=== PATIENT | female | born 1950 | race Caucasian/White ===

== ENCOUNTER 2016-03-05 18:51 | Emergency (ER) | payer MEDICARE ==
[~2016-03-05] VITALS: Ht 154.9 cm; Wt 64.0 kg
[~2016-03-05 18:51] MED LIST: ACTIGALL300 MG PO; ALBUTEROL0.09 MG/A2 IH; ATIVAN0.5 MG PO; ATIVAN1 MG PO; BACTRIM DS 8001 TA1 PO; BIAXIN500 MG PO; CALCIUM PO; CARVEDILOL12.5 MG PO; CEPHALEXIN500 M1 PO; CLARITIN10 MG PO; COMBIVENT1 ARO IH; COREG25 MG PO; DILANTIN100 MG PO; DIVALPROEX SOD500 MG PO; Depakote250 MG PO; EFFEXOR XR75 M1 PO; EFFEXOR-XR75 MG PO; EFFEXOR75 MG PO; EXFORGE 10 MG-31 TAB PO; FENTANYL TRANSDERMAL; FERROUS SULFATE; FLAGYL500 MG PO; HYDROCODONE BIT1 T11 PO; KEFLEX500 MG PO; KEPPRA500 MG PO; KLONOPIN2 M1 PO; KLONOPIN2 MG PO; LAMICTAL25 MG PO; LATANOPROST 2.2.5 ML OU; LIPITOR80 MG PO; LISINOPRIL40 MG PO; LOMOTIL 0.025 M1 TA1 PO; MEDROL DOSEPAK4 MG PO; METFORMIN500 MG PO; NORCO 5-325 TA1 EACH PO; NORCO 7.5-3251 EACH PO; NORVASC10 MG PO; OSCAL,OYSTER S500 MG PO; OYSTER SHELL C500 M2 PO; PERCOCET 325 MG1 TA6 PO; PERCOCET 325 MG1 TA7 PO; PREVACID30 M1 PO; PREVACID30 MG PO; PROAIR HFA0.09 MG/AC IH; ROBITUSSIN AC 110 ML PO; TRAMADOL HCL50 MG PO; TRAMADOL50 MG PO; TRAZADONE; URSODIOL300 MG PO; VENLAFAXINE75 MG PO; VIBRAMYCIN100 MG PO; VICO75300 PO; VIT D PO; VIT. C; VIT. E; VITAMIN C1 TAB PO; VOLTAREN50 MG PO; ZANTAC150 MG PO; ZITHROMAX Z PA250 MG PO; ZOFRAN ODT4 MG SL; ZOFRAN4 MG PO; ZYRTEC10 M2 PO; ZYRTEC10 MG PO; [UNRECOGNIZED DRUG - OTHER] PO; [UNRECOGNIZED DRUG - OTHER] TP
[2016-03-05 21:27] VITALS: BP 171/84
[2016-03-05] MEDS ORDERED: ACETAMINOPHEN-O1 TAB PO (21:33)
[2016-05-09] MEDS ORDERED: KEFLEX500 M1 PO (19:43)
[2016-05-09] MEDS ORDERED: NAPROSYN500 MG PO (19:43)
== END 2016-03-05 21:41 | disposition home or self-care (01) ==
LOC: ED 18:51
DX: S42.92XA Fracture of left shoulder girdle, part unspecified, initial encounter for closed fracture (principal); F41.9 Anxiety disorder, unspecified; Z90.710 Acquired absence of both cervix and uterus; Z90.49 Acquired absence of other specified parts of digestive tract; Z98.890 Other specified postprocedural states; Z88.1 Allergy status to other antibiotic agents; Z91.040 Latex allergy status; W01.0XXA Fall on same level from slipping, tripping and stumbling without subsequent striking against object, initial encounter; Y93.89 Activity, other specified; Y92.89 Other specified places as the place of occurrence of the external cause; Y99.9 Unspecified external cause status

== ENCOUNTER 2016-10-18 11:39 | Inpatient (IN) | payer MEDICARE ==
[~2016-10-18] VITALS: Ht 154.9 cm; Wt 61.7 kg
--- NOTE | ~2016-10-18 | CON ---
[place], [place] REPORT OF CONSULTATION NAME: ROJELIO HERNÁNDEZ UNIT #: [id number] ROOM: 530 DOCTOR: SKYLAR BEST MD BIRTHDATE: [birth year] DOS: 10/20/2016 HISTORY OF PRESENT ILLNESS: The patient was seen in evaluation of hyponatremia. She states that this has happened to her in the past. She is a very poor historian. She does not know any details of any of her medical history. She knows that she is followed by Dr. Reddy and gets pain medications 5 mg. She is not able to tell me any other reasons why she came to the hospital actually either. In review of the H and P in the Emergency Room notes, she presented with gait disturbance and a fall at home and significant weakness. She does have a history of epilepsy and does not know when her last seizure was. She states that she has very poor memory because of that. She states that she has been [facility] and was told she had very low sodiums at that time as well. She does not know if this was 2 years ago or 10 years ago though. In review of laboratories that we have available, she did have a very significant hyponatremia episode with level of 104 back in 07/2013. Subsequent labs in 10/2013 hospitalization showed a sodium 131, which improved to 136 to 140 during that hospital stay for the next few days. Later in that year, it was 137 and then it went back down to 129 before going back up to 137 and 138 and when she presented to the hospital, her sodium level was 122 and then subsequent days it was 129 and 133. She has been getting 40 mL an hour of normal saline and I placed her on a 1200 mL fluid restriction. From what I gathered from the nurses, she had not been eating very well here, suspect this has been carrying over at home. She states that her appetite is not great and she tends not to eat very well at times. She cannot elaborate on this for home at all any further. She is not on any thiazide. Seems no abnormal renal function. She is on lisinopril, carvedilol, amlodipine for blood pressure. She takes naproxen, Percocet and she is on venlafaxine as well. She is not followed by Nephrology, though I know her name somehow. She does seem to have a chart in our electronic medical record, but I do not see any office visits or billing encounters in the last 3-4 years. REVIEW OF SYSTEMS: Unable to obtain reliably from the patient as above. Poor memory, but whatever she does state is negative in all systems except for as mentioned in the HPI. PAST MEDICAL HISTORY: Seizure disorder, anemia, anxiety, depression, GERD, hypertension, hyperlipidemia, hyponatremia, pacemaker, diabetes. SOCIAL HISTORY: Negative for toxic habits per report. Was living at home. History of UTI. FAMILY HISTORY: Negative for renal failure. ALLERGIES: CIPRO, LEVOFLOXACIN, MOXIFLOXACIN, LATEX, and TAPE. HOME MEDICATIONS: Reviewed from the electronic medical record. PHYSICAL EXAMINATION: VITAL SIGNS: 136/69 to 108/50, 97.3, 80, 20, 96% on room air. GENERAL: She is awake, alert, age appropriate female in no acute [place], [place] REPORT OF CONSULTATION NAME: ROJELIO HERNÁNDEZ UNIT #: [id number] ROOM: [facility] DO[facility] Guilherme BIRTHDATE: [birth year] distress, lying comfortably at rest in bed. LUNGS: Clear to auscultation bilaterally. No audible rales, rhonchi or wheeze. CARDIOVASCULAR: Rate regular. No audible rub. No palpable lift or heave. HEAD AND NECK: Sclerae are anicteric. Oropharynx is clear. Mucous membranes are moist. EXTREMITIES: She has a right IJ central line which is clean, dry and intact dressing. EXTREMITIES: Without cyanosis, clubbing or edema. NEUROLOGIC: Gross motor function is intact. Sensation grossly intact. PSYCHIATRIC: Poor memory, insight limited. Affect is otherwise pleasant and appropriate. LABORATORY AND DIAGNOSTIC DATA: Sodium is up to 133. Again, it was 129 and 122 for the last 2 days. Potassium 3.9, chloride 102, bicarb 25, BUN 11, creatinine 0.57, glucose 105. A1c 5.9. Vitamin D 28. Folate 18. White blood cell count 10.8 down from 14; hemoglobin 10.8, platelets 447. Urinalysis is growing gram-negative rods. CBC is not yet identified. X-rays were reviewed. Chest radiograph clear. Head CT is negative for acute strokes. Microvascular leukoencephalopathy is noted. Thoracic spine and lumbar spine films are unremarkable. ASSESSMENT AND PLAN: 1. Hyponatremia. She has had a history of this in the past which was very severe. This was likely not necessarily chronic, but acute exacerbations on a recurrent basis. Etiology is not clear, but volume depletion seems the most likely at this time. 2. Hypertension is well controlled. 3. History of seizure disorder, stable at this time. No episodes or neurologic symptoms noted at this time. 4. Urinary tract infection, also on antibiotics at this time. PLAN: The serum sodium seems to be improving with low rate of isotonic IV fluids and gentle fluid restriction. I would encourage oral protein and solute intake if tolerated well and she can maintain intake. IV fluids can likely be stopped, but for now, would continue the current rate as it seems to be doing well and she does not appear in any volume overload distress. Thank you very much for the kind consultation. [place], [place] REPORT OF CONSULTATION NAME: ROJELIO HERNÁNDEZ UNIT #: [id number] ROOM: [facility] DOCTOR: SKYLAR BEST MD BIRTHDATE: [birth year] SKYLAR BEST MD CM:CONSTR:REPORT OF CONSULTATION 0647 10/20/16 1015 interface
--- NOTE | ~2016-10-18 | EKG ---
[place], [place] ELECTROCARDIOGRAM REPORT NAME: ROJELIO HERNÁNDEZ UNIT #: [id number] ROOM: [facility] DOCTOR: LEANNA SONG MD BIRTHDATE: [birth year] DOS: 10/18/2016 TIME: 1225 hours. Normal sinus rhythm at 82 beats per minute. The tracing is within normal limits. No previous tracing is available for comparison. LEANNA SONG MD CM:EKGRPT:ELECTROCARDIOGRAM REPORT [id number] LEANNA SONG MD
--- NOTE | ~2016-10-18 | PROC NOTE ---
[place], [place] PROCEDURE NOTE NAME: ROJELIO HERNÁNDEZ UNIT #: [id number] ROOM: [facility] DOCTOR: JOE SOLOMON DO BIRTHDATE: [birth year] DOS: 10/18/2016 TIME: 01:17 a.m. INDICATION: Loss of IV peripheral access, history of poor IV peripheral access, history of PICC line. A timeout was completed, verifying the correct patient, procedure, site, positioning, and ultrasound equipment was present. The patient was placed in a Trendelenburg position. The patient was checked with an ultrasound for good IJ target before the procedure was started. Once a good target was found, the patient signed informed consent and the patient was properly prepped and draped in sterile field. Lidocaine 1% was used, about 3 mL of lidocaine was used to numb the surrounding area. The guidewire was introduced under ultrasound guidance and then a triple-lumen was introduced over the guidewire into the right internal jugular vein, each of lumen was properly flushed before the procedure and a good flashback of blood was seen in each lumen and then was properly flushed and capped. The lumen was sutured in place to the skin and sterile dressing was applied. A chest x-ray showed no pneumothorax. The triple lumen was in the SVC. Estimated blood loss was negligible. The patient tolerated the procedure well and there were no complications. JOE SOLOMON DO RADHA GALINDO DO CM:PROCNOTE:PROCEDURE NOTE [id number] JOE SOLOMON DO
[~2016-10-18 11:39] MED LIST changes: +ACETAMINOPHEN-O1 TAB PO; +KEFLEX500 M1 PO; +NAPROSYN500 MG PO
[2016-10-18 11:44] VITALS: BP 113/61
[2016-10-18 12:12] VITALS: BP 122/75
[2016-10-18 12:28] LABS: BASO % 0.3 % (0.0-1.0); EOS # 0.1 10*3/uL (0.0-0.4); HEMATOCRIT 31.5 % (37.0-47.0); HEMOGLOBIN 10.6 g/dl (12.0-16.0); LYMPH # 3.4 10*3/uL (1.3-4.4); LYMPH % 23.5 % (27.0-41.0); MEAN CELL VOLUME 87.7 fl (81.0-99.0); MEAN CORPUSCULAR HGB 29.5 pg (27.0-31.0); MEAN CORPUSCULAR HGB CONC 33.7 g/dl (33.0-37.0); MEAN PLATELET VOLUME 9.2 fl (9.6-12.3); MONO # 1.1 10*3/uL (0.1-1.0); MONO % 7.4 % (3.0-9.0); NEUT # 9.6 10*3/uL (2.3-7.9); NEUT % 66.6 % (47.0-73.0); PLATELET COUNT AUTOMATED 463 10*3/uL (130-400); RED BLOOD COUNT 3.59 10*6/uL (4.10-5.10); RED CELL DISTRI WIDTH 14.2 % (0-14.5); WHITE BLOOD COUNT 14.5 10*3/uL (4.8-10.8)
[2016-10-18 12:46] LABS: ALBUMIN 3.7 gm/dl (3.1-4.5); ALKALINE PHOSPHATASE 91 U/L (45-117); BUN 22 mg/dl (7-24); CHLORIDE 96 mmol/L (98-107); CREATININE 0.84 mg/dL (0.55-1.02); POTASSIUM 4.4 mmol/L (3.5-5.1); SGOT/AST 19 IU/L (3-35); SGPT/ALT 30 U/L (12-78); SODIUM 122 mmol/L (136-145); TOTAL PROTEIN 6.7 gm/dL (6.4-8.2)
[2016-10-18 12:47] LABS: TROPONIN I < 0.015 ng/ml (<0.045)
[2016-10-18 13:41] VITALS: BP 132/74
[2016-10-18 14:13] LABS: BILIRUBIN NEGATIVE (NEGATIVE); BLOOD NEGATIVE (NEGATIVE); CLARITY SL CLOUDY (CLEAR); COLOR YELLOW (YELLOW); GLUCOSE NEGATIVE (NEGATIVE); KETONE NEGATIVE (NEGATIVE); LEUKO ESTERASE 2+ (NEGATIVE); NITRITE POSITIVE (NEGATIVE); SPECIFIC GRAVITY 1.025 (1.005-1.030); UROBILINOGEN 0.2 E.U./dl (0.2-1.0)
[2016-10-18 14:23] LABS: BACTERIA 4+; RBC 0-2 rbc/hpf (0-2)
[2016-10-18 14:55] VITALS: BP 140/80
--- NOTE | 2016-10-18 14:58 | NUR ---
A 66, admitted to [facility], under the services of RADHA Elmore DO with a diagnosis of UTI, HYPONATREMIA, UNABLE TO AMBULATE. Chief complaint is WEAKNESS, INCREASE IN CONFUSION. Patient arrived via ambulance from ER. Monitor applied. Initial assessment completed. Vital signs taken and recorded. RADHA ELMORE DO notified of admission to the unit. Orders received. See assessment for past medical history, medications and allergies. Patient and/or family oriented to unit. [facility] visitation policy reviewed. Clothing/patient valuable form completed. ROSI ANDINO
--- NOTE | 2016-10-18 15:22 | NUR ---
MEDS VERIFIED VIA PHARMACY
--- NOTE | 2016-10-18 15:40 | NUR ---
PATIENT TAKEN TO 5TH FLOOR BY LOUIS MARTÍNEZ AT THIS TIME. ROSI WALLACE HAS BEEN GIVEN REPORT.
[2016-10-18 15:51] VITALS: BP 132/74
[2016-10-18 20:00] VITALS: BP 131/76
--- NOTE | 2016-10-18 20:45 | NUR ---
PATIENT REQUESTING MEDICATION FOR PAIN. PO NORCO ADMINISTERED PER PRN ORDER FOR C/O GENERALIZED BACK/NECK/"WHOLE BODY PAIN" THAT SHE RATES /10. WILL MONITOR EFFECTIVENESS.
--- NOTE | 2016-10-18 23:05 | NUR ---
AWARE THAT LAC IV INFILTRATED AND THAT MULTIPLE RNs UNABLE TO GET IV SITE. FLUIDS ARE NOT CURRENTLY RUNNING. AWARE OF SODIUM LEVEL 122. INSTRUCTED TO HAVE ICU NURSE ATTEMPT AND CALL BACK IF UNSUCCESSFUL.
[2016-10-19] VITALS: BP 125/71
--- NOTE | 2016-10-19 00:15 | NUR ---
AWARE THAT MULTIPLE RNs STILL UNABLE TO START NEW IV SITE. NO NEW ORDERS RECEIVED AT THIS TIME.
--- NOTE | 2016-10-19 00:23 | NUR ---
CALLED BACK. INSTRUCTED TO HAVE PATIENT SIGN INFORMED CONSENT FOR CENTRAL LINE.
--- NOTE | 2016-10-19 01:51 | NUR ---
NOTIFIED OF CHEST XRAY RESULTS. OKAY TO USE RIGHT IJ TRIPLE LUMEN PER .
--- NOTE | 2016-10-19 01:57 | NUR ---
IV MORPHINE ADMINISTERED SLOWLY PER PRN ORDER FOR C/O GENERALIZED "ALL OVER PAIN." WILL MONITOR EFFECTIVENESS. CALL LIGHT LEFT WITHIN REACH. FLUIDS RUNNING. BED LOCKED IN LOW POSITION.
--- NOTE | 2016-10-19 05:03 | NUR ---
NOTIFIED OF HX OF NON-INSULIN DEPENDENT DM. GLUCOPHAGE ORDERED FOR AM. NO BSG CHECKS ORDERED AT THIS TIME. NEW ORDERS TO FOLLOW.
[2016-10-19 06:00] LABS: ALKALINE PHOSPHATASE 92 U/L (45-117); BUN 13 mg/dl (7-24); CHLORIDE 97 mmol/L (98-107); CHOLESTEROL 131 mg/dL (<200); CREATININE 0.58 mg/dL (0.55-1.02); HDL CHOLESTEROL 55 mg/dl (40-60); LDL CHOLESTEROL 35 mg/dL (9-159); MAGNESIUM 1.5 mg/dL (1.5-2.1); PHOSPHOROUS 3.1 mg/dL (2.5-4.9); SGOT/AST 20 IU/L (3-35); SGPT/ALT 32 U/L (12-78); SODIUM 129 mmol/L (136-145); TOTAL PROTEIN 7.3 gm/dL (6.4-8.2); TRIGLYCERIDES 205 mg/dl (<150); VLDL CHOLESTEROL 41 mg/dL (6-40)
[2016-10-19 06:06] LABS: THYROID STIM HORMONE (HS) 0.594 uIU/ml (0.358-4.75)
[2016-10-19 06:13] LABS: BASO % 0.3 % (0.0-1.0); EOS # 0.1 10*3/uL (0.0-0.4); EOS % 1.1 % (1.0-4.0); HEMATOCRIT 34.2 % (37.0-47.0); HEMOGLOBIN 11.4 g/dl (12.0-16.0); LYMPH # 3.3 10*3/uL (1.3-4.4); LYMPH % 25.4 % (27.0-41.0); MEAN CELL VOLUME 87.2 fl (81.0-99.0); MEAN CORPUSCULAR HGB 29.1 pg (27.0-31.0); MEAN CORPUSCULAR HGB CONC 33.3 g/dl (33.0-37.0); MEAN PLATELET VOLUME 10.2 fl (9.6-12.3); MONO % 7.7 % (3.0-9.0); NEUT # 8.5 10*3/uL (2.3-7.9); NEUT % 64.8 % (47.0-73.0); PLATELET COUNT AUTOMATED 450 10*3/uL (130-400); RED BLOOD COUNT 3.92 10*6/uL (4.10-5.10); RED CELL DISTRI WIDTH 13.9 % (0-14.5); WHITE BLOOD COUNT 13.1 10*3/uL (4.8-10.8)
[2016-10-19 08:00] VITALS: BP 132/66
[2016-10-19 08:09] LABS: VITAMIN D, 25-HYDROXY 27.7 ng/mL (30-100)
--- NOTE | 2016-10-19 09:04 | NUR ---
MEDICATED WITH PRN NORCO ORDERED FOR C/O BACK PAIN RATED AN 8. OTHERWISE PATIENT HAS NO OTHER COMPLAINTS. NO SXS OF DISTRESS. SEE ASSESSMENT. FLUIDS MAINTAINED PER ORDER. CALL LIGHT IN REACH
--- NOTE | 2016-10-19 10:25 | NUR ---
PATIENT STATES THAT EARLIER NORCO WAS EFFECTIVE WITH HER BACK PAIN.
[2016-10-19 11:55] VITALS: BP 107/53
--- NOTE | 2016-10-19 13:20 | NUR ---
PATIENT IS SLEEPING IN HER ROOM. CALL LIGHT IN REACH. NO SXS OF DISTRESS AT THIS TIME. RESPIRATIONS EASY/REGULAR. FLUIDS MAINTAINED PER ORDER. WILL MONITOR.
--- NOTE | 2016-10-19 14:37 | NUR ---
ANSWERING SERVICE WAS NOTIFIED OF DR. NASIR COSTA. RESPONSE OF NOTIFICATION WAS OKAY I'LL SEND THAT OVER. SHANNAN GARCIA
[2016-10-19 16:00] VITALS: BP 120/56
--- NOTE | 2016-10-19 16:12 | NUR ---
MEDICATED WITH PRN NORCO ORDERED FOR C/O BACK PAIN AT AN 8.
--- NOTE | 2016-10-19 17:15 | NUR ---
PATIENT STATES EARLIER VIVIENNE TOOK THE EDGE OFF HER PAIN A LITTLE BIT. SHE IS RESTING IN BED, NO SXS OF DISTRESS. FLUIDS MAINTAINED PER ORDED. CALL LIGHT IN REACH.
--- NOTE | 2016-10-19 18:28 | NUR ---
PATIENT MEDICATED WITH PRN KLONOPIN ORDERED FOR C/O ANXIETY.
[2016-10-19 20:00] VITALS: BP 108/50
[2016-10-20] VITALS: BP 136/69; BP 136/79
--- NOTE | 2016-10-20 00:30 | NUR ---
Patient resting quietly with no c/o discomfort. Respirations easy and regular. Vital signs stable. No overt distress. [facility] R
[2016-10-20 05:56] LABS: BASO # 0.1 10*3/uL (0.0-0.1); BASO % 0.5 % (0.0-1.0); EOS # 0.1 10*3/uL (0.0-0.4); EOS % 1.2 % (1.0-4.0); HEMATOCRIT 32.3 % (37.0-47.0); HEMOGLOBIN 10.8 g/dl (12.0-16.0); LYMPH # 3.1 10*3/uL (1.3-4.4); LYMPH % 28.9 % (27.0-41.0); MEAN CELL VOLUME 89.5 fl (81.0-99.0); MEAN CORPUSCULAR HGB 29.9 pg (27.0-31.0); MEAN CORPUSCULAR HGB CONC 33.4 g/dl (33.0-37.0); MEAN PLATELET VOLUME 9.4 fl (9.6-12.3); MONO % 9.2 % (3.0-9.0); NEUT # 6.4 10*3/uL (2.3-7.9); NEUT % 59.6 % (47.0-73.0); PLATELET COUNT AUTOMATED 447 10*3/uL (130-400); RED BLOOD COUNT 3.61 10*6/uL (4.10-5.10); RED CELL DISTRI WIDTH 14.4 % (0-14.5); WHITE BLOOD COUNT 10.8 10*3/uL (4.8-10.8)
[2016-10-20 06:06] LABS: BUN 11 mg/dl (7-24); CHLORIDE 102 mmol/L (98-107); CREATININE 0.57 mg/dL (0.55-1.02); POTASSIUM 3.9 mmol/L (3.5-5.1); SODIUM 133 mmol/L (136-145)
--- NOTE | 2016-10-20 06:20 | NUR ---
DR BEST IN TO SEE PT.
[2016-10-20 08:00] VITALS: BP 126/72
--- NOTE | 2016-10-20 08:06 | NUR ---
PATIENT SLEEPING QUIETLY IN BED. AROUSES EASILY. RESPIRATIONS EASY, REGULAR ON RA. NO DISTRESS NOTED. IVF MAINTAINED PER ORDER. WILL CONTINUE TO MONITOR. CALL LIGHT WITHIN REACH.
--- NOTE | 2016-10-20 08:21 | NUR ---
PT REQUESTED NORCO PO PER PRN ORDER FOR C/O ALL OVER PAIN/DISCOMFORT. RATES PAIN 8/10. CHRONIC PAIN PER PT. WILL MONITOR EFFECTIVENESS.
--- NOTE | 2016-10-20 10:18 | NUR ---
PT REQUESTED PO KLONIPIN PER PRN ORDER FOR C/O ANXIETY. WILL MONITOR EFFECTIVENESS. CALL LIGHT WITHIN REACH.
--- NOTE | 2016-10-20 10:42 | NUR ---
NOTIFIED REGARDING PATIENT'S REQUEST FOR PERCOCET RATHER THAN NORCO. AWAITING PHYSICIAN ORDERS.
--- NOTE | 2016-10-20 11:30 | NUR ---
IN TO SEE PATIENT.
--- NOTE | 2016-10-20 11:50 | NUR ---
SCHEDULED PERCOCET GIVEN AT THIS TIME PER ORDER. WILL MONITOR MEDICATION EFFECTIVENESS.
[2016-10-20 12:00] VITALS: BP 128/74
--- NOTE | 2016-10-20 13:00 | NUR ---
PAIN BEING SLIGHTLY RELIEVED PER PT. WILL CONTINUE TO MONITOR.
--- NOTE | 2016-10-20 14:02 | NUR ---
PT MEDICATED WITH IV MORPHINE SLOWLY PER PRN ORDER FOR C/O ALL OVER PAIN/DISCOMFORT. RATES PAIN 8/10. CHRONIC PAIN PER PT. WILL MONITOR EFFECTIVENESS. CALL LIGHT WITHIN REACH.
[2016-10-20] MEDS ORDERED: VITAMIN D31000 UNI1 PO (14:18)
[2016-10-20] MEDS ORDERED: DOXYCYCLINE100 M3 PO (14:19)
--- NOTE | 2016-10-20 15:00 | NUR ---
PAIN BEING RELIEVED PER PT. WILL CONTINUE TO MONITOR.
[2016-10-20 16:00] VITALS: BP 108/56
--- NOTE | 2016-10-20 17:55 | NUR ---
PT GIVEN PO KLONIPIN AND PO NORCO AT THIS TIME PER PRN ORDER FOR C/O ANXIETY AND BACK PAIN. CHRONIC PAIN PER PT. RATES PAIN 10/10. WILL MONITOR EFFECTIVENESS. VSS. CALL LIGHT WITHIN REACH.
[2016-10-20 20:00] VITALS: BP 114/68
--- NOTE | 2016-10-20 20:20 | NUR ---
RESP EASY AND NONLABORED ON RA. IVF INFUSING PER ORDERS. PT REQUESTED MORPHINE IV FOR C/O BACK PAIN. CALL LIGHT IN REACH. WILL MONITOR
--- NOTE | 2016-10-20 21:30 | NUR ---
PT STATES MEDICATION EFFECTIVE. WILL MONITOR
[2016-10-21] VITALS: BP 107/62
[2016-10-21 08:00] VITALS: BP 134/60
--- NOTE | 2016-10-21 09:28 | NUR ---
Denture Processor in to talk to patient. Patient states lives at home with alone. There are few steps in the home. Physician: shayne [facility]: [facility] [place] health services: none Patient's level of ADLs: MINIMAL ASSIST Patient has working utilities: all working DME: none Follow-up physician's appointment after d/c: will be made by hospitalist nurse director upon discharge Does patient want to access PORTAL?: no Discharge plan discussed with patient, patient lives at home alone, she states she doesn't use a cane or walker, she also states she has had numerous falls at home, she has a daughter that takes her to get groceries, discussed with her a short term jail for rehab prior to going back home, patient wasn't receptive to this, asked that she see what physical therapy recommends and if they recommend SNF that she think about it, patient stated she would see what PT recommends, case management will follow. CIARA KOHLI
--- NOTE | 2016-10-21 11:58 | NUR ---
Met with Preethi and her daughter. She will be going home today. Order for home health service. Daughter requested [facility]. Also gave information to Preethi of [facility]. Daughter if familiar with the programs. Referral made to [facility].
[2016-10-21 12:00] VITALS: BP 130/56
--- NOTE | 2016-10-21 12:20 | NUR ---
PHYSICAL THERAPY PAtient evaluated on 5, full evaluation to follow. D/C PT after evaluation. Patient 100 % (I) all functional mobility. PAtient agrees. Home with home health Rn as needed. PAtient is low complexity via chart review, tests and evaluation: 51272. Thank you for this referral. Eladia Hooks,PT
--- NOTE | 2016-10-21 13:40 | NUR ---
Discharge instructions reviewed with patient/family. Patient receptive and verbalizes understanding. Follow-up care arranged. Written instructions given to patient/family. YESENIA GALLEGOS
--- NOTE | 2016-10-22 13:55 | NUR ---
Late note: RODRIGO Mcmillan from [facility] called and stated she went to the patients home to perform an admission, patient stated she only asked for aide services, not fci and sent RN away. Unable to admit.
== END 2016-10-21 13:40 | disposition home or self-care (01) | DRG 690 ==
LOC: ED 11:39 → EDHOLD 14:39 → 5E 14:39
PROVIDERS: Emergency Medicine; ADMIT Internal Medicine
PROC: B548ZZA Ultrasonography of Superior Vena Cava, Guidance (ICD-10-PCS; principal; 2016-10-18)
PROC: 02HV33Z Insertion of Infusion Device into Superior Vena Cava, Percutaneous Approach (ICD-10-PCS; principal; 2016-10-18)
DX: N39.0 Urinary tract infection, site not specified (principal); E87.1 Hypo-osmolality and hyponatremia; I10 Essential (primary) hypertension; E11.9 Type 2 diabetes mellitus without complications; F32.9 Major depressive disorder, single episode, unspecified; B96.20 Unspecified Escherichia coli [E. coli] as the cause of diseases classified elsewhere; D47.3 Essential (hemorrhagic) thrombocythemia; D64.9 Anemia, unspecified; E78.5 Hyperlipidemia, unspecified; K21.9 Gastro-esophageal reflux disease without esophagitis; F41.9 Anxiety disorder, unspecified; G89.29 Other chronic pain; M54.5 Low back pain; G40.909 Epilepsy, unspecified, not intractable, without status epilepticus; E86.9 Volume depletion, unspecified; Z88.1 Allergy status to other antibiotic agents; Z91.040 Latex allergy status; Z91.048 Other nonmedicinal substance allergy status; Z79.899 Other long term (current) drug therapy; Z87.81 Personal history of (healed) traumatic fracture; Z87.01 Personal history of pneumonia (recurrent); Z90.710 Acquired absence of both cervix and uterus; Z90.49 Acquired absence of other specified parts of digestive tract; Z83.3 Family history of diabetes mellitus; Z82.49 Family history of ischemic heart disease and other diseases of the circulatory system; Z82.3 Family history of stroke; Z95.0 Presence of cardiac pacemaker; Z79.84 Long term (current) use of oral hypoglycemic drugs

== ENCOUNTER 2016-11-17 09:28 | Emergency (ER) | payer MEDICARE ==
[~2016-11-17] VITALS: Ht 154.9 cm; Wt 65.3 kg
[~2016-11-17 09:28] MED LIST changes: +DOXYCYCLINE100 M3 PO; +VITAMIN D31000 UNI1 PO
[2016-11-17 09:45] VITALS: BP 134/91
[2016-11-17 10:28] LABS: BILIRUBIN 1+ (NEGATIVE); BLOOD NEGATIVE (NEGATIVE); CLARITY SL CLOUDY (CLEAR); COLOR YELLOW (YELLOW); GLUCOSE NEGATIVE (NEGATIVE); KETONE NEGATIVE (NEGATIVE); LEUKO ESTERASE 2+ (NEGATIVE); NITRITE NEGATIVE (NEGATIVE); PH 5.5 (5.0-9.0); UROBILINOGEN 0.2 E.U./dl (0.2-1.0)
[2016-11-17 10:47] LABS: BACTERIA 2+; RBC 0-2 rbc/hpf (0-2)
[2016-11-17] MEDS ORDERED: BACTRIM 400-801 EACH PO (11:04)
[2016-11-17] MEDS ORDERED: PYRIDIUM200 M1 PO (11:04)
== END 2016-11-17 11:04 | disposition home or self-care (01) ==
LOC: ED 09:28
PROVIDERS: Family Medicine Adult Medicine
DX: N39.0 Urinary tract infection, site not specified (principal); I10 Essential (primary) hypertension; E11.9 Type 2 diabetes mellitus without complications; K21.9 Gastro-esophageal reflux disease without esophagitis; E78.5 Hyperlipidemia, unspecified; Z88.1 Allergy status to other antibiotic agents; Z91.040 Latex allergy status; Z79.899 Other long term (current) drug therapy; Z87.891 Personal history of nicotine dependence

== ENCOUNTER → 2016-12-23 | Outpatient (CLI) | payer MEDICARE ==
[~2016-12-23] MED LIST changes: +BACTRIM 400-801 EACH PO; +PYRIDIUM200 M1 PO
== END | disposition home or self-care (01) ==
LOC: LAB 13:26
DX: G40.919 Epilepsy, unspecified, intractable, without status epilepticus (principal)

== ENCOUNTER 2016-12-28 23:56 | Emergency (ER) | payer MEDICARE ==
[2016-12-29] MEDS ORDERED: AVPAK AZITHROM250 M1 PO (00:48)
[2016-12-29 01:11] VITALS: BP 173/71
[2016-12-29] MEDS ORDERED: NAPROSYN500 MG PO (01:13)
== END 2016-12-29 01:48 | disposition home or self-care (01) ==
LOC: ED 23:56
DX: M54.2 Cervicalgia (principal); M54.9 Dorsalgia, unspecified; F41.9 Anxiety disorder, unspecified; E11.9 Type 2 diabetes mellitus without complications; K21.9 Gastro-esophageal reflux disease without esophagitis; I10 Essential (primary) hypertension; E78.5 Hyperlipidemia, unspecified; Z90.49 Acquired absence of other specified parts of digestive tract; Z90.710 Acquired absence of both cervix and uterus; Z87.891 Personal history of nicotine dependence; Z91.040 Latex allergy status; Z88.1 Allergy status to other antibiotic agents; Z79.84 Long term (current) use of oral hypoglycemic drugs; Z79.899 Other long term (current) drug therapy

== ENCOUNTER 2017-01-09 13:12 | Emergency (ER) | payer MEDICARE ==
[~2017-01-09] VITALS: Ht 154.9 cm; Wt 61.2 kg
[~2017-01-09 13:12] MED LIST changes: +AVPAK AZITHROM250 M1 PO
[2017-01-09 13:17] VITALS: BP 111/63
[2017-01-09] MEDS ORDERED: NAPROSYN500 MG PO (13:40)
== END 2017-01-09 13:30 | disposition home or self-care (01) ==
LOC: ED 13:12
DX: M54.2 Cervicalgia (principal); E11.9 Type 2 diabetes mellitus without complications; K21.9 Gastro-esophageal reflux disease without esophagitis; I10 Essential (primary) hypertension; E78.5 Hyperlipidemia, unspecified; Z90.710 Acquired absence of both cervix and uterus; Z90.49 Acquired absence of other specified parts of digestive tract; Z87.891 Personal history of nicotine dependence; Z79.899 Other long term (current) drug therapy; Z88.1 Allergy status to other antibiotic agents; Z91.040 Latex allergy status; Z88.8 Allergy status to other drugs, medicaments and biological substances; W19.XXXA Unspecified fall, initial encounter; Y93.89 Activity, other specified; Y92.89 Other specified places as the place of occurrence of the external cause; Y99.9 Unspecified external cause status

== ENCOUNTER 2017-01-14 23:32 | Inpatient (IN) | payer MEDICARE ==
[~2017-01-14] VITALS: Ht 124.4 cm; Wt 64.6 kg
--- NOTE | ~2017-01-14 | CON ---
[place], [place] REPORT OF CONSULTATION NAME: ROJELIO [facility]NDEZ [id number] UNIT #: [id number] ROOM: 409 DOCTOR: VINOD HERNANDEZ MD BIRTHDATE: [birth year] DOS: 01/16/2017 CHIEF COMPLAINT: "I just had the shaking episodes, I do not know what is happening." HISTORY OF PRESENT ILLNESS: This is a 66-year-old white female who presented to the Emergency Room at [facility] via EMS complaining of having 12-15 seizures on the day of admission. The patient reports that she had fallen and hit her head and following that began having these severe shaking episodes. She was awake and alert and aware of them. She reports having been told she has had seizures in the past; however, her description of the seizure seems inconsistent. She has seen Dr. Reyes at [facility] in the past and will be following up at [facility] in [place]. From a psychiatric standpoint, the patient sees Dr. Trevino and is prescribed Effexor XR 150 mg a day. She also sees a counselor in his office. She is happy with the current psychotropic regimen and feels that it has been effective at treating her depression. Her sleep is reported as normal. Her only complaint was that she has a poor appetite. She was somewhat vague whether this was due to lack of desire or lack of taste. She denies crying spells. She denies suicidal thoughts or homicidal thoughts. She denies medication side effects. PAST MEDICAL HISTORY: Remarkable for GERD, hiatal hernia, hypertension, hyperlipidemia, anemia, morbid obesity, vitamin D deficiency, prediabetes and possible seizure disorder. MENTAL STATUS: She is alert and oriented with mild time gaps. Mood does seem to be euthymic. Affect is appropriate. There is no symptom suggestive of bernabe or hypomania; likewise there are no overt auditory or visual hallucinations. No delusions, no paranoia. For the most part, memory is intact. DIAGNOSIS: Major depression, recurrent. PLAN: I will maintain her Effexor XR at 150 mg a day as she reports she is happy with this and does not want changes. I will add zinc sulfate 220 mg a day to improve her sense of taste. I have ordered a prolactin level to see if it is elevated to help you determine whether or not this is a true seizure or pseudoseizure. At this point, I have no criteria for psychiatric admission and feel that she could be discharged once you feel that she is medically stable. [place], [place] REPORT OF CONSULTATION NAME: ROJELIO HERNÁNDEZ UNIT #: [id number] ROOM: [facility] DOCTOR: VINOD HERNANDEZ MD BIRTHDATE: [birth year] VINOD HERNANDEZ MD CM:CONSTR:REPORT OF CONSULTATION 4 01/16/17 0950 interface
[2017-01-14 23:32] VITALS: BP 123/64
[2017-01-15 00:16] LABS: BASO # 0.1 10*3/uL (0.0-0.1); BASO % 0.6 % (0.0-1.0); EOS # 0.3 10*3/uL (0.0-0.4); EOS % 2.7 % (1.0-4.0); HEMATOCRIT 27.3 % (37.0-47.0); HEMOGLOBIN 8.7 g/dl (12.0-16.0); LYMPH # 2.3 10*3/uL (1.3-4.4); LYMPH % 24.2 % (27.0-41.0); MEAN CELL VOLUME 93.8 fl (81.0-99.0); MEAN CORPUSCULAR HGB 29.9 pg (27.0-31.0); MEAN CORPUSCULAR HGB CONC 31.9 g/dl (33.0-37.0); MEAN PLATELET VOLUME 10.1 fl (9.6-12.3); MONO # 1.1 10*3/uL (0.1-1.0); MONO % 12.2 % (3.0-9.0); NEUT # 5.6 10*3/uL (2.3-7.9); NEUT % 59.9 % (47.0-73.0); PLATELET COUNT AUTOMATED 300 10*3/uL (130-400); RED BLOOD COUNT 2.91 10*6/uL (4.10-5.10); RED CELL DISTRI WIDTH 15.4 % (0-14.5); WHITE BLOOD COUNT 9.3 10*3/uL (4.8-10.8)
[2017-01-15 00:46] LABS: ALBUMIN 3.6 gm/dl (3.1-4.5); ALKALINE PHOSPHATASE 83 U/L (45-117); BUN 21 mg/dl (7-24); CHLORIDE 94 mmol/L (98-107); CREATININE 1.14 mg/dL (0.55-1.02); POTASSIUM 3.8 mmol/L (3.5-5.1); SGOT/AST 18 IU/L (3-35); SGPT/ALT 17 U/L (12-78); SODIUM 132 mmol/L (136-145); TOTAL PROTEIN 6.9 gm/dL (6.4-8.2)
[2017-01-15 00:51] LABS: TROPONIN I < 0.015 ng/ml (<0.045)
[2017-01-15 02:45] VITALS: BP 128/54
[2017-01-15 03:28] LABS: BILIRUBIN NEGATIVE (NEGATIVE); BLOOD NEGATIVE (NEGATIVE); CLARITY SL CLOUDY (CLEAR); COLOR YELLOW (YELLOW); GLUCOSE NEGATIVE (NEGATIVE); KETONE NEGATIVE (NEGATIVE); LEUKO ESTERASE 2+ (NEGATIVE); NITRITE NEGATIVE (NEGATIVE); UROBILINOGEN 0.2 E.U./dl (0.2-1.0)
[2017-01-15 03:33] LABS: BACTERIA 3+
[2017-01-15 03:35] LABS: WBC 16-20 wbc/hpf (0-5)
[2017-01-15 04:00] VITALS: BP 126/58
[2017-01-15 04:03] LABS: CPK 111 U/L (26-192)
[2017-01-15 04:05] LABS: TROPONIN I < 0.015 ng/ml (<0.045)
--- NOTE | 2017-01-15 04:40 | NUR ---
DR. GALLARDO NOTIFIED OF FITTING ROOM MAINTENANCE MECHANIC AND LATEST BLOODSUGAR REQUESTED.
[2017-01-15 06:32] LABS: BASO # 0.1 10*3/uL (0.0-0.1); EOS # 0.3 10*3/uL (0.0-0.4); EOS % 3.6 % (1.0-4.0); HEMATOCRIT 29.7 % (37.0-47.0); HEMOGLOBIN 9.5 g/dl (12.0-16.0); LYMPH # 2.4 10*3/uL (1.3-4.4); LYMPH % 33.1 % (27.0-41.0); MEAN CELL VOLUME 95.8 fl (81.0-99.0); MEAN CORPUSCULAR HGB 30.6 pg (27.0-31.0); MEAN PLATELET VOLUME 10.2 fl (9.6-12.3); MONO # 1.2 10*3/uL (0.1-1.0); MONO % 16.8 % (3.0-9.0); NEUT # 3.3 10*3/uL (2.3-7.9); NEUT % 45.2 % (47.0-73.0); PLATELET COUNT AUTOMATED 293 10*3/uL (130-400); RED CELL DISTRI WIDTH 15.2 % (0-14.5); WHITE BLOOD COUNT 7.3 10*3/uL (4.8-10.8)
[2017-01-15 06:34] LABS: VITAMIN D, 25-HYDROXY 25.4 ng/mL (30-100)
[2017-01-15 06:49] LABS: ALBUMIN 3.4 gm/dl (3.1-4.5); ALKALINE PHOSPHATASE 81 U/L (45-117); BUN 17 mg/dl (7-24); CHLORIDE 95 mmol/L (98-107); PHOSPHOROUS 3.8 mg/dL (2.5-4.9); POTASSIUM 3.9 mmol/L (3.5-5.1); SGOT/AST 21 IU/L (3-35); SGPT/ALT 16 U/L (12-78); SODIUM 133 mmol/L (136-145); TOTAL PROTEIN 6.7 gm/dL (6.4-8.2)
--- NOTE | 2017-01-15 07:30 | NUR ---
PATIENT SUPINE IN BED, VIOLA HAS NO VERBAL COMPLAINTS AT THIS TIME. CALL LIGHT WITH IN REACH. EDUCATED NOT TO GET OUT OF BED WITHOUT ASSISTANCE. ANNY CLEMENTCC
[2017-01-15 07:40] VITALS: BP 126/72
--- NOTE | 2017-01-15 08:34 | NUR ---
OFFERED BREAKFAST, PATIENT REFUSING AT THIS TIME ANNY BURDEN [facility]
--- NOTE | 2017-01-15 09:23 | NUR ---
Research Tech in to talk to patient. Patient states lives at home with alone. There are few steps in the home. Physician: shayne [facility]: [facility] [place] health services: none Patient's level of ADLs: MINIMAL ASSIST Patient has working utilities: all working DME: Follow-up physician's appointment after d/c: will be made by hospitalist nurse director upon discharge Does patient want to access PORTAL?: no Discharge plan discussed with patient's daughter Cassandra, Cassandra stated that her mom lives alone, and has been falling lately due to seizures, also discussed with her a short term [facility] for rehab prior to going back home, daughter was inagreement with this and chose [facility] as first choice and [facility] as second choice, referral will be made to both facitilies by senior production planner/clinical social work aide. case management will follow. CIARA KOHLI
[2017-01-15] MEDS ORDERED: FEOSOL325 MG PO (09:51)
--- NOTE | 2017-01-15 10:00 | NUR ---
PT IS RESTING IN BED, ON LEFT SIDE, VISITING WITH FAMILY MEMBER, CALL LIGHT WITHIN REACH. [facility]
[2017-01-15 12:00] VITALS: BP 146/69
--- NOTE | 2017-01-15 12:17 | NUR ---
PT IS RESTING IN BED, CALL LIGHT IN REACH. [facility]
--- NOTE | 2017-01-15 12:22 | NUR ---
PHYSICAL THERAPY PAtient resting peacefully. Nurse and PT discussed patient/case. Will let patient rest at this time and intiate PT tomorrow as appropriate. Thank you for this referral. Eladia Malhotra,PT
--- NOTE | 2017-01-15 13:27 | NUR ---
PATIENT IS RESTING IN BED, SLEEPING. VANNESSA RIVERO [facility]
--- NOTE | 2017-01-15 14:05 | NUR ---
LEFT MESSAGE WITH DR. HERNANDEZ IN REFERANCE TO CONSULT.
[2017-01-15 16:00] VITALS: BP 130/56
[2017-01-15 20:00] VITALS: BP 128/48
--- NOTE | 2017-01-15 22:34 | NUR ---
PATIENT REQUESTED AND WAS MEDICATED WITH KLONOPIN 2 MG PO PER PRN ORDER FOR ANXIETY. SEE EMAR. REINFORCED USE OF CALL LIGHT.
[2017-01-16] VITALS: BP 121/48
--- NOTE | 2017-01-16 | NUR ---
PATIENT RESTING QUIETLY. NO FURTHER C/O VOICED.
[2017-01-16 07:49] VITALS: BP 136/88
--- NOTE | 2017-01-16 07:49 | NUR ---
PATIENT IS RESTING IN BED, NO COMPLAINTS OF PAIN. VANNESSA RIVERO [facility]
--- NOTE | 2017-01-16 08:54 | NUR ---
Patient requested referral be made to 1. [facility] or 2. [facility]. Referrals faxed to both locations, waiting on acceptance.
--- NOTE | 2017-01-16 09:16 | NUR ---
Occupational Therapy evaluation completed this date on 4 with full eval to follow. Precautions include fall precautions,h/o multiple falls, seizures, chronic neck pain, moderate complexity level 59924,bed alarm, o2 continuous. Recommend OT per POC and short term SNF to enable return home alone at independent level. Thank you for this referral. Corinne Cottrell OTR/L
--- NOTE | 2017-01-16 09:16 | NUR ---
PHYSICAL THERAPY PAtient on 4, full evaluation to follow. Continue with PT as pe rplan of care with fall, recent multiple seizures and bed alarm precautions. PAtient is moderate complexity via chart review, tests and evaluation: 65672. Thank you for this referral. Eladia Hooks,PT
--- NOTE | 2017-01-16 10:15 | NUR ---
SET UP PATIENT TO WASH FACE AND HANDS. PATIENT REFUSED BATH. VANNESSA RIVERO [facility]
--- NOTE | 2017-01-16 10:34 | NUR ---
PATIENT IS SITTING UP IN BED WATCHING TV, NO COMPLAINTS AT THIS TIME. [facility]SA [facility]IV[facility]
--- NOTE | 2017-01-16 12:00 | NUR ---
PATIENT IS RESTING COMFORTABLY IN BED, CALL LIGHT IN REACH. [facility]ANNESSA RIVERO [facility]
[2017-01-16 12:27] VITALS: BP 128/70
--- NOTE | 2017-01-16 12:58 | NUR ---
PATIENT WAS INSTRUCTED ON HOW TO GIVE A STOOL SAMPLE USING HAT SEVERAL TIMES AND VERBALIZED UNDERSTANDING ON HOW TO DO SO, PATIENT THEN DEFECATED IN TOLIET, AND LEFT TOLIET PAPER IN HAT. REINFORCED EDUCATION ON STOOL SAMPLE AND PATIENT VERBALIZE UNDERSTANDING. [facility]SA [facility]
--- NOTE | 2017-01-16 13:16 | NUR ---
PHYSICAL THERAPY Patient presented to therapy in supine with report of wanting to walk. Patient performed supine to sitting at EOB with SBA. Patient performed sit to stand with SBA. Patient ambulated 72' x 1 in room with CGA X 1, no assistive device and no spO2. Patient was left in supine in bed with bed alarm activated and call light within reach. Patient tolerated treatment very well with no LOB and no other difficulty. Patient was 1:1 with this CERTIFIED REAL ESTATE APPRAISER for 15 minutes total. Amadou Mcpherson CERTIFIED REAL ESTATE APPRAISER
--- NOTE | 2017-01-16 13:52 | NUR ---
No beds available at [facility], [facility] is reviewing referral, waiting on acceptance.
--- NOTE | 2017-01-16 13:52 | NUR ---
PATIENT IS SITTING UP IN BED WATCHING TV, NO COMPLAINTS AT THIS TIME. VANNESSA RIVERO [facility]
[2017-01-16 16:00] VITALS: BP 140/71
[2017-01-16 20:00] VITALS: BP 117/71
--- NOTE | 2017-01-16 21:00 | NUR ---
RESTING IN BED. RESPIRATIONS EASY. LUNGS DIMINISHED, CLEAR. PULSE OX 94% RA, O2 PRESENT AT BEDSIDE BUT NOT IN USE. TEDS IN PLACE. CALL LIGHT WITHIN REACH. NO VOICED COMPLAINTS
[2017-01-16] MEDS ORDERED: Percocet 325 MG1 TAB PO (21:16)
[2017-01-16] MEDS ORDERED: LAMOTRIGINE100 MG PO (21:16)
--- NOTE | 2017-01-16 21:40 | NUR ---
PATIENT REQUESTING PAIN MEDS, STATES SHE RECEIVES PERCOCET 1-2 Q6H PRN AT HOME. MED REC REVIEWED AND UPDATED. DR Kathia GALLARDO INFORMED OF CHANGES TO PERCOCET, LAMICTAL AND NAPROXEN
--- NOTE | 2017-01-16 22:20 | NUR ---
DR Kathia GALLARDO PRESENT ON FLOOR, JUST FINISHED ASSESSING ADMISSION. EXPLAINED THAT PATIENT AGAIN ASKING FOR PAIN MEDS.
--- NOTE | 2017-01-16 23:04 | NUR ---
REQUESTED AND RECEIVED PERCOCET PER PRN ORDER FOR COMPLAINTS OF BACK PAIN RATING A 10, CHRONIC IN NATURE. CALL LIGHT WITHIN REACH. WILL MONITOR FOR EFFECTIVENESS
[2017-01-17] VITALS: BP 120/68
--- NOTE | 2017-01-17 00:30 | NUR ---
EARLIER MEDS APPEAR EFFECTIVE. RESTING WITH EYES CLOSED. RESPIRATIONS EASY. VSS. CALL LIGHT WITHIN REACH.
--- NOTE | 2017-01-17 03:00 | NUR ---
CONTINUES TO REST WITH EYES CLOSED. CALL LIGHT WITHIN REACH
--- NOTE | 2017-01-17 05:31 | NUR ---
REQUESTED AND RECEIVED PERCOCET PER PRN ORDER FOR COMPLAINTS OF CHRONIC BACK PAIN RATING A 7. CALL LIGHT WITHIN REACH. WILL MONITOR FOR EFFECTIVENESS
--- NOTE | 2017-01-17 06:30 | NUR ---
EARLIER MEDS APPEAR EFFECTIVE, SLEEPING. RESPIRATIONS EASY. CALL LIGHT WITHIN REACH
[2017-01-17 08:00] VITALS: BP 136/54
--- NOTE | 2017-01-17 09:05 | NUR ---
PHYSICAL THERAPY Patient presented to therapy with report of feeling good today and wanting to do therapy. Patient performed supine to sitting at EOB Independently. Patient performed sit to stand Independently. Patient performed gait with no assistive device 200' x 1 with CORRESPONDENCE CLERK. Patient had no episodes of LOB or other difficulty while performing gait. Patient was left in supine position with call light within reach. Patient was 1:1 with this NATIONAL ACCOUNT DIRECTOR for 15 minutes. NICOLETTE ROMAN NATIONAL ACCOUNT DIRECTOR
--- NOTE | 2017-01-17 09:46 | NUR ---
Received authorization for patient to go to [facility], can go today if medically stable.
[2017-01-17] MEDS ORDERED: MACROBID100 M1 PO (11:21)
[2017-01-17] MEDS ORDERED: Percocet 325 MG1 TAB PO (11:21)
[2017-01-17] MEDS ORDERED: ZINC SULFATE220 MG PO (11:21)
--- NOTE | 2017-01-17 11:38 | NUR ---
Called to patients room. Patient is now refusing to go to [facility], says that she is doing better in therapy, walking 200 ft with no LOB. she wants to go home. Offered [facility], she refused this also. Notified Michelle nurse director for hospitalists and [facility].
--- NOTE | 2017-01-17 11:49 | NUR ---
DISCHARGE INSTRUCTIONS REVIEWED. HEPLOCK AND DENTAL BILLER DISCONTINUED AT THIS TIME.
--- NOTE | 2017-01-17 11:53 | NUR ---
PATIENT SEEN 1:1 OT THIS DATE 18 MINUTES. IDENTIFIED PATIENT BY NAME AND DATE OF . PATIENT COMPLETED GROOMING TASK STANDING AT SINK SBA BRUSH TEETH/ COMB HAIR WITHOUT USE AD AND NO LOSS BALANCE WITH STAND TOLERANCE APPROX 5 MINUTES THIS DATE. PATIENT COMPLETED BUE STANDING ALL PLANES X 15 REPS WITH f+ BALANCE NO AD. PATIENT COMPLETED FUNCITONAL XFERS IN ROOM AMBULATING WITHOUT AD AND COMPLETED BED MOBILITY SUPERVISION. JOSE GUADALUPE KRAFT
[2017-01-17 12:00] VITALS: BP 130/62
--- NOTE | 2017-01-17 12:56 | NUR ---
PT DISCHARGED AND AMBULATED OFF THE FLOOR WITH HER DAUGHTER. REFUSED WHEELCHAIR.
--- NOTE | 2017-01-17 15:54 | NUR ---
PHYSICAL THERAPY CO-SIGN I approve of the Phyical Therapy notes written above. TERESA BIRD PT
== END 2017-01-17 12:56 | disposition home or self-care (01) | DRG 100 ==
LOC: ED 23:32 → EDHOLD 01-15 01:57 → 4E 01-15 01:57
PROVIDERS: Emergency Medicine Emergency Medical Services; Internal Medicine; ADMIT Internal Medicine
DX: G40.909 Epilepsy, unspecified, not intractable, without status epilepticus (principal); G93.41 Metabolic encephalopathy; N17.0 Acute kidney failure with tubular necrosis; E44.0 Moderate protein-calorie malnutrition; N39.0 Urinary tract infection, site not specified; Z68.41 Body mass index [BMI] 40.0-44.9, adult; E87.1 Hypo-osmolality and hyponatremia; F33.9 Major depressive disorder, recurrent, unspecified; R26.81 Unsteadiness on feet; K21.9 Gastro-esophageal reflux disease without esophagitis; E11.649 Type 2 diabetes mellitus with hypoglycemia without coma; I10 Essential (primary) hypertension; R32 Unspecified urinary incontinence; R15.9 Full incontinence of feces; E83.42 Hypomagnesemia; E87.8 Other disorders of electrolyte and fluid balance, not elsewhere classified; D64.9 Anemia, unspecified; F41.9 Anxiety disorder, unspecified; W18.39XA Other fall on same level, initial encounter; E78.5 Hyperlipidemia, unspecified; E66.01 Morbid (severe) obesity due to excess calories; Z79.899 Other long term (current) drug therapy; Z87.01 Personal history of pneumonia (recurrent); Y93.89 Activity, other specified; Y92.89 Other specified places as the place of occurrence of the external cause; Y99.8 Other external cause status; Z90.49 Acquired absence of other specified parts of digestive tract; Z90.710 Acquired absence of both cervix and uterus; Z87.891 Personal history of nicotine dependence; Z82.3 Family history of stroke; Z83.3 Family history of diabetes mellitus; Z82.49 Family history of ischemic heart disease and other diseases of the circulatory system; Z88.1 Allergy status to other antibiotic agents; Z91.040 Latex allergy status; Z91.048 Other nonmedicinal substance allergy status; Z79.2 Long term (current) use of antibiotics; Z79.84 Long term (current) use of oral hypoglycemic drugs; Z95.0 Presence of cardiac pacemaker

== ENCOUNTER 2017-02-06 03:27 | Inpatient (IN) | payer MEDICARE ==
[~2017-02-06] VITALS: Ht 154.9 cm; Wt 60.4 kg
--- NOTE | ~2017-02-06 | EKG ---
[place], [place] ELECTROCARDIOGRAM REPORT NAME: ROJELIO HERNÁNDEZ UNIT #: [id number] ROOM: 420 DOCTOR: LEANNA SONG MD BIRTHDATE: [birth year] DOS: 02/06/2017 TIME: 1323 hours. FINDINGS: 1. Normal sinus rhythm at 80 beats per minute. 2. The tracing is normal. 3. No previous tracing is available for comparison. LEANNA SONG MD CM:EKGRPT:ELECTROCARDIOGRAM REPORT 1729 03 LEANNA SONG MD
[~2017-02-06 03:27] MED LIST changes: +EFFEXOR XR150 M1 PO; -EFFEXOR XR75 M1 PO; +FEOSOL325 MG PO; +LAMICTAL100 MG PO; +MACROBID100 M1 PO; +OYSTER SHELL C1 EAC3 PO; -OYSTER SHELL C500 M2 PO; +Percocet 325 MG1 TAB PO; +ZINC SULFATE220 MG PO
[2017-02-06 03:31] VITALS: BP 128/70
[2017-02-06 04:24] LABS: BASO # 0.1 10*3/uL (0.0-0.1); BASO % 0.4 % (0.0-1.0); EOS # 0.3 10*3/uL (0.0-0.4); HEMATOCRIT 28.8 % (37.0-47.0); HEMOGLOBIN 9.2 g/dl (12.0-16.0); LYMPH # 2.3 10*3/uL (1.3-4.4); LYMPH % 16.2 % (27.0-41.0); MEAN CELL VOLUME 95.7 fl (81.0-99.0); MEAN CORPUSCULAR HGB 30.6 pg (27.0-31.0); MEAN CORPUSCULAR HGB CONC 31.9 g/dl (33.0-37.0); MEAN PLATELET VOLUME 10.4 fl (9.6-12.3); MONO # 1.3 10*3/uL (0.1-1.0); MONO % 9.1 % (3.0-9.0); NEUT # 10.4 10*3/uL (2.3-7.9); NEUT % 71.8 % (47.0-73.0); PLATELET COUNT AUTOMATED 251 10*3/uL (130-400); RED BLOOD COUNT 3.01 10*6/uL (4.10-5.10); RED CELL DISTRI WIDTH 13.8 % (0-14.5); WHITE BLOOD COUNT 14.4 10*3/uL (4.8-10.8)
[2017-02-06 04:39] LABS: ALBUMIN 3.8 gm/dl (3.1-4.5); CREATININE 2.25 mg/dL (0.55-1.02); POTASSIUM 4.9 mmol/L (3.5-5.1); TOTAL PROTEIN 6.7 gm/dL (6.4-8.2)
[2017-02-06 06:20] VITALS: BP 100/64
[2017-02-06 08:00] VITALS: BP 79/38
[2017-02-06 13:20] VITALS: BP 105/64
[2017-02-06 13:24] LABS: BASO # 0.1 10*3/uL (0.0-0.1); BASO % 0.5 % (0.0-1.0); EOS # 0.4 10*3/uL (0.0-0.4); EOS % 3.4 % (1.0-4.0); HEMATOCRIT 28.3 % (37.0-47.0); HEMOGLOBIN 9.1 g/dl (12.0-16.0); LYMPH % 27.4 % (27.0-41.0); MEAN CORPUSCULAR HGB 30.5 pg (27.0-31.0); MEAN CORPUSCULAR HGB CONC 32.2 g/dl (33.0-37.0); MEAN PLATELET VOLUME 10.2 fl (9.6-12.3); MONO # 0.6 10*3/uL (0.1-1.0); MONO % 5.3 % (3.0-9.0); NEUT # 6.9 10*3/uL (2.3-7.9); PLATELET COUNT AUTOMATED 230 10*3/uL (130-400); RED BLOOD COUNT 2.98 10*6/uL (4.10-5.10); RED CELL DISTRI WIDTH 13.8 % (0-14.5); WHITE BLOOD COUNT 10.9 10*3/uL (4.8-10.8)
[2017-02-06 13:30] LABS: ABG BASE EXCESS -3.6 mmol/L (-2.0-2.0); ABG HCO3 22.7 mmol/l (22-26); ABG O2 SATURATION 61.1 % (95-97); ARTERIAL BLOOD GAS PCO2 50.1 mmHg (35-45); ARTERIAL BLOOD GAS PH 7.276 (7.35-7.45)
[2017-02-06 13:36] LABS: ARTERIAL BLOOD GAS PO2 34.6 mmHg (80-90)
[2017-02-06 13:45] LABS: PHOSPHOROUS 4.8 mg/dL (2.5-4.9)
[2017-02-06 13:46] LABS: ALBUMIN 3.2 gm/dl (3.1-4.5); ALKALINE PHOSPHATASE 92 U/L (45-117); BUN 27 mg/dl (7-24); CHLORIDE 101 mmol/L (98-107); CREATININE 1.71 mg/dL (0.55-1.02); POTASSIUM 4.2 mmol/L (3.5-5.1); SGOT/AST 16 IU/L (3-35); SGPT/ALT 13 U/L (12-78); SODIUM 132 mmol/L (136-145); TOTAL PROTEIN 5.7 gm/dL (6.4-8.2)
[2017-02-06 13:51] LABS: BILIRUBIN NEGATIVE (NEGATIVE); BLOOD NEGATIVE (NEGATIVE); CLARITY SL CLOUDY (CLEAR); COLOR YELLOW (YELLOW); GLUCOSE NEGATIVE (NEGATIVE); KETONE NEGATIVE (NEGATIVE); LEUKO ESTERASE NEGATIVE (NEGATIVE); NITRITE NEGATIVE (NEGATIVE); PH 5.5 (5.0-9.0); SPECIFIC GRAVITY 1.025 (1.005-1.030); UROBILINOGEN 0.2 E.U./dl (0.2-1.0)
[2017-02-06 13:51] LABS: TROPONIN I < 0.015 ng/ml (<0.045)
[2017-02-06 14:05] LABS: URINE AMPHETAMINES < 1000 (1000ng/ml); URINE BARBITURATES < 200 (200ng/ml); URINE BENZODIAZEPINES < 200 (200ng/ml); URINE CANNABINOIDS (THC) < 50 (50ng/ml); URINE COCAINE < 300 (300ng/ml); URINE METHADONE < 300 (300ng/ml); URINE OPIATES < 300 (300ng/ml)
[2017-02-06 14:06] LABS: BACTERIA 3+; RBC 0-2 rbc/hpf (0-2)
[2017-02-06 14:10] LABS: URINE PHENCYCLIDINE < 25 (25ng/ml)
[2017-02-06 16:00] VITALS: BP 113/56
[2017-02-06] MEDS ORDERED: METFORMIN500 MG PO (16:01)
[2017-02-06] MEDS ORDERED: URSODIOL300 M1 PO (16:02)
[2017-02-06] MEDS ORDERED: MULTIPLE VITAM1 EAC1 PO (16:31)
[2017-02-06 20:00] VITALS: BP 114/54
[2017-02-07] VITALS: BP 128/67
[2017-02-07 04:00] VITALS: BP 125/67
[2017-02-07 04:28] LABS: BASO # 0.1 10*3/uL (0.0-0.1); BASO % 0.8 % (0.0-1.0); EOS # 0.6 10*3/uL (0.0-0.4); EOS % 6.5 % (1.0-4.0); HEMATOCRIT 28.8 % (37.0-47.0); HEMOGLOBIN 9.2 g/dl (12.0-16.0); LYMPH # 2.3 10*3/uL (1.3-4.4); LYMPH % 24.7 % (27.0-41.0); MEAN CELL VOLUME 94.1 fl (81.0-99.0); MEAN CORPUSCULAR HGB 30.1 pg (27.0-31.0); MEAN CORPUSCULAR HGB CONC 31.9 g/dl (33.0-37.0); MEAN PLATELET VOLUME 10.1 fl (9.6-12.3); MONO # 0.9 10*3/uL (0.1-1.0); MONO % 9.2 % (3.0-9.0); NEUT # 5.5 10*3/uL (2.3-7.9); NEUT % 58.5 % (47.0-73.0); PLATELET COUNT AUTOMATED 233 10*3/uL (130-400); RED BLOOD COUNT 3.06 10*6/uL (4.10-5.10); RED CELL DISTRI WIDTH 13.4 % (0-14.5); WHITE BLOOD COUNT 9.5 10*3/uL (4.8-10.8)
[2017-02-07 04:38] LABS: ACT PARTIAL THROMBO TIME 23.5 SECONDS (20.8-31.5); INTERNATIONAL NORM RATIO 1.1 (2.0-3.5)
[2017-02-07 04:44] LABS: ALBUMIN 2.9 gm/dl (3.1-4.5); ALKALINE PHOSPHATASE 100 U/L (45-117); CHLORIDE 106 mmol/L (98-107); CREATININE 0.72 mg/dL (0.55-1.02); PHOSPHOROUS 3.5 mg/dL (2.5-4.9); POTASSIUM 4.1 mmol/L (3.5-5.1); SGOT/AST 15 IU/L (3-35); SGPT/ALT 16 U/L (12-78); SODIUM 138 mmol/L (136-145); TOTAL PROTEIN 5.8 gm/dL (6.4-8.2)
[2017-02-07 04:56] LABS: BUN 12 mg/dl (7-24)
[2017-02-07 08:00] VITALS: BP 157/73
[2017-02-07] MEDS ORDERED: LAMICTAL150 MG PO (10:31)
[2017-02-07] MEDS ORDERED: PROAIR HFA8.5 GM INH (10:37)
[2017-02-07 12:00] VITALS: BP 160/68
[2017-02-07 16:00] VITALS: BP 141/56
[2017-02-07 20:00] VITALS: BP 152/64
[2017-02-08] VITALS: BP 138/68
[2017-02-08 06:02] LABS: BASO # 0.1 10*3/uL (0.0-0.1); BASO % 1.4 % (0.0-1.0); EOS # 0.4 10*3/uL (0.0-0.4); EOS % 6.6 % (1.0-4.0); HEMATOCRIT 28.6 % (37.0-47.0); HEMOGLOBIN 9.4 g/dl (12.0-16.0); LYMPH % 31.2 % (27.0-41.0); MEAN CELL VOLUME 94.7 fl (81.0-99.0); MEAN CORPUSCULAR HGB 31.1 pg (27.0-31.0); MEAN CORPUSCULAR HGB CONC 32.9 g/dl (33.0-37.0); MEAN PLATELET VOLUME 10.7 fl (9.6-12.3); MONO # 0.8 10*3/uL (0.1-1.0); MONO % 11.8 % (3.0-9.0); NEUT # 3.1 10*3/uL (2.3-7.9); NEUT % 48.8 % (47.0-73.0); PLATELET COUNT AUTOMATED 248 10*3/uL (130-400); RED BLOOD COUNT 3.02 10*6/uL (4.10-5.10); RED CELL DISTRI WIDTH 13.1 % (0-14.5); WHITE BLOOD COUNT 6.4 10*3/uL (4.8-10.8)
[2017-02-08 06:24] LABS: BUN 12 mg/dl (7-24); CHLORIDE 104 mmol/L (98-107); CREATININE 0.64 mg/dL (0.55-1.02); PHOSPHOROUS 3.5 mg/dL (2.5-4.9); POTASSIUM 4.1 mmol/L (3.5-5.1); SODIUM 138 mmol/L (136-145)
[2017-02-08 08:00] VITALS: BP 139/70
[2017-02-08] MEDS ORDERED: DOXYCYCLINE100 M3 PO (11:48)
[2017-02-08 12:00] VITALS: BP 149/64
[2017-02-08 16:00] VITALS: BP 150/67
[2017-02-08 20:00] VITALS: BP 139/59
[2017-02-09] VITALS: BP 132/64
[2017-02-09 08:00] VITALS: BP 138/60
[2017-02-09 12:00] VITALS: BP 150/66
[2017-02-09 16:00] VITALS: BP 146/67
[2017-02-09 20:00] VITALS: BP 162/78
[2017-02-10] VITALS: BP 152/70
[2017-02-10 08:00] VITALS: BP 157/71
[2017-02-10 12:00] VITALS: BP 154/77
[2017-02-10 16:00] VITALS: BP 143/72
[2017-02-10 20:00] VITALS: BP 131/65
[2017-02-11] VITALS: BP 136/60
[2017-02-11 07:20] LABS: BASO # 0.1 10*3/uL (0.0-0.1); BASO % 1.3 % (0.0-1.0); EOS # 0.4 10*3/uL (0.0-0.4); EOS % 5.8 % (1.0-4.0); HEMATOCRIT 32.3 % (37.0-47.0); HEMOGLOBIN 10.3 g/dl (12.0-16.0); LYMPH # 2.4 10*3/uL (1.3-4.4); LYMPH % 31.6 % (27.0-41.0); MEAN CELL VOLUME 94.2 fl (81.0-99.0); MEAN CORPUSCULAR HGB CONC 31.9 g/dl (33.0-37.0); MONO # 0.9 10*3/uL (0.1-1.0); MONO % 11.4 % (3.0-9.0); NEUT # 3.8 10*3/uL (2.3-7.9); NEUT % 49.6 % (47.0-73.0); PLATELET COUNT AUTOMATED 241 10*3/uL (130-400); RED BLOOD COUNT 3.43 10*6/uL (4.10-5.10); RED CELL DISTRI WIDTH 13.2 % (0-14.5); WHITE BLOOD COUNT 7.6 10*3/uL (4.8-10.8)
[2017-02-11 08:00] VITALS: BP 148/77
[2017-02-11 08:12] LABS: CREATININE 0.69 mg/dL (0.55-1.02)
[2017-02-11 12:00] VITALS: BP 143/20
== END 2017-02-11 14:58 | disposition home health service (06) | DRG 100 ==
LOC: ED 03:27 → EDHOLD 05:10 → ICCU 05:10 → 4E 05:10 → ICCU 13:05 → 4E 02-07 14:10
PROVIDERS: Family Medicine; Hospitalist; Internal Medicine; Internal Medicine Nephrology; Student in an Organized Health Care Education/Training Program; ADMIT Internal Medicine
PROC: B548ZZA Ultrasonography of Superior Vena Cava, Guidance (ICD-10-PCS; principal; 2017-02-06)
PROC: 02HV33Z Insertion of Infusion Device into Superior Vena Cava, Percutaneous Approach (ICD-10-PCS; principal; 2017-02-06)
DX: G40.909 Epilepsy, unspecified, not intractable, without status epilepticus (principal); N17.0 Acute kidney failure with tubular necrosis; J96.01 Acute respiratory failure with hypoxia; G93.41 Metabolic encephalopathy; E87.1 Hypo-osmolality and hyponatremia; N39.0 Urinary tract infection, site not specified; F41.9 Anxiety disorder, unspecified; K21.9 Gastro-esophageal reflux disease without esophagitis; I10 Essential (primary) hypertension; E78.5 Hyperlipidemia, unspecified; R73.9 Hyperglycemia, unspecified; D64.9 Anemia, unspecified; G89.29 Other chronic pain; M54.9 Dorsalgia, unspecified; E86.0 Dehydration; E55.9 Vitamin D deficiency, unspecified; K44.9 Diaphragmatic hernia without obstruction or gangrene; R32 Unspecified urinary incontinence; R15.9 Full incontinence of feces; B96.1 Klebsiella pneumoniae [K. pneumoniae] as the cause of diseases classified elsewhere; E66.01 Morbid (severe) obesity due to excess calories; Z68.25 Body mass index [BMI] 25.0-25.9, adult; Z90.710 Acquired absence of both cervix and uterus; Z90.49 Acquired absence of other specified parts of digestive tract; Z95.0 Presence of cardiac pacemaker; Z87.891 Personal history of nicotine dependence; Z79.899 Other long term (current) drug therapy; Z88.1 Allergy status to other antibiotic agents; Z91.040 Latex allergy status; Z88.8 Allergy status to other drugs, medicaments and biological substances; Z91.048 Other nonmedicinal substance allergy status; Z82.49 Family history of ischemic heart disease and other diseases of the circulatory system; Z83.3 Family history of diabetes mellitus; Z82.3 Family history of stroke

== ENCOUNTER 2017-03-08 20:40 | Inpatient (IN) | payer MEDICARE ==
[~2017-03-08] VITALS: Ht 154.9 cm; Wt 69.0 kg
[2017-03-08 20:40] VITALS: BP 136/65
[~2017-03-08 20:40] MED LIST changes: +LAMICTAL150 MG PO; +MULTIPLE VITAM1 EAC1 PO; +PROAIR HFA8.5 GM INH; +URSODIOL300 M1 PO
[2017-03-08 21:00] VITALS: BP 122/72
[2017-03-08 21:14] LABS: ABG BASE EXCESS 0.2 mmol/L (-2.0-2.0); ABG HCO3 27.3 mmol/l (22-26); ABG O2 SATURATION 93.6 % (95-97); ARTERIAL BLOOD GAS PCO2 58.7 mmHg (35-45); ARTERIAL BLOOD GAS PH 7.287 (7.35-7.45); ARTERIAL BLOOD GAS PO2 68.1 mmHg (80-90)
[2017-03-08 21:28] LABS: URINE AMPHETAMINES < 1000 (1000ng/ml); URINE BARBITURATES < 200 (200ng/ml); URINE BENZODIAZEPINES > 200 (200ng/ml); URINE CANNABINOIDS (THC) < 50 (50ng/ml); URINE COCAINE < 300 (300ng/ml); URINE METHADONE < 300 (300ng/ml); URINE OPIATES > 300 (300ng/ml); URINE PHENCYCLIDINE < 25 (25ng/ml)
[2017-03-08 21:31] LABS: BILIRUBIN NEGATIVE (NEGATIVE); BLOOD NEGATIVE (NEGATIVE); CLARITY SL CLOUDY (CLEAR); COLOR YELLOW (YELLOW); GLUCOSE NEGATIVE (NEGATIVE); KETONE NEGATIVE (NEGATIVE); LEUKO ESTERASE 2+ (NEGATIVE); NITRITE NEGATIVE (NEGATIVE); PH 5.5 (5.0-9.0); UROBILINOGEN 0.2 E.U./dl (0.2-1.0)
[2017-03-08 21:37] LABS: BACTERIA 4+; EPITHELIAL CELLS 0-2; WBC TNTC wbc/hpf (0-5)
[2017-03-08 21:40] VITALS: BP 120/76
[2017-03-08 21:47] LABS: HEMOGLOBIN 11.2 g/dl (12.0-16.0); MEAN CELL VOLUME 89.9 fl (81.0-99.0); MEAN CORPUSCULAR HGB 29.6 pg (27.0-31.0); MEAN CORPUSCULAR HGB CONC 32.9 g/dl (33.0-37.0); MEAN PLATELET VOLUME 10.3 fl (9.6-12.3); PLATELET COUNT AUTOMATED 262 10*3/uL (130-400); RED BLOOD COUNT 3.78 10*6/uL (4.10-5.10); RED CELL DISTRI WIDTH 12.3 % (0-14.5); WHITE BLOOD COUNT 25.5 10*3/uL (4.8-10.8)
[2017-03-08 22:05] LABS: PLATELET SUFFICIENCY NORMAL (NORMAL); TOTAL CELLS COUNTED 100 #CELLS
[2017-03-08 22:05] LABS: ALBUMIN 4.4 gm/dl (3.1-4.5); ALKALINE PHOSPHATASE 130 U/L (45-117); BUN 35 mg/dl (7-24); CHLORIDE 88 mmol/L (98-107); CREATININE 1.33 mg/dL (0.55-1.02); LIPASE 116 U/L (73-393); POTASSIUM 4.3 mmol/L (3.5-5.1); SGOT/AST 16 IU/L (3-35); SGPT/ALT 21 U/L (12-78); SODIUM 128 mmol/L (136-145); TOTAL PROTEIN 7.8 gm/dL (6.4-8.2)
[2017-03-08 22:06] LABS: POLYCHROMASIA SLIGHT; STOMATOCYTE FEW
[2017-03-08 22:09] LABS: TROPONIN I < 0.015 ng/ml (<0.045)
[2017-03-08 22:29] VITALS: BP 116/68
[2017-03-08 23:15] VITALS: BP 133/61
[2017-03-08 23:40] VITALS: BP 133/61
[2017-03-09 08:00] VITALS: BP 148/56
[2017-03-09 12:00] VITALS: BP 151/69
[2017-03-09 16:00] VITALS: BP 143/80
[2017-03-09 16:42] LABS: BASO # 0.1 10*3/uL (0.0-0.1); BASO % 0.6 % (0.0-1.0); EOS # 0.5 10*3/uL (0.0-0.4); EOS % 4.8 % (1.0-4.0); HEMATOCRIT 34.3 % (37.0-47.0); HEMOGLOBIN 10.9 g/dl (12.0-16.0); LYMPH # 1.5 10*3/uL (1.3-4.4); LYMPH % 14.3 % (27.0-41.0); MEAN CORPUSCULAR HGB 29.5 pg (27.0-31.0); MEAN CORPUSCULAR HGB CONC 31.8 g/dl (33.0-37.0); MEAN PLATELET VOLUME 10.2 fl (9.6-12.3); MONO # 0.7 10*3/uL (0.1-1.0); MONO % 6.8 % (3.0-9.0); NEUT # 7.5 10*3/uL (2.3-7.9); NEUT % 73.1 % (47.0-73.0); PLATELET COUNT AUTOMATED 245 10*3/uL (130-400); RED BLOOD COUNT 3.69 10*6/uL (4.10-5.10); RED CELL DISTRI WIDTH 12.4 % (0-14.5); WHITE BLOOD COUNT 10.3 10*3/uL (4.8-10.8)
[2017-03-09 16:48] LABS: ACT PARTIAL THROMBO TIME 24.7 SECONDS (20.8-31.5)
[2017-03-09 16:51] LABS: ALBUMIN 3.5 gm/dl (3.1-4.5); ALKALINE PHOSPHATASE 111 U/L (45-117); CHLORIDE 104 mmol/L (98-107); CREATININE 0.64 mg/dL (0.55-1.02); PHOSPHOROUS 2.8 mg/dL (2.5-4.9); SGOT/AST 13 IU/L (3-35); SGPT/ALT 19 U/L (12-78); TOTAL PROTEIN 6.9 gm/dL (6.4-8.2)
[2017-03-09 17:06] LABS: BUN 13 mg/dl (7-24); SODIUM 140 mmol/L (136-145)
[2017-03-09 20:00] VITALS: BP 160/63
[2017-03-10] VITALS: BP 127/52
[2017-03-10 07:37] LABS: BASO # 0.1 10*3/uL (0.0-0.1); BASO % 0.6 % (0.0-1.0); EOS # 0.3 10*3/uL (0.0-0.4); HEMATOCRIT 31.7 % (37.0-47.0); HEMOGLOBIN 10.1 g/dl (12.0-16.0); LYMPH # 1.7 10*3/uL (1.3-4.4); LYMPH % 20.6 % (27.0-41.0); MEAN CELL VOLUME 94.1 fl (81.0-99.0); MEAN CORPUSCULAR HGB CONC 31.9 g/dl (33.0-37.0); MEAN PLATELET VOLUME 10.8 fl (9.6-12.3); MONO # 0.8 10*3/uL (0.1-1.0); MONO % 9.4 % (3.0-9.0); NEUT # 5.3 10*3/uL (2.3-7.9); PLATELET COUNT AUTOMATED 239 10*3/uL (130-400); RED BLOOD COUNT 3.37 10*6/uL (4.10-5.10); RED CELL DISTRI WIDTH 12.4 % (0-14.5); WHITE BLOOD COUNT 8.2 10*3/uL (4.8-10.8)
[2017-03-10 07:51] LABS: ALBUMIN 3.2 gm/dl (3.1-4.5); ALKALINE PHOSPHATASE 99 U/L (45-117); BUN 12 mg/dl (7-24); CHLORIDE 103 mmol/L (98-107); CREATININE 0.59 mg/dL (0.55-1.02); POTASSIUM 3.4 mmol/L (3.5-5.1); SGOT/AST 17 IU/L (3-35); SGPT/ALT 15 U/L (12-78); SODIUM 141 mmol/L (136-145); TOTAL PROTEIN 6.4 gm/dL (6.4-8.2)
[2017-03-10 08:00] VITALS: BP 163/68
[2017-03-10 12:13] VITALS: BP 133/61
[2017-03-10 16:17] VITALS: BP 134/50
[2017-03-10 20:22] VITALS: BP 139/58
[2017-03-11] VITALS: BP 139/59
[2017-03-11 07:32] LABS: BASO # 0.1 10*3/uL (0.0-0.1); BASO % 0.7 % (0.0-1.0); EOS # 0.3 10*3/uL (0.0-0.4); EOS % 4.2 % (1.0-4.0); HEMATOCRIT 30.2 % (37.0-47.0); HEMOGLOBIN 9.9 g/dl (12.0-16.0); LYMPH # 2.2 10*3/uL (1.3-4.4); LYMPH % 31.8 % (27.0-41.0); MEAN CELL VOLUME 91.5 fl (81.0-99.0); MEAN CORPUSCULAR HGB CONC 32.8 g/dl (33.0-37.0); MEAN PLATELET VOLUME 10.8 fl (9.6-12.3); MONO # 0.8 10*3/uL (0.1-1.0); MONO % 11.2 % (3.0-9.0); NEUT # 3.6 10*3/uL (2.3-7.9); NEUT % 51.8 % (47.0-73.0); PLATELET COUNT AUTOMATED 248 10*3/uL (130-400); RED CELL DISTRI WIDTH 12.4 % (0-14.5); WHITE BLOOD COUNT 6.9 10*3/uL (4.8-10.8)
[2017-03-11 07:43] LABS: BUN 7 mg/dl (7-24); CHLORIDE 107 mmol/L (98-107); CREATININE 0.63 mg/dL (0.55-1.02); POTASSIUM 3.9 mmol/L (3.5-5.1); SODIUM 143 mmol/L (136-145)
[2017-03-11 08:00] VITALS: BP 156/78
[2017-03-11] MEDS ORDERED: OXYGEN NAS (13:47)
[2017-03-11] MEDS ORDERED: AMINOPHYLLIN200 MG PO (13:47)
== END 2017-03-11 15:18 | disposition home or self-care (01) | DRG 189 ==
LOC: ED 20:40 → EDHOLD 23:07 → 5E 23:07
PROVIDERS: Emergency Medicine Emergency Medical Services; Family Medicine; Family Medicine Adult Medicine; Internal Medicine Hospice and Palliative Medicine
PROC: 5A09357 Assistance with Respiratory Ventilation, Less than 24 Consecutive Hours, Continuous Positive Airway Pressure (ICD-10-PCS; principal; 2017-03-08)
DX: J96.21 Acute and chronic respiratory failure with hypoxia (principal); N17.0 Acute kidney failure with tubular necrosis; G93.41 Metabolic encephalopathy; E87.1 Hypo-osmolality and hyponatremia; N30.00 Acute cystitis without hematuria; J96.22 Acute and chronic respiratory failure with hypercapnia; E66.01 Morbid (severe) obesity due to excess calories; E55.9 Vitamin D deficiency, unspecified; K21.9 Gastro-esophageal reflux disease without esophagitis; G40.909 Epilepsy, unspecified, not intractable, without status epilepticus; F41.9 Anxiety disorder, unspecified; I10 Essential (primary) hypertension; E78.5 Hyperlipidemia, unspecified; M54.9 Dorsalgia, unspecified; R32 Unspecified urinary incontinence; R15.9 Full incontinence of feces; D64.9 Anemia, unspecified; Z95.0 Presence of cardiac pacemaker; Z90.710 Acquired absence of both cervix and uterus; Z99.81 Dependence on supplemental oxygen; Z90.49 Acquired absence of other specified parts of digestive tract; Z83.3 Family history of diabetes mellitus; Z88.1 Allergy status to other antibiotic agents; Z91.040 Latex allergy status; Z91.048 Other nonmedicinal substance allergy status; Z79.84 Long term (current) use of oral hypoglycemic drugs; Z82.3 Family history of stroke; Z82.49 Family history of ischemic heart disease and other diseases of the circulatory system; Z87.19 Personal history of other diseases of the digestive system; Z68.26 Body mass index [BMI] 26.0-26.9, adult

== ENCOUNTER 2017-04-08 17:36 | Inpatient (IN) | payer MEDICARE ==
[2017-04-08] VITALS (7 sets, daily range): BP systolic 125–151; BP diastolic 52–80
[~2017-04-08] VITALS: Ht 154.9 cm; Wt 64.6 kg
[~2017-04-08 17:36] MED LIST changes: +AMINOPHYLLIN200 MG PO; +OXYGEN NAS
[2017-04-08 18:28] LABS: HEMATOCRIT 34.1 % (37.0-47.0); MEAN CELL VOLUME 89.3 fl (81.0-99.0); MEAN CORPUSCULAR HGB 28.8 pg (27.0-31.0); MEAN CORPUSCULAR HGB CONC 32.3 g/dl (33.0-37.0); MEAN PLATELET VOLUME 10.2 fl (9.6-12.3); PLATELET COUNT AUTOMATED 245 10*3/uL (130-400); RED BLOOD COUNT 3.82 10*6/uL (4.10-5.10); RED CELL DISTRI WIDTH 12.5 % (0-14.5); WHITE BLOOD COUNT 31.8 10*3/uL (4.8-10.8)
[2017-04-08 18:47] LABS: ALBUMIN 3.8 gm/dl (3.1-4.5); ALKALINE PHOSPHATASE 134 U/L (45-117); BUN 22 mg/dl (7-24); CHLORIDE 98 mmol/L (98-107); CREATININE 0.88 mg/dL (0.55-1.02); POTASSIUM 4.2 mmol/L (3.5-5.1); SGOT/AST 96 IU/L (3-35); SGPT/ALT 83 U/L (12-78); SODIUM 132 mmol/L (136-145); TOTAL PROTEIN 7.2 gm/dL (6.4-8.2)
[2017-04-08 18:48] LABS: TOTAL CELLS COUNTED 100 #CELLS
[2017-04-08 18:49] LABS: PLATELET SUFFICIENCY NORMAL (NORMAL)
[2017-04-08 18:51] LABS: TROPONIN I < 0.015 ng/ml (<0.045)
[2017-04-08 19:51] LABS: BILIRUBIN NEGATIVE (NEGATIVE); BLOOD NEGATIVE (NEGATIVE); CLARITY SL CLOUDY (CLEAR); COLOR YELLOW (YELLOW); GLUCOSE NEGATIVE (NEGATIVE); KETONE NEGATIVE (NEGATIVE); LEUKO ESTERASE 1+ (NEGATIVE); NITRITE POSITIVE (NEGATIVE); PH 5.5 (5.0-9.0); SPECIFIC GRAVITY 1.015 (1.005-1.030); UROBILINOGEN 0.2 E.U./dl (0.2-1.0)
[2017-04-08 20:00] LABS: BACTERIA 4+
[2017-04-08 20:01] LABS: WBC 51-100 wbc/hpf (0-5)
[2017-04-09] MEDS ORDERED: PERCOCET 5-3251 EACH PO (01:41)
[2017-04-09] MEDS ORDERED: NAPROSYN500 MG PO (01:42)
[2017-04-09 04:00] VITALS: BP 130/65
[2017-04-09 06:25] LABS: HEMATOCRIT 32.4 % (37.0-47.0); HEMOGLOBIN 10.2 g/dl (12.0-16.0); MEAN CORPUSCULAR HGB 28.7 pg (27.0-31.0); MEAN CORPUSCULAR HGB CONC 31.5 g/dl (33.0-37.0); MEAN PLATELET VOLUME 10.5 fl (9.6-12.3); PLATELET COUNT AUTOMATED 265 10*3/uL (130-400); RED BLOOD COUNT 3.56 10*6/uL (4.10-5.10); RED CELL DISTRI WIDTH 12.6 % (0-14.5); WHITE BLOOD COUNT 32.4 10*3/uL (4.8-10.8)
[2017-04-09 06:37] LABS: CHLORIDE 104 mmol/L (98-107); POTASSIUM 3.7 mmol/L (3.5-5.1); SODIUM 139 mmol/L (136-145)
[2017-04-09 06:51] LABS: BUN 14 mg/dl (7-24); CREATININE 0.72 mg/dL (0.55-1.02); PHOSPHOROUS 2.8 mg/dL (2.5-4.9)
[2017-04-09 06:57] LABS: BASOPHILS 2 % (0-1); PLATELET SUFFICIENCY NORMAL (NORMAL); TOTAL CELLS COUNTED 100 #CELLS
[2017-04-09 08:00] VITALS: BP 147/64
[2017-04-09 12:00] VITALS: BP 125/48
[2017-04-09 16:00] VITALS: BP 129/61
[2017-04-09 20:00] VITALS: BP 123/75
[2017-04-10] VITALS: BP 146/77
[2017-04-10 06:02] LABS: ALKALINE PHOSPHATASE 97 U/L (45-117); BUN 9 mg/dl (7-24); CHLORIDE 106 mmol/L (98-107); CREATININE 0.55 mg/dL (0.55-1.02); POTASSIUM 3.6 mmol/L (3.5-5.1); SGOT/AST 23 IU/L (3-35); SGPT/ALT 39 U/L (12-78); SODIUM 140 mmol/L (136-145); TOTAL PROTEIN 6.4 gm/dL (6.4-8.2); VANCOMYCIN TROUGH 9.7 ug/mL (10-20)
[2017-04-10 06:03] LABS: BASO # 0.1 10*3/uL (0.0-0.1); BASO % 0.3 % (0.0-1.0); EOS # 0.4 10*3/uL (0.0-0.4); EOS % 2.3 % (1.0-4.0); HEMATOCRIT 29.8 % (37.0-47.0); HEMOGLOBIN 9.6 g/dl (12.0-16.0); LYMPH # 1.6 10*3/uL (1.3-4.4); LYMPH % 10.9 % (27.0-41.0); MEAN CELL VOLUME 90.3 fl (81.0-99.0); MEAN CORPUSCULAR HGB 29.1 pg (27.0-31.0); MEAN CORPUSCULAR HGB CONC 32.2 g/dl (33.0-37.0); MEAN PLATELET VOLUME 10.4 fl (9.6-12.3); MONO # 1.4 10*3/uL (0.1-1.0); MONO % 9.5 % (3.0-9.0); NEUT # 11.5 10*3/uL (2.3-7.9); NEUT % 76.6 % (47.0-73.0); PLATELET COUNT AUTOMATED 233 10*3/uL (130-400); RED CELL DISTRI WIDTH 12.6 % (0-14.5)
[2017-04-10 08:00] VITALS: BP 134/62
[2017-04-10 10:04] LABS: HEPATITIS B SURFACE AG Negative (Negative); HEPATITIS C VIRUS ANTIBODY 0.1 s/co (0.0-0.9)
[2017-04-10 12:00] VITALS: BP 126/66
[2017-04-10 16:00] VITALS: BP 149/85
[2017-04-10 20:00] VITALS: BP 139/67
[2017-04-11] VITALS: BP 158/68
[2017-04-11 06:18] LABS: BASO # 0.1 10*3/uL (0.0-0.1); BASO % 0.5 % (0.0-1.0); EOS # 0.4 10*3/uL (0.0-0.4); HEMATOCRIT 30.9 % (37.0-47.0); HEMOGLOBIN 9.8 g/dl (12.0-16.0); LYMPH % 15.2 % (27.0-41.0); MEAN CELL VOLUME 89.3 fl (81.0-99.0); MEAN CORPUSCULAR HGB 28.3 pg (27.0-31.0); MEAN CORPUSCULAR HGB CONC 31.7 g/dl (33.0-37.0); MEAN PLATELET VOLUME 10.5 fl (9.6-12.3); MONO # 1.2 10*3/uL (0.1-1.0); MONO % 9.1 % (3.0-9.0); NEUT # 9.2 10*3/uL (2.3-7.9); NEUT % 71.8 % (47.0-73.0); PLATELET COUNT AUTOMATED 269 10*3/uL (130-400); RED BLOOD COUNT 3.46 10*6/uL (4.10-5.10); RED CELL DISTRI WIDTH 12.6 % (0-14.5); WHITE BLOOD COUNT 12.9 10*3/uL (4.8-10.8)
[2017-04-11 06:20] LABS: ALBUMIN 3.1 gm/dl (3.1-4.5); ALKALINE PHOSPHATASE 110 U/L (45-117); BUN 7 mg/dl (7-24); CHLORIDE 108 mmol/L (98-107); CREATININE 0.62 mg/dL (0.55-1.02); POTASSIUM 3.3 mmol/L (3.5-5.1); SGOT/AST 17 IU/L (3-35); SGPT/ALT 33 U/L (12-78); SODIUM 142 mmol/L (136-145)
[2017-04-11 08:00] VITALS: BP 114/83
[2017-04-11] MEDS ORDERED: VITAMIN D-32000 UNIT PO (09:38)
[2017-04-11] MEDS ORDERED: DOXYCYCLINE100 M3 PO (09:39)
== END 2017-04-11 11:12 | disposition home or self-care (01) | DRG 871 ==
LOC: ED 17:36 → EDHOLD 21:25 → 4E 21:25
PROVIDERS: Family Medicine; Internal Medicine; Nurse Practitioner Family; Student in an Organized Health Care Education/Training Program
DX: A41.9 Sepsis, unspecified organism (principal); G93.41 Metabolic encephalopathy; J96.10 Chronic respiratory failure, unspecified whether with hypoxia or hypercapnia; J18.1 Lobar pneumonia, unspecified organism; E87.1 Hypo-osmolality and hyponatremia; N39.0 Urinary tract infection, site not specified; R65.20 Severe sepsis without septic shock; Z66 Do not resuscitate; Z51.5 Encounter for palliative care; G40.909 Epilepsy, unspecified, not intractable, without status epilepticus; E78.5 Hyperlipidemia, unspecified; I10 Essential (primary) hypertension; E55.9 Vitamin D deficiency, unspecified; D64.9 Anemia, unspecified; K21.9 Gastro-esophageal reflux disease without esophagitis; F41.9 Anxiety disorder, unspecified; E66.01 Morbid (severe) obesity due to excess calories; R74.0 Nonspecific elevation of levels of transaminase and lactic acid dehydrogenase [LDH]; G31.9 Degenerative disease of nervous system, unspecified; B96.20 Unspecified Escherichia coli [E. coli] as the cause of diseases classified elsewhere; M26.603 Bilateral temporomandibular joint disorder, unspecified; Z68.26 Body mass index [BMI] 26.0-26.9, adult; Z87.440 Personal history of urinary (tract) infections; Z88.1 Allergy status to other antibiotic agents; Z91.040 Latex allergy status; Z91.048 Other nonmedicinal substance allergy status; Z90.49 Acquired absence of other specified parts of digestive tract; Z90.710 Acquired absence of both cervix and uterus; Z95.0 Presence of cardiac pacemaker; Z87.891 Personal history of nicotine dependence; Z83.3 Family history of diabetes mellitus; Z82.3 Family history of stroke; Z82.49 Family history of ischemic heart disease and other diseases of the circulatory system; Z79.899 Other long term (current) drug therapy; Z79.84 Long term (current) use of oral hypoglycemic drugs

== ENCOUNTER 2017-05-16 08:36 | Inpatient (IN) | payer MEDICARE ==
[2017-05-16] VITALS (8 sets, daily range): BP systolic 127–151; BP diastolic 46–94
[~2017-05-16] VITALS: Ht 154.9 cm; Wt 70.1 kg
--- NOTE | ~2017-05-16 | PR ---
[place], [place] PROGRESS NOTE [id number] UN[facility] #: [id number] ROOM: 520 DOCTOR: ALLISON MULLER,PAVITHRA Rose BIRTHDATE: [birth year] DOS: 05/19/2017 ADDENDUM. After reviewing the chart, labs and microbiology, I agree with the above plans as described on the patient. We will follow up clinically and adjust accordingly. PAVITHRA COOPER MD CM:PNTRANS [id number] PAVITHRA COOPER MD 05/20/17 1119 interface
--- NOTE | ~2017-05-16 | EKG ---
[place], [place] ELECTROCARDIOGRAM REPORT NAME: ROJELIO HERNÁNDEZ UNIT #: [id number] ROOM: [facility] DOCTOR: BRIDGER SOLO MD,ABEL BIRTHDATE: [birth year] DOS: 05/17/2017 The electrocardiogram done on 05/17/2017 at 11:18 a.m. Normal sinus rhythm noted. The heart rate 92 beats per minute. ABEL SPARKS MD CM:EKGRPT:ELECTROCARDIOGRAM REPORT [id number] 1512 ABEL SOLO MD
--- NOTE | ~2017-05-16 | PR ---
[place], [place] PROGRESS NOTE NAME: ROJELIO HERNÁNDEZ [facility] #: [id number] UNIT #: [id number] ROOM: 520 DOCTOR: THU CARUSO,JUNE BIRTHDATE: [birth year] DOS: 05/17/2017 SUBJECTIVE: The patient is a 66-year-old female. She is being followed for right lung pneumonia. I reviewed her CT of the chest, which demonstrates significant multilobar infiltrates on the right. She continues with cough, but she is unable to get up any sputum for culture. She has been afebrile today, continues with a significant leukocytosis. No nausea or vomiting. states that it has resolved. No diarrhea. No rash or itch. She has chronic severe back pain. No fevers or shaking chills. LABORATORY DATA: WBCs 26.6, platelets 291. BUN 10, creatinine 0.56. LFTs within normal limits. UA is unremarkable for pyuria. Urine for Legionella and strep pneumoniae is pending. Blood cultures are negative. CURRENT MEDICATIONS: Include vancomycin, Lovenox, Klonopin, Protonix, Zosyn, Xopenex, Zithromax, Restoril, Dulcolax, Mineral and Tylenol. PHYSICAL EXAMINATION: VITAL SIGNS: Temperature 99.5, pulse 101, respirations 20, BP 162/76. GENERAL: Alert and oriented 66-year-old female, in no acute distress. HEAD, EYES, EARS, NOSE AND THROAT: Normocephalic. No thrush. LUNGS: Diminished right base and mid lung with rales. Respirations even and unlabored. HEART: Regular rhythm. No murmur appreciated. ABDOMEN: Soft, nontender. EXTREMITIES: No edema, deformity or cyanosis. SKIN: Warm, dry, free of rashes. ASSESSMENT: Pneumonia, covering for healthcare-associated pneumonia as she was just hospitalized here with pneumonia 2 months ago. PLAN: Continue the vancomycin and Zosyn. Pharmacy is assisting with the dosing of the vancomycin. She is also on Zithromax. Await the urine for Legionella and strep pneumoniae antigens as well as sputum and blood cultures. Per the patient, Pulmonary is planning on bronching her on Friday. Case discussed with Dr. Pavithra Cooper. JUNE SHADY ANDINO [place], [place] PROGRESS NOTE NAME: HERNÁNDEZROJELIO L UNIT #: [id number] ROOM: [facility] DOCTOR: THU BIRTHDATE: [birth year] PAVITHRA COOPER MD CM:PNFLORENCIO 00 00 THU CARUSO 05/17/17 1704 interface
--- NOTE | ~2017-05-16 | PROC NOTE ---
[place], [place] PROCEDURE NOTE NAME: ROJELIO HERNÁNDEZ [facility] #: [id number] UNIT #: [id number] ROOM: 520 DOCTOR: BRIDGER SOLO MD,ABEL BIRTHDATE: [birth year] DOS: 05/19/2017 PREOPERATIVE DIAGNOSIS: The patient has pulmonary nodule with infiltration in the right lower lobe. POSTOPERATIVE DIAGNOSIS: The patient has pulmonary nodule with infiltration in the right lower lobe. PROCEDURE DESCRIPTION: Informed consent obtained for the patient. She was brought to the OR and placed in supine position. Conscious sedation administered by the Anesthesia Department. After achieving proper sedation, airway introduced into the mouth. Bronchoscope advanced to airway into laryngeal area. Epiglottis and vocal cord seen. Vocal cords moves symmetrically with movements. The michael was noted sharp. Small amount of secretion present in tracheal lumen, suctioned out. Right upper, right middle, left upper, lingular lower bronchi were all examined. Minimal secretion present in endobronchial tree. The BAL specimen was obtained for the patient's right lower lobe as well as bronchial washings taken from endobronchial tree bilaterally. Procedure well tolerated by the patient. The BAL specimen was sent for differentials. Cytology was also sent to the lab. No changes made in the treatment at this time will be necessary. The patient to continue current plan of therapy without changes. ABEL SPARKS MD CM:PROCNOTE:PROCEDURE NOTE [id number] ABEL SOLO MD
--- NOTE | ~2017-05-16 | PR ---
[place], [place] PROGRESS NOTE NAME: [id number] #: [id number] ROOM: 520 DOCTOR: ALLISON MULLER,PAVITHRA Rose BIRTHDATE: [birth year] DOS: 05/18/2017 ADDENDUM After reviewing the labs, microbiology, and radiographs, I agree with the above plans as described. We will follow the patient up clinically and adjust accordingly. PAVITHRA COOPER MD CM:PNTRANS [id number] [phone] PAVITHRA COOPER MD 05/19/17 0905 interface
--- NOTE | ~2017-05-16 | PR ---
[place], [place] PROGRESS NOTE NAME: ROJELIO HERNÁNDEZ [facility] #: [id number] UNIT #: [id number] ROOM: 520 DOCTOR: BRIDGER SOLO MD,ABEL BIRTHDATE: [birth year] DOS: 05/18/2017 PULMONARY PROGRESS NOTE SUBJECTIVE: The patient is noted comfortable at this time, resting on the bed at this time. She does have a cough, which has been noted nonproductive mostly. Denies chest pain. Tightness in the chest is reported. Denies symptoms of abdominal pain. Denies symptoms of nausea, vomiting, diarrhea or any abdominal pain. The patient denies any symptoms of hemoptysis. He denies symptoms of hematuria. Denies any headache or dizziness. The remaining systems were reviewed, they were noted all negative. OBJECTIVE: VITAL SIGNS: For the patient which has been recorded showed the temperature noted as 99.7 degrees Fahrenheit, normal temperature, respiratory rate 20, heart rate 78-110 with mild sinus tachycardia, blood pressure 180/81 to 149/73. The pulse oxygen saturation for the patient on 3 liters nasal cannula was 100% saturation. HEENT: Showed head was atraumatic, eyes nonicterus. NECK: Supple. CARDIOVASCULAR: S1, S2 audible. LUNGS: The patient was noted without any added sounds. The patient was noted with crackles in the right lower lung. ABDOMEN: Soft, nontender. Bowel sounds present. EXTREMITIES: The patient was noted without any edema. VISIBLE SKIN: No lesions or rashes. MUSCULOSKELETAL: Without any acute deformities. LABORATORY DATA: CMP for the patient this morning: Glucose 123, BUN normal, creatinine was normal, potassium 3.3, mildly decreased. CBC: WBC count 19.8, hemoglobin 10.1, hematocrit 30.7, platelet count was normal. IMPRESSION: 1. The patient has been noted with a nodular infiltration in the right lower lobe, currently treated with intravenous vancomycin and IV azithromycin. Blood culture for the patient so far showed no bacterial growth. 2. The patient with leukocytosis, remains persistent secondary to current acute infection. 3. History of nicotine abuse previously as well. 4. Mild hypokalemia. PLAN OF MANAGEMENT: Continuation of current antibiotic. Monitoring culture results closely. NPO past midnight tonight for bronchoscopy tomorrow morning for more accurate culture assessment. Continuation of other supportive therapy, plan of management, bronchodilator therapy as in progress. Usual care. Supportive plan and management. The patient was also noted with uncontrolled hypertension, which has been managed by the primary care attending with adjustments in the medications. [place], [place] PROGRESS NOTE NAME: ROJELIO HERNÁNDEZ [facility] [id number] UNIT #: [id number] ROOM: [facility] DOCTOR: ABEL STRICKLAND MD BIRTHDATE: [birth year] ABEL SPARKS MD CM:PNTRANS [phone] ABEL SOLO MD 05/19/17 0500 interface
--- NOTE | ~2017-05-16 | PR ---
[place], [place] PROGRESS NOTE NAME: [id number] UNIT #: [id number] ROOM: 520 DOCTOR: BRIDGER SOLO MD,ABEL BIRTHDATE: [birth year] DOS: 05/19/2017 SUBJECTIVE: She has been noted comfortable at this time. She is n.p.o. past midnight for bronchoscopy. The cough has been still noted intermittent without sputum expectoration. Denies symptoms of chest pain or hemoptysis. Denies symptoms of nausea, vomiting, diarrhea, abdominal pain, or hematuria. Denies any pain in the joints of the patient or edema of lower extremities as well as any skin rashes. Remaining systems reviewed of the patient, noted all negative. OBJECTIVE: VITAL SIGNS: For the patient, which have been recorded, showed normal temperature, respiratory rate 20, heart rate 75, blood pressure 160/65-152/78. Pulse oxygen saturation with the patient on 3 liters nasal cannula 96-100% saturation. HEENT: Head was atraumatic. Eyes nonicterus. NECK: Supple. CARDIOVASCULAR: S1, S2 audible. LUNGS: Decreased breath sounds noted in the lower portion of the lungs bilaterally. There were no crackles or wheezing. ABDOMEN: Soft, nontender. EXTREMITIES: Without any acute edema. SKIN: Visible skin, no lesions or rashes. MUSCULOSKELETAL: Without any acute deformities. CENTRAL NERVOUS SYSTEM: No focal deficit. Cranial nerves 2-12 intact. LABORATORY DATA: CMP this morning, normal BUN and creatinine. The LFTs were noted normal except albumin 2.8, mildly decreased. IMPRESSION: 1. The patient with current nodular infiltration in the right lobe of the patient, preop for bronchoscopy. Further assessment will be done for the acute pneumonia and other etiologies. 2. The patient with cough, which has been currently resolving. 3. Moderate obesity as well. 4. The patient with frequent hospitalization because of the current incomplete resolution of the pneumonia. PLAN OF TREATMENT: Continue antibiotic therapy, the patient's bronchodilators, oxygen supplementation, and other care. Proceed with bronchoscopy. Any modification in treatment of the patient if necessary will be ordered after the bronchoscopy. No other change in the treatment at this time otherwise will be necessary. Usual care, other supportive plan of management and care. [place], [place] PROGRESS NOTE NAME: ROJELIO HERNÁNDEZ UNIT #: [id number] ROOM: 520 DOCTOR: ABEL STRICKLAND MD BIRTHDATE: [birth year] ABEL SPARKS MD CM:PNTRANS [id number] ABEL SOLO MD 05/19/17 4898 interface
--- NOTE | ~2017-05-16 | PR ---
[place], [place] PROGRESS NOTE NAME: ROJELIO HERNÁNDEZ [facility] #: [id number] UNIT #: [id number] ROOM: 520 DOCTOR: BRIDGER SOLO MD,ABEL BIRTHDATE: [birth year] DOS: 05/21/2017 PULMONARY PROGRESS NOTE SUBJECTIVE: She has done very well. The patient with significant reduction in the symptoms of cough, and other symptoms noted post-bronchoscopy that was done 2 days ago. Denies symptoms of chest pain or hemoptysis. OBJECTIVE: VITAL SIGNS: Normal temperature, respiratory rate 20, heart rate 96, blood pressure 140/82. Her pulse oxygen saturation on room air was 93% saturation. HEENT: No new change. NECK: Supple. CARDIOVASCULAR: S1, S2 audible. LUNGS: The patient was noted without any wheezing or crackles at this time. ABDOMEN: Soft, nontender. LABORATORY DATA: Culture of the bronchial washing showed normal joseph. The chest x-ray that was done yesterday shows significant reduction and improvement in the infiltration; however, the infiltration was still noted to be present in the right lower lobe, not completely resolved. IMPRESSION: The patient with resolving acute pneumonia, nodular infiltration to be monitored until complete resolution. PLAN OF TREATMENT: The patient could be considered for home discharge at this time to be followed up in the office in about 2-3 weeks. In the meantime, other supportive plan of management and care plan. ABEL SPARKS MD CM:PNTRANS 3 7 ABEL SOLO MD 05/21/17 0816 interface
--- NOTE | ~2017-05-16 | CON ---
[place], [place] REPORT OF CONSULTATION NAME: ROJELIO HERNÁNDEZ [facility] #: [id number] UNIT #: [id number] ROOM: 520 DOCTOR: ABEL STRICKLAND MD BIRTHDATE: [birth year] DOS: 05/17/2017 PULMONARY CONSULTATION, EVALUATION, AND MANAGEMENT CONSULTATION REQUESTED BY: Hospitalist services. REASON FOR CONSULTATION: To assess the patient's current abnormal infiltration of the lung for the pneumonia and other symptom. HISTORY OF PRESENT ILLNESS: This is a 66-year-old white female patient who has been admitted to the hospital under the hospitalist services on 05/16/2017. The patient presented to the hospital. The patient has been noted with increase of the respiratory symptom for the past week or so. Shortness of breath has been reported that has been noted progressively worsening. The patient denies any symptoms of chest pain. She does have a cough, which was described to be productive sometimes, but mostly nonproductive. She does have some symptoms of wheezing as well. She does complain of symptoms of chills as well. She denies any symptoms of hemoptysis with current symptoms. The past chart reviewed with the patient was noted from previous hospitalization in this hospital a few weeks ago. The patient was treated for urinary tract infection and also pneumonia at that time treated and discharged home for the use of doxycycline prescription. REVIEW OF SYSTEMS: CONSTITUTIONAL: She was complaining of symptoms of fatigue and tiredness and also reported with some fever at home. EYES: Denies any burning, redness, or tenderness. EARS. No sore throat, hoarseness, otalgia, or postnasal drainage. CARDIOVASCULAR: Denies angina pain, edema, or pain of lower extremity. GASTROINTESTINAL: Denies any symptoms of abdominal pain, nausea, vomiting, diarrhea, or hematochezia. The patient reported intermittent dysphagia of liquids and solids at that time with known past history of esophageal stricture, which were described benign with the dilatation performed, the last dilatation approximately as per the patient was performed 5 years ago. Denies any abnormal weight loss history. GENITOURINARY SYMPTOMS: No dysuria, suprapubic pain, or hematuria. MUSCULOSKELETAL: No acute joint pain, redness, or tenderness. SKIN: Denies any lesions or rashes. MUSCULOSKELETAL: The patient was noted without any deformities or pain. The remaining systems were reviewed and they were noted all negative. PAST MEDICAL HISTORY: Noted with history of: 1. History of bronchial asthma, severity unknown. 2. Gastroesophageal reflux. 3. Hiatal hernia. 4. Essential hypertension. 5. Esophageal stricture. 6. Seizure disorder. 7. Obesity. [place], [place] REPORT OF CONSULTATION NAME: ROJELIO HERNÁNDEZ UNIT #: [id number] ROOM: [facility] DOCTOR: ABEL STRICKLAND MD BIRTHDATE: [birth year] 8. Vitamin D deficiency. PAST SURGICAL HISTORY: 1. Hysterectomy, which was noted completely. 2. Pacemaker insertion. 3. Cholecystectomy. 4. Esophageal stricture. SOCIAL HISTORY: The patient stated that she is , has 2 children, lives at home. Smoking, the patient started as a teenager, pack of cigarettes per day, which were discontinued about 11 years ago. FAMILY HISTORY: Father at [id number] from head trauma. The mother at [id number] from complication related to the stroke. MEDICATIONS: Medication from home were listed as use of ProAir HFA, Norvasc, Lipitor, Coreg, Zyrtec, vitamin D, clonazepam, doxycycline, ferrous sulfate, Lamictal, Prevacid, metformin, multivitamin, naproxen, Percocet, oxygen supplementation on 2 liters nasal cannula, ursodiol, Effexor, and zinc sulfate. DRUG ALLERGIES: REPORTED ALLERGY TO FLUOROQUINOLONES. PHYSICAL EXAMINATION: GENERAL: This is a 66-year-old female, who has been currently sitting on a bed without any apparent distress. Her height was recorded by the nursing staff as 5 feet 1 inch, weight of 154 pounds, and BMI 29.1. VITAL SIGNS: Temperature noted 101.7 degree Fahrenheit, respiratory rate of the patient recorded at 32-18, heart rate of 107-77, and blood pressure 141/56 134/84. Pulse oxygen saturation on 3 liters nasal cannula is 96% saturation. HEENT: Examination shows head was atraumatic. Eyes nonicterus. NECK: Supple. CARDIOVASCULAR: S1, S2 is audible. No added sounds. LUNGS: Noted without any wheezing or crackles. Mild reduction in breath sounds noted generalized. ABDOMEN: Soft with mild obesity. Bowel sounds present. EXTREMITIES: The patient is noted without any acute edema, clubbing, or cyanosis. CENTRAL NERVOUS SYSTEM: Noted intact. VISIBLE SKIN: No lesions or rashes. LABORATORY DATA: CMP of the patient on 05/17/2017, normal BUN and creatinine and potassium 3.3. Other electrolytes were normal. The CMP of the patient that was done yesterday noted with normal BUN and creatinine, sodium 130, normal potassium. CBC yesterday of the patient, WBC count 26.7, hemoglobin 11.9, hematocrit 36.8, and platelet count 303,000. CBC of this morning, WBC count persistently elevated at 36.6, hemoglobin 10.5, hematocrit 32.6, and platelet count was noted as 291,000. The troponin for the patient were noted as normal. Lactic acid was noted mildly elevated at 2.5 on admission. The PT/INR were noted as 1.1 that was normal. [place], [place] REPORT OF CONSULTATION NAME: ROJELIO HERNÁNDEZ UNIT #: [id number] ROOM: [facility] DOCTOR: ABEL STRICKLAND MD BIRTHDATE: [birth year] DIAGNOSTIC DATA: The Radiology data review for this patient was performed. Chest x-ray of the patient that was noted on 04/08/2017 shows a large area of consolidation, infiltration noted essentially in the right lower lobe for the patient that appeared to be pleural-based. The pacemaker noted in place. There were no other followup chest x-ray done at that time. The CT scan of the chest was done. The chest x-ray on this admission was reviewed. One view chest x-ray of the patient that was done shows patchy area of infiltration and nodular opacity noted, remains essentially unchanged. CT scan of the chest noted pleural-based mass-like lesion consolidation in the right lower lobe with addition of nodular opacities noted in the right lower lung. IMPRESSION: 1. The patient who had been currently admitted to the hospital was noted with a possibility of acute aspiration pneumonia, rule out any mass lesion in addition to that with malignancy of right lower thorax. The patient has known past history of esophageal stricture as well, which has not been assessed for the past 5 years. Past history of nicotine use was also known. 2. History of bronchial asthma as well. 3. Mild obesity as well and other medical illnesses. PLAN OF MANAGEMENT: At this time, the patient will be recommended about antibiotic treatment with the current coverage for the patient's broad-spectrum to be continued. The bronchoscopy was planned to be done on Friday morning. Risks and benefits of the procedure have been discussed. N.p.o. past midnight that was achieved from midnight Friday. The patient accepted the risks and the benefits of procedure. Sputum for Gram stain culture. GI assessment to be done for the patient including modified barium swallow completion as well for assessment of swallowing integrity. Supportive plan of therapy and other care plan. Bronchodilator to help mobilize secretion. The patient does expectorate sputum, certainly could be sent for culture. The malignancy should be excluded until complete resolution of current abnormality occurred for the patient with the future follow up visit as an outpatient. Thanks for allowing me to participate in the care of this patient. ABEL SPARKS MD CM:CONSTR:REPORT OF CONSULTATION 1230 05/18/17 0100 interface
--- NOTE | ~2017-05-16 | PR ---
[place], [place] PROGRESS NOTE NAME: ROJELIO HERNÁNDEZ [facility] #: [id number] UNIT #: [id number] ROOM: 520 DOCTOR: THU CARUSO,JUNE BIRTHDATE: [birth year] DOS: SUBJECTIVE: The patient is being followed for pneumonia, is being covered for healthcare-associated pneumonia, nosocomial pathogens due to recent hospitalization for pneumonia. She was brought by Dr. Christopher this morning. Cultures are pending. She had a sputum culture sent yesterday thus far with gram-positive cocci in pairs. Her urine for legionella and strep pneumoniae are negative. Bronch wash cultures are pending. Blood cultures are negative. She had significant leukocytosis at the time of admission. She has had no new labs today. No nausea or vomiting, no diarrhea, no rash or itch. No cough, shortness of breath. No fevers or shaking. She does have some cough with large amount of clear sputum after her bronchoscopy, but breathing has significantly improved. No fevers or shaking chills. OBJECTIVE: VITAL SIGNS: Show temperature 98.9, pulse 87, respirations 20, BP 120/57. LABORATORY DATA: Vancomycin 5.7, BUN 12, creatinine 0.74. LFTs within normal limits. Albumin 2.8. Cultures as reviewed above. CURRENT MEDICATIONS: Include vancomycin, Mucinex, Effexor, Actigall, Lamictal, Feosol, vitamin D, Zyrtec, Coreg, Lipitor, Norvasc, Lovenox, Klonopin, Protonix, Zosyn, Xopenex, Zithromax, Restoril, Dulcolax, [place], and Tylenol. PHYSICAL EXAMINATION: GENERAL: Alert and oriented 66-year-old female in no acute distress. HEAD, EYES, EARS, NOSE AND THROAT: Normocephalic, no thrush. LUNGS: Fairly clear to auscultation bilaterally. Respirations even and unlabored. HEART: Regular rhythm. No murmur appreciated. ABDOMEN: Soft, nontender. EXTREMITIES: No edema or deformity. SKIN: Warm, dry, free of rashes. ASSESSMENT: Right middle and lower lobe pneumonia, now status post bronchoscopy. She is covered for healthcare-associated pneumonia due to a recent hospitalization. PLAN: Continue the vancomycin and Zosyn. Follow up on a bronch cultures and sputum culture from yesterday. Stop the Zithromax. Chest x-ray in a.m. Case discussed with Dr. Pavithra Cooper. DEN ANDINO CNP [place], [place] PROGRESS NOTE NAME: ROJELIO HERNÁNDEZ UNIT #: [id number] ROOM: 520 DOCTOR: THU CARUSO BIRTHDATE: [birth year] PAVITHRA COOPER MD CM:PNTRANS [phone] JUNE THU CARUSO 05/20/17 0757 interface
--- NOTE | ~2017-05-16 | PR ---
[place], [place] PROGRESS NOTE NAME: ROJELIO HERNÁNDEZ [facility] #: [id number] UNIT #: [id number] ROOM: 520 DOCTOR: THU CARUSO,JUNE BIRTHDATE: [birth year] DOS: 05/18/2017 SUBJECTIVE: The patient is being followed for recurrent pneumonia. She had been hospitalized here approximately 2 months ago from pneumonia. She was admitted with CT of the chest showing multilobar infiltrates on the right. She remains on empiric antibiotics, covering healthcare-associated pneumonia with vancomycin, Zosyn and Zithromax. Her urinary antigens are pending. WBCs are improving, they were 26,000, down to 19. She states her breathing is better. She is not coughing. No nausea, vomiting or diarrhea. No rash or itch. No fevers or shaking chills. No pain currently. LABORATORY DATA: Show WBC is 19.8, platelets 309. BUN 8, creatinine 0.71. LFTs within normal limits. Albumin 3.1. CURRENT MEDICATIONS: Include Mucinex, Effexor, Actigall, Lamictal, Feosol, vitamin D, Zyrtec, Coreg, Lipitor, Norvasc, K-Dur, vancomycin, Lovenox, Klonopin, Protonix, Zosyn, Xopenex, Zithromax, Restoril, Dulcolax, [place], Tylenol. PHYSICAL EXAMINATION: VITAL SIGNS: Temperature 98.0, pulse 76, respirations 20, BP 117/54. GENERAL: Alert and oriented 66-year-old female, in no acute distress. HEAD, EYES, EARS, NOSE AND THROAT: Normocephalic. No thrush. LUNGS: Better aeration on the right, a few rales in right base. Respirations even and unlabored. HEART: Regular rhythm. No murmur appreciated. ABDOMEN: Soft, nontender. EXTREMITIES: No edema, deformity or cyanosis. SKIN: Warm, dry, free of rashes. ASSESSMENT: Right lung multilobar infiltrate. PLAN: She is to have a bronchoscopy tomorrow. We will follow up on that, follow up on the urinary antigens and cultures and narrow antibiotics accordingly. Currently on Zosyn, vancomycin, and Zithromax due to recent hospitalizations. Case discussed with Dr. Pavithra Cooper. JUNE SHADY ANDINO [place], [place] PROGRESS NOTE NAME: KEIRY HERNÁNDEZRick Navas UNIT #: [id number] ROOM: 520 DOCTOR: THU CONTRACT ANALYST,JUNE BIRTHDATE: [birth year] PAVITHRA COOPER MD CM:PNTRANS [phone] THU CARUSO 05/19/17 0902 interface
[~2017-05-16 08:36] MED LIST changes: +PERCOCET 5-3251 EACH PO; +VITAMIN D-32000 UNIT PO
[2017-05-16 09:28] LABS: HEMATOCRIT 36.8 % (37.0-47.0); HEMOGLOBIN 11.9 g/dl (12.0-16.0); MEAN CELL VOLUME 86.8 fl (81.0-99.0); MEAN CORPUSCULAR HGB 28.1 pg (27.0-31.0); MEAN CORPUSCULAR HGB CONC 32.3 g/dl (33.0-37.0); MEAN PLATELET VOLUME 9.3 fl (9.6-12.3); PLATELET COUNT AUTOMATED 303 10*3/uL (130-400); RED BLOOD COUNT 4.24 10*6/uL (4.10-5.10); RED CELL DISTRI WIDTH 13.4 % (0-14.5); WHITE BLOOD COUNT 26.7 10*3/uL (4.8-10.8)
[2017-05-16 09:45] LABS: ALBUMIN 3.7 gm/dl (3.1-4.5); ALKALINE PHOSPHATASE 152 U/L (45-117); BUN 24 mg/dl (7-24); CHLORIDE 92 mmol/L (98-107); POTASSIUM 4.6 mmol/L (3.5-5.1); SGOT/AST 29 IU/L (3-35); SGPT/ALT 24 U/L (12-78); SODIUM 130 mmol/L (136-145); TOTAL PROTEIN 7.4 gm/dL (6.4-8.2)
[2017-05-16 09:51] LABS: TROPONIN I < 0.015 ng/ml (<0.045)
[2017-05-16 09:54] LABS: PLATELET SUFFICIENCY NORMAL (NORMAL); TOTAL CELLS COUNTED 100 #CELLS
[2017-05-16] MEDS ORDERED: REXULTI2 MG PO (18:23)
[2017-05-16 20:52] LABS: BILIRUBIN NEGATIVE (NEGATIVE); BLOOD NEGATIVE (NEGATIVE); CLARITY CLEAR (CLEAR); COLOR YELLOW (YELLOW); GLUCOSE NEGATIVE (NEGATIVE); KETONE NEGATIVE (NEGATIVE); LEUKO ESTERASE NEGATIVE (NEGATIVE); NITRITE NEGATIVE (NEGATIVE); PH 6.5 (5.0-9.0); SPECIFIC GRAVITY <= 1.005 (1.005-1.030); UROBILINOGEN 0.2 E.U./dl (0.2-1.0)
[2017-05-16 21:01] LABS: BACTERIA TRACE; EPITHELIAL CELLS 0-2; RBC 0-2 rbc/hpf (0-2); WBC 0-2 wbc/hpf (0-5)
[2017-05-17] VITALS: BP 141/56
[2017-05-17 06:38] LABS: HEMATOCRIT 32.6 % (37.0-47.0); HEMOGLOBIN 10.5 g/dl (12.0-16.0); MEAN CELL VOLUME 87.9 fl (81.0-99.0); MEAN CORPUSCULAR HGB 28.3 pg (27.0-31.0); MEAN CORPUSCULAR HGB CONC 32.2 g/dl (33.0-37.0); MEAN PLATELET VOLUME 9.7 fl (9.6-12.3); PLATELET COUNT AUTOMATED 291 10*3/uL (130-400); RED BLOOD COUNT 3.71 10*6/uL (4.10-5.10); RED CELL DISTRI WIDTH 13.7 % (0-14.5); WHITE BLOOD COUNT 26.6 10*3/uL (4.8-10.8)
[2017-05-17 06:45] LABS: INTERNATIONAL NORM RATIO 1.1 (2.0-3.5)
[2017-05-17 07:09] LABS: ALKALINE PHOSPHATASE 132 U/L (45-117); CHLORIDE 101 mmol/L (98-107); CHOLESTEROL 134 mg/dL (<200); CREATININE 0.56 mg/dL (0.55-1.02); HDL CHOLESTEROL 74 mg/dl (40-60); LDL CHOLESTEROL 44 mg/dL (9-159); SGOT/AST 22 IU/L (3-35); SGPT/ALT 22 U/L (12-78); SODIUM 138 mmol/L (136-145); TOTAL PROTEIN 6.6 gm/dL (6.4-8.2); TRIGLYCERIDES 79 mg/dl (<150); VLDL CHOLESTEROL 16 mg/dL (6-40)
[2017-05-17 07:10] LABS: TOTAL CELLS COUNTED 100 #CELLS
[2017-05-17 07:11] LABS: PLATELET SUFFICIENCY NORMAL (NORMAL)
[2017-05-17 07:15] LABS: THYROID STIM HORMONE (HS) 0.674 uIU/ml (0.358-4.75)
[2017-05-17 07:28] LABS: BUN 10 mg/dl (7-24); POTASSIUM 3.3 mmol/L (3.5-5.1)
[2017-05-17 08:00] VITALS: BP 143/72
[2017-05-17 08:35] LABS: VITAMIN D, 25-HYDROXY 18.4 ng/mL (30-100)
[2017-05-17 11:45] LABS: ACT PARTIAL THROMBO TIME 27.3 SECONDS (20.8-31.5)
[2017-05-17 12:00] VITALS: BP 158/71
[2017-05-17 16:00] VITALS: BP 162/76
[2017-05-17 20:00] VITALS: BP 160/76
[2017-05-18] VITALS: BP 180/81
[2017-05-18 07:02] LABS: BASO # 0.1 10*3/uL (0.0-0.1); BASO % 0.3 % (0.0-1.0); EOS # 0.2 10*3/uL (0.0-0.4); EOS % 1.1 % (1.0-4.0); HEMATOCRIT 30.7 % (37.0-47.0); HEMOGLOBIN 10.1 g/dl (12.0-16.0); LYMPH % 9.9 % (27.0-41.0); MEAN CORPUSCULAR HGB 28.6 pg (27.0-31.0); MEAN CORPUSCULAR HGB CONC 32.9 g/dl (33.0-37.0); MEAN PLATELET VOLUME 9.6 fl (9.6-12.3); MONO # 1.5 10*3/uL (0.1-1.0); MONO % 7.5 % (3.0-9.0); NEUT % 80.7 % (47.0-73.0); PLATELET COUNT AUTOMATED 309 10*3/uL (130-400); RED BLOOD COUNT 3.53 10*6/uL (4.10-5.10); RED CELL DISTRI WIDTH 13.7 % (0-14.5); WHITE BLOOD COUNT 19.8 10*3/uL (4.8-10.8)
[2017-05-18 07:32] LABS: ALBUMIN 3.1 gm/dl (3.1-4.5); BUN 8 mg/dl (7-24); CHLORIDE 100 mmol/L (98-107); CREATININE 0.71 mg/dL (0.55-1.02); POTASSIUM 3.3 mmol/L (3.5-5.1); SGOT/AST 23 IU/L (3-35); SGPT/ALT 22 U/L (12-78); SODIUM 138 mmol/L (136-145); TOTAL PROTEIN 7.3 gm/dL (6.4-8.2)
[2017-05-18 07:33] LABS: ALKALINE PHOSPHATASE 143 U/L (45-117)
[2017-05-18 08:00] VITALS: BP 163/80
[2017-05-18 12:00] VITALS: BP 149/73
[2017-05-18 16:00] VITALS: BP 115/83; BP 117/54
[2017-05-18 18:05] VITALS: BP 145/72
[2017-05-18 20:00] VITALS: BP 128/63
[2017-05-19] VITALS (8 sets, daily range): BP systolic 117–170; BP diastolic 54–78
[2017-05-19 06:21] LABS: ALBUMIN 2.8 gm/dl (3.1-4.5); ALKALINE PHOSPHATASE 135 U/L (45-117); BUN 12 mg/dl (7-24); CHLORIDE 104 mmol/L (98-107); CREATININE 0.74 mg/dL (0.55-1.02); POTASSIUM 3.8 mmol/L (3.5-5.1); SGOT/AST 20 IU/L (3-35); SGPT/ALT 23 U/L (12-78); SODIUM 139 mmol/L (136-145); TOTAL PROTEIN 6.8 gm/dL (6.4-8.2)
[2017-05-19 12:20] LABS: BF LYMPHOCYTES 7 %; BF MACROPHAGES 6 %; BF NEUTROPHILS 83 %
[2017-05-20] VITALS: BP 172/80
[2017-05-20 04:20] VITALS: BP 142/78
[2017-05-20 06:59] LABS: BASO # 0.1 10*3/uL (0.0-0.1); BASO % 0.7 % (0.0-1.0); EOS # 0.5 10*3/uL (0.0-0.4); EOS % 4.6 % (1.0-4.0); HEMATOCRIT 29.7 % (37.0-47.0); HEMOGLOBIN 9.6 g/dl (12.0-16.0); LYMPH % 18.1 % (27.0-41.0); MEAN CELL VOLUME 87.9 fl (81.0-99.0); MEAN CORPUSCULAR HGB 28.4 pg (27.0-31.0); MEAN CORPUSCULAR HGB CONC 32.3 g/dl (33.0-37.0); MEAN PLATELET VOLUME 9.5 fl (9.6-12.3); MONO # 1.1 10*3/uL (0.1-1.0); MONO % 9.8 % (3.0-9.0); NEUT # 7.5 10*3/uL (2.3-7.9); NEUT % 66.3 % (47.0-73.0); PLATELET COUNT AUTOMATED 352 10*3/uL (130-400); RED BLOOD COUNT 3.38 10*6/uL (4.10-5.10); RED CELL DISTRI WIDTH 13.4 % (0-14.5); WHITE BLOOD COUNT 11.3 10*3/uL (4.8-10.8)
[2017-05-20 07:21] LABS: BUN 9 mg/dl (7-24); CHLORIDE 102 mmol/L (98-107); CREATININE 0.69 mg/dL (0.55-1.02); POTASSIUM 3.4 mmol/L (3.5-5.1); SODIUM 136 mmol/L (136-145)
[2017-05-20 12:00] VITALS: BP 147/94
[2017-05-20 16:00] VITALS: BP 135/60
[2017-05-20 16:08] LABS: ACID FAST SPEC PROCESSING Concentration (.)
[2017-05-20 20:00] VITALS: BP 135/60
[2017-05-21] VITALS: BP 140/82
[2017-05-21 06:49] LABS: BASO # 0.1 10*3/uL (0.0-0.1); BASO % 0.7 % (0.0-1.0); EOS # 0.6 10*3/uL (0.0-0.4); EOS % 4.8 % (1.0-4.0); HEMATOCRIT 30.2 % (37.0-47.0); HEMOGLOBIN 9.5 g/dl (12.0-16.0); LYMPH # 2.4 10*3/uL (1.3-4.4); LYMPH % 20.9 % (27.0-41.0); MEAN CORPUSCULAR HGB 27.7 pg (27.0-31.0); MEAN CORPUSCULAR HGB CONC 31.5 g/dl (33.0-37.0); MEAN PLATELET VOLUME 9.9 fl (9.6-12.3); MONO # 1.2 10*3/uL (0.1-1.0); MONO % 10.6 % (3.0-9.0); NEUT # 7.2 10*3/uL (2.3-7.9); NEUT % 61.8 % (47.0-73.0); PLATELET COUNT AUTOMATED 371 10*3/uL (130-400); RED BLOOD COUNT 3.43 10*6/uL (4.10-5.10); RED CELL DISTRI WIDTH 13.4 % (0-14.5); WHITE BLOOD COUNT 11.7 10*3/uL (4.8-10.8)
[2017-05-21 06:58] LABS: BUN 11 mg/dl (7-24); CHLORIDE 105 mmol/L (98-107); CREATININE 0.71 mg/dL (0.55-1.02); POTASSIUM 3.6 mmol/L (3.5-5.1); SODIUM 139 mmol/L (136-145)
[2017-05-21 08:00] VITALS: BP 142/62
[2017-05-21] MEDS ORDERED: OMNICEF300 MG PO (11:34)
[2017-05-21] MEDS ORDERED: DOXYCYCLINE100 M3 PO (11:34)
[2017-05-21 12:00] VITALS: BP 150/60
[2017-05-21] MEDS ORDERED: SEPTDS PO (15:50)
== END 2017-05-21 15:17 | disposition home or self-care (01) | DRG 853 ==
LOC: ED 08:36 → EDHOLD 11:15 → 5E 11:15
PROVIDERS: Emergency Medicine; Family Medicine; Hospitalist; Internal Medicine Critical Care Medicine; Internal Medicine Nephrology
PROC: 0B938ZZ Drainage of Right Main Bronchus, Via Natural or Artificial Opening Endoscopic (ICD-10-PCS; principal; 2017-05-19)
PROC: 0B998ZZ Drainage of Lingula Bronchus, Via Natural or Artificial Opening Endoscopic (ICD-10-PCS; principal; 2017-05-19)
PROC: 0B9B8ZZ Drainage of Left Lower Lobe Bronchus, Via Natural or Artificial Opening Endoscopic (ICD-10-PCS; principal; 2017-05-19)
PROC: 0B948ZZ Drainage of Right Upper Lobe Bronchus, Via Natural or Artificial Opening Endoscopic (ICD-10-PCS; principal; 2017-05-19)
PROC: 0B958ZZ Drainage of Right Middle Lobe Bronchus, Via Natural or Artificial Opening Endoscopic (ICD-10-PCS; principal; 2017-05-19)
PROC: 0B9F8ZX Drainage of Right Lower Lung Lobe, Via Natural or Artificial Opening Endoscopic, Diagnostic (ICD-10-PCS; principal; 2017-05-19)
PROC: 0B988ZZ Drainage of Left Upper Lobe Bronchus, Via Natural or Artificial Opening Endoscopic (ICD-10-PCS; principal; 2017-05-19)
PROC: 0B978ZZ Drainage of Left Main Bronchus, Via Natural or Artificial Opening Endoscopic (ICD-10-PCS; principal; 2017-05-19)
PROC: 0B968ZZ Drainage of Right Lower Lobe Bronchus, Via Natural or Artificial Opening Endoscopic (ICD-10-PCS; principal; 2017-05-19)
PROC: 0B928ZZ Drainage of Carina, Via Natural or Artificial Opening Endoscopic (ICD-10-PCS; principal; 2017-05-19)
DX: A41.9 Sepsis, unspecified organism (principal); J18.1 Lobar pneumonia, unspecified organism; J96.10 Chronic respiratory failure, unspecified whether with hypoxia or hypercapnia; E87.2 Acidosis; E66.01 Morbid (severe) obesity due to excess calories; E87.1 Hypo-osmolality and hyponatremia; D64.9 Anemia, unspecified; E11.9 Type 2 diabetes mellitus without complications; J44.0 Chronic obstructive pulmonary disease with (acute) lower respiratory infection; Z66 Do not resuscitate; K21.9 Gastro-esophageal reflux disease without esophagitis; I10 Essential (primary) hypertension; E78.5 Hyperlipidemia, unspecified; G40.909 Epilepsy, unspecified, not intractable, without status epilepticus; F41.9 Anxiety disorder, unspecified; R65.20 Severe sepsis without septic shock; Z51.5 Encounter for palliative care; F31.9 Bipolar disorder, unspecified; Z88.1 Allergy status to other antibiotic agents; Z91.040 Latex allergy status; Z91.048 Other nonmedicinal substance allergy status; Z78.9 Other specified health status; Z79.84 Long term (current) use of oral hypoglycemic drugs; Z79.899 Other long term (current) drug therapy; Z68.29 Body mass index [BMI] 29.0-29.9, adult; Z87.440 Personal history of urinary (tract) infections; Z90.710 Acquired absence of both cervix and uterus; Z90.49 Acquired absence of other specified parts of digestive tract; Z95.0 Presence of cardiac pacemaker; Z87.891 Personal history of nicotine dependence; Z82.3 Family history of stroke; Z83.3 Family history of diabetes mellitus; Z82.49 Family history of ischemic heart disease and other diseases of the circulatory system

== ENCOUNTER 2017-06-20 15:37 | Inpatient (IN) | payer MEDICARE ==
[~2017-06-20] VITALS: Ht 154.9 cm; Wt 71.4 kg
--- NOTE | ~2017-06-20 | PR ---
[place], [place] PROGRESS NOTE NAME: [id number] UNIT #: [id number] ROOM: 405 DOCTOR: LEANNA SONG MD BIRTHDATE: [birth year] DOS: 06/27/2017 SUBJECTIVE: I saw this patient 3 days ago and swelling in the legs has gone down and her breathing is easier, but she is still on oxygen, very little cough. No fever or chills or palpitations. OBJECTIVE: GENERAL: She is awake and fairly comfortable, complexion is fine. No cyanosis or jaundice. VITAL SIGNS: Pulse is 88 and regular, blood pressure 138/80. NECK: JVP is normal. AJR is negative. LUNGS: Breath sounds are moderately diminished with adventitious sounds and there is 1+ right pedal edema and 2+ left pedal edema. Pretibial edema is much less. IMPRESSION: This patient has chronic diastolic heart failure, which seems to have improved. PLAN: From cardiac standpoint, she will be discharged home on some loop diuretic and I would like to see her in my office in the next 2-4 weeks. LEANNA SONG MD CM:PNTRANS [phone] LEANNA SONG MD 06/27/17 1116 interface
--- NOTE | ~2017-06-20 | PR ---
[place], [place] PROGRESS NOTE NAME[id number] UN[facility] #: [id number] ROOM: 405 DOCTOR: SAMEER HUBBARD MD BIRTHDATE: [birth year] DOS: 06/24/2017 SUBJECTIVE: The patient hemodynamically appears to be stable and shortness of breath significantly improved. OBJECTIVE: VITAL SIGNS: Blood pressure is 150/60. NECK: Supple, no JVD. LUNGS: Clear. HEART: Sounds are regular. ABDOMEN: Soft and nontender. NEUROLOGIC: Stable. Fluid balance is positive, 720. LABORATORY DATA: Hemoglobin 10.6 and hematocrit 34.3. Electrolytes are normal. Creatinine is 0.9. The last ejection fraction showed an excellent EF of 65%. The patient was seen by Dr. Sellers yesterday. IMPRESSION: The patient with diastolic heart failure, which is chronic. Cardiac status appears to be stable. RECOMMENDATIONS: Continue the present care. Continue IV diuretics. Monitor the blood pressures closely and we will follow up. SAMEER HUBBARD MD CM:PNTRANS [phone] SAMEER HUBBARD MD 06/25/17 0256 interface
--- NOTE | ~2017-06-20 | CON ---
[place], [place] REPORT OF CONSULTATION NAME: ROJELIO HERNÁNDEZ [facility] #: [id number] UNIT #: [id number] ROOM: 405 DOCTOR: LEANNA SONG MD BIRTHDATE: [birth year] DOS: 06/23/2017 HISTORY OF PRESENT ILLNESS: This is a 66-year-old -Swazi woman with a history of asthma, essential hypertension, hyperlipidemia, type 2 diabetes mellitus, GERD and seizure disorder. She had a pacemaker implanted long time ago and I believe the generator was changed a few years ago. She does not smoke, nor does she drink alcoholic beverages. Lives at home. PAST MEDICAL HISTORY: Depression and anxiety. She was admitted to the hospital about 3 days ago with many weeks of swelling of the legs and shortness of breath, orthopnea and paroxysmal nocturnal dyspnea. She had no chest pain or palpitations. No fever or chills or cough. She does not recall any chest pain or heaviness before her symptoms began. She has no nausea, abdominal pain or blood in the stools. HOME MEDICATIONS: Include amlodipine 10 mg daily, atorvastatin 80 daily, carvedilol 12.5 mg b.i.d. She is on albuterol/ProAir HFA 2 puffs daily, clonazepam 2 mg t.i.d., ferrous sulfate, Lamictal, Prevacid, metformin, multivitamins, Actigall and Effexor. She has been receiving IV furosemide. PHYSICAL EXAMINATION: GENERAL: This is a patient who is pleasant, alert, oriented. She is comfortable. There is no thyromegaly, finger clubbing. She is not cyanotic, nor is she jaundiced. VITAL SIGNS: Pulse is 76 and regular, blood pressure 124/62. NECK: JVP is normal. AJR is positive. There are no carotid bruits. CARDIOVASCULAR: There is no cardiomegaly. Auscultation reveals S1, S2. Pedal pulses are palpable. She has at least 2+ edema below the knees. RESPIRATORY: Breath sounds are mildly diminished. She has crackles in the lower zones. ABDOMEN: Supple, nontender. DIAGNOSTIC STUDIES: An ECG showed atrial pacing and ventricular pacing. Chest x-ray done on the , i.e. second x-ray demonstrated pulmonary vascular congestion with cephalization and dual chamber pacemaker. LABORATORY DATA: Renal function is fine. Hemoglobin is mildly reduced. IMPRESSION: This patient has chronic heart failure. It is likely to be diastolic; however, an echocardiogram needs to be done to elucidate left ventricular systolic function and make definitive diagnosis of type of heart failure. I recommend IV furosemide for the next 2-3 days while monitoring renal function and potassium. An echocardiogram should be performed. [place], [place] REPORT OF CONSULTATION NAME: ROJELIO HERNÁNDEZ UNIT #: [id number] ROOM: 405 DOCTOR: NOHEMI MULLER,LEANNA BIRTHDATE: [birth year] Thanks for this consult. LEANNA SONG MD CM:CONSTR:REPORT OF CONSULTATION 1725 07/07/17 0753 interface
[~2017-06-20 15:37] MED LIST changes: +OMNICEF300 MG PO; +REXULTI2 MG PO; +SEPTDS PO
[2017-06-20 15:46] VITALS: BP 151/66
[2017-06-20 17:15] LABS: ALBUMIN 3.9 gm/dl (3.1-4.5); ALKALINE PHOSPHATASE 185 U/L (45-117); BUN 19 mg/dl (7-24); CHLORIDE 94 mmol/L (98-107); CREATININE 0.91 mg/dL (0.55-1.02); POTASSIUM 4.5 mmol/L (3.5-5.1); SGOT/AST 23 IU/L (3-35); SGPT/ALT 23 U/L (12-78); SODIUM 129 mmol/L (136-145); TOTAL PROTEIN 8.1 gm/dL (6.4-8.2); TROPONIN I < 0.015 ng/ml (<0.045)
[2017-06-20 17:17] LABS: CKMB 3.1 ng/ml (0.5-3.6)
[2017-06-20 17:28] LABS: BASO # 0.1 10*3/uL (0.0-0.1); BASO % 0.6 % (0.0-1.0); EOS # 0.7 10*3/uL (0.0-0.4); EOS % 4.7 % (1.0-4.0); HEMATOCRIT 36.4 % (37.0-47.0); HEMOGLOBIN 11.9 g/dl (12.0-16.0); LYMPH # 2.9 10*3/uL (1.3-4.4); LYMPH % 19.4 % (27.0-41.0); MEAN CELL VOLUME 86.5 fl (81.0-99.0); MEAN CORPUSCULAR HGB 28.3 pg (27.0-31.0); MEAN CORPUSCULAR HGB CONC 32.7 g/dl (33.0-37.0); MEAN PLATELET VOLUME 9.5 fl (9.6-12.3); MONO # 1.2 10*3/uL (0.1-1.0); NEUT # 9.9 10*3/uL (2.3-7.9); NEUT % 65.6 % (47.0-73.0); PLATELET COUNT AUTOMATED 371 10*3/uL (130-400); RED BLOOD COUNT 4.21 10*6/uL (4.10-5.10); RED CELL DISTRI WIDTH 14.6 % (0-14.5); WHITE BLOOD COUNT 15.1 10*3/uL (4.8-10.8)
[2017-06-20 20:00] VITALS: BP 164/72
[2017-06-21] VITALS: BP 158/74
[2017-06-21 07:28] LABS: BASO # 0.1 10*3/uL (0.0-0.1); BASO % 0.7 % (0.0-1.0); EOS # 0.6 10*3/uL (0.0-0.4); EOS % 5.8 % (1.0-4.0); HEMATOCRIT 35.3 % (37.0-47.0); HEMOGLOBIN 11.3 g/dl (12.0-16.0); LYMPH # 2.4 10*3/uL (1.3-4.4); MEAN CELL VOLUME 86.5 fl (81.0-99.0); MEAN CORPUSCULAR HGB 27.7 pg (27.0-31.0); MEAN PLATELET VOLUME 9.5 fl (9.6-12.3); MONO # 1.4 10*3/uL (0.1-1.0); MONO % 12.6 % (3.0-9.0); NEUT # 6.1 10*3/uL (2.3-7.9); NEUT % 57.1 % (47.0-73.0); PLATELET COUNT AUTOMATED 396 10*3/uL (130-400); RED BLOOD COUNT 4.08 10*6/uL (4.10-5.10); RED CELL DISTRI WIDTH 14.9 % (0-14.5); WHITE BLOOD COUNT 10.7 10*3/uL (4.8-10.8)
[2017-06-21 07:39] LABS: ALBUMIN 3.8 gm/dl (3.1-4.5); ALKALINE PHOSPHATASE 159 U/L (45-117); BUN 14 mg/dl (7-24); CHLORIDE 101 mmol/L (98-107); CREATININE 0.85 mg/dL (0.55-1.02); PHOSPHOROUS 5.2 mg/dL (2.5-4.9); POTASSIUM 3.9 mmol/L (3.5-5.1); SGOT/AST 19 IU/L (3-35); SGPT/ALT 22 U/L (12-78); SODIUM 138 mmol/L (136-145); TOTAL PROTEIN 7.6 gm/dL (6.4-8.2)
[2017-06-21 08:00] VITALS: BP 107/84
[2017-06-21 12:00] VITALS: BP 97/39
[2017-06-21 13:53] LABS: BILIRUBIN NEGATIVE (NEGATIVE); BLOOD NEGATIVE (NEGATIVE); CLARITY CLEAR (CLEAR); COLOR YELLOW (YELLOW); GLUCOSE NEGATIVE (NEGATIVE); KETONE NEGATIVE (NEGATIVE); LEUKO ESTERASE NEGATIVE (NEGATIVE); NITRITE NEGATIVE (NEGATIVE); UROBILINOGEN 0.2 E.U./dl (0.2-1.0)
[2017-06-21 14:46] LABS: BACTERIA TRACE; WBC 0-2 wbc/hpf (0-5)
[2017-06-21 16:00] VITALS: BP 126/46
[2017-06-21 20:00] VITALS: BP 148/61
[2017-06-22] VITALS: BP 134/71
[2017-06-22 08:00] VITALS: BP 152/66
[2017-06-22 08:18] LABS: CHLORIDE 97 mmol/L (98-107); SODIUM 132 mmol/L (136-145)
[2017-06-22 08:23] LABS: BASO # 0.1 10*3/uL (0.0-0.1); BASO % 0.8 % (0.0-1.0); EOS # 0.7 10*3/uL (0.0-0.4); EOS % 7.2 % (1.0-4.0); HEMATOCRIT 33.5 % (37.0-47.0); HEMOGLOBIN 10.6 g/dl (12.0-16.0); LYMPH # 2.9 10*3/uL (1.3-4.4); LYMPH % 27.7 % (27.0-41.0); MEAN CELL VOLUME 88.4 fl (81.0-99.0); MEAN CORPUSCULAR HGB CONC 31.6 g/dl (33.0-37.0); MEAN PLATELET VOLUME 9.7 fl (9.6-12.3); MONO # 1.4 10*3/uL (0.1-1.0); NEUT # 5.1 10*3/uL (2.3-7.9); PLATELET COUNT AUTOMATED 356 10*3/uL (130-400); RED BLOOD COUNT 3.79 10*6/uL (4.10-5.10); RED CELL DISTRI WIDTH 14.7 % (0-14.5); WHITE BLOOD COUNT 10.3 10*3/uL (4.8-10.8)
[2017-06-22 08:26] LABS: BUN 21 mg/dl (7-24); CREATININE 0.96 mg/dL (0.55-1.02)
[2017-06-22 12:00] VITALS: BP 138/75
[2017-06-22 16:00] VITALS: BP 122/65
[2017-06-22 20:00] VITALS: BP 126/64
[2017-06-23] VITALS: BP 136/54
[2017-06-23 06:25] LABS: BASO # 0.1 10*3/uL (0.0-0.1); BASO % 0.7 % (0.0-1.0); EOS # 0.6 10*3/uL (0.0-0.4); EOS % 6.3 % (1.0-4.0); HEMATOCRIT 33.1 % (37.0-47.0); HEMOGLOBIN 10.3 g/dl (12.0-16.0); LYMPH # 2.7 10*3/uL (1.3-4.4); MEAN CELL VOLUME 89.2 fl (81.0-99.0); MEAN CORPUSCULAR HGB 27.8 pg (27.0-31.0); MEAN CORPUSCULAR HGB CONC 31.1 g/dl (33.0-37.0); MEAN PLATELET VOLUME 9.5 fl (9.6-12.3); MONO # 1.3 10*3/uL (0.1-1.0); NEUT # 4.8 10*3/uL (2.3-7.9); NEUT % 49.9 % (47.0-73.0); PLATELET COUNT AUTOMATED 326 10*3/uL (130-400); RED BLOOD COUNT 3.71 10*6/uL (4.10-5.10); RED CELL DISTRI WIDTH 14.7 % (0-14.5); WHITE BLOOD COUNT 9.5 10*3/uL (4.8-10.8)
[2017-06-23 06:45] LABS: BUN 22 mg/dl (7-24); CHLORIDE 99 mmol/L (98-107); CREATININE 0.94 mg/dL (0.55-1.02); SODIUM 138 mmol/L (136-145)
[2017-06-23 08:00] VITALS: BP 155/78
[2017-06-23 12:00] VITALS: BP 131/56
[2017-06-23 16:00] VITALS: BP 124/62
[2017-06-23 20:00] VITALS: BP 146/62
[2017-06-24 00:23] VITALS: BP 155/68
[2017-06-24 06:57] LABS: BASO # 0.1 10*3/uL (0.0-0.1); BASO % 0.6 % (0.0-1.0); EOS # 0.7 10*3/uL (0.0-0.4); HEMATOCRIT 34.3 % (37.0-47.0); HEMOGLOBIN 10.6 g/dl (12.0-16.0); LYMPH # 2.5 10*3/uL (1.3-4.4); LYMPH % 25.1 % (27.0-41.0); MEAN CELL VOLUME 90.3 fl (81.0-99.0); MEAN CORPUSCULAR HGB 27.9 pg (27.0-31.0); MEAN CORPUSCULAR HGB CONC 30.9 g/dl (33.0-37.0); MEAN PLATELET VOLUME 9.5 fl (9.6-12.3); MONO % 9.7 % (3.0-9.0); NEUT # 5.6 10*3/uL (2.3-7.9); PLATELET COUNT AUTOMATED 317 10*3/uL (130-400); RED CELL DISTRI WIDTH 14.6 % (0-14.5); WHITE BLOOD COUNT 9.8 10*3/uL (4.8-10.8)
[2017-06-24 07:22] LABS: BUN 20 mg/dl (7-24); CHLORIDE 97 mmol/L (98-107); POTASSIUM 3.6 mmol/L (3.5-5.1); SODIUM 137 mmol/L (136-145)
[2017-06-24 08:00] VITALS: BP 148/79
[2017-06-24 12:00] VITALS: BP 131/59
[2017-06-24 16:00] VITALS: BP 138/62
[2017-06-24 20:00] VITALS: BP 138/62
[2017-06-25] VITALS: BP 117/52
[2017-06-25 07:58] LABS: BASO # 0.1 10*3/uL (0.0-0.1); BASO % 0.6 % (0.0-1.0); EOS # 0.5 10*3/uL (0.0-0.4); EOS % 6.3 % (1.0-4.0); HEMATOCRIT 33.3 % (37.0-47.0); HEMOGLOBIN 10.4 g/dl (12.0-16.0); LYMPH # 2.4 10*3/uL (1.3-4.4); LYMPH % 28.6 % (27.0-41.0); MEAN CELL VOLUME 88.8 fl (81.0-99.0); MEAN CORPUSCULAR HGB 27.7 pg (27.0-31.0); MEAN CORPUSCULAR HGB CONC 31.2 g/dl (33.0-37.0); MEAN PLATELET VOLUME 10.2 fl (9.6-12.3); MONO % 12.1 % (3.0-9.0); NEUT # 4.3 10*3/uL (2.3-7.9); NEUT % 51.8 % (47.0-73.0); PLATELET COUNT AUTOMATED 302 10*3/uL (130-400); RED BLOOD COUNT 3.75 10*6/uL (4.10-5.10); RED CELL DISTRI WIDTH 14.4 % (0-14.5); WHITE BLOOD COUNT 8.3 10*3/uL (4.8-10.8)
[2017-06-25 08:00] VITALS: BP 154/84
[2017-06-25 08:21] LABS: BUN 18 mg/dl (7-24); CHLORIDE 97 mmol/L (98-107); CREATININE 0.91 mg/dL (0.55-1.02); PHOSPHOROUS 4.5 mg/dL (2.5-4.9); POTASSIUM 3.7 mmol/L (3.5-5.1); SODIUM 137 mmol/L (136-145)
[2017-06-25 12:00] VITALS: BP 140/61
[2017-06-25 16:00] VITALS: BP 154/72
[2017-06-25 20:00] VITALS: BP 145/63
[2017-06-26] VITALS: BP 131/65
[2017-06-26 07:13] LABS: BUN 17 mg/dl (7-24); CHLORIDE 94 mmol/L (98-107); CREATININE 0.84 mg/dL (0.55-1.02); POTASSIUM 3.4 mmol/L (3.5-5.1); SODIUM 138 mmol/L (136-145)
[2017-06-26 08:00] VITALS: BP 119/66
[2017-06-26 12:00] VITALS: BP 160/61
[2017-06-26 16:00] VITALS: BP 125/64
[2017-06-26 20:00] VITALS: BP 154/57
[2017-06-27] VITALS: BP 165/62
[2017-06-27 08:00] VITALS: BP 138/80
[2017-06-27 12:00] VITALS: BP 144/60
[2017-06-27] MEDS ORDERED: LISINOPRIL5 MG PO (12:38)
[2017-06-27] MEDS ORDERED: AMLODIPINE BESYL5 MG PO (12:38)
[2017-06-27] MEDS ORDERED: KEFLEX 500 MG E2 CAP PO (12:38)
[2017-06-27] MEDS ORDERED: Percocet 325 MG1 TAB PO (13:31)
== END 2017-06-27 15:43 | disposition home or self-care (01) | DRG 291 ==
LOC: ED 15:37 → 4E 18:31 → EDHOLD 18:31 → 4E 19:03
PROVIDERS: Emergency Medicine; Family Medicine; Internal Medicine; Internal Medicine Nephrology; Nurse Practitioner Family
DX: I50.33 Acute on chronic diastolic (congestive) heart failure (principal); J18.9 Pneumonia, unspecified organism; E87.8 Other disorders of electrolyte and fluid balance, not elsewhere classified; E11.65 Type 2 diabetes mellitus with hyperglycemia; L03.115 Cellulitis of right lower limb; E87.1 Hypo-osmolality and hyponatremia; R65.10 Systemic inflammatory response syndrome (SIRS) of non-infectious origin without acute organ dysfunction; L03.116 Cellulitis of left lower limb; I11.0 Hypertensive heart disease with heart failure; Z79.84 Long term (current) use of oral hypoglycemic drugs; G40.909 Epilepsy, unspecified, not intractable, without status epilepticus; D64.9 Anemia, unspecified; E66.3 Overweight; K21.9 Gastro-esophageal reflux disease without esophagitis; K44.9 Diaphragmatic hernia without obstruction or gangrene; T50.995A Adverse effect of other drugs, medicaments and biological substances, initial encounter; I34.0 Nonrheumatic mitral (valve) insufficiency; F41.9 Anxiety disorder, unspecified; J45.909 Unspecified asthma, uncomplicated; E78.5 Hyperlipidemia, unspecified; Z88.1 Allergy status to other antibiotic agents; Y92.89 Other specified places as the place of occurrence of the external cause; Z91.040 Latex allergy status; Z91.048 Other nonmedicinal substance allergy status; Z79.899 Other long term (current) drug therapy; Z90.710 Acquired absence of both cervix and uterus; Z90.49 Acquired absence of other specified parts of digestive tract; Z68.27 Body mass index [BMI] 27.0-27.9, adult; Z95.0 Presence of cardiac pacemaker; Z87.891 Personal history of nicotine dependence; Z82.49 Family history of ischemic heart disease and other diseases of the circulatory system; Z79.51 Long term (current) use of inhaled steroids

== ENCOUNTER 2017-08-18 15:22 | Inpatient (IN) | payer MEDICARE ==
[~2017-08-18] VITALS: Ht 154.9 cm; Wt 77.2 kg
--- NOTE | ~2017-08-18 | O ---
[place], [place] OPERATIVE NOTE NAME: ROJELIO HERNÁNDEZ [facility] #: [id number] UNIT #: [id number] ROOM: 505 DOCTOR: [facility] BIR[facility]: [birth year] DOS: 08/20/2017 GASTROENDOSCOPIC REPORT HISTORY OF PRESENT ILLNESS: The patient has presented with chief complaint of dysphagia. The patient apparently seen repeatedly in [place] for esophageal dilation at the time of admission to us. She had H and H of 9 and 30 and normocytic mixed picture, micro and macro mixed comprehensive metabolic panel, she was slightly dehydrated. Creatinine 1.2, GFR of 51. She has soft tissue neck CT done and water fluid level and distal was seen in the esophagus and distal esophageal stricture was suggested. Comprehensive metabolic panel otherwise, electrolyte balance, triglyceride 261, alkaline phosphatase 125. Hemoglobin A1c normal and urine culture greater than 100,000 bacteria in the urine. PAST MEDICAL HISTORY: Associated diabetes mellitus, gastroesophageal reflux, esophageal stricture, hypertension, hyperlipidemia and seizure disorder. PAST SURGICAL HISTORY: Appendectomy, hysterectomy, cardiac pacemaker, cholecystectomy and esophageal stricture dilations repeatedly. FAMILY HISTORY: Noncontributory. ALLERGIES: CIPROFLOXACIN, LATEX, LEVOFLOXACIN AND AVELOX. MEDICATIONS: List has been reviewed. The patient has been on ibuprofen 800 mg t.i.d. PLAN AND DISCUSSION: The patient has been on chronic iron supplementation. On the other hand on lansoprazole. The patient has been on Mobic as well amongst the other medications. PROCEDURE: Today's procedure part of investigation is panendoscopy plus biopsy plus esophageal dilation with balloon size 15. PREMEDICATION: Propofol. SCOPE: Olympus forward-viewing gastroscope Q10 video. REPORT: After putting the patient in left lateral position and application of lubricant to the scope, the scope was introduced. Thereafter, under direct visualization, advanced through the length of esophagus without difficulty. Distal esophagus is in spasm and it takes a few seconds to relax based on massage of the scope into the area, finally introduced into the gastric pouch, hiatal hernia, which is about 5 cm was noticed. Gastric pouch was entered. Mild gastritis seen. Antral biopsy was obtained. Duodenal bulb, second and third part patent. Benign findings. Scope was withdrawn back. A balloon size 18 was utilized to dilate distal esophagus, but esophagus appears to be too tight. Therefore, we changed the esophageal dilator to size 15 and this is manageable, minimal mucosal fracture was done, about 2 mL of blood was noticed [place], [place] OPERATIVE NOTE NAME: ROJELIO HERNÁNDEZ [facility] #: [id number] UNIT #: [id number] ROOM: [facility] DOCTOR: HUGO MULLER,DECLAN BIRTHDATE: [birth year] in the esophagus. As a result, area was lavaged with ice cold water. There was no active bleeding. The patient extubated and tolerated procedure well. IMPRESSION: 1. Distal esophageal stricture, benign in character, status post balloon dilation. 2. Gastritis. 3. Hiatal hernia. PLAN AND DISCUSSION: Today, we are going to keep her on ice cream, milk shake to not only have smooth travel of a soft food through the esophagus into the gastric pouch, also to use the cold effect of it for hemostasis in case needed. On the other hand, presence of meloxicam as well as presence of ibuprofen makes her more prone to bleeding. Now that she has dilation of esophagus, we are going to continue with her lansoprazole and PPI is going to continue. Follow up as outpatient. On differential, we will remain concerned that she may have an element of achalasia as well. This we will keep in mind for future reference. I thank you very much indeed for your kind referral. FINAL DIAGNOSES: Benign distal esophageal stricture, status post balloon dilation to size 15 and hiatal hernia, gastritis. Other adjunctive diagnoses as outlined in paragraph of past medical, surgical history, and consultation. DECLAN ARIAS MD CM:OPRECORD:OPERATIVE NOTE [phone] DECLAN ARIAS MD 08/20/17 1654 interface
[2017-08-18 15:22] VITALS: BP 143/73
[~2017-08-18 15:22] MED LIST changes: +AMLODIPINE BESYL5 MG PO; +KEFLEX 500 MG E2 CAP PO; +LISINOPRIL5 MG PO
[2017-08-18 16:55] LABS: BASO # 0.1 10*3/uL (0.0-0.1); BASO % 0.7 % (0.0-1.0); EOS # 0.7 10*3/uL (0.0-0.4); EOS % 6.2 % (1.0-4.0); HEMATOCRIT 30.6 % (37.0-47.0); HEMOGLOBIN 9.5 g/dl (12.0-16.0); LYMPH # 3.5 10*3/uL (1.3-4.4); LYMPH % 32.9 % (27.0-41.0); MEAN CELL VOLUME 88.2 fl (81.0-99.0); MEAN CORPUSCULAR HGB 27.4 pg (27.0-31.0); MEAN PLATELET VOLUME 9.9 fl (9.6-12.3); MONO # 0.9 10*3/uL (0.1-1.0); MONO % 8.7 % (3.0-9.0); NEUT # 5.4 10*3/uL (2.3-7.9); NEUT % 50.9 % (47.0-73.0); PLATELET COUNT AUTOMATED 294 10*3/uL (130-400); RED BLOOD COUNT 3.47 10*6/uL (4.10-5.10); RED CELL DISTRI WIDTH 14.6 % (0-14.5); WHITE BLOOD COUNT 10.5 10*3/uL (4.8-10.8)
[2017-08-18 17:10] LABS: ALBUMIN 3.8 gm/dl (3.1-4.5); CREATININE 1.27 mg/dL (0.55-1.02); POTASSIUM 4.6 mmol/L (3.5-5.1); TOTAL PROTEIN 7.4 gm/dL (6.4-8.2)
[2017-08-18 18:06] VITALS: BP 165/81
[2017-08-18 18:55] LABS: BILIRUBIN NEGATIVE (NEGATIVE); BLOOD NEGATIVE (NEGATIVE); CLARITY CLEAR (CLEAR); COLOR YELLOW (YELLOW); GLUCOSE NEGATIVE (NEGATIVE); KETONE NEGATIVE (NEGATIVE); LEUKO ESTERASE 1+ (NEGATIVE); NITRITE NEGATIVE (NEGATIVE); SPECIFIC GRAVITY <= 1.005 (1.005-1.030); UROBILINOGEN 0.2 E.U./dl (0.2-1.0)
[2017-08-18 19:02] LABS: BACTERIA 2+
[2017-08-18 19:04] LABS: WBC 21-30 wbc/hpf (0-5)
[2017-08-18 19:32] VITALS: BP 179/80
[2017-08-18 20:00] VITALS: BP 153/77
[2017-08-19] VITALS: BP 135/73
[2017-08-19 06:34] LABS: BASO # 0.1 10*3/uL (0.0-0.1); BASO % 0.6 % (0.0-1.0); EOS # 0.5 10*3/uL (0.0-0.4); HEMATOCRIT 29.9 % (37.0-47.0); LYMPH # 1.9 10*3/uL (1.3-4.4); LYMPH % 21.8 % (27.0-41.0); MEAN CELL VOLUME 90.9 fl (81.0-99.0); MEAN CORPUSCULAR HGB 27.4 pg (27.0-31.0); MEAN CORPUSCULAR HGB CONC 30.1 g/dl (33.0-37.0); MEAN PLATELET VOLUME 10.3 fl (9.6-12.3); MONO # 0.7 10*3/uL (0.1-1.0); MONO % 8.1 % (3.0-9.0); NEUT # 5.4 10*3/uL (2.3-7.9); PLATELET COUNT AUTOMATED 309 10*3/uL (130-400); RED BLOOD COUNT 3.29 10*6/uL (4.10-5.10); RED CELL DISTRI WIDTH 14.6 % (0-14.5); WHITE BLOOD COUNT 8.6 10*3/uL (4.8-10.8)
[2017-08-19 06:38] LABS: ALBUMIN 3.2 gm/dl (3.1-4.5); BUN 19 mg/dl (7-24); CHLORIDE 103 mmol/L (98-107); CHOLESTEROL 161 mg/dL (<200); CREATININE 0.96 mg/dL (0.55-1.02); POTASSIUM 4.5 mmol/L (3.5-5.1); SGOT/AST 12 IU/L (3-35); SGPT/ALT 16 U/L (12-78); SODIUM 138 mmol/L (136-145); TOTAL PROTEIN 6.4 gm/dL (6.4-8.2); TRIGLYCERIDES 261 mg/dl (<150); VLDL CHOLESTEROL 52 mg/dL (6-40)
[2017-08-19 06:39] LABS: ALKALINE PHOSPHATASE 128 U/L (45-117); HDL CHOLESTEROL 48 mg/dl (40-60); LDL CHOLESTEROL 61 mg/dL (9-159)
[2017-08-19 06:57] LABS: ACT PARTIAL THROMBO TIME 23.1 SECONDS (20.8-31.5)
[2017-08-19 08:00] VITALS: BP 204/85
[2017-08-19 08:11] VITALS: BP 135/62
[2017-08-19 08:21] LABS: VITAMIN D, 25-HYDROXY 22.5 ng/mL (30-100)
[2017-08-19] MEDS ORDERED: Ventolin 02.5 MG/3 M INH (10:12)
[2017-08-19] MEDS ORDERED: K-TAB10 MEQ PO (10:13)
[2017-08-19] MEDS ORDERED: MOBIC7.5 MG PO (10:13)
[2017-08-19] MEDS ORDERED: LASIX40 MG PO (10:13)
[2017-08-19] MEDS ORDERED: ZANAFLEX2 M2 PO (10:19)
[2017-08-19] MEDS ORDERED: IBU800 MG PO (10:19)
[2017-08-19] MEDS ORDERED: PREVACID30 M3 PO (10:21)
[2017-08-19 11:42] VITALS: BP 140/54
[2017-08-19 16:00] VITALS: BP 147/66
[2017-08-20] VITALS (12 sets, daily range): BP systolic 119–210; BP diastolic 54–90
[2017-08-20 07:32] LABS: BASO # 0.1 10*3/uL (0.0-0.1); BASO % 0.7 % (0.0-1.0); EOS # 0.6 10*3/uL (0.0-0.4); EOS % 8.7 % (1.0-4.0); HEMATOCRIT 28.6 % (37.0-47.0); HEMOGLOBIN 8.9 g/dl (12.0-16.0); LYMPH # 2.1 10*3/uL (1.3-4.4); MEAN CORPUSCULAR HGB 27.4 pg (27.0-31.0); MEAN CORPUSCULAR HGB CONC 31.1 g/dl (33.0-37.0); MEAN PLATELET VOLUME 10.7 fl (9.6-12.3); MONO # 0.7 10*3/uL (0.1-1.0); NEUT # 3.3 10*3/uL (2.3-7.9); NEUT % 49.2 % (47.0-73.0); PLATELET COUNT AUTOMATED 285 10*3/uL (130-400); RED BLOOD COUNT 3.25 10*6/uL (4.10-5.10); RED CELL DISTRI WIDTH 14.3 % (0-14.5); WHITE BLOOD COUNT 6.7 10*3/uL (4.8-10.8)
[2017-08-20] MEDS ORDERED: VITAMIN D-32000 UNIT PO (14:16)
[2017-08-20] MEDS ORDERED: BACTRIM 400-801 EACH PO (14:16)
[2017-08-21] VITALS (7 sets, daily range): BP systolic 152–210; BP diastolic 70–112
[2017-08-21] MEDS ORDERED: LISINOPRIL5 MG PO (17:17)
== END 2017-08-21 19:43 | disposition home or self-care (01) | DRG 391 ==
LOC: ED 15:22 → 5E 18:36 → EDHOLD 18:36 → 5E 18:52
PROVIDERS: Internal Medicine; Internal Medicine Nephrology; Nurse Practitioner Family
DX: K22.2 Esophageal obstruction (principal); N17.0 Acute kidney failure with tubular necrosis; E87.1 Hypo-osmolality and hyponatremia; I50.32 Chronic diastolic (congestive) heart failure; N39.0 Urinary tract infection, site not specified; E11.8 Type 2 diabetes mellitus with unspecified complications; E87.8 Other disorders of electrolyte and fluid balance, not elsewhere classified; I11.0 Hypertensive heart disease with heart failure; J45.909 Unspecified asthma, uncomplicated; K21.9 Gastro-esophageal reflux disease without esophagitis; E78.5 Hyperlipidemia, unspecified; G40.909 Epilepsy, unspecified, not intractable, without status epilepticus; D64.9 Anemia, unspecified; E66.3 Overweight; F41.9 Anxiety disorder, unspecified; E55.9 Vitamin D deficiency, unspecified; K44.9 Diaphragmatic hernia without obstruction or gangrene; K29.70 Gastritis, unspecified, without bleeding; Z90.710 Acquired absence of both cervix and uterus; Z90.49 Acquired absence of other specified parts of digestive tract; Z87.891 Personal history of nicotine dependence; Z82.3 Family history of stroke; Z82.49 Family history of ischemic heart disease and other diseases of the circulatory system; Z88.1 Allergy status to other antibiotic agents; Z91.040 Latex allergy status; Z79.4 Long term (current) use of insulin; Z79.82 Long term (current) use of aspirin; Z68.27 Body mass index [BMI] 27.0-27.9, adult

== ENCOUNTER → 2017-11-11 | Outpatient (CLI) | payer MEDICARE ==
[~2017-11-11] MED LIST changes: +CARVEDILOL25 MG PO; +HYDROCODONE-AC1 EAC1 PO; +IBU800 MG PO; +K-TAB10 MEQ PO; +LASIX40 MG PO; +MOBIC7.5 MG PO; +PREDNISONE10 MG PO; +PREVACID30 M3 PO; +Ventolin 02.5 MG/3 M INH; +ZANAFLEX2 M2 PO
== END | disposition home or self-care (01) ==
LOC: RESCLI 01:40
DX: I10 Essential (primary) hypertension (principal); G89.29 Other chronic pain; E11.8 Type 2 diabetes mellitus with unspecified complications; E66.9 Obesity, unspecified; M54.5 Low back pain; M54.2 Cervicalgia; R56.9 Unspecified convulsions; F41.9 Anxiety disorder, unspecified; E61.1 Iron deficiency; E78.2 Mixed hyperlipidemia; Z68.33 Body mass index [BMI] 33.0-33.9, adult; Z79.899 Other long term (current) drug therapy; Z87.891 Personal history of nicotine dependence

== ENCOUNTER → 2018-03-26 | Outpatient (CLI) | payer MEDICARE ==
[~2018-03-26] MED LIST changes: +CALCIUM 500+D1 EACH PO; +GLUCOPHAGE500 M1 PO; +LAMICTAL200 MG PO
== END | disposition home or self-care (01) ==
LOC: CARD 02-26 14:00
DX: I10 Essential (primary) hypertension (principal); R06.02 Shortness of breath; R93.1 Abnormal findings on diagnostic imaging of heart and coronary circulation

== ENCOUNTER 2018-04-06 11:20 | Inpatient (IN) | payer MEDICARE ==
--- NOTE | ~2018-04-06 | O ---
[place], [place] OPERATIVE NOTE NAME: ROJELIO HERNÁNDEZ UNIT #: [id number] ROOM: 407 DOCTOR: HUGO MULLERDECLAN BIRTHDATE: [birth year] DOS: 04/08/2018 HISTORY OF PRESENT ILLNESS: This is a 67-year-old patient who was presented with chief complaint of esophageal dysphagia as far as her symptomatology, one episode of this as concerned. Comprehensive metabolic panel showed to be renal insufficiency. Elevation of BUN, creatinine and electrolytes were balanced. Liver function test, SGOT of 150, SGPT of 49, alkaline phosphatase of 131 with basic studies otherwise unremarkable. PAST MEDICAL HISTORY: Renal insufficiency, distal esophageal thickening seizure, UTI, past medical history also associated with diabetes mellitus, COPD, anxiety, hypertension systemically. PAST SURGICAL HISTORY: Appendectomy, hysterectomy, cardiac pacemaker, cholecystectomy. SOCIAL HISTORY: Smoker was stopped smoking, considers herself, nonalcohol consumer. FAMILY HISTORY: Noncontributory. ALLERGIES, MOXIFLOXACIN, LEVOFLOXACIN, LATEX, CIPROFLOXACIN. MEDICATIONS: Reviewed. PROCEDURE: Today's part of investigation is panendoscopy plus biopsy plus balloon dilation of esophagus. PREMEDICATION: Propofol. SCOPE: Olympus forward-viewing gastroscope Q10 video. REPORT: After putting the patient in left lateral position and application of lubricant to the scope, the scope was introduced. Thereafter, under direct visualization, advanced through the length of esophagus without difficulty. Evidence of distal esophagitis and benign stricture was noticed. Balloon size up to 17 was utilized and distal esophagus dilated. Gastric pouch was entered. Moderate size hiatal hernia was noticed. Gastric pouch was approached toward the antrum. Gastritis seen. Antral biopsy obtained. Duodenal bulb, second and third are within normal limit. The patient extubated, tolerated the procedure well. IMPRESSION: Moderate hiatal hernia, gastritis, distal esophagitis secondary to reflux. Benign distal esophageal stricture, status post balloon dilation to size 17, anemia, renal insufficiency, abnormal liver function tests, urinary tract infection. All has been recognized. The patient has to be again re-questioned, if she is taking any alcoholic beverages in detail so far, there has been no convincing evidence that she has not been. Medication list also shows that there is evidence of Lipitor 80 mg on board. [place], [place] OPERATIVE NOTE NAME: ROJELIO HERNÁNDEZ UNIT #: [id number] ROOM: 407 DOCTOR: HUGO MULLER,DECLAN BIRTHDATE: [birth year] PLAN AND DISCUSSION: We are going to consider so far, the statin as culprit in addition. Therefore, the statin, Lipitor is going to be discharged and the LFTs are going to be repeated in 1 week. DECLAN ARIAS MD CM:OPRECORD:OPERATIVE NOTE [phone] DECLAN ARIAS MD 04/22/18 0735 interface
--- NOTE | ~2018-04-06 | EKG ---
[place], [place] ELECTROCARDIOGRAM REPORT NAME: ROJELIO HERNÁNDEZ UNIT #: [id number] ROOM: [facility] DOCTOR: TAM DRAFT REPORT BIRTHDATE: [birth year] [facility] Test Date: 2018-04-06 Test Time: 20:54:51 Pat Name: ROJELIO HERNÁNDEZ Department: Room: [facility] Gender: F Handle Assembler: Natalya Diaz : 1950 Requested By: LUCINA MCKEON Order Number: [id number] Reading MD: Maurizio Sellers MD Measurements Intervals [place] Rate: 100 P: 66 CT: 197 QRS: 19 QRSD: 93 T: 59 QT: 359 QTc: 463 Interpretive Statements Sinus tachycardia Compared to ECG 04/06/2018 11:49:46 Atrial-paced complex(es) or rhythm no longer present Ventricular-paced complex(es) or rhythm no longer present Electronically Signed On 04-08-2018 8:21:35 PST by Maurizio Sellers MD CM:EKGRPT:ELECTROCARDIOGRAM REPORT 53 0 LUCINA MCKEON EPIPHANY DRAFT REPORT LUCINA MCKEON
--- NOTE | ~2018-04-06 | EKG ---
[place], [place] ELECTROCARDIOGRAM REPORT NAME: ROJELIO HERNÁNDEZ UNIT #: [id number] ROOM: 419 DOCTOR: TAM DRAFT REPORT BIRTHDATE: [birth year] [facility] Test Date: 2018-04-06 Test Time: 11:49:46 Pat Name: ROJELIO HERNÁNDEZ Department: Room: 419 Gender: F Chicken And Fish Butcher: : 1950 Requested By: ALEIDA PARRA Order Number: [id number] Reading MD: Margarita Ennis MD Measurements Intervals [place] Rate: 118 P: [place]: QRS: -3 QRSD: 88 T: 55 QT: 314 QTc: 441 Interpretive Statements Sinus tachycardia Atrial-paced complex(es) or rhythm no longer present Ventricular-paced complex(es) or rhythm no longer present Electronically Signed On 04-06-2018 12:48:54 PST by Margarita Ennis MD CM:EKGRPT:ELECTROCARDIOGRAM REPORT 1149 1248 ALEIDA TURCIOS DRAFT REPORT ALEIDA PARRA M.D.
--- NOTE | ~2018-04-06 | EKG ---
[place], [place] ELECTROCARDIOGRAM REPORT NAME: ROJELIO HERNÁNDEZ UNIT #: [id number] ROOM: [facility] DOCTOR: TAM DRAFT REPORT BIRTHDATE: [birth year] [facility] Test Date: 2018-04-06 Test Time: 18:17:04 Pat Name: ROJELIO HERNÁNDEZ Department: Room: [facility] Gender: F Roving Teller: Natalya Diaz : 1950 Requested By: LUCINA MCKEON Order Number: [id number] Reading MD: Maurizio Sellers MD Measurements Intervals [place] Rate: 75 P: [place]: 124 QRS: 27 QRSD: 100 T: 65 QT: 391 QTc: 437 Interpretive Statements Atrial-paced rhythm Minimal ST elevation, inferior leads Compared to ECG 04/06/2018 11:49:4 Sinus tachycardia no longer present Electronically Signed On 04-08-2018 8:20:42 PST by Mauirzio Sellers MD CM:EKGRPT:ELECTROCARDIOGRAM REPORT 0820 LUCINA TURCIOS DRAFT REPORT LUCINA MCKEON
--- NOTE | ~2018-04-06 | EKG ---
[place], [place] ELECTROCARDIOGRAM REPORT NAME: ROJELIO HERNÁNDEZ UNIT #: [id number] ROOM: [facility] DOCTOR: TAM DRAFT REPORT BIRTHDATE: [birth year] [facility] Test Date: 2018-04-06 Test Time: 17:10:50 Pat Name: ROJELIO HERNÁNDEZ Department: Room: [facility] Gender: F Steward/Stewardess Dining Room: Natalya Diaz : 1950 Requested By: LUCINA MCKEON Order Number: [id number] Reading MD: Maurizio Sellers MD Measurements Intervals [place] Rate: 75 P: [place]: 103 QRS: 27 QRSD: 95 T: 64 QT: 376 QTc: 420 Interpretive Statements Atrial-paced complexes Minimal ST elevation, inferior leads Baseline wander in lead(s) V4,V5 Compared to ECG 04/06/2018 11:49:46 ST (T wave) deviation now present Sinus tachycardia no longer present Ventricular-paced complex(es) or rhythm no longer present Electronically Signed On 04-08-2018 8:20:13 PST by Maurizio Sellers MD CM:EKGRPT:ELECTROCARDIOGRAM REPORT 1710 0820 LUCINA TURCIOS DRAFT REPORT LUCINA MCKEON
--- NOTE | ~2018-04-06 | EKG ---
[place], [place] ELECTROCARDIOGRAM REPORT NAME: ROJELIO HERNÁNDEZ UNIT #: [id number] ROOM: [facility] DOCTOR: TAM DRAFT REPORT BIRTHDATE: [birth year] [facility] Test Date: 2018-04-07 Test Time: 08:52:53 Pat Name: ROJELIO HERNÁNDEZ Department: Room: [place] [address] Gender: F Farm Management Adviser: Leonela Sanchez : 1950 Requested By: EMMANUEL WORTHINGTON Order Number: [id number] Reading MD: Maurizio Sellers MD Measurements Intervals [place] Rate: 76 P: 64 [place]: 160 QRS: 18 QRSD: 103 T: 53 QT: 399 QTc: 449 Interpretive Statements Sinus rhythm Normal ECG Compared to ECG 04/06/2018 11:49:46 ST (T wave) deviation now present Sinus tachycardia no longer present Atrial-paced complex(es) or rhythm no longer present Ventricular-paced complex(es) or rhythm no longer present Electronically Signed On 04-08-2018 8:24:16 PST by Maurizio Sellers MD CM:EKGRPT:ELECTROCARDIOGRAM REPORT 0852 EMMANUEL TURCIOS DRAFT REPORT EMMANUEL WORTHINGTON
[~2018-04-06 11:20] MED LIST changes: -CALCIUM 500+D1 EACH PO; -GLUCOPHAGE500 M1 PO; -LAMICTAL200 MG PO
[2018-04-06 11:21] VITALS: BP 143/80
[2018-04-06 12:23] LABS: HEMATOCRIT 36.2 % (37.0-47.0); MEAN CELL VOLUME 93.5 fl (81.0-99.0); MEAN CORPUSCULAR HGB CONC 33.1 g/dl (33.0-37.0); MEAN PLATELET VOLUME 9.8 fl (9.6-12.3); PLATELET COUNT AUTOMATED 301 10*3/uL (130-400); RED BLOOD COUNT 3.87 10*6/uL (4.10-5.10); RED CELL DISTRI WIDTH 13.2 % (0-14.5); WHITE BLOOD COUNT 25.4 10*3/uL (4.8-10.8)
[2018-04-06 12:31] LABS: ACT PARTIAL THROMBO TIME 22.5 SECONDS (20.8-31.5)
[2018-04-06 12:38] LABS: ALBUMIN 3.9 gm/dl (3.1-4.5); CREATININE 1.65 mg/dL (0.55-1.02); POTASSIUM 4.3 mmol/L (3.5-5.1); TOTAL PROTEIN 8.3 gm/dL (6.4-8.2)
[2018-04-06 12:49] LABS: PLATELET SUFFICIENCY NORMAL (NORMAL); TOTAL CELLS COUNTED 100 #CELLS
[2018-04-06 13:18] LABS: BILIRUBIN NEGATIVE (NEGATIVE); BLOOD 2+ (NEGATIVE); CLARITY SL CLOUDY (CLEAR); COLOR YELLOW (YELLOW); GLUCOSE NEGATIVE (NEGATIVE); KETONE 1+ (NEGATIVE); LEUKO ESTERASE 3+ (NEGATIVE); NITRITE NEGATIVE (NEGATIVE); SPECIFIC GRAVITY <= 1.005 (1.005-1.030); UROBILINOGEN 0.2 E.U./dl (0.2-1.0)
[2018-04-06 13:20] VITALS: BP 109/55
[2018-04-06 13:30] LABS: BACTERIA 3+; WBC TNTC wbc/hpf (0-5)
[2018-04-06 14:39] VITALS: BP 111/48
[2018-04-06 15:00] VITALS: BP 88/48
[2018-04-06 16:00] VITALS: BP 118/68
[2018-04-06] MEDS ORDERED: CALCIUM 500+D1 EACH PO (16:45)
[2018-04-06 16:53] LABS: URINE AMPHETAMINES < 1000 (1000ng/ml); URINE BARBITURATES < 200 (200ng/ml); URINE BENZODIAZEPINES < 200 (200ng/ml); URINE CANNABINOIDS (THC) < 50 (50ng/ml); URINE COCAINE < 300 (300ng/ml); URINE METHADONE < 300 (300ng/ml); URINE OPIATES > 300 (300ng/ml); URINE PHENCYCLIDINE < 25 (25ng/ml)
[2018-04-06 18:05] LABS: TROPONIN I 0.07 ng/ml (<0.045)
[2018-04-06 20:00] VITALS: BP 156/68
[2018-04-06] MEDS ORDERED: GLUCOPHAGE500 M1 PO (21:42)
[2018-04-06] MEDS ORDERED: KLONOPIN2 M1 PO (21:44)
[2018-04-06] MEDS ORDERED: LAMICTAL200 MG PO (21:44)
[2018-04-07] VITALS (7 sets, daily range): BP systolic 118–158; BP diastolic 60–81
[2018-04-07 05:14] LABS: ALBUMIN 2.9 gm/dl (3.1-4.5); ALKALINE PHOSPHATASE 94 U/L (45-117); CHLORIDE 113 mmol/L (98-107); CREATININE 0.85 mg/dL (0.55-1.02); PHOSPHOROUS 2.4 mg/dL (2.5-4.9); POTASSIUM 4.1 mmol/L (3.5-5.1); SGOT/AST 81 IU/L (3-35); SGPT/ALT 35 U/L (12-78); SODIUM 142 mmol/L (136-145); TOTAL PROTEIN 6.4 gm/dL (6.4-8.2)
[2018-04-07 05:15] LABS: BUN 28 mg/dl (7-24)
[2018-04-07 05:30] LABS: CPK 1794 U/L (26-192)
[2018-04-07 07:14] LABS: HEMATOCRIT 32.8 % (37.0-47.0); MEAN CORPUSCULAR HGB 29.6 pg (27.0-31.0); MEAN CORPUSCULAR HGB CONC 30.2 g/dl (33.0-37.0); MEAN PLATELET VOLUME 10.5 fl (9.6-12.3); PLATELET COUNT AUTOMATED 270 10*3/uL (130-400); RED BLOOD COUNT 3.34 10*6/uL (4.10-5.10); RED CELL DISTRI WIDTH 13.6 % (0-14.5); WHITE BLOOD COUNT 17.3 10*3/uL (4.8-10.8)
[2018-04-07 07:44] LABS: HEMOGLOBIN 9.9 g/dl (12.0-16.0)
[2018-04-07 07:45] LABS: MEAN CELL VOLUME 98.2 fl (81.0-99.0)
[2018-04-07 07:53] LABS: PLATELET SUFFICIENCY NORMAL (NORMAL); TOTAL CELLS COUNTED 100 #CELLS
[2018-04-08] VITALS (10 sets, daily range): BP systolic 116–183; BP diastolic 61–90
[2018-04-08 04:34] LABS: BASO # 0.1 10*3/uL (0.0-0.1); BASO % 0.5 % (0.0-1.0); EOS # 0.5 10*3/uL (0.0-0.4); EOS % 4.7 % (1.0-4.0); HEMATOCRIT 29.4 % (37.0-47.0); HEMOGLOBIN 9.6 g/dl (12.0-16.0); LYMPH # 1.8 10*3/uL (1.3-4.4); LYMPH % 16.2 % (27.0-41.0); MEAN CORPUSCULAR HGB 30.6 pg (27.0-31.0); MEAN CORPUSCULAR HGB CONC 32.7 g/dl (33.0-37.0); MEAN PLATELET VOLUME 9.8 fl (9.6-12.3); MONO # 1.1 10*3/uL (0.1-1.0); MONO % 9.6 % (3.0-9.0); NEUT # 7.5 10*3/uL (2.3-7.9); NEUT % 68.5 % (47.0-73.0); PLATELET COUNT AUTOMATED 252 10*3/uL (130-400); RED BLOOD COUNT 3.14 10*6/uL (4.10-5.10); RED CELL DISTRI WIDTH 13.2 % (0-14.5)
[2018-04-08 04:45] LABS: MEAN CELL VOLUME 93.6 fl (81.0-99.0)
[2018-04-08 05:03] LABS: ALKALINE PHOSPHATASE 90 U/L (45-117); CHLORIDE 106 mmol/L (98-107); CREATININE 0.67 mg/dL (0.55-1.02); PHOSPHOROUS 1.6 mg/dL (2.5-4.9); POTASSIUM 3.7 mmol/L (3.5-5.1); SGOT/AST 51 IU/L (3-35); SGPT/ALT 31 U/L (12-78); SODIUM 139 mmol/L (136-145); TOTAL PROTEIN 6.5 gm/dL (6.4-8.2)
[2018-04-08 05:08] LABS: BUN 11 mg/dl (7-24)
[2018-04-08 05:19] LABS: CPK 900 U/L (26-192)
[2018-04-09] VITALS (7 sets, daily range): BP systolic 148–172; BP diastolic 65–90
[2018-04-09 05:05] LABS: BASO # 0.1 10*3/uL (0.0-0.1); BASO % 0.5 % (0.0-1.0); EOS # 0.5 10*3/uL (0.0-0.4); EOS % 5.1 % (1.0-4.0); HEMATOCRIT 29.9 % (37.0-47.0); HEMOGLOBIN 9.9 g/dl (12.0-16.0); LYMPH # 2.1 10*3/uL (1.3-4.4); LYMPH % 19.8 % (27.0-41.0); MEAN CELL VOLUME 92.3 fl (81.0-99.0); MEAN CORPUSCULAR HGB 30.6 pg (27.0-31.0); MEAN CORPUSCULAR HGB CONC 33.1 g/dl (33.0-37.0); MEAN PLATELET VOLUME 9.9 fl (9.6-12.3); MONO # 0.9 10*3/uL (0.1-1.0); MONO % 8.8 % (3.0-9.0); NEUT # 6.9 10*3/uL (2.3-7.9); NEUT % 65.5 % (47.0-73.0); PLATELET COUNT AUTOMATED 278 10*3/uL (130-400); RED BLOOD COUNT 3.24 10*6/uL (4.10-5.10); RED CELL DISTRI WIDTH 13.2 % (0-14.5); WHITE BLOOD COUNT 10.5 10*3/uL (4.8-10.8)
[2018-04-09 05:15] LABS: BUN 6 mg/dl (7-24); CHLORIDE 108 mmol/L (98-107); CREATININE 0.65 mg/dL (0.55-1.02); PHOSPHOROUS 2.2 mg/dL (2.5-4.9); POTASSIUM 3.4 mmol/L (3.5-5.1); SODIUM 142 mmol/L (136-145)
[2018-04-09 05:32] LABS: CPK 505 U/L (26-192)
[2018-04-10] VITALS: BP 153/78
[2018-04-10 06:56] LABS: BASO # 0.1 10*3/uL (0.0-0.1); BASO % 0.6 % (0.0-1.0); EOS # 0.5 10*3/uL (0.0-0.4); EOS % 5.7 % (1.0-4.0); HEMATOCRIT 29.1 % (37.0-47.0); HEMOGLOBIN 9.6 g/dl (12.0-16.0); LYMPH # 2.4 10*3/uL (1.3-4.4); LYMPH % 27.6 % (27.0-41.0); MEAN CELL VOLUME 92.7 fl (81.0-99.0); MEAN CORPUSCULAR HGB 30.6 pg (27.0-31.0); MEAN PLATELET VOLUME 9.9 fl (9.6-12.3); MONO # 0.9 10*3/uL (0.1-1.0); MONO % 10.1 % (3.0-9.0); NEUT # 4.8 10*3/uL (2.3-7.9); NEUT % 55.7 % (47.0-73.0); PLATELET COUNT AUTOMATED 290 10*3/uL (130-400); RED BLOOD COUNT 3.14 10*6/uL (4.10-5.10); RED CELL DISTRI WIDTH 13.4 % (0-14.5); WHITE BLOOD COUNT 8.7 10*3/uL (4.8-10.8)
[2018-04-10 07:27] LABS: BUN 6 mg/dl (7-24); CHLORIDE 105 mmol/L (98-107); POTASSIUM 3.1 mmol/L (3.5-5.1); SODIUM 142 mmol/L (136-145)
[2018-04-10 07:28] LABS: CREATININE 0.74 mg/dL (0.55-1.02)
[2018-04-10 08:00] VITALS: BP 152/74
[2018-04-10] MEDS ORDERED: OMNICEF300 MG PO (09:53)
[2018-09-02] MEDS ORDERED: CEPHALEXIN500 M1 PO (17:29)
== END 2018-04-10 12:20 | disposition home or self-care (01) | DRG 871 ==
LOC: ED 11:20 → EDHOLD 14:16 → ICCU 14:16 → 4E 14:16 → ICCU 15:58 → 4E 04-09 11:02
PROVIDERS: Emergency Medicine; Family Medicine; Internal Medicine; Student in an Organized Health Care Education/Training Program; ADMIT Internal Medicine
DX: A41.9 Sepsis, unspecified organism (principal); N17.0 Acute kidney failure with tubular necrosis; G93.41 Metabolic encephalopathy; J18.9 Pneumonia, unspecified organism; E87.1 Hypo-osmolality and hyponatremia; N39.0 Urinary tract infection, site not specified; J44.0 Chronic obstructive pulmonary disease with (acute) lower respiratory infection; R65.20 Severe sepsis without septic shock; E83.41 Hypermagnesemia; T79.6XXA Traumatic ischemia of muscle, initial encounter; K21.9 Gastro-esophageal reflux disease without esophagitis; R74.0 Nonspecific elevation of levels of transaminase and lactic acid dehydrogenase [LDH]; R74.8 Abnormal levels of other serum enzymes; G40.909 Epilepsy, unspecified, not intractable, without status epilepticus; E11.65 Type 2 diabetes mellitus with hyperglycemia; I50.9 Heart failure, unspecified; F41.9 Anxiety disorder, unspecified; M54.9 Dorsalgia, unspecified; G89.29 Other chronic pain; E66.09 Other obesity due to excess calories; K22.8 Other specified diseases of esophagus; I27.20 Pulmonary hypertension, unspecified; I07.1 Rheumatic tricuspid insufficiency; I11.0 Hypertensive heart disease with heart failure; E78.5 Hyperlipidemia, unspecified; R59.0 Localized enlarged lymph nodes; K44.9 Diaphragmatic hernia without obstruction or gangrene; K29.70 Gastritis, unspecified, without bleeding; K22.2 Esophageal obstruction; E87.8 Other disorders of electrolyte and fluid balance, not elsewhere classified; E83.39 Other disorders of phosphorus metabolism; R07.89 Other chest pain; Z88.1 Allergy status to other antibiotic agents; Z91.040 Latex allergy status; Z91.048 Other nonmedicinal substance allergy status; Z90.49 Acquired absence of other specified parts of digestive tract; Z90.710 Acquired absence of both cervix and uterus; Z95.0 Presence of cardiac pacemaker; Z87.891 Personal history of nicotine dependence; Z82.3 Family history of stroke; Z82.49 Family history of ischemic heart disease and other diseases of the circulatory system; Z83.3 Family history of diabetes mellitus; Z79.899 Other long term (current) drug therapy; Z79.84 Long term (current) use of oral hypoglycemic drugs; Z68.32 Body mass index [BMI] 32.0-32.9, adult

== ENCOUNTER 2018-11-08 07:16 | Inpatient (IN) | payer MEDICARE ==
[~2018-11-08] VITALS: Ht 154.9 cm; Wt 71.2 kg
[~2018-11-08 07:16] MED LIST changes: +CALCIUM 500+D1 EACH PO; +GLUCOPHAGE500 M1 PO; +LAMICTAL200 MG PO
[2018-11-08 07:21] VITALS: BP 179/98
[2018-11-08 07:51] LABS: HEMATOCRIT 35.9 % (37.0-47.0); MEAN CELL VOLUME 90.9 fl (81.0-99.0); MEAN CORPUSCULAR HGB 27.8 pg (27.0-31.0); MEAN CORPUSCULAR HGB CONC 30.6 g/dl (33.0-37.0); MEAN PLATELET VOLUME 10.5 fl (9.6-12.3); PLATELET COUNT AUTOMATED 244 10*3/uL (130-400); RED BLOOD COUNT 3.95 10*6/uL (4.10-5.10); RED CELL DISTRI WIDTH 14.3 % (0-14.5); WHITE BLOOD COUNT 11.7 10*3/uL (4.8-10.8)
[2018-11-08 08:02] LABS: ACT PARTIAL THROMBO TIME 22.1 SECONDS (20.0-32.1)
[2018-11-08 08:08] LABS: ALBUMIN 3.2 gm/dl (3.1-4.5); ALKALINE PHOSPHATASE 135 U/L (45-117); BUN 19 mg/dl (7-24); CHLORIDE 102 mmol/L (98-107); CREATININE 0.74 mg/dL (0.55-1.02); PHOSPHOROUS 2.7 mg/dL (2.5-4.9); POTASSIUM 3.9 mmol/L (3.5-5.1); SGOT/AST 28 IU/L (3-35); SGPT/ALT 16 U/L (12-78); SODIUM 138 mmol/L (136-145); TOTAL PROTEIN 6.9 gm/dL (6.4-8.2)
[2018-11-08 08:11] LABS: PLATELET SUFFICIENCY NORMAL (NORMAL); POLYCHROMASIA SLIGHT; STOMATOCYTE FEW; TOTAL CELLS COUNTED 100 #CELLS
[2018-11-08 09:26] VITALS: BP 168/93
[2018-11-08 10:17] VITALS: BP 190/78
[2018-11-08 12:00] VITALS: BP 166/76
[2018-11-08 16:00] VITALS: BP 148/73
[2018-11-08 20:00] VITALS: BP 147/68
[2018-11-09] VITALS: BP 154/80
[2018-11-09 06:39] LABS: BUN 20 mg/dl (7-24); CHLORIDE 97 mmol/L (98-107); CREATININE 0.63 mg/dL (0.55-1.02); PHOSPHOROUS 2.6 mg/dL (2.5-4.9); POTASSIUM 3.6 mmol/L (3.5-5.1); SGOT/AST 18 IU/L (3-35); SGPT/ALT 16 U/L (12-78); SODIUM 136 mmol/L (136-145); TOTAL PROTEIN 6.8 gm/dL (6.4-8.2)
[2018-11-09 06:47] LABS: HEMATOCRIT 34.4 % (37.0-47.0); HEMOGLOBIN 10.9 g/dl (12.0-16.0); LYMPH % 11.7 % (27.0-41.0); MEAN CORPUSCULAR HGB 27.5 pg (27.0-31.0); MEAN CORPUSCULAR HGB CONC 31.7 g/dl (33.0-37.0); MEAN PLATELET VOLUME 11.1 fl (9.6-12.3); MONO # 0.4 10*3/uL (0.1-1.0); MONO % 4.7 % (3.0-9.0); NEUT # 6.9 10*3/uL (2.3-7.9); NEUT % 83.2 % (47.0-73.0); PLATELET COUNT AUTOMATED 295 10*3/uL (130-400); RED BLOOD COUNT 3.97 10*6/uL (4.10-5.10); RED CELL DISTRI WIDTH 13.3 % (0-14.5); WHITE BLOOD COUNT 8.3 10*3/uL (4.8-10.8)
[2018-11-09 06:50] LABS: ALKALINE PHOSPHATASE 122 U/L (45-117); THYROID STIM HORMONE (HS) 0.242 uIU/ml (0.358-4.75)
[2018-11-09 06:53] LABS: MEAN CELL VOLUME 86.6 fl (81.0-99.0)
[2018-11-09 16:00] VITALS: BP 142/76
[2018-11-09 20:00] VITALS: BP 163/77
[2018-11-10] VITALS: BP 151/71
[2018-11-10] MEDS ORDERED: DOXYCYCLINE MO100 M1 PO (10:28)
[2018-11-10] MEDS ORDERED: PREDNISONE10 MG PO (10:28)
[2018-11-10 12:00] VITALS: BP 160/76
== END 2018-11-10 14:36 | disposition home or self-care (01) | DRG 190 ==
LOC: ED 07:16 → EDHOLD 09:30 → 5E 09:30
PROVIDERS: Family Medicine; Student in an Organized Health Care Education/Training Program; ADMIT Internal Medicine
DX: J43.9 Emphysema, unspecified (principal); J18.1 Lobar pneumonia, unspecified organism; J45.901 Unspecified asthma with (acute) exacerbation; I50.32 Chronic diastolic (congestive) heart failure; E44.0 Moderate protein-calorie malnutrition; J96.11 Chronic respiratory failure with hypoxia; I16.0 Hypertensive urgency; G89.29 Other chronic pain; M54.9 Dorsalgia, unspecified; D50.9 Iron deficiency anemia, unspecified; R13.10 Dysphagia, unspecified; E66.9 Obesity, unspecified; G40.909 Epilepsy, unspecified, not intractable, without status epilepticus; E11.65 Type 2 diabetes mellitus with hyperglycemia; D72.829 Elevated white blood cell count, unspecified; I11.0 Hypertensive heart disease with heart failure; K21.9 Gastro-esophageal reflux disease without esophagitis; F41.9 Anxiety disorder, unspecified; Z95.0 Presence of cardiac pacemaker; Z88.1 Allergy status to other antibiotic agents; Z91.040 Latex allergy status; Z91.09 Other allergy status, other than to drugs and biological substances; Z87.440 Personal history of urinary (tract) infections; Z90.49 Acquired absence of other specified parts of digestive tract; Z90.710 Acquired absence of both cervix and uterus; Z87.891 Personal history of nicotine dependence; Z82.49 Family history of ischemic heart disease and other diseases of the circulatory system; Z82.3 Family history of stroke; Z83.3 Family history of diabetes mellitus; Z79.899 Other long term (current) drug therapy; Z79.84 Long term (current) use of oral hypoglycemic drugs; Z68.28 Body mass index [BMI] 28.0-28.9, adult

== ENCOUNTER 2018-11-29 08:55 | Inpatient (IN) | payer MEDICARE ==
[~2018-11-29] VITALS: Ht 154.9 cm; Wt 74.0 kg
[~2018-11-29 08:55] MED LIST changes: +DOXYCYCLINE MO100 M1 PO
[2018-11-29 08:56] VITALS: BP 103/47
[2018-11-29 09:56] LABS: BASO # 0.1 10*3/uL (0.0-0.1); BASO % 0.4 % (0.0-1.0); EOS # 0.3 10*3/uL (0.0-0.4); EOS % 1.5 % (1.0-4.0); HEMATOCRIT 37.9 % (37.0-47.0); HEMOGLOBIN 11.6 g/dl (12.0-16.0); LYMPH # 1.7 10*3/uL (1.3-4.4); MEAN CELL VOLUME 91.3 fl (81.0-99.0); MEAN CORPUSCULAR HGB CONC 30.6 g/dl (33.0-37.0); MEAN PLATELET VOLUME 10.1 fl (9.6-12.3); MONO # 1.2 10*3/uL (0.1-1.0); MONO % 6.9 % (3.0-9.0); NEUT # 13.7 10*3/uL (2.3-7.9); NEUT % 80.8 % (47.0-73.0); PLATELET COUNT AUTOMATED 226 10*3/uL (130-400); RED BLOOD COUNT 4.15 10*6/uL (4.10-5.10); RED CELL DISTRI WIDTH 14.7 % (0-14.5); WHITE BLOOD COUNT 16.9 10*3/uL (4.8-10.8)
[2018-11-29 10:09] LABS: ACT PARTIAL THROMBO TIME 23.4 SECONDS (20.0-32.1); INTERNATIONAL NORM RATIO 0.9 (2.0-3.5)
[2018-11-29 10:14] LABS: ALBUMIN 2.7 gm/dl (3.1-4.5); CREATININE 2.43 mg/dL (0.55-1.02); POTASSIUM 4.2 mmol/L (3.5-5.1); TOTAL PROTEIN 6.7 gm/dL (6.4-8.2)
[2018-11-29 10:15] LABS: TROPONIN I 0.043 ng/ml (<0.045)
--- NOTE | 2018-11-29 10:15 | NUR ---
PT SUED BED CHOPRA TO VOID, PT IS ACTING VERY WEAK, UNABLE TO SIT UP, ROLL OT LIFT BUTTOCKS WITHOUT ASSSITANCE. DAUGHTER IS AT BEDSIDE AND TELLS ME PT CARES FOR HERSELF AT HOME. DR HARRIS AWARE.
[2018-11-29 10:43] LABS: BILIRUBIN NEGATIVE (NEGATIVE); BLOOD 3+ (NEGATIVE); CLARITY SL CLOUDY (CLEAR); COLOR YELLOW (YELLOW); GLUCOSE NEGATIVE (NEGATIVE); KETONE NEGATIVE (NEGATIVE); LEUKO ESTERASE 1+ (NEGATIVE); NITRITE NEGATIVE (NEGATIVE); PH 5.5 (5.0-9.0); SPECIFIC GRAVITY 1.025 (1.005-1.030); UROBILINOGEN 0.2 E.U./dl (0.2-1.0)
[2018-11-29 10:52] LABS: BACTERIA TRACE; EPITHELIAL CELLS 21-30; URINE AMPHETAMINES < 1000 (1000ng/ml); URINE BARBITURATES < 200 (200ng/ml); URINE BENZODIAZEPINES < 200 (200ng/ml); URINE CANNABINOIDS (THC) < 50 (50ng/ml); URINE COCAINE < 300 (300ng/ml); URINE METHADONE < 300 (300ng/ml); URINE OPIATES < 300 (300ng/ml)
[2018-11-29 10:55] LABS: URINE PHENCYCLIDINE < 25 (25ng/ml)
[2018-11-29 11:08] VITALS: BP 110/55
--- NOTE | 2018-11-29 12:00 | NUR ---
A 68, admitted to , under the services of JESSICA Junior DO with a diagnosis of FALL, RIGHT ANKLE PAIN. Chief complaint is RIGHT ANKLE PAIN. Patient arrived via ambulance from ER. Monitor applied. Initial assessment completed. Vital signs taken and recorded. JESSICA JUNIOR DO notified of admission to the unit. Orders received. See assessment for past medical history, medications and allergies. Patient and/or family oriented to unit. [facility] visitation policy reviewed. Clothing/patient valuable form completed. ANGLE JOYCE
[2018-11-29] MEDS ORDERED: OXYGEN NAS (12:54)
--- NOTE | 2018-11-29 13:50 | NUR ---
PATIENT MEDICATED WITH PRN PO NORCO FOR RIGHT ANKLE PAIN, SEE EMAR.
--- NOTE | 2018-11-29 14:55 | NUR ---
PRN PO NORCO EFFECTIVE, PER PATIENT.
[2018-11-29 16:00] VITALS: BP 148/64
[2018-11-29 20:00] VITALS: BP 99/47
--- NOTE | 2018-11-29 22:00 | NUR ---
UPPON ASSESSMENT PT'S LUNG SOUNDS HAD BECOME VERY MOIST WITH WHEEZES. DR. THOMAS NOTIFIED, ORDERS OBTAINED TO STOP FLUIDS.
[2018-11-30] VITALS: BP 132/60
--- NOTE | 2018-11-30 07:05 | NUR ---
ARRIVED ON SHIFT, INTRODUCED TO PATIENT, BEDSIDE REPORT RECEIVED, WHITEBOARD UPDATED, NO NEES VOICED AT THIS TIME.
[2018-11-30 07:32] LABS: ALBUMIN 2.5 gm/dl (3.1-4.5); CREATININE 1.63 mg/dL (0.55-1.02); POTASSIUM 4.5 mmol/L (3.5-5.1); TOTAL PROTEIN 6.6 gm/dL (6.4-8.2)
--- NOTE | 2018-11-30 07:47 | NUR ---
Shift chart check completed.
[2018-11-30 08:00] VITALS: BP 123/61
--- NOTE | 2018-11-30 08:23 | NUR ---
Nursing screen received as well as occupational therapy orders. Will follow up with patient for completion of OT evaluation and POC. Thank you for the referral. Stephanie Chase, OTR/L
--- NOTE | 2018-11-30 09:23 | NUR ---
PHYSICAL THERAPY Nursing screen received and chart reviewed. Physical therapy order received. Thank you. Neela Llanos,PT,DPT
--- NOTE | 2018-11-30 10:25 | NUR ---
Occupational therapy orders received and chart reviewed. Patient supine in bed upon arrival. Patient requesting for OT evaluation to be completed at a later time. She prefers to wait on evaluation until she hears from the physician about her IV. Will follow up with patient. Thank you for the referral. Stephanie Chase, OTR/L
--- NOTE | 2018-11-30 10:43 | NUR ---
MEDICATED FOR BACK WITH NORCO a ordered for c/o BACK PAIN/ANKLE pain 10/10
--- NOTE | 2018-11-30 11:00 | NUR ---
Specification Consultant in to talk to patient. Patient states lives at home alone with family checking in on her. There are 0 steps in the home. Physician: Dr. Saundra Burgess Pharmacy: [facility] Home health services: none Patient's level of ADLs: INDEPENDENT Patient has working utilities: yes DME: O2 @ 3L nc prn, portable oxygen tanks, nebulizer, O2 supplier [facility] Follow-up physician's appointment after d/c: will be made by the hospitalist nurse director upon discharge Does patient want to access PORTAL?: no Discharge plan discussed with patient. She lives at home alone with family checking in on her. She is independent in her ADLs and ambulation. Discussed home health care services and she denies any home needs at this time. When medically stable she will be discharged to home. Her daughter will provide transportation on discharge. ROBERT DOYLE
--- NOTE | 2018-11-30 11:43 | NUR ---
patient reports good relief from morco given x 1 HOUR AGO. PAIN 04/12
[2018-11-30 12:00] VITALS: BP 142/71
--- NOTE | 2018-11-30 12:59 | NUR ---
PT ASSESSED FOR DA. RESPS REGULAR AND UNLABORED. BBSs CLEAR. RR 12-16 HR 78 SPO2 99% ON RA. DA NOT INDICATED AT THIS TIME. PT STATES SHE TAKES DA AT HOME PRN. PT INSTRUCTED TO HAVE RN CALL RT IF SHE IS NEED OF A TREATMENT.
--- NOTE | 2018-11-30 14:49 | NUR ---
Occupational therapy orders received and OT eval and POC completed in full on floor four. Patient precautions include fall risk, ww use, seizure disorder, generalized pain and weakness, IV lines, 3L O2, and decreased sensation in R LE. Per OT eval, OT recommends SNF. If refused, home with home health SN, OT, and PT. Patient would benefit from OT treatment to maximize independence in ADLs, transfer, mobility, and safety. Patient complexity is low, [id number]. Thank you for the referral. Stephanie Chase, OTR/L
--- NOTE | 2018-11-30 14:49 | NUR ---
PHYSICAL THERAPY Physical therapy evaluation completed, 4E. Full evaluation with full details to follow. Moderate complexity evaluation per chart review and evaluation, [id number]. PT to improve gait stability, balance, strength and general safety per POC. therapy recommending SNF, Thank you. Jane Grant, PT, DPT
--- NOTE | 2018-11-30 15:26 | NUR ---
PATIENT C/O ALL OVER PAIN 11/10 AFTYER COM-PLETING YHERAPY MEDICATED WITH HYDROCODONE/APA ORDERED.
[2018-11-30 16:00] VITALS: BP 102/58
[2018-11-30 16:19] LABS: CREATININE 1.21 mg/dL (0.55-1.02); POTASSIUM 4.3 mmol/L (3.5-5.1)
[2018-11-30 20:00] VITALS: BP 138/61
--- NOTE | 2018-11-30 20:50 | NUR ---
PATIENT IS RESTING IN BED WITH EASY AND REGULAR RESPERS ON 4L O2 VIA NC. ASSESSMENT IS COMPLETE WITH NO C/O OR S/S OF DISTRESS NOTED AT THIS TIME. BED IS LOW, LOCKED, ALARMED, AND CALL LIGHT IS WITHIN REACH. WILL CONTNINUE TO MONITOR SEE SHIFT ASSESSMENT.
[2018-12-01] VITALS: BP 134/71
--- NOTE | 2018-12-01 02:52 | NUR ---
PRN TYLENOL GIVEN AT THIS TIME FOR C/O BACK PAIN. CALL LIGHT IS WITHIN REACH, WILL MONITOR EFFECT.
--- NOTE | 2018-12-01 03:30 | NUR ---
PATIENTS RIGHT ANKLE ELEVATED AND ICE APPLIED AT THIS TIME. CALL LIGHT IS WITHIN REACH.
--- NOTE | 2018-12-01 04:00 | NUR ---
PRN TYLENOL SEEMS EFFECTIVE, CALL LIGHT IS WITHIN REACH.
--- NOTE | 2018-12-01 05:47 | NUR ---
PRN ZANAFLEX GIVEN AT THIS TIME. PATIENT TOLERATED WELL, CALL LIGHT IS WITHIN REACH.
[2018-12-01 05:55] LABS: BUN 37 mg/dl (7-24); CHLORIDE 103 mmol/L (98-107); CREATININE 1.06 mg/dL (0.55-1.02); SODIUM 132 mmol/L (136-145)
[2018-12-01 06:08] LABS: HEMATOCRIT 38.5 % (37.0-47.0); HEMOGLOBIN 11.6 g/dl (12.0-16.0); MEAN CELL VOLUME 90.8 fl (81.0-99.0); MEAN CORPUSCULAR HGB 27.4 pg (27.0-31.0); MEAN CORPUSCULAR HGB CONC 30.1 g/dl (33.0-37.0); MEAN PLATELET VOLUME 10.8 fl (9.6-12.3); PLATELET COUNT AUTOMATED 195 10*3/uL (130-400); RED BLOOD COUNT 4.24 10*6/uL (4.10-5.10); RED CELL DISTRI WIDTH 14.8 % (0-14.5); WHITE BLOOD COUNT 9.2 10*3/uL (4.8-10.8)
[2018-12-01 07:25] LABS: CPK 3897 U/L (26-192)
[2018-12-01 08:00] VITALS: BP 148/70
--- NOTE | 2018-12-01 08:00 | NUR ---
PATIENT LAYING IN BED. VERY DROWSY, LETHARGIC. AWAKENS TO ASSESS AND NODS OFF DURING ASSESSMENT. VOICES NO COMPLAINTS AT THIS TIME. RESPIRATIONS EASY, NON LABORED. OXYGEN IN PLACE. FLUIDS RUNNING AT 100ML/HR. BED IN LOWEST POSITION. CALL LIGHT WITHIN REACH. BED ALARM ON. WILL CONTINUE TO MONITOR.
[2018-12-01 08:08] LABS: PLATELET SUFFICIENCY NORMAL (NORMAL); TOTAL CELLS COUNTED 100 #CELLS
--- NOTE | 2018-12-01 09:21 | NUR ---
OT NOTE Pt was seen this A.M. 1:1 for 17 minute OT session. Upon arrival pt was supine in bed. Pt identified by name and and had complaints of "10/10 R ankle pain." Pt presented to therapy with continuous 2L-O2 via NC which she remained on throughout entire session and also presented with lethargic behaviors. Pt transferred supine to sit EOB with maxA x 2. Pt then completed mutliple sit to stand transfers from bed level with Rosaura X 2 and use of w/w for UE support. Challenged pt's static standing tolerance needed for increased I in self care tasks and functional transfers. Pt was able to tolerate aprox 70 seconds, 87 secons, and 73 seconds before sitting due to fatigue and pain in RLE. Upon each inital rise pt had LOB that occured backwards and to the left that required Rosaura to correct. Pt then transferred back into bed sit to supine with maxA X 2. There she was left with call light in hand, tray table in place, and bed alarm activated for safety. Continue with rec D/C plan to SNF. TONY Quintanilla/Eloise
--- NOTE | 2018-12-01 09:49 | NUR ---
PHYSICAL THERAPY Patient presented to therapy in supine with head of bed elevated and bed alarm activated. Patient is on 2 liters of spO2 via nasal canula. Patient was identified by name and . PATIENT GIVES INFORMED CONSENT FOR TREATMENT. Patient complains of pain in the R ankle of 10/10. Patient seems very lethargic and groggy. Patient performed supine to sitting at EOB with MAX A X 2. Patient sat on EOB with CGA. Patient performed sit to stand transfer with MIN A X 2 from EOB. Patient stood at Walker for 3 attempts 1st) 70 seconds 2) 1 minute 27 seconds 3rd) 1 minute 13 seconds with CGA X 2 and verbal cues for locking knees into extension, upright posture, and pushing down on walker with hands. Patient transferred back to supine in bed with MAX A X 2. Patient scooted up in bed with MAX A X 2. Patient was left supine in bed with head of bed elevated, call light within reach, and bed alarm activated. Patient was 1:1 with this PROGRAM ADMIN for 20 minutes total. LESTER ROMAN TPA
--- NOTE | 2018-12-01 10:01 | NUR ---
PATIENT AMBULATED WITH 2 ASSIST TO BATHROOM. TOLERATED WELL.
--- NOTE | 2018-12-01 10:09 | NUR ---
MEDICATED WITH PRN PO TYLENOL FOR RIGHT ANKLE PAIN.
--- NOTE | 2018-12-01 10:57 | NUR ---
DIONI FROM [facility] NOTIFIED OF NEW CONSULT.
--- NOTE | 2018-12-01 11:25 | NUR ---
PATIENT STATES TYLENOL HELPED.
[2018-12-01 12:00] VITALS: BP 140/72
--- NOTE | 2018-12-01 12:10 | NUR ---
Diagnostic Technologist in to see patient. Discussed short term rehab due to the pain she is still having in her ankle and therapy stating she needs moderate to maximum assistance. Asked if she has ever been to a rehab facility before. She stated no. When provided with a list of facilities she chose [facility]. materials planner notified.
--- NOTE | 2018-12-01 12:22 | NUR ---
Patient requested a referral to [facility]. Contacted facility and faxed referral. waiting on review/acceptance. will require precert.
--- NOTE | 2018-12-01 12:51 | NUR ---
[facility] to [facility]
--- NOTE | 2018-12-01 14:45 | NUR ---
PATIENT VERY LETHARGIC, DROWSY. FAMILY MEMBER IN ROOM. PATIENT COODINATION OFF. FAMILY MEMBER CONCERNED. WANTS TO SPEAK WITH A DR. NOTIFIED DR. LOPEZ.
--- NOTE | 2018-12-01 15:13 | NUR ---
PHYSICAL THERAPY CO-SIGN I approve of the Physical Therapy notes written above. ROBERT MALONE PT, DPT
--- NOTE | 2018-12-01 15:20 | NUR ---
DR. LOPEZ IN TO SEE PATIENT. NO NEW ORDERS RECEIVED. WILL CONTINUE TO MONITOR.
--- NOTE | 2018-12-01 15:42 | NUR ---
Patient's daughter called and [facility] merchandise planner notified.
--- NOTE | 2018-12-01 15:42 | NUR ---
DAUGHTER IN WITH PATIENT. STATES SHE WOULD RATHER HAVE HER MOTHER GO TO [facility] INSTEAD OF [facility]. PATIENT IN AGRRENCE. NOTIFIED CASE MANAGEMENT.
[2018-12-01 16:00] VITALS: BP 145/79
--- NOTE | 2018-12-01 19:18 | NUR ---
PATIENT AWAKE AND ALERT LAYING IN BED. STATES SHE HAS NOT SLEPT IN DAYS. DENIES ANY NEEDS AT THIS TIME. BED IN LOW LOCKED POSITION, CALL LIGHT IN REACH
[2018-12-01 20:00] VITALS: BP 172/83
--- NOTE | 2018-12-01 20:23 | NUR ---
DR PEÑA AWARE OF BLOOD PRESSURE. STATES TO GIVE COREG NOW
--- NOTE | 2018-12-01 22:01 | NUR ---
PATIENT USING ACCESSORY MUSCLES FOR BREATHING. PULSE OX 100% ON 2 LITERS NASAL CANNULA. PATIENT'S RIGHT EXTREMETIES HAVE MORE EDEMA THAN THE LEFT. PATIENT'S SKIN IN WARM AND DIAPHORTIC. RED ALL OVER. PATIENT IS ALERT TO PLACE AND PERSON, BUT NOT YEAR. PATIENT DENIES ANY PAIN. BLOOD SUGAR CHECK 108. ORAL TEMP 98.1, HEART RATE 85, RESPIRATIONS 24, AND MANUAL BLOOD PRESSURE 180/88. DR PEÑA NOTIFIED AND STATES HE WILL BE TO THE FLOOR
[2018-12-01 22:04] VITALS: BP 180/88
--- NOTE | 2018-12-01 22:08 | NUR ---
DR PEÑA AT BEDSIDE
--- NOTE | 2018-12-01 22:36 | NUR ---
LASIX GIVEN PER ORDER
[2018-12-01 22:46] LABS: BASO % 0.6 % (0.0-1.0); EOS # 0.4 10*3/uL (0.0-0.4); EOS % 6.5 % (1.0-4.0); HEMATOCRIT 36.8 % (37.0-47.0); HEMOGLOBIN 11.3 g/dl (12.0-16.0); LYMPH # 1.2 10*3/uL (1.3-4.4); LYMPH % 17.6 % (27.0-41.0); MEAN CELL VOLUME 90.4 fl (81.0-99.0); MEAN CORPUSCULAR HGB 27.8 pg (27.0-31.0); MEAN CORPUSCULAR HGB CONC 30.7 g/dl (33.0-37.0); MEAN PLATELET VOLUME 9.6 fl (9.6-12.3); MONO # 0.7 10*3/uL (0.1-1.0); MONO % 10.9 % (3.0-9.0); NEUT # 4.4 10*3/uL (2.3-7.9); NEUT % 64.1 % (47.0-73.0); PLATELET COUNT AUTOMATED 233 10*3/uL (130-400); RED BLOOD COUNT 4.07 10*6/uL (4.10-5.10); RED CELL DISTRI WIDTH 14.3 % (0-14.5); WHITE BLOOD COUNT 6.8 10*3/uL (4.8-10.8)
[2018-12-01 23:02] LABS: CHLORIDE 102 mmol/L (98-107); POTASSIUM 4.3 mmol/L (3.5-5.1); SODIUM 135 mmol/L (136-145)
[2018-12-01 23:03] LABS: BUN 18 mg/dl (7-24); TROPONIN I < 0.015 ng/ml (<0.045)
[2018-12-01 23:44] LABS: ABG BASE EXCESS 3.1 mmol/L (-2.0-2.0); ABG HCO3 30.1 mmol/l (22-26); ABG O2 SATURATION 99.3 % (95-97); ARTERIAL BLOOD GAS PCO2 60.1 mmHg (35-45); ARTERIAL BLOOD GAS PH 7.318 (7.35-7.45)
[2018-12-02] VITALS (10 sets, daily range): BP systolic 135–190; BP diastolic 58–88
--- NOTE | 2018-12-02 00:50 | NUR ---
PATIENT BACK FROM CT
--- NOTE | 2018-12-02 00:52 | NUR ---
DR PEÑA STATES TO WAIT AND CONSULT DR SPARKS UNTIL CT SCAN IS BACK
--- NOTE | 2018-12-02 01:51 | NUR ---
DR SINGH FROM [facility] CALLED AT THIS TIME. STATES THAT THE PATIENT HAS CRITICAL FINDINGS OF SEVERAL MILD TO MODERATE SCATTERED PULMONARY EMBOLISMS IN BOTH LUNGS, NO EVIDENCE OF HEART STRAIN. DR PEÑA MADE AWARE
--- NOTE | 2018-12-02 01:51 | NUR ---
DR PEÑA TO THE FLOOR AND AWARE OF CRITICAL RESULTS FROM [facility]. STATES TO TRANSFER PATIENT TO THE ICU
--- NOTE | 2018-12-02 02:00 | NUR ---
PT TRANSFERRED TO ICU #5 FROM . PT IS DROWSY BUT AWAKENS EASILY AND ORIENTED X3. RESP NONLABORED. VSS, BP 153/84, P 86, R 24, T 98.O(T), POX 100% ON 3L NC. LEFT ACCUCATH PATENT, DRESSING DRY AND INTACT. SKIN WARM & DRY. NO ACUTE DISTRESS NOTED. NO COMPLAINTS VOICED. PT DENIES ANY PAIN, DISCOMFORT, OR SOB AT THIS TIME.
--- NOTE | 2018-12-02 02:00 | NUR ---
PATIENT TRANSFERRED TO ICCU-5. REPORT GIVEN TO MANAS WALLACE. ALL QUESTIONS ANSWERED.
--- NOTE | 2018-12-02 02:39 | NUR ---
DR SPARKS NOTIFIED OF CONSULT AND INFORMED OF ABG RESULTS AND CTA RESULTS. NEW ORDER FOR BIPAP 14/12 AND ABG'S IN AM.
[2018-12-02 05:45] LABS: BUN 16 mg/dl (7-24); CHLORIDE 101 mmol/L (98-107); CREATININE 0.66 mg/dL (0.55-1.02); SODIUM 136 mmol/L (136-145)
[2018-12-02 06:44] LABS: CPK 2931 U/L (26-192)
[2018-12-02 06:48] LABS: ABG BASE EXCESS 5.7 mmol/L (-2.0-2.0); ABG HCO3 31.6 mmol/l (22-26); ABG O2 SATURATION 97.8 % (95-97); ARTERIAL BLOOD GAS PCO2 53.1 mmHg (35-45); ARTERIAL BLOOD GAS PH 7.387 (7.35-7.45); ARTERIAL BLOOD GAS PO2 88.3 mmHg (80-90)
[2018-12-02 06:51] LABS: BASO % 0.5 % (0.0-1.0); EOS # 0.4 10*3/uL (0.0-0.4); EOS % 6.4 % (1.0-4.0); HEMATOCRIT 37.3 % (37.0-47.0); HEMOGLOBIN 11.4 g/dl (12.0-16.0); LYMPH # 1.2 10*3/uL (1.3-4.4); LYMPH % 17.6 % (27.0-41.0); MEAN CELL VOLUME 89.2 fl (81.0-99.0); MEAN CORPUSCULAR HGB 27.3 pg (27.0-31.0); MEAN CORPUSCULAR HGB CONC 30.6 g/dl (33.0-37.0); MEAN PLATELET VOLUME 10.5 fl (9.6-12.3); MONO # 0.7 10*3/uL (0.1-1.0); MONO % 10.4 % (3.0-9.0); NEUT # 4.2 10*3/uL (2.3-7.9); NEUT % 64.6 % (47.0-73.0); PLATELET COUNT AUTOMATED 243 10*3/uL (130-400); RED BLOOD COUNT 4.18 10*6/uL (4.10-5.10); RED CELL DISTRI WIDTH 14.4 % (0-14.5); WHITE BLOOD COUNT 6.6 10*3/uL (4.8-10.8)
--- NOTE | 2018-12-02 07:30 | NUR ---
DR MONTEZ WHO IS ICCU RESIDENT THIS MONTH NOTIFIED PT HAS NEW BLISTER NOTED TO RIGHT LOWER LEG.
--- NOTE | 2018-12-02 07:54 | NUR ---
Patient transferred to ICCU, will require new PT and OT orders to continue therapy for precert. Family left voicemail on case management phone that they want patient to go to a "[facility]" facility. There are no available beds at or [facility] only [facility]. Will discuss with family is this facility is acceptable.
--- NOTE | 2018-12-02 08:28 | NUR ---
Patient transferred to ICCU d/t change in medical status. Consider an occupational therapy referral when medically stable and appropriate. Thank you. Corinne Cottrell OTR/L
--- NOTE | 2018-12-02 08:39 | NUR ---
PHYSICAL THERAPY Patient transferred to ICCU due to change in medical status. Please consider PT order when medically appropriate. Thank you. Neela Llanos,PT,DPT
--- NOTE | 2018-12-02 08:43 | NUR ---
Spoke with patients daughter, Cassandra. She first wanted the [facility] or [facility]. The only facility with available beds is [facility]. Patient stated she would stay with [facility] for now. She then called back a few minutes later and asked for a referral to be made to [facility]. Contacted facility and faxed referral. Since patient was transferred to ICCU, new orders for PT/OT needed to continue precert.
--- NOTE | 2018-12-02 08:57 | NUR ---
Nursing screen received and chart reviewed. Patient transferred to ICCU with pulmonary emboli's. When medically stable, patient may require an occupational therapy evaluation for discharge planning. Thank you. Corinne Cottrell OTR/l
--- NOTE | 2018-12-02 09:00 | NUR ---
City Planning Aide in to see patient. No new needs or request at this time. She is sitting up in her bedside chair visiting with family. When medically stable and precert is received she will be discharged to [facility]. account planner following.
--- NOTE | 2018-12-02 09:00 | NUR ---
PHYSICAL THERAPY Nursing screen received and chart reviewed. Patient transferred to ICCU and will require a new PT referral when medically appropriate. Thank you. Neela Llanos,PT,DPT
--- NOTE | 2018-12-02 13:20 | NUR ---
PT. TAKEN OFF BIPAP. NC ON AT 2.5 LITERS.
--- NOTE | 2018-12-02 13:26 | NUR ---
Spoke to Beatriz Reis, [facility] nurse practitioner. Notified Gayla in the ICCU Beatriz will be in a about 1430.
--- NOTE | 2018-12-02 16:51 | NUR ---
MOISES WELLS IN TO SEE PT. PT REMAINS DROWSY AND POOR HISTORIAN SO MOISES STATED SHE WILL BE BACK TO SEE PT TOMORROW.
--- NOTE | 2018-12-02 20:13 | NUR ---
PATIENT BLOOD PRESSURE ELEVATED, MANUAL READING OF 190/88. 2200 DOSE OF CAREG GIVEN AT THIS TIME. PATIENT ALSO ASKING FOR "SOMETHING FOR PAIN" STATES PAIN IS 8/10 TO ANKLE. PO TYLENOL ADMINISTERED PER DRS ORDERS. PATIENT REMAINS DROWSY. RN WILL CONTINUE TO MONITOR
[2018-12-03] VITALS (8 sets, daily range): BP systolic 154–180; BP diastolic 66–100
[2018-12-03 05:32] LABS: BASO % 0.6 % (0.0-1.0); EOS # 0.6 10*3/uL (0.0-0.4); EOS % 9.3 % (1.0-4.0); HEMATOCRIT 37.8 % (37.0-47.0); HEMOGLOBIN 11.5 g/dl (12.0-16.0); LYMPH # 1.9 10*3/uL (1.3-4.4); LYMPH % 27.2 % (27.0-41.0); MEAN CELL VOLUME 89.6 fl (81.0-99.0); MEAN CORPUSCULAR HGB 27.3 pg (27.0-31.0); MEAN CORPUSCULAR HGB CONC 30.4 g/dl (33.0-37.0); MEAN PLATELET VOLUME 9.9 fl (9.6-12.3); MONO # 0.8 10*3/uL (0.1-1.0); MONO % 11.2 % (3.0-9.0); NEUT # 3.5 10*3/uL (2.3-7.9); PLATELET COUNT AUTOMATED 255 10*3/uL (130-400); RED BLOOD COUNT 4.22 10*6/uL (4.10-5.10); RED CELL DISTRI WIDTH 14.6 % (0-14.5); WHITE BLOOD COUNT 6.9 10*3/uL (4.8-10.8)
[2018-12-03 05:52] LABS: ALBUMIN 2.7 gm/dl (3.1-4.5); ALKALINE PHOSPHATASE 88 U/L (45-117); BUN 12 mg/dl (7-24); CHLORIDE 100 mmol/L (98-107); CREATININE 0.68 mg/dL (0.55-1.02); SGOT/AST 129 IU/L (3-35); SGPT/ALT 54 U/L (12-78); SODIUM 135 mmol/L (136-145); TOTAL PROTEIN 6.5 gm/dL (6.4-8.2)
--- NOTE | 2018-12-03 06:03 | NUR ---
PATIENT ADMINISTERED TYLENOL PER DRS ORDERS FOR COMPLAINTS OF ANKLE PAIN. RN WILL CONTINUE TO MONITOR
--- NOTE | 2018-12-03 06:07 | NUR ---
BETTYROJELIO L [id number] Please refer to the physician's history and physical for past medical history, comorbid conditions, and allergies. Diagnosis: ACUTE METABOLIC ENCEPHALOPATHY Addy Score: 14,MODERATE RISK WOUND DESCRIPTIONS: Wound Number: 1 Location of the wound: left willis/knee Type of wound: abrasion Thickness: Partial Size: 2.0cm x 2.5cm x <0.1cm Tunneling: none Undermining: none Sinus Tract: none Presence of Exudate: none Amount: None Color: Red Odor: None Periwound Skin Appearance: Normal Wound edges: approximated Pain (associated with wound): none at time of assessment How does patient state this happened? pt stated she doesn't know how this happened Wound Number: 2 Location of the wound: right posterior lower leg below knee Type of wound: medical geneticist related pressure injury Stage 2 Thickness: Partial Size: 0.4cm x 3.2cm x <0.1cm Tunneling: none Undermining: none Sinus Tract: none Presence of Exudate: none Amount: None Color: Red Odor: None Periwound Skin Appearance: Normal Wound edges: approximated intact serum filled blister Pain (associated with wound): none at time of assessment How does patient state this happened? pt stated she doesn't know how this happened Wound Number: 3 Location of the wound: right elbow lateral aspect Thickness: Full Size: 1.5cm x 2.0cm x <0.1cm Tunneling: none Undermining: none Sinus Tract: none Presence of Exudate: Serosanguineous Amount: Light Color: Red, yellow Odor: None Periwound Skin Appearance: Normal Wound edges: approximated Pain (associated with wound): none at time of assessment How does patient state this happened? pt stated she doesn't know how this happened Wound Number: 4 Location of the wound: right medial aspect of elbow Thickness: Partial Size: 0.7cm x 0.5cm x 0.1cm Tunneling: none Undermining: none Sinus Tract: none Presence of Exudate: Serosanguineous Amount: Light Color: Red Odor: None Periwound Skin Appearance: Normal Wound edges: approximated Pain (associated with wound): none at time of assessment How does patient state this happened? pt stated she doesn't know how this happened Wound Number: 5 Location of the wound: right distal aspect of elbow Thickness: Partial Size: 0.4cm x 0.9cm x 0.1cm Tunneling: none Undermining: none Sinus Tract: none Presence of Exudate: Serosanguineous Amount: Light Color: Red Odor: None Periwound Skin Appearance: Normal Wound edges: approximated Pain (associated with wound): none at time of assessment How does patient state this happened? pt stated she doesn't know how this happened Right knee is red and blanchable at time of assessment. No open areas noted at time of assessment. No drainage noted at time of assessment. Surface the patient is resting on: Position Pro SKIN PREVENTION RECOMMENDATION: 1. Pressure redistribution support surface as appropriate 2. Elevate heels 3. Remove boots/TEDS every shift and reapply 4. Head of bed 30 degrees as tolerated 5. Assess nutrition and hydration 6. Manage moisture 7. Avoid the use of containment devices while in bed 8. Use absorptive products on surfaces limit layers of linens on bed 9. Turn and reposition every 1-2 hours in bed and every 1 hour in chair as tolerated 10. Weight shifts every 15 minutes while up in chair 11. Offloading with pillows or device to keep heels elevated off bed 12. Monitor skin at least every shift 13. Inspect under medical devices twice a day WOUND TREATMENT RECOMMENDATIONS: Partial thickness guidelines: Cleanse right medial aspect of elbow, right distal apsect of elbow, right posterior lower leg below knee and left willis/knee area with nss and apply sureprep around the wound therahoney to wound bed and cover with optifoam gentle. Full thickness guidelines: Cleanse right lateral aspect of elbow with nss and apply sureprep around the wound therahoney to wound bed and cover with optifoam gentle. Heel rasier pro boots to bilateral feet while in bed.
[2018-12-03 06:37] LABS: CPK 1464 U/L (26-192)
--- NOTE | 2018-12-03 07:10 | NUR ---
PT ON BIPAP AT THIS TIME, SPO2 94%
--- NOTE | 2018-12-03 07:21 | NUR ---
TOOK PT OFF BIPAP. PT HAS BEEN ON SINCE 7PM 12-02.
--- NOTE | 2018-12-03 08:22 | NUR ---
MANUAL BP 170/100. DR MONTEZ AWARE AND AM MEDS OF COREG AND NORVASC GIVEN AT THIS TIME.
--- NOTE | 2018-12-03 08:23 | NUR ---
Dr. Mehta notified of wound care recommendations.
--- NOTE | 2018-12-03 08:41 | NUR ---
PT MEDICATED WITH NORCO 1 TAB PO FOR C/O RIGHT FOOT PAIN.
--- NOTE | 2018-12-03 09:00 | NUR ---
Skill Labor in to see patient. No new needs or request at this time. When medically stable and precert is received she will be discharged to [facility]. conference planner following.
--- NOTE | 2018-12-03 10:59 | NUR ---
Occupational Therapy evaluation completed in ICCU with full eval to follow. Precautions include fall risk; bed alarm, ICCU precautions, right ankle pain and limited weight bearing, seizure disorder,moderate complexity [id number] via chart review, testing and evaluation. Recommend OT per POC and SNF to enable return home alone at independent level. Thank you. Corinne Cottrell OTR/L
--- NOTE | 2018-12-03 11:00 | NUR ---
PHYSICAL THERAPY Physical therapy evaluation completed, ICU-5-1. Full detials and evaluation to follow. moderate complexity determined after evaluation and chart review, [id number]. PT to work on strength, gait, balance, safety, transfers. REcommending SNF at discharge. Jane Grant, PT, DPT
--- NOTE | 2018-12-03 11:20 | NUR ---
DIRECTOR OF SLEEP DIONI NOTIFIED THAT PT HAS BEEN DOWNGRADED TO MONITORED PT.
--- NOTE | 2018-12-03 11:44 | NUR ---
PT MEDICATED WITH TYLENOL FOR C/O GENERALIZE BODY ACHE PAIN.SHE STATED THAT SHE WANTS THE NORCO AGAIN BUT SHE JUST HAD IT AT 0830.
--- NOTE | 2018-12-03 12:35 | NUR ---
MEDICATED WITH NORCO FOR PT IN HER FOOT ".
--- NOTE | 2018-12-03 16:06 | NUR ---
DR MONTEZ NOTIFIED OF PT'S BP OF 180/90. NEW ORDER RECEIVED FOR IV LOPRESSOR.
--- NOTE | 2018-12-03 16:53 | NUR ---
PT REQUESTING HER PAIN MEDICATION FOR RIGHT FOOT PAIN AT THIS TIME. NORCO GIVEN ORDERED.
--- NOTE | 2018-12-03 20:09 | NUR ---
CATAPRES GIVEN PER DRS ORDERS FOR ELEVATED BLOOD PRESSURE. RN WILL MONITOR FOR REDUCTION IN BLOOD PRESSURE
--- NOTE | 2018-12-03 20:45 | NUR ---
PATIENT TRANSFERRED FROM THE ICU TO BED 421, ALL BELONIGINGS SENT WITH PATIENT
--- NOTE | 2018-12-03 20:53 | NUR ---
REPORT GIVEN TO MERCY WALLACE
--- NOTE | 2018-12-03 20:55 | NUR ---
PATIENT TRAMSFERED OUT OF ICU TO ROOM 421. REPORT RECEIVED FROM RODRIGO SWEET. PATIETN AWAKE,ALERT. RESPIRATIONS EASY NON LABORED. VOICES NO COMPLAINTS AT THIS TIME. BED IN LOWEST POSITION, CALL LIGHT WITHIN REACH. BED ALARM ON. WILL CONTINUE TO MONTIOR.
--- NOTE | 2018-12-03 22:11 | NUR ---
PATIENT C/O RIGHT ANKLE PAIN. REQUESTING NORCO EXPLAINED TO PATIENT NORCO IS NOT YET DUE. PATIENT MEDICATED WITH TYLENOL INSTEAD. WILL CHECK EFFECTIVENESS.
--- NOTE | 2018-12-03 23:57 | NUR ---
PATIENT ENCOURAGED TO USE BIPAP WHILE SLEEPING. PATIENT REFUSING STATES SHE ONLY USES OXYGEN AT HOME AND THATS ALL SEE NEEDS. EXPLAINED THE BENEFITS OF USING THE BIPAP. PATIENT CONTINUES TO REFUSE. WILL CONTINUE TO MONITOR.
[2018-12-04] VITALS: BP 135/70
--- NOTE | 2018-12-04 00:26 | NUR ---
PATIENT STATING TYLNEOL WAS NOT EFFECTIVE. RATING PAIN 7/10. MERDICATED WITH NROCO. WILL CHECK EFFECTIVENESS.
--- NOTE | 2018-12-04 02:30 | NUR ---
PATIENT AGREEING TO WEAR BIPAP NOW. BIPAP ON. PATIENT RESTING CONFORTABLY. VSS PULSE 76, PULSE OX 95%. CONTINOUS PULSE OX ON. BED IN LOWEST POSITION, CALL LIGHT WITHIN REACH. BED ALARM ON. WILL CONTINUE TO MONITOR.
--- NOTE | 2018-12-04 04:27 | NUR ---
Upon discharge recommend patient to follow up for wound care in outpatient setting continue current wound care orders at discharging facility.
--- NOTE | 2018-12-04 07:50 | NUR ---
Patient updated clinicals and new therapy evals faxed to [facility] for precert. waiting on auth
[2018-12-04 08:00] VITALS: BP 155/68
--- NOTE | 2018-12-04 08:20 | NUR ---
MEDICATED WITH NORCO PER PRN ORDER FOR COMPLAINTS OF RIGHT ANKLE PAIN, RATES PAIN 8/10. WILL MONITOR FOR EFFECTIVENESS.
--- NOTE | 2018-12-04 09:30 | NUR ---
PT SITTING UP IN BED, STATES EARLIER NORCO HELPED WITH RIGHT ANKLE PAIN. WILL CONTINUE TO MONITOR.
[2018-12-04 10:58] LABS: BUN 11 mg/dl (7-24); CHLORIDE 98 mmol/L (98-107); CREATININE 0.78 mg/dL (0.55-1.02); SODIUM 132 mmol/L (136-145)
[2018-12-04 11:05] LABS: POTASSIUM 4.6 mmol/L (3.5-5.1)
[2018-12-04 11:10] LABS: BASO % 0.5 % (0.0-1.0); EOS # 0.7 10*3/uL (0.0-0.4); EOS % 8.4 % (1.0-4.0); HEMOGLOBIN 11.3 g/dl (12.0-16.0); LYMPH # 1.6 10*3/uL (1.3-4.4); LYMPH % 20.4 % (27.0-41.0); MEAN CELL VOLUME 88.5 fl (81.0-99.0); MEAN CORPUSCULAR HGB 27.8 pg (27.0-31.0); MEAN CORPUSCULAR HGB CONC 31.4 g/dl (33.0-37.0); MEAN PLATELET VOLUME 10.3 fl (9.6-12.3); MONO # 0.8 10*3/uL (0.1-1.0); MONO % 9.8 % (3.0-9.0); NEUT # 4.7 10*3/uL (2.3-7.9); NEUT % 59.8 % (47.0-73.0); PLATELET COUNT AUTOMATED 262 10*3/uL (130-400); RED BLOOD COUNT 4.07 10*6/uL (4.10-5.10); RED CELL DISTRI WIDTH 14.7 % (0-14.5); WHITE BLOOD COUNT 7.9 10*3/uL (4.8-10.8)
--- NOTE | 2018-12-04 11:20 | NUR ---
Pt was seen in OT x 30 minutes beginning with sit to stand from recliner with 1 cue for placement of hands on arm rests versus walker. Fxl mobility throughout room with wheeled walker & close supervision due to safety issues (keep walker on floor & staying within walker). Educated pt regarding AE to enhance dressing skills. Pt attempted using main line assembler to doff socks however needed Min A to complete. Also demonstrated sock aid to patient for donning of socks also with SBA due to "weakness". Continue with OT POC. Call light within reach. Imani SETH/Eloise
--- NOTE | 2018-12-04 11:42 | NUR ---
PHYSICAL THERAPY Patient seen this am 1;1 for therapy visit and was sitting up in bedside chair upon therapist arrival. Patient identified by name / and was very pleasant, stating she had just returned to chair from bathroom following OT digital sales assistant visit. Patient instructed on / performed seated B LE therex, all planes, 2 x 10 reps each to increase LE strength. Patient also completed several sit to stand transfers with MIN A secondary to low chair surface and remained in bedside chair with call light, tray table and telephone. Will continue per POC as tolerated, total treatment time 15 minutes. Lars Reyes, HANDS PARTER
--- NOTE | 2018-12-04 11:43 | NUR ---
Patient has received auth to go to [facility]. Auth is good for today, through the weekend. 12/04/18 through 12/06/18. Patient can go anytime during this time frame if medically stable for discharge.
--- NOTE | 2018-12-04 11:46 | NUR ---
PHYSICAL THERAPY CO-SIGN I approve of the Physical Therapy notes written above. VIPUL CUMMINS, PT, DPT
[2018-12-04 12:00] VITALS: BP 150/84
--- NOTE | 2018-12-04 13:00 | NUR ---
WOUND CARE PERFORMED PER ORDER.
[2018-12-04 14:08] LABS: ABG BASE EXCESS 7.6 mmol/L (-2.0-2.0); ABG HCO3 32.9 mmol/l (22-26); ABG O2 SATURATION 95.9 % (95-97); ARTERIAL BLOOD GAS PCO2 50.7 mmHg (35-45); ARTERIAL BLOOD GAS PH 7.427 (7.35-7.45); ARTERIAL BLOOD GAS PO2 70.7 mmHg (80-90)
--- NOTE | 2018-12-04 14:21 | NUR ---
Bipap will be at [facility] at the latest tomorrow morning per John in respiratory. planner internship notified.
--- NOTE | 2018-12-04 14:27 | NUR ---
Jairo delgado stating the bipap has been ordered and will arrive Friday12/05/18; patient can be discharged friday morning if medically stable. Patient's precert is good through Friday12/06/18
--- NOTE | 2018-12-04 15:00 | NUR ---
MEDICATED WITH NORCO PER PRN ORDER FOR COMPLAINTS OF RIGHT ANKLE PAIN, RATES PAIN 7/10. WILL MONITOR FOR EFFECTIVENESS.
[2018-12-04 16:00] VITALS: BP 158/81
--- NOTE | 2018-12-04 19:30 | NUR ---
TOOK OVER CARE OF PT AT THIS TIME. PT ALERT ORIENTED AND PLEASANT, SPEECH CLEAR. PT ASSISTED TO BATHROOM WITH WALKER. GAIT STEADY. PT ASSISTED BACK TO BED. ALL SAFETY MEASURES IN PLACE. RESPIRATIONS EASY AND UNLABORED ON SUPPLEMENTAL OXYGEN VIA NC. WILL CONTINUE TO MONITOR. CALL LIGHT IN REACH, VERBALIZES USE OF CALL LIGHT FOR NEEDS.
--- NOTE | 2018-12-04 20:19 | NUR ---
PT GIVEN NORCO 5-325 MG TAB AT THIS TIME FOR C/O PAIN TO RIGHT FOOT. WILL MONITOR FOR EFFECTIVENESS. ALL SAFETY MEASURES IN PLACE. CALL LIGHT IN REACH.
[2018-12-04 20:21] VITALS: BP 172/100
--- NOTE | 2018-12-04 21:19 | NUR ---
PT STATES THAT NORCO IS EFFECTIVE AT THIS TIME.
[2018-12-04 22:32] VITALS: BP 170/90
--- NOTE | 2018-12-04 22:33 | NUR ---
NOTIFIED DR ARCHER THAT PT BLOOD PRESSURE IS 170/90 AT THIS TIME. WILL GIVE PATIENT PRN CLONIDINE 0.2 MG PO PER EMAR ORDERS. WILL FOLLOW UP AND MONITOR FOR EFFECTIVENESS.
--- NOTE | 2018-12-04 23:23 | NUR ---
PLACED PATIENT ON BIPAP.
--- NOTE | 2018-12-04 23:30 | NUR ---
CLONIDINE EFFECTIVE. PT BLOOD PRESSURE WNL.
[2018-12-05 00:58] VITALS: BP 132/80
--- NOTE | 2018-12-05 02:48 | NUR ---
Patient taken off of NIV to use bathroom. Patient states she does not want to wear the bipap again this evening.
--- NOTE | 2018-12-05 03:03 | NUR ---
PT GIVEN NORCO AT THIS TIME FOR PAIN TO RIGHT LOWER EXTREMITY/FOOT. WILL MONITOR FOR EFFECTIVENESS. RESPIRATIONS EASY AND UNLABORED ON 2L NC. PT DENIES NEEDING ANYTHING ELSE AT THIS TIME. CALL LIGHT IN REACH.
[2018-12-05 08:00] VITALS: BP 176/77
--- NOTE | 2018-12-05 08:08 | NUR ---
PT MEDICATED WITH PO CLONIDINE PER PRN ORDER FOR ELEVATED BP 176/77. WILL MONITOR EFFECTIVENESS.
--- NOTE | 2018-12-05 08:30 | NUR ---
VINICIO GUZMÁN NOTIFIED REGARDING ELEVATED BP.
--- NOTE | 2018-12-05 08:55 | NUR ---
PT MEDICATED WITH PO NORCO PER PRN ORDER FOR C/O RIGHT ANKLE PAIN. RATES PAIN 10/10. WILL MONITOR EFFECTIVENESS.
--- NOTE | 2018-12-05 10:00 | NUR ---
PAIN BEING RELIEVED PER PT. WILL CONTINUE TO MONITOR.
[2018-12-05 12:00] VITALS: BP 118/60
[2018-12-05] MEDS ORDERED: KLONOPIN2 M1 PO (13:28)
[2018-12-05] MEDS ORDERED: XARE15TA PO (13:28)
[2018-12-05] MEDS ORDERED: AMLODIPINE BESY10 MG PO (13:28)
[2018-12-05] MEDS ORDERED: XARE20MG PO (13:28)
[2018-12-05] MEDS ORDERED: HYDROCODONE-AC1 EAC1 PO (13:28)
[2018-12-05] MEDS ORDERED: LISINOPRIL20 MG PO (13:28)
[2018-12-05] MEDS ORDERED: AMINOPHYLLIN200 MG PO (13:29)
--- NOTE | 2018-12-05 14:29 | NUR ---
PATIENT REFUSED DRESSING CHANGES AND DISCHARGE PHOTOS. DRESSINGS WERE CHANGED YESTERDAY AND DOCUMENTED.
--- NOTE | 2018-12-05 14:30 | NUR ---
DAUGHTER HERE TO TRANSPORT PATIENT TO [facility] PER ORDER.
--- NOTE | 2018-12-05 15:05 | NUR ---
REPORT GIVEN TO NURSE AT [facility].
== END 2018-12-05 14:30 | disposition other institution (70) | DRG 564 ==
LOC: ED 08:55 → ICCU 12:00 → 4E 12:00 → ICCU 12-02 01:55 → 4E 12-03 20:18
PROVIDERS: Emergency Medicine; Family Medicine; Hospitalist; Internal Medicine; Internal Medicine Critical Care Medicine; Student in an Organized Health Care Education/Training Program; ADMIT Family Medicine
DX: T79.6XXA Traumatic ischemia of muscle, initial encounter (principal); N17.0 Acute kidney failure with tubular necrosis; G93.41 Metabolic encephalopathy; J96.21 Acute and chronic respiratory failure with hypoxia; J96.22 Acute and chronic respiratory failure with hypercapnia; I26.99 Other pulmonary embolism without acute cor pulmonale; I82.409 Acute embolism and thrombosis of unspecified deep veins of unspecified lower extremity; R82.1 Myoglobinuria; E87.1 Hypo-osmolality and hyponatremia; E44.0 Moderate protein-calorie malnutrition; N39.0 Urinary tract infection, site not specified; S93.401A Sprain of unspecified ligament of right ankle, initial encounter; S59.901A Unspecified injury of right elbow, initial encounter; W19.XXXA Unspecified fall, initial encounter; F41.9 Anxiety disorder, unspecified; J45.909 Unspecified asthma, uncomplicated; I50.9 Heart failure, unspecified; G89.29 Other chronic pain; M54.9 Dorsalgia, unspecified; R29.6 Repeated falls; K21.9 Gastro-esophageal reflux disease without esophagitis; I11.0 Hypertensive heart disease with heart failure; G40.909 Epilepsy, unspecified, not intractable, without status epilepticus; J43.9 Emphysema, unspecified; S99.911A Unspecified injury of right ankle, initial encounter; W18.39XA Other fall on same level, initial encounter; D72.829 Elevated white blood cell count, unspecified; D64.9 Anemia, unspecified; E11.65 Type 2 diabetes mellitus with hyperglycemia; E83.41 Hypermagnesemia; R74.0 Nonspecific elevation of levels of transaminase and lactic acid dehydrogenase [LDH]; E55.9 Vitamin D deficiency, unspecified; E66.9 Obesity, unspecified; E11.69 Type 2 diabetes mellitus with other specified complication; I10 Essential (primary) hypertension; R31.9 Hematuria, unspecified; B96.1 Klebsiella pneumoniae [K. pneumoniae] as the cause of diseases classified elsewhere; Z66 Do not resuscitate; Z51.5 Encounter for palliative care; Y93.89 Activity, other specified; Z87.01 Personal history of pneumonia (recurrent); Z88.8 Allergy status to other drugs, medicaments and biological substances; Z91.040 Latex allergy status; Z91.048 Other nonmedicinal substance allergy status; Z79.899 Other long term (current) drug therapy; Z79.84 Long term (current) use of oral hypoglycemic drugs; Z90.710 Acquired absence of both cervix and uterus; Z90.49 Acquired absence of other specified parts of digestive tract; Z95.0 Presence of cardiac pacemaker; Z87.891 Personal history of nicotine dependence; Z82.3 Family history of stroke; Z82.49 Family history of ischemic heart disease and other diseases of the circulatory system; Z83.3 Family history of diabetes mellitus; Y92.89 Other specified places as the place of occurrence of the external cause; Y99.8 Other external cause status; Z68.30 Body mass index [BMI] 30.0-30.9, adult

== ENCOUNTER 2019-07-28 07:55 | Inpatient (IN) | payer MEDICARE ==
[~2019-07-28] VITALS: Ht 154.9 cm; Wt 72.0 kg
[2019-07-28] VITALS (52 sets, daily range): BP systolic 75–181; BP diastolic 31–85
[~2019-07-28 07:55] MED LIST changes: +AMLODIPINE BESY10 MG PO; +LISINOPRIL20 MG PO; +XARE15TA PO; +XARE20MG PO
--- NOTE | 2019-07-28 08:41 | NUR ---
RAPID COVID NEGATIVE, SWAB TAKEN FOR [facility]. IV WS ESTABLISHED 24 IN THE RT WRIST, PT REMAINS ON 100% NON-REBREATHER POX 100% PT RESPIRATIONS 52, C/O BACK PAIN, WHICH IS CHRONIC. PT IS BE DIRECTLY ADMITTED TO 5E, WAITING FOR NURSE TO BE READY ON FLOOR. PT TO BE DIRECTLY INTUBATED ON THE FLOOR.
--- NOTE | 2019-07-28 08:45 | NUR ---
A 68, admitted to , under the services of JESSICA Junior DO with a diagnosis of ACUTE RESP. FAILURE AND PNEUMONIA. Chief complaint is SUDDEN ONSET SOB, COUGH, FEVER. Patient arrived via stretcher from ER. Monitor applied. Initial assessment completed. Vital signs taken and recorded. JESSICA JUNIOR DO notified of admission to the unit. Orders received. See assessment for past medical history, medications and allergies. Patient oriented to unit. [facility] visitation policy reviewed. Clothing/patient valuable form completed. DODIE HARTMAN
--- NOTE | 2019-07-28 08:50 | NUR ---
PT ARRIVED TO THE FLOOR VIA CART. PT PLACED IN BED. PT AAOX3. RESP. LABORED. PT ON 100% NONREBREATHER MASK. POX 94% MELISSA,NURSE FRAME COVERER HERE FOR INTUBATION. PT'S HL IN HAND IS OCCLUDED. # 22 HL STARTED IN RIGHT FOOT BY NURSE ANESTHESIST. DR HEADLEY DISCUSSED INTUBATION WITH PT AND SHE IS AGREEABLE FOR INTUBATION.
--- NOTE | 2019-07-28 09:00 | NUR ---
Infomed consent obtained from patient by Dr. HEADLEY for elective intubation. Patient intubated with Other endotracheal tube orally X 1 attempts. Patient sedated with ZEMURON AND DIPRIVAN Respiratory therapy at bedside. Crash cart with emergency drugs available. Endotracheal tube inflated with 8cc's. Lungs auscultated for equality of breath sounds. Tube secured with Tube tamer at 22cm's. at level of LIP. Patient tolerated procedure WELL. Portable chest X-ray obtained and reviewed for tube placement. Left Radial art placed by nurse anesthesist. #16 togolese ogt placed. #16 togolese florence placed. 100cc straw colored urine obtained. Pt to be sedated with a Diprivan gtt. DODIE HARTMAN
[2019-07-28 10:32] LABS: ABG BASE EXCESS -0.7 mmol/L (-2.0-2.0); ARTERIAL BLOOD GAS PH 7.328 (7.35-7.45)
[2019-07-28 10:54] LABS: HEMATOCRIT 37.4 % (37.0-47.0); MEAN CORPUSCULAR HGB 28.7 pg (27.0-31.0); MEAN CORPUSCULAR HGB CONC 33.4 g/dl (33.0-37.0); MEAN PLATELET VOLUME 9.5 fl (9.6-12.3); PLATELET COUNT AUTOMATED 300 10*3/uL (130-400); RED BLOOD COUNT 4.35 10*6/uL (4.10-5.10); RED CELL DISTRI WIDTH 13.7 % (0-14.5)
[2019-07-28 11:06] LABS: ACT PARTIAL THROMBO TIME 24.8 SECONDS (20.0-32.1); INTERNATIONAL NORM RATIO 1.1 (2.0-3.5)
[2019-07-28 11:10] LABS: ALBUMIN 3.4 gm/dl (3.1-4.5); ALKALINE PHOSPHATASE 476 U/L (45-117); BUN 10 mg/dl (7-24); CHLORIDE 100 mmol/L (98-107); CREATININE 1.01 mg/dL (0.55-1.02); LIPASE 110 U/L (73-393); POTASSIUM 3.2 mmol/L (3.5-5.1); SGOT/AST 444 IU/L (3-35); SODIUM 133 mmol/L (136-145); TOTAL PROTEIN 7.3 gm/dL (6.4-8.2)
[2019-07-28 11:14] LABS: PLATELET SUFFICIENCY NORMAL (NORMAL); TOTAL CELLS COUNTED 100 #CELLS
[2019-07-28 11:20] LABS: SGPT/ALT 289 U/L (12-78)
[2019-07-28 11:26] LABS: TROPONIN I < 0.015 ng/ml (<0.045)
--- NOTE | 2019-07-28 11:43 | NUR ---
PT'S MAP IN THE 50'S. UPDATED DR HEADLEY. ORDER RECEIVED FOR IV LEVOPHED GTT. IV LEVOPHED GTT STARTED AT 4 MCG/MIN.
--- NOTE | 2019-07-28 11:49 | NUR ---
IV NRMAL SALINE BOLUS STARED PER ORDER. PT'S MAP 63. IV LEVOPHED GTT INVREASED TO 6MCG/MIN. WILL CONTINUE TO MONITOR PT.
[2019-07-28 12:23] LABS: BILIRUBIN NEGATIVE (NEGATIVE); BLOOD TRACE-LYSED (NEGATIVE); CLARITY CLOUDY (CLEAR); COLOR YELLOW (YELLOW); GLUCOSE NEGATIVE (NEGATIVE); KETONE NEGATIVE (NEGATIVE); LEUKO ESTERASE 2+ (NEGATIVE); NITRITE NEGATIVE (NEGATIVE); SPECIFIC GRAVITY 1.005 (1.005-1.030)
[2019-07-28 12:27] LABS: BACTERIA 4+; WBC TNTC wbc/hpf (0-5)
--- NOTE | 2019-07-28 13:06 | NUR ---
UPDATED DR SPARKS ON PT'S CONDITION. NEW ORDERS RECEIVED.
[2019-07-28 14:38] LABS: ABG BASE EXCESS -2.1 mmol/L (-2.0-2.0); ARTERIAL BLOOD GAS PH 7.38 (7.35-7.45)
--- NOTE | 2019-07-28 14:56 | NUR ---
DR CALL IN TO SEE PT EARLIER THIS AFTERNOON. HEIS THE INFECTIOUS DISEASE RESIDENT THIS MONTH. I DID CALL AND NOTIFY DR COOPER'S ANSWERING SERVICE OF NEW CONSULT. DR SPARKS UPDATEDON LATEST ABG RESULTS BY IMER,RESP. THERAPIST. PT RESTING. PT'S MAP IS 70 ON 10MCG/MIN OF LEVOPHED. TEMP 101 RECTAL AFTER TYLENOL SUPPOSITORY. WILL CONTINUE TO MONITOR PT.
--- NOTE | 2019-07-28 15:56 | NUR ---
SPOKE TO PHARMACIST EARLIER R/T PT'S ALLERGY TO LEVAQUIN. PHARMACIST,ARNOLDO, STATED THAT PT HAS RECEIVED LEVAQUIN MULTIPLE TIMES AND IT WAS OK TO GIVE PT LEVAQUIN JUST WATCH PT FOR ANY REACTION.
[2019-07-28 17:32] LABS: LDH 351 U/L (84-246); PREALBUMIN 19 mg/dl (20-40)
--- NOTE | 2019-07-28 17:53 | NUR ---
DR COOPER IN TO SEE PT. UPDATED HIM ON PT'S CONDITION.
--- NOTE | 2019-07-28 18:12 | NUR ---
COMPLETE BATH COMPLETED. PT RESTING.
--- NOTE | 2019-07-28 18:20 | NUR ---
RECTAL TEMP 100.4. EARLIER TYLENOL EFFECTIVE.
--- NOTE | 2019-07-28 20:05 | NUR ---
DR ELLIS CONTACTED REGARDING BC + GNB, PATIENT CURRENTLY RECEIVING IV ZITHRO AND ROCEPHIN
--- NOTE | 2019-07-28 20:37 | NUR ---
1930 RESTING IN EBD ON R SIDE. HOB ELEVATED. SIDE RAILS UP X'S 2. NPO. NG PATENT TO LIS AND DRAINING COFFEE GROUND MATERAIL. AWARE ONPREVIOUS SHIFT.ET SECURE TO VENT. SUCTIONED ORALLY AND VIA ET FOR SCANT CLEAR SECRETIONS. PULSE OX 97% ON 40% FIO2 VIA VENT. RIJ INTACT. DIPRIVAN AT 40MICS AND LEVOPHED AT 10MICS AFTER BEING TITRATED UP FOR LOW BP. SEE INTERVENTIONS SCREEN FOR Q15 MIN BP'S. KWONG PATENT AND DRAINING SCANT MARJORIE URINE. WRSIT RSTRTAINTS INTACT BILATERALLY, CIRCULATION AEQUATE. ISOLATION MAINTAINED.
[2019-07-28 21:45] LABS: BUN 11 mg/dl (7-24); CHLORIDE 101 mmol/L (98-107); CREATININE 1.06 mg/dL (0.55-1.02); SODIUM 131 mmol/L (136-145)
[2019-07-28 21:46] LABS: POTASSIUM 4.4 mmol/L (3.5-5.1)
[2019-07-28] MEDS ORDERED: KLONOPIN1 M1 PO (21:58)
[2019-07-28] MEDS ORDERED: ARTHRITIS PAIN650 M3 PO (22:04)
[2019-07-28] MEDS ORDERED: GNP FISH OIL 11 EAC1 PO (22:05)
--- NOTE | 2019-07-28 22:18 | NUR ---
DR. ELLIS CALLED AND TOLD THAT MED REC IS UPDATED.
[2019-07-29] VITALS (31 sets, daily range): BP systolic 126–175; BP diastolic 53–80
--- NOTE | 2019-07-29 00:10 | NUR ---
REMAINS ADEQUATELY SEDATED ON DIPRIVAN GTT. TITRATING LEVOPHED DOWN FOR IMPROVING BP. NO DISTRESS NOTED. ORAL CARE DONE.
--- NOTE | 2019-07-29 00:52 | NUR ---
KNEE HIGH TEDS AND SCD'S APPLIED BILATERAL LOWER EXTREMITIES .IV SITES REMOVED R FOOT AND R HAND.
--- NOTE | 2019-07-29 03:00 | NUR ---
0300 BP ELEVATED. RESTLESS AND TRYING TO SIT UP IN THE BED. PULLING AT SUCTION TUBING. VERSED 5MG IV FOR THIS AND IMMEDIATELY EFFECTIVE. LEVOPHED TITRATED DOWN TO 4MICS. SEE INTERVENTION SCREEN FOR Q15MIN BP'S.
--- NOTE | 2019-07-29 04:53 | NUR ---
DR ELLIS NOTIFIED OF CRITICAL LAB, +BLOOD CULTURES ANAEROBIC BOTTLE GNB.
[2019-07-29 05:07] LABS: HEP B CORE AB, IGM Negative (Negative); HEPATITIS B SURFACE AG Negative (Negative); HEPATITIS C VIRUS ANTIBODY <0.1 s/co (0.0-0.9)
[2019-07-29 05:35] LABS: ALBUMIN 2.7 gm/dl (3.1-4.5); ALKALINE PHOSPHATASE 370 U/L (45-117); BUN 11 mg/dl (7-24); CHLORIDE 100 mmol/L (98-107); CREATININE 0.88 mg/dL (0.55-1.02); POTASSIUM 3.7 mmol/L (3.5-5.1); SGOT/AST 198 IU/L (3-35); SGPT/ALT 239 U/L (12-78); SODIUM 130 mmol/L (136-145); TOTAL PROTEIN 6.3 gm/dL (6.4-8.2); TRIGLYCERIDES 221 mg/dl (<150)
--- NOTE | 2019-07-29 05:35 | NUR ---
0535 BP ELEVATED. PT IS RESTLESS. VERSED 5MG IV AND EFFECTIVE. SEE INTERVENTION SCREEN FOR BP'S. LEVOPHED TITRATED TO 1 PHILIPPE.
--- NOTE | 2019-07-29 06:14 | NUR ---
REPOSITIONED ON BACK. FREQUENT ORAL CARE DONE. ET SECURE TO VENT. PULSE OX 100%. DIPRIVAN CONT. NO DISTRESS NOTED. ISOLATION MAINTAINED. ART LINE INTACT. RIJ MLC PATENT. CONDITION GUARDED.
[2019-07-29 06:18] LABS: HEMATOCRIT 32.4 % (37.0-47.0); MEAN CELL VOLUME 86.6 fl (81.0-99.0); MEAN CORPUSCULAR HGB 28.9 pg (27.0-31.0); MEAN CORPUSCULAR HGB CONC 33.3 g/dl (33.0-37.0); MEAN PLATELET VOLUME 10.5 fl (9.6-12.3); PLATELET COUNT AUTOMATED 289 10*3/uL (130-400); RED BLOOD COUNT 3.74 10*6/uL (4.10-5.10); RED CELL DISTRI WIDTH 14.1 % (0-14.5); WHITE BLOOD COUNT 23.9 10*3/uL (4.8-10.8)
--- NOTE | 2019-07-29 06:39 | NUR ---
LEVOPHED GTT TITRATED OFF.
[2019-07-29 07:46] LABS: ABG BASE EXCESS -0.6 mmol/L (-2.0-2.0); ARTERIAL BLOOD GAS PH 7.459 (7.35-7.45)
[2019-07-29 07:50] LABS: PLATELET SUFFICIENCY NORMAL (NORMAL); TOTAL CELLS COUNTED 100 #CELLS
--- NOTE | 2019-07-29 08:15 | NUR ---
PT REMAINS ON CMV WITH ENDOTUBE 23CM AT LIP. ORAL CARE DONE. OGT SECURE WITH PULMOCARE FEEDINGS STARTED AT 20CC/HR. PLACEMENT OF OGT CONFIRMED WITH AIR BOLUS PRIOR TO STARTING FEEDING. DIPROVAN GTT OFF FOR SEDATION VACATION. PATIENT AWAKE AND MOVING AROUND, FOLLOWING COMMANDS AFTER BEING OF DIPROVAN 3-5 MINUTES. LEFT RADIAL ARTERIAL LINE INPLACE, CALIBRATED WITH GOOD WAVE FORM. RIJ SECURE WITH ALL PORTS PATENT. KWONG PATENT FOR MARJORIE URINE. KNEE HIGH TEDS ON ALONG WITH SCD/S. NATALYA HAMILTON RN
--- NOTE | 2019-07-29 09:10 | NUR ---
DR SPARKS HERE, ORDERS REC'D. TALKED TO PATIENT DAUGTHER RETO: BEDSIDE BRONCHOSCOPY, CONSENT REC'D. NATALYA HAMILTON RN
--- NOTE | 2019-07-29 10:20 | NUR ---
DIPROVAN TITRATED TO 20MICS. NATALYA HAMILTONRN
--- NOTE | 2019-07-29 11:30 | NUR ---
DIPROVAN TITRATED TO 5MICS. VSS. NO DISTRESS PATIENT ON CPAP. TOLERATED WELL. NATALYA HAMILTON RN
--- NOTE | 2019-07-29 12:30 | NUR ---
ROBERTH GTT OFF. NATALYA HAMILTON RN
[2019-07-29 13:03] LABS: ABG BASE EXCESS -0.5 mmol/L (-2.0-2.0); ARTERIAL BLOOD GAS PH 7.421 (7.35-7.45)
--- NOTE | 2019-07-29 13:40 | NUR ---
Patient extubated on physician's order. Nasal Cannula 3L. Pulse oximeter on with alarms set at 10% below patient's baseline. Pharyngeal reflex present prior to extubation. Patient encouraged to cough and deep breathe. Patient observed for skin color and temperature, monitor rhythm, respiratory rate and effort, and level of consciousness. Patient tolerated procedure . Daughter updated on patients condition. NATALYA HAMILTON
[2019-07-29 13:49] LABS: BF LYMPHOCYTES 3 %; BF MACROPHAGES 10 %; BF NEUTROPHILS 87 %
--- NOTE | 2019-07-29 13:50 | NUR ---
PATIENT EXTUBATED AND PLACED ON 4 L/M NC. SPO2 100%, DECREASED TO 3 L/M.
--- NOTE | 2019-07-29 14:20 | NUR ---
Patient moved to ICU 1 in contact isolation. Hannah Gongora RN
--- NOTE | 2019-07-29 16:55 | NUR ---
MEDICATED PT PER PRN ORDER WITH PERCOCET FOR C/O CHRONIC BACK PAIN THAT RATES 6/10 ON PAIN SCALE.
--- NOTE | 2019-07-29 17:30 | NUR ---
PT STATES SOME RELIEF OF PAIN WITH EARLIER PERCOCET.
--- NOTE | 2019-07-29 18:47 | NUR ---
PT TOLERATED DINNER WELL.
--- NOTE | 2019-07-29 23:03 | NUR ---
MEDICATED WITH PERCOCET PER PRN ORDER FOR C/O BACK PAIN.
[2019-07-30] VITALS: BP 148/64
--- NOTE | 2019-07-30 | NUR ---
PERCOCET EFFECTIVE FOR PAUIN.
[2019-07-30 04:00] VITALS: BP 150/62
--- NOTE | 2019-07-30 05:40 | NUR ---
MEDICATED WITH PERCOCET PER PRN ORDER FOR C/O BACK PAIN.
[2019-07-30 05:54] LABS: ALBUMIN 2.8 gm/dl (3.1-4.5); ALKALINE PHOSPHATASE 351 U/L (45-117); BUN 8 mg/dl (7-24); CHLORIDE 103 mmol/L (98-107); CREATININE 0.67 mg/dL (0.55-1.02); SGOT/AST 112 IU/L (3-35); SGPT/ALT 176 U/L (12-78); SODIUM 132 mmol/L (136-145)
[2019-07-30 05:55] LABS: POTASSIUM 4.4 mmol/L (3.5-5.1)
[2019-07-30 06:48] LABS: BASO # 0.1 10*3/uL (0.0-0.1); BASO % 0.3 % (0.0-1.0); EOS # 0.2 10*3/uL (0.0-0.4); EOS % 1.3 % (1.0-4.0); HEMATOCRIT 32.7 % (37.0-47.0); LYMPH # 1.5 10*3/uL (1.3-4.4); LYMPH % 9.1 % (27.0-41.0); MEAN CELL VOLUME 87.2 fl (81.0-99.0); MEAN CORPUSCULAR HGB 28.3 pg (27.0-31.0); MEAN CORPUSCULAR HGB CONC 32.4 g/dl (33.0-37.0); MEAN PLATELET VOLUME 10.3 fl (9.6-12.3); MONO # 1.5 10*3/uL (0.1-1.0); MONO % 9.1 % (3.0-9.0); NEUT # 13.1 10*3/uL (2.3-7.9); NEUT % 79.7 % (47.0-73.0); PLATELET COUNT AUTOMATED 256 10*3/uL (130-400); RED BLOOD COUNT 3.75 10*6/uL (4.10-5.10); RED CELL DISTRI WIDTH 14.4 % (0-14.5); WHITE BLOOD COUNT 16.4 10*3/uL (4.8-10.8)
[2019-07-30 08:00] VITALS: BP 141/76
--- NOTE | 2019-07-30 08:19 | NUR ---
1497 Dr. Luz was notified of + BC results and pending sensativity. Pt. is awake and alert. Audible and end expiratory wheeze heard A/P. A-line wave form is dampened. Pending removal. Palmer cath is secure.
--- NOTE | 2019-07-30 09:00 | NUR ---
Boom Master in to talk to patient. Patient states lives at home with alone. There are n steps in the home. Physician: [facility]acy: [facility] Home health services: none Patient's level of ADLs: INDEPENDENT Patient has working utilities: all working DME: home oxygen, portable tanks, nebulizer from [facility] emergency department Follow-up physician's appointment after d/c: will be made by hospitalist nurse director upon discharge Does patient want to access PORTAL?: no Discharge plan discussed with patient, she lives at home, is independent in adls and ambulation, . has home oxygen, portable tanks and nebulizer from [facility] emergency department, she states she will return home when medically stable and denies any home needs, case management will follow. CIARA KOHLI
--- NOTE | 2019-07-30 09:24 | NUR ---
Dr. Christopher in to [facility].
[2019-07-30 10:32] LABS: ABG BASE EXCESS 0.7 mmol/L (-2.0-2.0); ARTERIAL BLOOD GAS PH 7.389 (7.35-7.45)
--- NOTE | 2019-07-30 10:56 | NUR ---
Palmer cath leaking and dc'd, A-line dc'd, pressure to site x 3 min and pressure dressing applied, Up to BSC post removal and voided qs. audible wheeze continues, Dr. Christopher in and racemic rx was given, which eased stridor. Pt, continues to have difficulty swallowing.
[2019-07-30 12:00] VITALS: BP 154/90
--- NOTE | 2019-07-30 12:23 | NUR ---
Medicated for c/o back pain scale 6/10 .
--- NOTE | 2019-07-30 12:48 | NUR ---
Dr. Garcia in to [place].
--- NOTE | 2019-07-30 13:33 | NUR ---
Pain med effective, pt. states she has no pain at this time.
[2019-07-30 14:06] LABS: ACID FAST SPEC PROCESSING Concentration (.)
[2019-07-30 16:00] VITALS: BP 142/72
--- NOTE | 2019-07-30 19:07 | NUR ---
Clonopin was given at pt. request to ease anxiety.
[2019-07-30 20:00] VITALS: BP 140/71
--- NOTE | 2019-07-30 20:00 | NUR ---
PT SITTING UP IN BED AWAKE, A&O, PLEASANT AND COOPERATIVE. RESP NONLABORED. NO ACUTE DISTRESS NOTED. NO COMPLAINTS VOICED. DENIES ANY PAIN OR DISCOMFORT. NO S/S OF HYPO/HYPERGLYCEMIA NOTED.
--- NOTE | 2019-07-30 21:47 | NUR ---
MEDICATED WITH PERCOCET PER PRN ORDER FOR C/O PAIN.
--- NOTE | 2019-07-30 22:30 | NUR ---
PERCOCET EFFECTIVE FOR PAIN.
[2019-07-31] VITALS: BP 168/84
[2019-07-31 04:00] VITALS: BP 155/67
[2019-07-31 05:49] LABS: BASO % 0.1 % (0.0-1.0); HEMATOCRIT 32.5 % (37.0-47.0); LYMPH # 1.3 10*3/uL (1.3-4.4); LYMPH % 12.7 % (27.0-41.0); MEAN CELL VOLUME 86.7 fl (81.0-99.0); MEAN CORPUSCULAR HGB 28.5 pg (27.0-31.0); MEAN CORPUSCULAR HGB CONC 32.9 g/dl (33.0-37.0); MONO # 0.3 10*3/uL (0.1-1.0); MONO % 2.6 % (3.0-9.0); NEUT # 8.5 10*3/uL (2.3-7.9); NEUT % 83.7 % (47.0-73.0); PLATELET COUNT AUTOMATED 287 10*3/uL (130-400); RED BLOOD COUNT 3.75 10*6/uL (4.10-5.10); RED CELL DISTRI WIDTH 13.7 % (0-14.5); WHITE BLOOD COUNT 10.1 10*3/uL (4.8-10.8)
[2019-07-31 05:52] LABS: ALBUMIN 2.8 gm/dl (3.1-4.5); ALKALINE PHOSPHATASE 335 U/L (45-117); BUN 11 mg/dl (7-24); CHLORIDE 97 mmol/L (98-107); CREATININE 0.59 mg/dL (0.55-1.02); SGOT/AST 40 IU/L (3-35); SGPT/ALT 126 U/L (12-78); SODIUM 130 mmol/L (136-145); TOTAL PROTEIN 7.2 gm/dL (6.4-8.2)
--- NOTE | 2019-07-31 07:23 | NUR ---
VIVIENNE FOR BACK PAIN
--- NOTE | 2019-07-31 07:28 | NUR ---
PERCOCET FOR CHRONIC BACK PAIN
[2019-07-31 08:00] VITALS: BP 169/86
[2019-07-31 12:00] VITALS: BP 112/52
--- NOTE | 2019-07-31 12:39 | NUR ---
MEDICATED WITH KLONOPIN 1MG PO ORDERED FOR COMPLAINTS OF ANXIETY
--- NOTE | 2019-07-31 13:23 | NUR ---
PERCOCET FOR BACK PAIN
--- NOTE | 2019-07-31 14:01 | NUR ---
HAS REMAINED UP IN RECLINER ALL DAY
[2019-07-31 16:00] VITALS: BP 120/55
[2019-07-31 20:00] VITALS: BP 150/85
--- NOTE | 2019-07-31 20:06 | NUR ---
1930 REMAINS SITTING UP IN THE RECLINER CHAIR AT THE BEDSIDE. RIJ MLC INTACT. PT IS ALERT AND ORIENTED. PLEASANT AND COOPERATIVE. NO DISTRESS NOTED. PULSE OX 97% WITH 02 INTACT.
--- NOTE | 2019-07-31 20:19 | NUR ---
2016 MEDICATED WITH PERCOCET 1 PO FOR C/O'S CHRONIC BACK PAIN. DOES NOT RATE. WILLIAM DILLARD.
--- NOTE | 2019-07-31 21:43 | NUR ---
2103 NATALIIA PER REQUEST FOR ANXIETY. WILL MONITOR. 2115 EARLIER PERCOCET EFFECTIVE. RESTING IN BED WATCHING TV.
--- NOTE | 2019-07-31 22:06 | NUR ---
EARLIER KLONIPIN EFFECTIVE. RESTING IN BED WITH EYES CLOSED. APPEARS TO BE SLEEPING.
[2019-08-01] VITALS: BP 160/80
--- NOTE | 2019-08-01 02:29 | NUR ---
REMAINS SLEEPING WITHOUT DISTRESS.
--- NOTE | 2019-08-01 02:52 | NUR ---
0250 MEDICATED WITH PERCOCET 1 PO FOR C/O'S CHRONIC BACK PAIN. WILL MONITOR.
--- NOTE | 2019-08-01 04:46 | NUR ---
0350 EARLIER PERCOCET EFFECTIVE. RESTING IN BED WITH EYES CLOSED. APPEARS TO BE SLEEPING.
--- NOTE | 2019-08-01 06:06 | NUR ---
SLEPT WELL THIS SHIFT. NO FURTHER C/O'S VOICED. CONDITION GUARDED.
[2019-08-01 08:00] VITALS: BP 144/92
--- NOTE | 2019-08-01 10:24 | NUR ---
0745 Awake and alert this AM. States nose is sore from O2 SAT 98% O2 removed. 0845 SAT 96% , O2 remains off . Taking breakfast well. 0910 Requested pain med scale 6/10 to lower back. percocet given 0921 Requested klonipin for a little anxiety. given 1010 Pain med effective 0/10 scale 1021 Antianxiety effective.
--- NOTE | 2019-08-01 10:48 | NUR ---
Dr. Garcia in to [place].
[2019-08-01 16:00] VITALS: BP 120/78
--- NOTE | 2019-08-01 17:07 | NUR ---
1611 UP AND AROUND IN ROOM. mEDICATED FOR BACK PAIN AND ANXIETY supper ordered. Medications effective to ease discomfort.
--- NOTE | 2019-08-01 20:09 | NUR ---
1930 RESTING IN BED WATCHING TV. ALERT AND PLEASANT. RIJ MLC INTACT. NO DISTRESS NOTED. PULSE OX 95% ON RA.
--- NOTE | 2019-08-01 23:17 | NUR ---
2315 EARLIER MEDS EFFECTIVE.
[2019-08-02] VITALS: BP 162/80
--- NOTE | 2019-08-02 00:27 | NUR ---
LATE ENTRY 2215 MEDICATED WITH PERCOCET FOR C/O'S CHRONNIC BACK PAIN AND KLONIPIN FOR ANXIETY. WILL MONITOR.
--- NOTE | 2019-08-02 02:04 | NUR ---
RESTING IN BED WITH EYES CLOSED. APPEARS TO BE SLEEPING.
--- NOTE | 2019-08-02 05:21 | NUR ---
0450 PERCOCET 1 PO GIVEN PER REQUEST FOR C/O'S BACK PAIN.
[2019-08-02 05:56] LABS: HEMATOCRIT 32.9 % (37.0-47.0); MEAN CELL VOLUME 86.4 fl (81.0-99.0); MEAN CORPUSCULAR HGB 28.1 pg (27.0-31.0); MEAN CORPUSCULAR HGB CONC 32.5 g/dl (33.0-37.0); MEAN PLATELET VOLUME 9.9 fl (9.6-12.3); PLATELET COUNT AUTOMATED 351 10*3/uL (130-400); RED BLOOD COUNT 3.81 10*6/uL (4.10-5.10); RED CELL DISTRI WIDTH 13.6 % (0-14.5); WHITE BLOOD COUNT 15.6 10*3/uL (4.8-10.8)
[2019-08-02 06:13] LABS: BUN 21 mg/dl (7-24); CHLORIDE 97 mmol/L (98-107); CREATININE 0.64 mg/dL (0.55-1.02); POTASSIUM 3.8 mmol/L (3.5-5.1); SGOT/AST 31 IU/L (3-35); SGPT/ALT 90 U/L (12-78); SODIUM 133 mmol/L (136-145)
--- NOTE | 2019-08-02 06:13 | NUR ---
EARLIER PERCOCET EFFECTIVE. RESTING IN BED WITH EYES CLOSED. RIJ MLC INTACT. NO DISTRESS NOTED. CONDITION GUARDED.
[2019-08-02 06:14] LABS: ALKALINE PHOSPHATASE 256 U/L (45-117)
[2019-08-02 07:00] LABS: TOTAL CELLS COUNTED 100 #CELLS
[2019-08-02 07:01] LABS: PLATELET SUFFICIENCY NORMAL (NORMAL); POLYCHROMASIA SLIGHT
--- NOTE | 2019-08-02 07:27 | NUR ---
Shift chart check completed.24 HR chart check completed.
[2019-08-02 08:00] VITALS: BP 150/80
--- NOTE | 2019-08-02 08:00 | NUR ---
ON ASSESSMENT PATIENT ALERT, ORIENTED, DENYING ANY DISCOMFORT. "READY TO GO HOME". MLC INTACT RIJ. [place] ON. BED IN LOW POSITION WITH WHEELS LOCKED. SEE ALL APPROPRIATE INTERVENTIONS.
--- NOTE | 2019-08-02 08:55 | NUR ---
CLONAZEPAM PER PT REQUEST FOR ANXIETY.
[2019-08-02] MEDS ORDERED: PREDNISONE10 MG PO (09:51)
[2019-08-02] MEDS ORDERED: AUGMENTIN 875875 MG PO (09:54)
--- NOTE | 2019-08-02 09:55 | NUR ---
NO FURTHER REQUESTS FOR ANYTHING FOR ANXIETY SINCE EARLIER CLONAZEPAM. DR SPARKS HAS VISITED.
--- NOTE | 2019-08-02 10:09 | NUR ---
DR HEADLEY HAS VISITED. PT WILL BE DISCHARGED TO HOME TODAY.
--- NOTE | 2019-08-02 10:10 | NUR ---
Occupational therapy orders received and chart reviewed. Upon arrival, spoke with nursing, nursing stated patient is in the process of being discharged home, dressed in her room, and doing well. Spoke with patient this morning, stated she is independent with ADLs completing functional transfers/mobility in room. Patient lives in an apartment, no steps, elevator access, and her boyfriend lives in the apartment above her and checks in. Patient stated she has no further OT needs at this time and no concerns about discharge. No further OT indicated at this time. Thank you. Stephanie Chase, OTR/L
--- NOTE | 2019-08-02 10:11 | NUR ---
PHYSICAL THERAPY Richard recieved and chart reviewed attempted to see pt in the [facility], however per pt and staff pt is being discharged to home. Pt is dressed stating she is going home w her friend and has no concerns with regards to her mobility and there are no steps into her home. Will defer therapy at this time pt being discharged and has no concens with activity at this time. Sera Reyes PT
--- NOTE | 2019-08-02 10:15 | NUR ---
RIJ MLC REMOVED INTACT WHILE PATIENT IN SEMI FOWLERS POSITION, WITH VALSALVA. DIGITAL PRESSURE X 5 MINS AND DRESSING APPLIED. INSTRUCTED HER TO LEAVE IT ON UNTIL LATER THIS AFTERNOON AND KEEP COVERED WITH A BANDAID UNTIL HEALED.
--- NOTE | 2019-08-02 10:46 | NUR ---
DISCHARGE INSTRUCTIONS TO PT. SHE HAS CALLED HER DAUGHTER TO COME TO THE HOSPITAL.
--- NOTE | 2019-08-02 10:55 | NUR ---
PT DISCHARGED IN STABLE CONDITION WITH ALL OF HER BELONG[facility] WHERE HER DAUGHTER WAS WAITING.
--- NOTE | 2019-08-02 12:57 | NUR ---
case management faxed [facility] new home health order and informed them that patient is discharged to home today
[2019-08-17 14:04] LABS: ORGANISM ID, MOLD Final report (.); RESULT 1 Final Identification (.)
== END 2019-08-02 11:55 | disposition home or self-care (01) | DRG 871 ==
LOC: ED 07:55 → 4E 08:02 → EDHOLD 08:02 → ICCU 08:02 → 4E 08:21 → ICCU 07-29 14:13
PROVIDERS: Family Medicine; Internal Medicine; Internal Medicine Critical Care Medicine; ADMIT Family Medicine
PROC: 03HY32Z Insertion of Monitoring Device into Upper Artery, Percutaneous Approach (ICD-10-PCS; principal; 2019-07-28)
PROC: 0BH17EZ Insertion of Endotracheal Airway into Trachea, Via Natural or Artificial Opening (ICD-10-PCS; principal; 2019-07-28)
PROC: 02HV33Z Insertion of Infusion Device into Superior Vena Cava, Percutaneous Approach (ICD-10-PCS; principal; 2019-07-28)
PROC: 5A1935Z Respiratory Ventilation, Less than 24 Consecutive Hours (ICD-10-PCS; principal; 2019-07-28)
PROC: B548ZZA Ultrasonography of Superior Vena Cava, Guidance (ICD-10-PCS; principal; 2019-07-28)
PROC: 5A09357 Assistance with Respiratory Ventilation, Less than 24 Consecutive Hours, Continuous Positive Airway Pressure (ICD-10-PCS; 2019-07-29)
PROC: 0BC88ZZ Extirpation of Matter from Left Upper Lobe Bronchus, Via Natural or Artificial Opening Endoscopic (ICD-10-PCS; 2019-07-29)
PROC: 0BCB8ZZ Extirpation of Matter from Left Lower Lobe Bronchus, Via Natural or Artificial Opening Endoscopic (ICD-10-PCS; 2019-07-29)
PROC: 0BC78ZZ Extirpation of Matter from Left Main Bronchus, Via Natural or Artificial Opening Endoscopic (ICD-10-PCS; 2019-07-29)
PROC: 0BC98ZZ Extirpation of Matter from Lingula Bronchus, Via Natural or Artificial Opening Endoscopic (ICD-10-PCS; 2019-07-29)
PROC: 0BC68ZZ Extirpation of Matter from Right Lower Lobe Bronchus, Via Natural or Artificial Opening Endoscopic (ICD-10-PCS; 2019-07-29)
PROC: 0BC58ZZ Extirpation of Matter from Right Middle Lobe Bronchus, Via Natural or Artificial Opening Endoscopic (ICD-10-PCS; 2019-07-29)
PROC: 0BC18ZZ Extirpation of Matter from Trachea, Via Natural or Artificial Opening Endoscopic (ICD-10-PCS; 2019-07-29)
PROC: 0BC38ZZ Extirpation of Matter from Right Main Bronchus, Via Natural or Artificial Opening Endoscopic (ICD-10-PCS; 2019-07-29)
PROC: 0BC48ZZ Extirpation of Matter from Right Upper Lobe Bronchus, Via Natural or Artificial Opening Endoscopic (ICD-10-PCS; 2019-07-29)
DX: A41.50 Gram-negative sepsis, unspecified (principal); R65.21 Severe sepsis with septic shock; J18.9 Pneumonia, unspecified organism; J96.21 Acute and chronic respiratory failure with hypoxia; J96.22 Acute and chronic respiratory failure with hypercapnia; N39.0 Urinary tract infection, site not specified; E44.0 Moderate protein-calorie malnutrition; E87.1 Hypo-osmolality and hyponatremia; Z68.29 Body mass index [BMI] 29.0-29.9, adult; E87.6 Hypokalemia; R74.0 Nonspecific elevation of levels of transaminase and lactic acid dehydrogenase [LDH]; R79.82 Elevated C-reactive protein (CRP); K21.9 Gastro-esophageal reflux disease without esophagitis; G40.909 Epilepsy, unspecified, not intractable, without status epilepticus; J43.9 Emphysema, unspecified; E55.9 Vitamin D deficiency, unspecified; K44.9 Diaphragmatic hernia without obstruction or gangrene; R32 Unspecified urinary incontinence; R15.9 Full incontinence of feces; J45.909 Unspecified asthma, uncomplicated; E11.65 Type 2 diabetes mellitus with hyperglycemia; I50.9 Heart failure, unspecified; I11.0 Hypertensive heart disease with heart failure; G89.29 Other chronic pain; M54.9 Dorsalgia, unspecified; F41.9 Anxiety disorder, unspecified; E78.1 Pure hyperglyceridemia; B96.1 Klebsiella pneumoniae [K. pneumoniae] as the cause of diseases classified elsewhere; Z66 Do not resuscitate; Z51.5 Encounter for palliative care; Z20.828 Contact with and (suspected) exposure to other viral communicable diseases; Z86.711 Personal history of pulmonary embolism; Z91.81 History of falling; Z90.49 Acquired absence of other specified parts of digestive tract; Z90.710 Acquired absence of both cervix and uterus; Z95.0 Presence of cardiac pacemaker; Z82.49 Family history of ischemic heart disease and other diseases of the circulatory system; Z87.891 Personal history of nicotine dependence; Z82.3 Family history of stroke; Z88.1 Allergy status to other antibiotic agents; Z91.040 Latex allergy status; Z91.09 Other allergy status, other than to drugs and biological substances; Z79.899 Other long term (current) drug therapy; Z79.01 Long term (current) use of anticoagulants

== ENCOUNTER 2019-08-29 08:15 | Inpatient (IN) | payer MEDICARE ==
[~2019-08-29] VITALS: Ht 154.9 cm; Wt 67.4 kg
[2019-08-29] VITALS (7 sets, daily range): BP systolic 134–167; BP diastolic 53–68
[~2019-08-29 08:15] MED LIST changes: +ARTHRITIS PAIN650 M3 PO; +AUGMENTIN 875875 MG PO; +GNP FISH OIL 11 EAC1 PO; +KLONOPIN1 M1 PO
[2019-08-29 09:00] LABS: BASO % 0.2 % (0.0-1.0); EOS # 0.1 10*3/uL (0.0-0.4); EOS % 0.7 % (1.0-4.0); LYMPH % 6.8 % (27.0-41.0); MEAN CELL VOLUME 87.2 fl (81.0-99.0); MEAN CORPUSCULAR HGB 28.5 pg (27.0-31.0); MEAN CORPUSCULAR HGB CONC 32.6 g/dl (33.0-37.0); MEAN PLATELET VOLUME 8.9 fl (9.6-12.3); MONO # 1.1 10*3/uL (0.1-1.0); MONO % 7.1 % (3.0-9.0); NEUT # 12.6 10*3/uL (2.3-7.9); NEUT % 84.7 % (47.0-73.0); PLATELET COUNT AUTOMATED 364 10*3/uL (130-400); RED CELL DISTRI WIDTH 14.2 % (0-14.5); WHITE BLOOD COUNT 14.9 10*3/uL (4.8-10.8)
[2019-08-29 09:10] LABS: ACT PARTIAL THROMBO TIME 26.2 SECONDS (20.0-32.1)
[2019-08-29 09:17] LABS: ALBUMIN 3.3 gm/dl (3.1-4.5); ALKALINE PHOSPHATASE 163 U/L (45-117); BUN 11 mg/dl (7-24); CHLORIDE 97 mmol/L (98-107); POTASSIUM 4.3 mmol/L (3.5-5.1); SGOT/AST 20 IU/L (3-35); SGPT/ALT 22 U/L (12-78); SODIUM 131 mmol/L (136-145); TOTAL PROTEIN 7.5 gm/dL (6.4-8.2)
[2019-08-29 09:18] LABS: TROPONIN I < 0.015 ng/ml (<0.045)
[2019-08-29 09:19] LABS: ABG BASE EXCESS 2.3 mmol/L (-2.0-2.0); ARTERIAL BLOOD GAS PH 7.429 (7.35-7.45)
[2019-08-29] MEDS ORDERED: ACULAR 5 ML5 M1 OPH (12:01)
[2019-08-29 18:29] LABS: BILIRUBIN NEGATIVE (NEGATIVE); BLOOD NEGATIVE (NEGATIVE); CLARITY CLEAR (CLEAR); COLOR YELLOW (YELLOW); GLUCOSE 3+ (NEGATIVE); KETONE NEGATIVE (NEGATIVE); LEUKO ESTERASE NEGATIVE (NEGATIVE); NITRITE NEGATIVE (NEGATIVE); PH 7.5 (5.0-9.0); UROBILINOGEN 0.2 E.U./dl (0.2-1.0)
[2019-08-30] VITALS: BP 141/61
[2019-08-30 06:19] LABS: BUN 14 mg/dl (7-24); CHLORIDE 100 mmol/L (98-107); CREATININE 0.72 mg/dL (0.55-1.02); POTASSIUM 4.1 mmol/L (3.5-5.1); SODIUM 133 mmol/L (136-145)
[2019-08-30 07:15] LABS: BASO % 0.1 % (0.0-1.0); HEMATOCRIT 30.1 % (37.0-47.0); LYMPH # 1.9 10*3/uL (1.3-4.4); LYMPH % 10.9 % (27.0-41.0); MEAN CELL VOLUME 85.8 fl (81.0-99.0); MEAN CORPUSCULAR HGB 28.8 pg (27.0-31.0); MEAN CORPUSCULAR HGB CONC 33.6 g/dl (33.0-37.0); MEAN PLATELET VOLUME 9.7 fl (9.6-12.3); MONO # 0.7 10*3/uL (0.1-1.0); MONO % 4.2 % (3.0-9.0); NEUT # 14.3 10*3/uL (2.3-7.9); NEUT % 84.1 % (47.0-73.0); PLATELET COUNT AUTOMATED 397 10*3/uL (130-400); RED BLOOD COUNT 3.51 10*6/uL (4.10-5.10); RED CELL DISTRI WIDTH 14.2 % (0-14.5)
[2019-08-30 08:00] VITALS: BP 142/64
[2019-08-30 12:00] VITALS: BP 133/57
[2019-08-30 16:00] VITALS: BP 124/57
[2019-08-31] VITALS: BP 130/60
[2019-08-31 06:17] LABS: ALBUMIN 2.7 gm/dl (3.1-4.5); ALKALINE PHOSPHATASE 104 U/L (45-117); BUN 17 mg/dl (7-24); CHLORIDE 104 mmol/L (98-107); CREATININE 0.64 mg/dL (0.55-1.02); POTASSIUM 4.1 mmol/L (3.5-5.1); SGOT/AST 9 IU/L (3-35); SGPT/ALT 17 U/L (12-78); SODIUM 136 mmol/L (136-145); TOTAL PROTEIN 6.2 gm/dL (6.4-8.2)
[2019-08-31 06:51] LABS: BASO % 0.1 % (0.0-1.0); EOS % 0.1 % (1.0-4.0); HEMATOCRIT 28.5 % (37.0-47.0); LYMPH # 2.8 10*3/uL (1.3-4.4); LYMPH % 15.8 % (27.0-41.0); MEAN CELL VOLUME 88.5 fl (81.0-99.0); MEAN CORPUSCULAR HGB 28.6 pg (27.0-31.0); MEAN CORPUSCULAR HGB CONC 32.3 g/dl (33.0-37.0); MEAN PLATELET VOLUME 9.5 fl (9.6-12.3); MONO # 1.5 10*3/uL (0.1-1.0); MONO % 8.5 % (3.0-9.0); NEUT % 74.5 % (47.0-73.0); PLATELET COUNT AUTOMATED 408 10*3/uL (130-400); RED BLOOD COUNT 3.22 10*6/uL (4.10-5.10); RED CELL DISTRI WIDTH 14.6 % (0-14.5); WHITE BLOOD COUNT 17.4 10*3/uL (4.8-10.8)
[2019-08-31 08:00] VITALS: BP 152/70
[2019-08-31] MEDS ORDERED: ZITHROMAX500 MG PO (11:02)
[2019-08-31] MEDS ORDERED: OMNICEF300 MG PO (11:02)
[2019-08-31] MEDS ORDERED: PREDNISONE10 MG PO (11:15)
== END 2019-08-31 11:45 | disposition home or self-care (01) | DRG 872 ==
LOC: ED 08:15 → 4E 11:20 → EDHOLD 11:20 → 4E 11:25
PROVIDERS: Emergency Medicine; Registered Nurse; Student in an Organized Health Care Education/Training Program; ADMIT Emergency Medicine
DX: A41.9 Sepsis, unspecified organism (principal); E87.1 Hypo-osmolality and hyponatremia; I50.32 Chronic diastolic (congestive) heart failure; J45.901 Unspecified asthma with (acute) exacerbation; J96.11 Chronic respiratory failure with hypoxia; E44.0 Moderate protein-calorie malnutrition; E11.65 Type 2 diabetes mellitus with hyperglycemia; G40.909 Epilepsy, unspecified, not intractable, without status epilepticus; K21.9 Gastro-esophageal reflux disease without esophagitis; J20.9 Acute bronchitis, unspecified; E66.9 Obesity, unspecified; E55.9 Vitamin D deficiency, unspecified; I11.0 Hypertensive heart disease with heart failure; F41.9 Anxiety disorder, unspecified; M54.9 Dorsalgia, unspecified; G89.29 Other chronic pain; D72.829 Elevated white blood cell count, unspecified; J43.9 Emphysema, unspecified; T38.0X5A Adverse effect of glucocorticoids and synthetic analogues, initial encounter; Y92.89 Other specified places as the place of occurrence of the external cause; Z88.1 Allergy status to other antibiotic agents; Z91.040 Latex allergy status; Z91.09 Other allergy status, other than to drugs and biological substances; Z90.49 Acquired absence of other specified parts of digestive tract; Z90.710 Acquired absence of both cervix and uterus; Z95.0 Presence of cardiac pacemaker; Z87.891 Personal history of nicotine dependence; Z82.3 Family history of stroke; Z83.3 Family history of diabetes mellitus; Z82.49 Family history of ischemic heart disease and other diseases of the circulatory system; Z91.81 History of falling; Z86.711 Personal history of pulmonary embolism; Z79.899 Other long term (current) drug therapy; Z68.28 Body mass index [BMI] 28.0-28.9, adult

== ENCOUNTER → 2019-09-15 | Outpatient (CLI) | payer MEDICARE ==
[~2019-09-15] MED LIST changes: +ACULAR 5 ML5 M1 OPH; +ZITHROMAX500 MG PO
== END | disposition home or self-care (01) ==
LOC: RESCLI 00:42
DX: J44.9 Chronic obstructive pulmonary disease, unspecified (principal); J30.2 Other seasonal allergic rhinitis; R73.03 Prediabetes; I11.0 Hypertensive heart disease with heart failure; I50.32 Chronic diastolic (congestive) heart failure; G40.909 Epilepsy, unspecified, not intractable, without status epilepticus; K21.9 Gastro-esophageal reflux disease without esophagitis; D64.9 Anemia, unspecified; I26.99 Other pulmonary embolism without acute cor pulmonale; F32.9 Major depressive disorder, single episode, unspecified; E83.51 Hypocalcemia; E78.5 Hyperlipidemia, unspecified; Z00.00 Encounter for general adult medical examination without abnormal findings; Z12.11 Encounter for screening for malignant neoplasm of colon; Z12.39 Encounter for other screening for malignant neoplasm of breast; Z12.4 Encounter for screening for malignant neoplasm of cervix; Z79.899 Other long term (current) drug therapy; Z79.84 Long term (current) use of oral hypoglycemic drugs; Z95.828 Presence of other vascular implants and grafts; Z90.49 Acquired absence of other specified parts of digestive tract; Z90.710 Acquired absence of both cervix and uterus; Z88.8 Allergy status to other drugs, medicaments and biological substances

== ENCOUNTER 2019-09-26 09:54 | Inpatient (IN) | payer MEDICARE ==
[~2019-09-26] VITALS: Ht 154.9 cm; Wt 69.9 kg
[2019-09-26 10:03] VITALS: BP 169/73
[2019-09-26 10:54] LABS: BASO # 0.1 10*3/uL (0.0-0.1); BASO % 0.4 % (0.0-1.0); EOS # 0.4 10*3/uL (0.0-0.4); EOS % 2.4 % (1.0-4.0); HEMATOCRIT 32.5 % (37.0-47.0); LYMPH # 1.9 10*3/uL (1.3-4.4); LYMPH % 12.8 % (27.0-41.0); MEAN CELL VOLUME 84.4 fl (81.0-99.0); MEAN CORPUSCULAR HGB 28.3 pg (27.0-31.0); MEAN CORPUSCULAR HGB CONC 33.5 g/dl (33.0-37.0); MEAN PLATELET VOLUME 8.9 fl (9.6-12.3); MONO # 0.8 10*3/uL (0.1-1.0); MONO % 5.2 % (3.0-9.0); NEUT # 11.6 10*3/uL (2.3-7.9); NEUT % 78.8 % (47.0-73.0); PLATELET COUNT AUTOMATED 370 10*3/uL (130-400); RED BLOOD COUNT 3.85 10*6/uL (4.10-5.10); RED CELL DISTRI WIDTH 14.5 % (0-14.5); WHITE BLOOD COUNT 14.8 10*3/uL (4.8-10.8)
[2019-09-26 11:10] LABS: ALBUMIN 3.2 gm/dl (3.1-4.5); ALKALINE PHOSPHATASE 148 U/L (45-117); BUN 12 mg/dl (7-24); CHLORIDE 91 mmol/L (98-107); CREATININE 0.62 mg/dL (0.55-1.02); POTASSIUM 4.3 mmol/L (3.5-5.1); SGOT/AST 14 IU/L (3-35); SGPT/ALT 18 U/L (12-78); SODIUM 124 mmol/L (136-145); TOTAL PROTEIN 7.5 gm/dL (6.4-8.2)
[2019-09-26] MEDS ORDERED: CALCIUM 600 MG1 EACH PO (11:51)
[2019-09-26] MEDS ORDERED: CARVEDILOL25 MG PO (11:56)
[2019-09-26 12:40] VITALS: BP 169/84
[2019-09-26 13:18] VITALS: BP 169/84
[2019-09-26 16:00] VITALS: BP 166/79
[2019-09-26 20:00] VITALS: BP 160/82; BP 190/87
[2019-09-27] VITALS (8 sets, daily range): BP systolic 132–172; BP diastolic 56–102
[2019-09-27 06:54] LABS: INTERNATIONAL NORM RATIO 1.3 (2.0-3.5)
[2019-09-27 06:55] LABS: BASO # 0.1 10*3/uL (0.0-0.1); BASO % 0.4 % (0.0-1.0); EOS # 0.3 10*3/uL (0.0-0.4); EOS % 1.8 % (1.0-4.0); HEMATOCRIT 32.2 % (37.0-47.0); LYMPH # 2.2 10*3/uL (1.3-4.4); LYMPH % 14.3 % (27.0-41.0); MEAN CORPUSCULAR HGB 28.3 pg (27.0-31.0); MEAN CORPUSCULAR HGB CONC 31.7 g/dl (33.0-37.0); MEAN PLATELET VOLUME 9.3 fl (9.6-12.3); MONO # 1.1 10*3/uL (0.1-1.0); MONO % 7.3 % (3.0-9.0); NEUT # 11.6 10*3/uL (2.3-7.9); NEUT % 75.7 % (47.0-73.0); PLATELET COUNT AUTOMATED 406 10*3/uL (130-400); RED BLOOD COUNT 3.61 10*6/uL (4.10-5.10); WHITE BLOOD COUNT 15.3 10*3/uL (4.8-10.8)
[2019-09-27 07:03] LABS: MEAN CELL VOLUME 89.2 fl (81.0-99.0)
[2019-09-27 07:15] LABS: ALBUMIN 2.8 gm/dl (3.1-4.5); ALKALINE PHOSPHATASE 144 U/L (45-117); BUN 10 mg/dl (7-24); CHLORIDE 99 mmol/L (98-107); CHOLESTEROL 180 mg/dL (<200); CREATININE 0.65 mg/dL (0.55-1.02); HDL CHOLESTEROL 56 mg/dl (40-60); LDL CHOLESTEROL 98 mg/dL (9-159); POTASSIUM 4.1 mmol/L (3.5-5.1); SGOT/AST 14 IU/L (3-35); SGPT/ALT 20 U/L (12-78); SODIUM 130 mmol/L (136-145); TOTAL PROTEIN 7.1 gm/dL (6.4-8.2); TRIGLYCERIDES 128 mg/dl (<150); VLDL CHOLESTEROL 26 mg/dL (6-40)
[2019-09-27 08:02] LABS: VITAMIN D, 25-HYDROXY 19.9 ng/mL (30-100)
[2019-09-28] VITALS: BP 167/73
[2019-09-28 06:14] LABS: BASO % 0.3 % (0.0-1.0); EOS # 0.3 10*3/uL (0.0-0.4); EOS % 2.5 % (1.0-4.0); HEMATOCRIT 31.2 % (37.0-47.0); LYMPH # 2.6 10*3/uL (1.3-4.4); LYMPH % 20.2 % (27.0-41.0); MEAN CELL VOLUME 90.4 fl (81.0-99.0); MEAN CORPUSCULAR HGB 27.8 pg (27.0-31.0); MEAN CORPUSCULAR HGB CONC 30.8 g/dl (33.0-37.0); MEAN PLATELET VOLUME 8.9 fl (9.6-12.3); MONO # 1.2 10*3/uL (0.1-1.0); MONO % 9.4 % (3.0-9.0); NEUT # 8.5 10*3/uL (2.3-7.9); PLATELET COUNT AUTOMATED 444 10*3/uL (130-400); RED BLOOD COUNT 3.45 10*6/uL (4.10-5.10); RED CELL DISTRI WIDTH 15.3 % (0-14.5); WHITE BLOOD COUNT 12.6 10*3/uL (4.8-10.8)
[2019-09-28 06:40] LABS: BUN 7 mg/dl (7-24); CHLORIDE 101 mmol/L (98-107); CREATININE 0.51 mg/dL (0.55-1.02); POTASSIUM 3.6 mmol/L (3.5-5.1); SODIUM 133 mmol/L (136-145)
[2019-09-28 08:00] VITALS: BP 178/74
[2019-09-28 12:00] VITALS: BP 152/62
[2019-09-28 16:00] VITALS: BP 148/64
[2019-09-28 20:00] VITALS: BP 145/60
[2019-09-29] VITALS: BP 131/60
[2019-09-29 06:54] LABS: BASO # 0.1 10*3/uL (0.0-0.1); BASO % 0.6 % (0.0-1.0); EOS # 0.4 10*3/uL (0.0-0.4); EOS % 4.6 % (1.0-4.0); HEMATOCRIT 29.3 % (37.0-47.0); LYMPH # 2.4 10*3/uL (1.3-4.4); MEAN CELL VOLUME 91.6 fl (81.0-99.0); MEAN CORPUSCULAR HGB 28.4 pg (27.0-31.0); MEAN CORPUSCULAR HGB CONC 31.1 g/dl (33.0-37.0); MEAN PLATELET VOLUME 8.8 fl (9.6-12.3); MONO # 0.9 10*3/uL (0.1-1.0); MONO % 10.4 % (3.0-9.0); NEUT # 5.3 10*3/uL (2.3-7.9); NEUT % 57.8 % (47.0-73.0); PLATELET COUNT AUTOMATED 473 10*3/uL (130-400); RED CELL DISTRI WIDTH 15.4 % (0-14.5); WHITE BLOOD COUNT 9.1 10*3/uL (4.8-10.8)
[2019-09-29 07:09] LABS: BUN 11 mg/dl (7-24); CHLORIDE 99 mmol/L (98-107); CREATININE 0.69 mg/dL (0.55-1.02); POTASSIUM 3.9 mmol/L (3.5-5.1); SODIUM 132 mmol/L (136-145)
[2019-09-29 08:00] VITALS: BP 154/77
[2019-09-29 12:00] VITALS: BP 120/70
[2019-09-29 16:00] VITALS: BP 131/74
[2019-09-29 20:00] VITALS: BP 118/77
[2019-09-30] VITALS: BP 141/75
[2019-09-30 07:47] LABS: BUN 12 mg/dl (7-24); CHLORIDE 100 mmol/L (98-107); CREATININE 0.68 mg/dL (0.55-1.02); POTASSIUM 4.4 mmol/L (3.5-5.1); SODIUM 134 mmol/L (136-145)
[2019-09-30 08:00] VITALS: BP 145/70
[2019-09-30 12:00] VITALS: BP 119/52
[2019-09-30] MEDS ORDERED: DOXYCYCLINE100 M3 PO (15:03)
[2019-09-30 16:00] VITALS: BP 150/78
[2019-09-30] MEDS ORDERED: VITAMIN D350 MC2 PO (16:35)
[2019-09-30] MEDS ORDERED: HYDROCODONE-AC1 EAC1 PO (16:47)
== END 2019-09-30 17:46 | disposition home or self-care (01) | DRG 746 ==
LOC: ED 09:54 → 5E 11:23 → EDHOLD 11:23 → 5E 12:47
PROVIDERS: Internal Medicine; Nurse Practitioner Family; Student in an Organized Health Care Education/Training Program; ADMIT Emergency Medicine
PROC: 0U9M0ZZ Drainage of Vulva, Open Approach (ICD-10-PCS; principal; 2019-09-27)
DX: N76.4 Abscess of vulva (principal); L03.314 Cellulitis of groin; L02.214 Cutaneous abscess of groin; E87.1 Hypo-osmolality and hyponatremia; J96.10 Chronic respiratory failure, unspecified whether with hypoxia or hypercapnia; E44.0 Moderate protein-calorie malnutrition; N76.2 Acute vulvitis; G40.909 Epilepsy, unspecified, not intractable, without status epilepticus; E87.8 Other disorders of electrolyte and fluid balance, not elsewhere classified; D64.9 Anemia, unspecified; K21.9 Gastro-esophageal reflux disease without esophagitis; J43.9 Emphysema, unspecified; M54.9 Dorsalgia, unspecified; F41.9 Anxiety disorder, unspecified; E11.65 Type 2 diabetes mellitus with hyperglycemia; E55.9 Vitamin D deficiency, unspecified; G89.29 Other chronic pain; D47.3 Essential (hemorrhagic) thrombocythemia; B95.62 Methicillin resistant Staphylococcus aureus infection as the cause of diseases classified elsewhere; I11.0 Hypertensive heart disease with heart failure; I50.9 Heart failure, unspecified; Z95.0 Presence of cardiac pacemaker; Z90.710 Acquired absence of both cervix and uterus; Z90.49 Acquired absence of other specified parts of digestive tract; Z87.891 Personal history of nicotine dependence; Z82.49 Family history of ischemic heart disease and other diseases of the circulatory system; Z88.8 Allergy status to other drugs, medicaments and biological substances; Z88.1 Allergy status to other antibiotic agents; Z91.040 Latex allergy status; Z79.01 Long term (current) use of anticoagulants; Z79.899 Other long term (current) drug therapy; Z68.28 Body mass index [BMI] 28.0-28.9, adult

== ENCOUNTER 2019-10-17 12:00 | Emergency (ER) | payer MEDICARE ==
[~2019-10-17] VITALS: Ht 154.9 cm; Wt 68.0 kg
[~2019-10-17 12:00] MED LIST changes: +CALCIUM 600 MG1 EACH PO; +VITAMIN D350 MC2 PO
[2019-10-17 12:09] VITALS: BP 129/59
[2019-10-17] MEDS ORDERED: TYLENOL325 M1 PO (12:42)
[2019-10-17] MEDS ORDERED: SEPTDS PO (12:42)
== END 2019-10-17 12:49 | disposition home or self-care (01) ==
LOC: ED 12:00
DX: L08.9 Local infection of the skin and subcutaneous tissue, unspecified (principal); J44.9 Chronic obstructive pulmonary disease, unspecified; K21.9 Gastro-esophageal reflux disease without esophagitis; E11.9 Type 2 diabetes mellitus without complications; I50.9 Heart failure, unspecified; I11.0 Hypertensive heart disease with heart failure; G40.909 Epilepsy, unspecified, not intractable, without status epilepticus; Z88.1 Allergy status to other antibiotic agents; Z91.040 Latex allergy status; Z79.899 Other long term (current) drug therapy; Z87.891 Personal history of nicotine dependence

== ENCOUNTER → 2019-10-20 | Outpatient (CLI) | payer MEDICARE ==
[~2019-10-20] MED LIST changes: +TYLENOL325 M1 PO
== END | disposition home or self-care (01) ==
LOC: RESCLI 05:50
DX: R56.9 Unspecified convulsions (principal); J30.2 Other seasonal allergic rhinitis; J44.9 Chronic obstructive pulmonary disease, unspecified; I11.0 Hypertensive heart disease with heart failure; I50.32 Chronic diastolic (congestive) heart failure; F32.9 Major depressive disorder, single episode, unspecified; E83.51 Hypocalcemia; D50.9 Iron deficiency anemia, unspecified; M10.9 Gout, unspecified; I26.99 Other pulmonary embolism without acute cor pulmonale; K21.9 Gastro-esophageal reflux disease without esophagitis; E87.1 Hypo-osmolality and hyponatremia; M85.80 Other specified disorders of bone density and structure, unspecified site; N95.9 Unspecified menopausal and perimenopausal disorder; Z12.31 Encounter for screening mammogram for malignant neoplasm of breast; Z12.11 Encounter for screening for malignant neoplasm of colon; Z78.0 Asymptomatic menopausal state; Z79.899 Other long term (current) drug therapy; Z79.84 Long term (current) use of oral hypoglycemic drugs; Z95.0 Presence of cardiac pacemaker; Z90.49 Acquired absence of other specified parts of digestive tract; Z88.8 Allergy status to other drugs, medicaments and biological substances

== ENCOUNTER 2019-11-04 13:05 | Observation (INO) | payer MEDICARE ==
[~2019-11-04] VITALS: Ht 154.9 cm; Wt 67.7 kg
[2019-11-04 13:15] VITALS: BP 181/96
[2019-11-04 13:46] LABS: HEMATOCRIT 36.6 % (37.0-47.0); MEAN CELL VOLUME 84.7 fl (81.0-99.0); MEAN CORPUSCULAR HGB 28.7 pg (27.0-31.0); MEAN CORPUSCULAR HGB CONC 33.9 g/dl (33.0-37.0); MEAN PLATELET VOLUME 9.5 fl (9.6-12.3); PLATELET COUNT AUTOMATED 385 10*3/uL (130-400); RED BLOOD COUNT 4.32 10*6/uL (4.10-5.10); RED CELL DISTRI WIDTH 13.8 % (0-14.5); WHITE BLOOD COUNT 32.7 10*3/uL (4.8-10.8)
[2019-11-04 14:02] LABS: PLATELET SUFFICIENCY NORMAL (NORMAL); TOTAL CELLS COUNTED 100 #CELLS
[2019-11-04 14:09] LABS: ALBUMIN 3.9 gm/dl (3.1-4.5); ALKALINE PHOSPHATASE 106 U/L (45-117); BUN 14 mg/dl (7-24); CHLORIDE 88 mmol/L (98-107); CREATININE 0.83 mg/dL (0.55-1.02); POTASSIUM 4.3 mmol/L (3.5-5.1); SGOT/AST 27 IU/L (3-35); SGPT/ALT 15 U/L (12-78); SODIUM 122 mmol/L (136-145); TOTAL PROTEIN 8.1 gm/dL (6.4-8.2)
[2019-11-04 14:14] LABS: ABG BASE EXCESS 2.5 mmol/L (-2.0-2.0); ARTERIAL BLOOD GAS PH 7.405 (7.35-7.45)
[2019-11-04 14:15] LABS: TROPONIN I < 0.015 ng/ml (<0.045)
[2019-11-04 14:18] VITALS: BP 162/68
--- NOTE | 2019-11-04 14:18 | NUR ---
PT IS BREATHING MUCH EASIER AFTER THE BREATHING TX THAT WAS GIVEN.
--- NOTE | 2019-11-04 14:37 | NUR ---
PREVIOUS IV SITE INFILTRATED NOW, REMOVED, NEW SITE STARTED AFTER ONE MISSED ATTEMPT RIGHT FOOT. PT ADMITS "THEY HAVE TO GO IN MY ALOT".
[2019-11-04 15:25] LABS: BILIRUBIN NEGATIVE; BLOOD NEGATIVE (NEGATIVE); CLARITY CLEAR (CLEAR); COLOR YELLOW (YELLOW); GLUCOSE NEGATIVE; KETONE NEGATIVE; LEUKO ESTERASE TRACE (NEGATIVE); NITRITE NEGATIVE (NEGATIVE); PH 7.5 (4.5-8.0); UROBILINOGEN 0.2 E.U./dl (0.0-1.0)
[2019-11-04 15:34] LABS: BACTERIA TRACE; RBC 0-2 rbc/hpf (0-2)
[2019-11-04 15:41] VITALS: BP 158/83
[2019-11-04 17:00] VITALS: BP 155/69
--- NOTE | 2019-11-04 17:16 | NUR ---
[facility] , under the services of SAMSON Anthony DO with a diagnosis of COPD. Chief complaint is SOB. Patient arrived via bed from ER. Monitor applied. Initial assessment completed. Vital signs taken and recorded. SAMSON ANTHONY DO notified of admission to the unit. Orders received. See assessment for past medical history, medications and allergies. Patient and/or family oriented to unit. [facility] Clothing/patient valuable form completed. ELVI DESAI
--- NOTE | 2019-11-04 19:30 | NUR ---
PATIENT REFUSING PHOTOS OF CYST LIKE AREA ON LEFT LABIA.
--- NOTE | 2019-11-04 19:30 | NUR ---
PATIENT NOTED WITH BLACK TOENAIL 2ND TOENAIL ON THE RIGHT FOOT. PATIENT BELIEVES SHE STUBBED HER TOE ON SOMETHING. NO OPEN AREAS NOTED
--- NOTE | 2019-11-04 19:56 | NUR ---
PRN NORCO GIVEN FOR PT COMPLAINTS OF BACK PAIN RATING IT 8/10. PATIENT STATES THIS PAIN IS CHRONIC. CALL LIGHT WITHIN REACH, IV FLUIDS SWITCHED TO 100ML/HR GOING THROUGH IV IN RIGHT FOOT. PATIENT STATES SHE'S HAD THEM THERE BEFORE BECAUSE SHE'S A HARD STICK. BREATHING IS EASY AND REGULAR ON ROOM AIR. DENIES SOB AT THIS TIME. LUNGS CLEAR T/O. CALL LIGHT WITHIN REACH, WILL MONITOR
[2019-11-04 20:00] VITALS: BP 167/67
--- NOTE | 2019-11-04 20:45 | NUR ---
PRN NORCO EFFECTIVE PER PT
[2019-11-05] VITALS: BP 140/88; BP 178/69
--- NOTE | 2019-11-05 00:37 | NUR ---
24 HR chart check completed.
--- NOTE | 2019-11-05 00:42 | NUR ---
PATIENT SLEEPING, NO DISTRESS NOTED. CALL LIGHT WITHIN REACH, WILL MONITOR
[2019-11-05 06:34] LABS: BASO % 0.2 % (0.0-1.0); EOS # 0.1 10*3/uL (0.0-0.4); EOS % 0.8 % (1.0-4.0); HEMATOCRIT 33.1 % (37.0-47.0); LYMPH % 12.4 % (27.0-41.0); MEAN CELL VOLUME 87.3 fl (81.0-99.0); MEAN CORPUSCULAR HGB 28.5 pg (27.0-31.0); MEAN CORPUSCULAR HGB CONC 32.6 g/dl (33.0-37.0); MEAN PLATELET VOLUME 9.4 fl (9.6-12.3); MONO # 1.2 10*3/uL (0.1-1.0); MONO % 7.6 % (3.0-9.0); NEUT # 12.5 10*3/uL (2.3-7.9); NEUT % 78.4 % (47.0-73.0); PLATELET COUNT AUTOMATED 328 10*3/uL (130-400); RED BLOOD COUNT 3.79 10*6/uL (4.10-5.10); RED CELL DISTRI WIDTH 14.4 % (0-14.5); WHITE BLOOD COUNT 15.9 10*3/uL (4.8-10.8)
[2019-11-05 07:02] LABS: ALBUMIN 3.2 gm/dl (3.1-4.5); ALKALINE PHOSPHATASE 88 U/L (45-117); BUN 8 mg/dl (7-24); CHLORIDE 101 mmol/L (98-107); CREATININE 0.67 mg/dL (0.55-1.02); POTASSIUM 3.8 mmol/L (3.5-5.1); SGOT/AST 11 IU/L (3-35); SGPT/ALT 14 U/L (12-78); SODIUM 134 mmol/L (136-145); TOTAL PROTEIN 7.4 gm/dL (6.4-8.2)
[2019-11-05 08:00] VITALS: BP 143/86
[2019-11-05 08:05] LABS: VITAMIN D, 25-HYDROXY 29.8 ng/mL (30-100)
--- NOTE | 2019-11-05 08:20 | NUR ---
IN TO PATIENT'S ROOM. PT IS AWAKE, ALERT AN ORIENTED. PT COMPLAINS OF BACK PAIN RATED A AN 8. NO OTHER STATED COMPLAINTS AT THIS TIME. NO SOB OR DISTRESS NOTED. RESPIRATIONS ARE EASY AND REGULAR ON ROOM AIR. PT IS ABLE TO REPOSITION SELF AND IS ENCOURAGED TO DO SO. PRN NORCO ADMINISTERED AT THIS TIME. WILL MONITOR FOR EFFECTIVENESS.
--- NOTE | 2019-11-05 09:10 | NUR ---
PT STATES SHE IS HAS LESS PAIN IN HER BACK. PRN NORCO CONSIDERED EFFECTIVE.
[2019-11-05 12:00] VITALS: BP 132/81
--- NOTE | 2019-11-05 12:01 | NUR ---
Edge Inker Uppers in to talk to patient. Patient states lives at ALONE with NO ONE. There are NO steps in the home. Physician: [facility] Home health services: NONE Patient's level of ADLs: INDEPENDENT Patient has working utilities: YES DME: O2, NEBULIZER, PORTABLE TANKS FROM [facility] Follow-up physician's appointment after d/c: WILL BE MADE BY HOSPITALIST COORDINATOR Does patient want to access PORTAL?: NO Discharge plan DIRECTOR OF RETAIL OPERATIONS SPOKE TO THE PATIENT AT BEDSIDE. PATIENT STATED SHE LIVES ALONE IN AN APARTMENT. PATIENT STATED SHE DOES NOT DRIVE BUT HER BOYFRIEND ASSIST HER WITH ANY TRANSPORTATION NEEDS. PATIENT STATED SHE JUST WAS DISCHARGED FROM [facility] LAST WEEK AND DOES NOT FEEL THAT SHE NEEDS THEM AT THIS TIME. PATIENT WILL BE RETURNING HOME AT DISCHARGE WITH FAMILY TRANSPORTING HER. DIRECTOR OF RETAIL OPERATIONS TO FOLLOW. ISHMAEL PERES
[2019-11-05] MEDS ORDERED: ZOFRAN4 MG PO (12:18)
--- NOTE | 2019-11-05 14:06 | NUR ---
PT REQUESTS AND IS ADMINISTERED PRN NORCO AND KLONOPIN. PT STATES SHE IS HAVING BACK PAIN AND FEELS ANXIOUS. WILL MONITOR FOR EFFECTIVENESS.
--- NOTE | 2019-11-05 15:06 | NUR ---
PT STATES HER PAIN HAS IMPROVED AND SHE FEELS LESS ANXIOUS. PRN NORCO AND KLONOPIN CONSIDERED EFFECTIVE.
--- NOTE | 2019-11-05 16:28 | NUR ---
Discharge instructions reviewed with patient/family. Patient receptive and verbalizes understanding. Follow-up care arranged. Written instructions given to patient/family. ANGLE JOYCE
== END 2019-11-05 16:08 | disposition home or self-care (01) ==
LOC: ED 13:05 → 5E 14:56 → EDHOLD 14:56 → 5E 16:03
PROVIDERS: Emergency Medicine; Internal Medicine; ADMIT Internal Medicine; ATTEND Internal Medicine
DX: A41.9 Sepsis, unspecified organism (principal); K52.9 Noninfective gastroenteritis and colitis, unspecified; D72.829 Elevated white blood cell count, unspecified; E87.8 Other disorders of electrolyte and fluid balance, not elsewhere classified; K21.9 Gastro-esophageal reflux disease without esophagitis; G40.909 Epilepsy, unspecified, not intractable, without status epilepticus; K44.9 Diaphragmatic hernia without obstruction or gangrene; E11.65 Type 2 diabetes mellitus with hyperglycemia; I50.9 Heart failure, unspecified; I11.0 Hypertensive heart disease with heart failure

== ENCOUNTER 2019-11-24 13:38 | Emergency (ER) | payer MEDICARE ==
[~2019-11-24] VITALS: Ht 154.9 cm; Wt 73.0 kg
[2019-11-24] MEDS ORDERED: Percocet 325 MG1 TAB PO (19:27)
[2019-11-24 19:34] VITALS: BP 142/88
== END 2019-11-24 19:32 | disposition home or self-care (01) ==
LOC: ED 13:38
DX: S39.012A Strain of muscle, fascia and tendon of lower back, initial encounter (principal); S29.012A Strain of muscle and tendon of back wall of thorax, initial encounter; S09.90XA Unspecified injury of head, initial encounter; Z88.1 Allergy status to other antibiotic agents; Z91.040 Latex allergy status; Z79.899 Other long term (current) drug therapy; Z87.891 Personal history of nicotine dependence; W18.09XA Striking against other object with subsequent fall, initial encounter; Y93.89 Activity, other specified; Y92.89 Other specified places as the place of occurrence of the external cause; Y99.8 Other external cause status

== ENCOUNTER → 2019-11-29 | Outpatient (CLI) | payer MEDICARE ==
[2019-11-29 15:06] LABS: BUN 11 mg/dl (7-24); CHLORIDE 99 mmol/L (98-107); CREATININE 0.95 mg/dL (0.55-1.02); POTASSIUM 4.7 mmol/L (3.5-5.1); SODIUM 127 mmol/L (136-145)
== END | disposition home or self-care (01) ==
LOC: RAD 11-03 13:30 → MAMMO 11-03 14:00 → RAD 13:14 → LAB 13:14 → RAD 13:30
PROVIDERS: Student in an Organized Health Care Education/Training Program; ATTEND Internal Medicine Nephrology
DX: Z12.31 Encounter for screening mammogram for malignant neoplasm of breast (principal); E87.1 Hypo-osmolality and hyponatremia; Z78.0 Asymptomatic menopausal state

== ENCOUNTER → 2019-12-27 | Outpatient (CLI) | payer MEDICARE | END | disposition home or self-care (01) | LOC: RESCLI 01:03 | PROVIDERS: ATTEND Internal Medicine Nephrology | DX: J30.2 Other seasonal allergic rhinitis (principal); R73.03 Prediabetes; J44.9 Chronic obstructive pulmonary disease, unspecified; I10 Essential (primary) hypertension; M10.9 Gout, unspecified; K21.9 Gastro-esophageal reflux disease without esophagitis; I11.0 Hypertensive heart disease with heart failure; I50.32 Chronic diastolic (congestive) heart failure; D50.9 Iron deficiency anemia, unspecified; E78.5 Hyperlipidemia, unspecified; F32.9 Major depressive disorder, single episode, unspecified; E83.51 Hypocalcemia; I26.99 Other pulmonary embolism without acute cor pulmonale; G40.909 Epilepsy, unspecified, not intractable, without status epilepticus; R56.9 Unspecified convulsions; Z79.899 Other long term (current) drug therapy ==

== ENCOUNTER 2020-01-29 13:33 | Emergency (ER) | payer MEDICARE ==
[2020-01-29 13:49] VITALS: BP 90/60
--- NOTE | 2020-01-29 14:30 | NUR ---
PT IS NOW DIAPHORETIC AND BP IS 60 SYSTOLIC. TRYING TO OBTAIN IV ACCESS AT THIS TIME. DR. PARRA AT BEDSIDE.
[2020-01-29 15:10] LABS: BASO # 0.1 10*3/uL (0.0-0.1); BASO % 0.3 % (0.0-1.0); EOS # 0.2 10*3/uL (0.0-0.4); EOS % 1.2 % (1.0-4.0); HEMATOCRIT 48.3 % (37.0-47.0); LYMPH # 1.4 10*3/uL (1.3-4.4); LYMPH % 7.2 % (27.0-41.0); MEAN CELL VOLUME 85.3 fl (81.0-99.0); MEAN CORPUSCULAR HGB 27.7 pg (27.0-31.0); MEAN CORPUSCULAR HGB CONC 32.5 g/dl (33.0-37.0); MEAN PLATELET VOLUME 9.9 fl (9.6-12.3); MONO # 1.3 10*3/uL (0.1-1.0); MONO % 6.6 % (3.0-9.0); NEUT # 16.3 10*3/uL (2.3-7.9); NEUT % 83.8 % (47.0-73.0); PLATELET COUNT AUTOMATED 351 10*3/uL (130-400); RED BLOOD COUNT 5.66 10*6/uL (4.10-5.10); RED CELL DISTRI WIDTH 12.6 % (0-14.5); WHITE BLOOD COUNT 19.4 10*3/uL (4.8-10.8)
[2020-01-29 15:27] LABS: ALBUMIN 3.1 gm/dl (3.1-4.5); CREATININE 1.34 mg/dL (0.55-1.02); TOTAL PROTEIN 7.7 gm/dL (6.4-8.2)
--- NOTE | 2020-01-29 15:30 | NUR ---
CALLED TO [facility] TO INITITATE BIPAP. BIPAP INITIATED: 16/10 R12 40% TOLERATING WELL. SYSTEM CHECKED AND FX'ING. PT STATES SHE FEELS LESS SOB. HR 85 RR 30 FROM 50-60/MIN.
--- NOTE | 2020-01-29 15:49 | NUR ---
PATIENT TAKEN OFF OF BIPAP AND PLACED ON 3L NC AND TRANSPORTED TO CT.
[2020-01-29 15:56] VITALS: BP 75/31
[2020-01-29 16:50] VITALS: BP 78/49
--- NOTE | 2020-01-29 17:18 | NUR ---
REPORT [facility]
[2020-01-29 17:37] VITALS: BP 115/62
--- NOTE | 2020-01-29 18:26 | NUR ---
UNABLE TO GIVE IV ANTIBIOTICS PRIOR TO PATIENT TRANSPORT TO [facility]. PT IV ACCESS WAS NOT FUNCTIONING IT SHOULD. MULTIPLE ATTEMPTS WERE MADE, EMS ADVISED.
== END 2020-01-29 18:31 | disposition short-term general hospital (02) ==
LOC: ED 13:33 → EDHOLD 16:04 → ED 18:31
PROVIDERS: Family Medicine
DX: S22.9XXA Fracture of bony thorax, part unspecified, initial encounter for closed fracture (principal); K92.2 Gastrointestinal hemorrhage, unspecified; J18.9 Pneumonia, unspecified organism; Z91.040 Latex allergy status; Z88.8 Allergy status to other drugs, medicaments and biological substances; Z79.899 Other long term (current) drug therapy; Z79.84 Long term (current) use of oral hypoglycemic drugs; Z90.49 Acquired absence of other specified parts of digestive tract; X58.XXXA Exposure to other specified factors, initial encounter; Y93.89 Activity, other specified; Y92.89 Other specified places as the place of occurrence of the external cause; Y99.8 Other external cause status

== ENCOUNTER 2020-04-07 10:40 | Inpatient (IN) | payer MEDICARE ==
[~2020-04-07] VITALS: Ht 152.4 cm; Wt 59.1 kg
[2020-04-07 10:45] VITALS: BP 135/68
[2020-04-07 11:28] LABS: BASO % 0.1 % (0.0-1.0); EOS % 0.1 % (1.0-4.0); HEMATOCRIT 40.6 % (37.0-47.0); LYMPH # 2.2 10*3/uL (1.3-4.4); LYMPH % 14.5 % (27.0-41.0); MEAN CELL VOLUME 84.1 fl (81.0-99.0); MEAN CORPUSCULAR HGB CONC 33.3 g/dl (33.0-37.0); MEAN PLATELET VOLUME 9.5 fl (9.6-12.3); MONO # 1.1 10*3/uL (0.1-1.0); MONO % 7.3 % (3.0-9.0); NEUT # 11.8 10*3/uL (2.3-7.9); NEUT % 77.5 % (47.0-73.0); PLATELET COUNT AUTOMATED 366 10*3/uL (130-400); RED BLOOD COUNT 4.83 10*6/uL (4.10-5.10); RED CELL DISTRI WIDTH 12.8 % (0-14.5); WHITE BLOOD COUNT 15.3 10*3/uL (4.8-10.8)
[2020-04-07 11:41] LABS: ALBUMIN 4.2 gm/dl (3.1-4.5); ALKALINE PHOSPHATASE 127 U/L (45-117); BUN 28 mg/dl (7-24); CHLORIDE 91 mmol/L (98-107); CREATININE 1.02 mg/dL (0.55-1.02); LIPASE 71 U/L (73-393); POTASSIUM 3.5 mmol/L (3.5-5.1); SGOT/AST 12 IU/L (3-35); SGPT/ALT 15 U/L (12-78); SODIUM 129 mmol/L (136-145); TOTAL PROTEIN 8.6 gm/dL (6.4-8.2)
[2020-04-07 18:15] VITALS: BP 144/73
[2020-04-07 20:05] VITALS: BP 143/77
[2020-04-08] VITALS (7 sets, daily range): BP systolic 114–178; BP diastolic 48–88
[2020-04-08 07:25] LABS: BASO # 0.1 10*3/uL (0.0-0.1); BASO % 0.7 % (0.0-1.0); EOS # 0.1 10*3/uL (0.0-0.4); EOS % 0.9 % (1.0-4.0); HEMATOCRIT 35.5 % (37.0-47.0); LYMPH % 29.2 % (27.0-41.0); MEAN CORPUSCULAR HGB 28.3 pg (27.0-31.0); MEAN CORPUSCULAR HGB CONC 32.1 g/dl (33.0-37.0); MEAN PLATELET VOLUME 9.9 fl (9.6-12.3); MONO # 1.2 10*3/uL (0.1-1.0); MONO % 11.6 % (3.0-9.0); NEUT # 5.8 10*3/uL (2.3-7.9); NEUT % 57.1 % (47.0-73.0); PLATELET COUNT AUTOMATED 330 10*3/uL (130-400); RED BLOOD COUNT 4.03 10*6/uL (4.10-5.10); RED CELL DISTRI WIDTH 12.8 % (0-14.5); WHITE BLOOD COUNT 10.2 10*3/uL (4.8-10.8)
[2020-04-08 07:26] LABS: MEAN CELL VOLUME 88.1 fl (81.0-99.0)
[2020-04-08 07:29] LABS: BUN 31 mg/dl (7-24); CHLORIDE 99 mmol/L (98-107); POTASSIUM 3.2 mmol/L (3.5-5.1); SODIUM 133 mmol/L (136-145)
[2020-04-08 07:31] LABS: CREATININE 0.82 mg/dL (0.55-1.02)
[2020-04-09] VITALS: BP 129/58
[2020-04-09 07:00] LABS: BASO # 0.1 10*3/uL (0.0-0.1); BASO % 0.7 % (0.0-1.0); EOS # 0.1 10*3/uL (0.0-0.4); EOS % 1.9 % (1.0-4.0); HEMATOCRIT 36.9 % (37.0-47.0); LYMPH # 2.3 10*3/uL (1.3-4.4); LYMPH % 30.3 % (27.0-41.0); MEAN CELL VOLUME 89.3 fl (81.0-99.0); MEAN CORPUSCULAR HGB 27.8 pg (27.0-31.0); MEAN CORPUSCULAR HGB CONC 31.2 g/dl (33.0-37.0); MEAN PLATELET VOLUME 9.8 fl (9.6-12.3); MONO # 0.9 10*3/uL (0.1-1.0); MONO % 12.3 % (3.0-9.0); NEUT % 54.4 % (47.0-73.0); PLATELET COUNT AUTOMATED 318 10*3/uL (130-400); RED BLOOD COUNT 4.13 10*6/uL (4.10-5.10); RED CELL DISTRI WIDTH 12.8 % (0-14.5); WHITE BLOOD COUNT 7.4 10*3/uL (4.8-10.8)
[2020-04-09 07:27] LABS: CHLORIDE 104 mmol/L (98-107); CREATININE 0.62 mg/dL (0.55-1.02); POTASSIUM 3.7 mmol/L (3.5-5.1); SODIUM 137 mmol/L (136-145)
[2020-04-09 07:28] LABS: BUN 21 mg/dl (7-24)
[2020-04-09 08:00] VITALS: BP 146/62
[2020-04-09 10:09] LABS: BILIRUBIN Negative (Negative); BLOOD Negative (Negative); CLARITY Clear (Clear); COLOR Yellow (Yellow); GLUCOSE Negative (Negative); KETONE Trace (Negative); LEUKO ESTERASE 1+ (Negative); NITRITE Negative (Negative); UROBILINOGEN 0.2 E.U./dl (0.0-1.0)
[2020-04-09 10:28] LABS: BACTERIA 3+; RBC 0-2 rbc/hpf (0-2)
[2020-04-09 12:00] VITALS: BP 150/58
[2020-04-09 16:00] VITALS: BP 152/76
[2020-04-09 20:00] VITALS: BP 154/63
[2020-04-10] VITALS: BP 166/90
[2020-04-10 00:44] VITALS: BP 156/80
[2020-04-10 06:56] LABS: CHLORIDE 104 mmol/L (98-107); POTASSIUM 3.3 mmol/L (3.5-5.1); SODIUM 135 mmol/L (136-145)
[2020-04-10 06:57] LABS: BASO # 0.1 10*3/uL (0.0-0.1); BASO % 0.7 % (0.0-1.0); EOS # 0.6 10*3/uL (0.0-0.4); EOS % 7.7 % (1.0-4.0); HEMATOCRIT 33.5 % (37.0-47.0); LYMPH # 2.3 10*3/uL (1.3-4.4); LYMPH % 29.9 % (27.0-41.0); MEAN CORPUSCULAR HGB 28.1 pg (27.0-31.0); MEAN CORPUSCULAR HGB CONC 33.7 g/dl (33.0-37.0); MEAN PLATELET VOLUME 10.3 fl (9.6-12.3); MONO # 0.8 10*3/uL (0.1-1.0); MONO % 11.1 % (3.0-9.0); NEUT # 3.8 10*3/uL (2.3-7.9); NEUT % 50.3 % (47.0-73.0); PLATELET COUNT AUTOMATED 310 10*3/uL (130-400); RED BLOOD COUNT 4.02 10*6/uL (4.10-5.10); RED CELL DISTRI WIDTH 12.6 % (0-14.5); WHITE BLOOD COUNT 7.6 10*3/uL (4.8-10.8)
[2020-04-10 07:03] LABS: MEAN CELL VOLUME 83.3 fl (81.0-99.0)
[2020-04-10 07:37] LABS: BUN 8 mg/dl (7-24)
[2020-04-10 12:00] VITALS: BP 164/68
[2020-04-10 16:00] VITALS: BP 183/74
[2020-04-10 20:00] VITALS: BP 177/97
[2020-04-11] VITALS (7 sets, daily range): BP systolic 95–160; BP diastolic 30–82
[2020-04-11 06:46] LABS: BASO # 0.1 10*3/uL (0.0-0.1); BASO % 0.9 % (0.0-1.0); EOS # 0.5 10*3/uL (0.0-0.4); EOS % 6.4 % (1.0-4.0); HEMATOCRIT 34.5 % (37.0-47.0); LYMPH # 2.5 10*3/uL (1.3-4.4); LYMPH % 32.9 % (27.0-41.0); MEAN CELL VOLUME 84.1 fl (81.0-99.0); MEAN CORPUSCULAR HGB 27.6 pg (27.0-31.0); MEAN CORPUSCULAR HGB CONC 32.8 g/dl (33.0-37.0); MEAN PLATELET VOLUME 9.6 fl (9.6-12.3); MONO # 0.8 10*3/uL (0.1-1.0); MONO % 11.2 % (3.0-9.0); NEUT # 3.6 10*3/uL (2.3-7.9); NEUT % 48.5 % (47.0-73.0); PLATELET COUNT AUTOMATED 340 10*3/uL (130-400); RED CELL DISTRI WIDTH 12.5 % (0-14.5); WHITE BLOOD COUNT 7.5 10*3/uL (4.8-10.8)
[2020-04-11 07:18] LABS: BUN 4 mg/dl (7-24); CHLORIDE 102 mmol/L (98-107); CREATININE 0.66 mg/dL (0.55-1.02); POTASSIUM 3.3 mmol/L (3.5-5.1); SODIUM 135 mmol/L (136-145)
[2020-04-12] VITALS: BP 124/50
[2020-04-12 08:00] VITALS: BP 135/60
[2020-04-12] MEDS ORDERED: PERCOCET 5-3251 EACH PO (08:42)
[2020-04-12] MEDS ORDERED: GAVISCON ES TA1 EACH PO (09:29)
[2020-04-12] MEDS ORDERED: REGLAN5 MG PO (09:29)
== END 2020-04-12 12:10 | disposition home or self-care (01) | DRG 392 ==
LOC: ED 10:40 → EDHOLD 13:40 → 5E 13:40 → EDHOLD 13:52 → 5E 17:41
PROVIDERS: Emergency Medicine; Internal Medicine; ADMIT Emergency Medicine; ATTEND Emergency Medicine
PROC: 0DB68ZX Excision of Stomach, Via Natural or Artificial Opening Endoscopic, Diagnostic (ICD-10-PCS; principal; 2020-04-11)
PROC: 0D758ZZ Dilation of Esophagus, Via Natural or Artificial Opening Endoscopic (ICD-10-PCS; 2020-04-11)
DX: K21.9 Gastro-esophageal reflux disease without esophagitis (principal); E87.1 Hypo-osmolality and hyponatremia; I13.0 Hypertensive heart and chronic kidney disease with heart failure and stage 1 through stage 4 chronic kidney disease, or unspecified chronic kidney disease; K22.2 Esophageal obstruction; E11.22 Type 2 diabetes mellitus with diabetic chronic kidney disease; E87.8 Other disorders of electrolyte and fluid balance, not elsewhere classified; R82.71 Bacteriuria; E87.6 Hypokalemia; F41.9 Anxiety disorder, unspecified; J45.909 Unspecified asthma, uncomplicated; I50.9 Heart failure, unspecified; G89.29 Other chronic pain; M54.9 Dorsalgia, unspecified; J43.8 Other emphysema; G40.909 Epilepsy, unspecified, not intractable, without status epilepticus; D72.810 Lymphocytopenia; D72.829 Elevated white blood cell count, unspecified; N18.31 Chronic kidney disease, stage 3a; E11.65 Type 2 diabetes mellitus with hyperglycemia; E86.0 Dehydration; E55.9 Vitamin D deficiency, unspecified; R13.10 Dysphagia, unspecified; Z88.8 Allergy status to other drugs, medicaments and biological substances; Z88.1 Allergy status to other antibiotic agents; Z91.040 Latex allergy status; Z90.710 Acquired absence of both cervix and uterus; Z95.0 Presence of cardiac pacemaker; Z90.49 Acquired absence of other specified parts of digestive tract; Z82.49 Family history of ischemic heart disease and other diseases of the circulatory system; Z86.711 Personal history of pulmonary embolism; Z87.891 Personal history of nicotine dependence

== ENCOUNTER 2020-04-20 09:00 | Emergency (ER) | payer MEDICARE ==
[~2020-04-20] VITALS: Ht 152.4 cm; Wt 59.0 kg
[~2020-04-20 09:00] MED LIST changes: +GAVISCON ES TA1 EACH PO; +REGLAN5 MG PO
[2020-04-20 10:09] LABS: BASO # 0.1 10*3/uL (0.0-0.1); BASO % 0.4 % (0.0-1.0); EOS # 0.3 10*3/uL (0.0-0.4); EOS % 1.6 % (1.0-4.0); HEMATOCRIT 32.5 % (37.0-47.0); LYMPH # 1.1 10*3/uL (1.3-4.4); LYMPH % 6.6 % (27.0-41.0); MEAN CELL VOLUME 88.3 fl (81.0-99.0); MEAN CORPUSCULAR HGB 27.7 pg (27.0-31.0); MEAN CORPUSCULAR HGB CONC 31.4 g/dl (33.0-37.0); MEAN PLATELET VOLUME 10.1 fl (9.6-12.3); MONO # 1.3 10*3/uL (0.1-1.0); MONO % 7.9 % (3.0-9.0); NEUT # 13.7 10*3/uL (2.3-7.9); NEUT % 83.1 % (47.0-73.0); PLATELET COUNT AUTOMATED 299 10*3/uL (130-400); RED BLOOD COUNT 3.68 10*6/uL (4.10-5.10); RED CELL DISTRI WIDTH 13.2 % (0-14.5); WHITE BLOOD COUNT 16.5 10*3/uL (4.8-10.8)
[2020-04-20 10:19] LABS: ACT PARTIAL THROMBO TIME 20.4 SECONDS (20.0-32.1)
[2020-04-20 10:25] LABS: ALBUMIN 3.2 gm/dl (3.1-4.5); CREATININE 1.18 mg/dL (0.55-1.02); POTASSIUM 4.3 mmol/L (3.5-5.1); TOTAL PROTEIN 6.9 gm/dL (6.4-8.2)
[2020-04-20 10:27] LABS: CKMB 14.7 ng/ml (0.5-3.6)
[2020-04-20 10:52] LABS: TROPONIN I < 0.015 ng/ml (<0.045)
[2020-04-20 11:01] LABS: CPK 1501 U/L (26-192)
[2020-04-20 14:31] VITALS: BP 100/52
== END 2020-04-20 14:00 | disposition short-term general hospital (02) ==
LOC: ED 09:00
PROVIDERS: Internal Medicine
DX: I63.9 Cerebral infarction, unspecified (principal); I10 Essential (primary) hypertension; E11.9 Type 2 diabetes mellitus without complications; F31.9 Bipolar disorder, unspecified; Z87.891 Personal history of nicotine dependence; Z91.040 Latex allergy status; Z88.8 Allergy status to other drugs, medicaments and biological substances; Z79.899 Other long term (current) drug therapy; Z79.84 Long term (current) use of oral hypoglycemic drugs; Z90.710 Acquired absence of both cervix and uterus; Z90.49 Acquired absence of other specified parts of digestive tract; Z98.890 Other specified postprocedural states

== ENCOUNTER 2020-04-28 14:59 | Emergency (ER) | payer MEDICARE ==
[2020-04-28 15:11] VITALS: BP 143/86
[2020-04-28] MEDS ORDERED: AUGMENTIN 875875 MG PO (16:57)
== END 2020-04-28 17:19 | disposition home or self-care (01) ==
LOC: ED 14:59
DX: K13.0 Diseases of lips (principal); I10 Essential (primary) hypertension; K21.9 Gastro-esophageal reflux disease without esophagitis; E11.9 Type 2 diabetes mellitus without complications; F31.9 Bipolar disorder, unspecified; R56.9 Unspecified convulsions; Z88.8 Allergy status to other drugs, medicaments and biological substances; Z91.040 Latex allergy status; Z88.1 Allergy status to other antibiotic agents; Z79.899 Other long term (current) drug therapy; Z79.84 Long term (current) use of oral hypoglycemic drugs; Z90.711 Acquired absence of uterus with remaining cervical stump; Z90.49 Acquired absence of other specified parts of digestive tract; Z98.890 Other specified postprocedural states

== ENCOUNTER 2020-07-25 17:10 | Inpatient (IN) | payer MEDICARE ==
[~2020-07-25] VITALS: Ht 162.6 cm; Wt 56.2 kg
[2020-07-25 17:12] VITALS: BP 114/49
[2020-07-25 18:00] VITALS: BP 119/75
[2020-07-25 18:43] LABS: MEAN CELL VOLUME 79.5 fl (81.0-99.0); MEAN CORPUSCULAR HGB 27.4 pg (27.0-31.0); MEAN CORPUSCULAR HGB CONC 34.5 g/dl (33.0-37.0); MEAN PLATELET VOLUME 9.5 fl (9.6-12.3); PLATELET COUNT AUTOMATED 485 10*3/uL (130-400); RED BLOOD COUNT 5.91 10*6/uL (4.10-5.10); RED CELL DISTRI WIDTH 13.9 % (0-14.5); WHITE BLOOD COUNT 21.2 10*3/uL (4.8-10.8)
[2020-07-25 18:54] LABS: ACT PARTIAL THROMBO TIME 26.2 SECONDS (20.0-32.1); INTERNATIONAL NORM RATIO 1.1 (2.0-3.5)
[2020-07-25 18:59] LABS: ALBUMIN 4.8 gm/dl (3.1-4.5); CREATININE 3.47 mg/dL (0.55-1.02); POTASSIUM 2.9 mmol/L (3.5-5.1); TOTAL PROTEIN 10.3 gm/dL (6.4-8.2)
[2020-07-25 19:03] LABS: TOTAL CELLS COUNTED 100 #CELLS
[2020-07-25 19:04] LABS: MICROCYTOSIS SLIGHT; PLATELET SUFFICIENCY NORMAL (NORMAL)
[2020-07-25 19:11] LABS: TROPONIN I 0.716 ng/ml (<0.045)
[2020-07-25 19:17] LABS: BILIRUBIN Negative (Negative); BLOOD Negative (Negative); CLARITY Clear (Clear); COLOR Yellow (Yellow); GLUCOSE Negative (Negative); KETONE Negative (Negative); LEUKO ESTERASE Trace (Negative); NITRITE Negative (Negative); UROBILINOGEN 0.2 E.U./dl (0.0-1.0)
[2020-07-25 19:39] LABS: EPITHELIAL CELLS 31-40; WBC 0-2 wbc/hpf (0-5)
[2020-07-25 22:02] VITALS: BP 112/63
[2020-07-25 22:37] VITALS: BP 99/53
[2020-07-26 01:45] VITALS: BP 113/53
[2020-07-26 04:00] VITALS: BP 100/49
[2020-07-26 06:07] LABS: ALBUMIN 3.6 gm/dl (3.1-4.5); CREATININE 2.74 mg/dL (0.55-1.02); TOTAL PROTEIN 7.5 gm/dL (6.4-8.2)
[2020-07-26 06:14] LABS: THYROID STIM HORMONE (HS) 0.373 uIU/ml (0.358-4.75)
[2020-07-26 06:19] LABS: HEMATOCRIT 38.8 % (37.0-47.0); MEAN CELL VOLUME 81.2 fl (81.0-99.0); MEAN CORPUSCULAR HGB 27.2 pg (27.0-31.0); MEAN CORPUSCULAR HGB CONC 33.5 g/dl (33.0-37.0); MEAN PLATELET VOLUME 10.5 fl (9.6-12.3); PLATELET COUNT AUTOMATED 381 10*3/uL (130-400); RED BLOOD COUNT 4.78 10*6/uL (4.10-5.10); RED CELL DISTRI WIDTH 13.9 % (0-14.5)
[2020-07-26 06:36] LABS: INTERNATIONAL NORM RATIO 1.2 (2.0-3.5)
[2020-07-26 07:17] LABS: PLATELET SUFFICIENCY NORMAL (NORMAL); TOTAL CELLS COUNTED 100 #CELLS
[2020-07-26 07:18] LABS: BURR CELLS FEW
[2020-07-26 08:03] VITALS: BP 100/53
[2020-07-26 08:08] LABS: VITAMIN D, 25-HYDROXY 15.4 ng/mL (30-100)
[2020-07-26 10:22] LABS: URINE AMPHETAMINES < 1000 (1000ng/ml); URINE BARBITURATES < 200 (200ng/ml); URINE BENZODIAZEPINES < 200 (200ng/ml); URINE CANNABINOIDS (THC) < 50 (50ng/ml); URINE COCAINE < 300 (300ng/ml); URINE METHADONE < 300 (300ng/ml); URINE OPIATES < 300 (300ng/ml)
[2020-07-26 10:23] LABS: URINE CHLORIDE, RANDOM < 10 mmol/L
[2020-07-26 10:24] LABS: URINE PHENCYCLIDINE < 25 (25ng/ml)
[2020-07-26] MEDS ORDERED: ASPIRIN CHEWABL81 MG PO (10:39)
[2020-07-26] MEDS ORDERED: METOCLOPRAMIDE5 MG PO (10:41)
[2020-07-26] MEDS ORDERED: COGENTIN0.5 MG PO (10:43)
[2020-07-26] MEDS ORDERED: REXULTI2 MG PO (10:47)
[2020-07-26] MEDS ORDERED: FERROUS SULFAT325 MG PO (10:50)
[2020-07-26] MEDS ORDERED: LIPITOR80 MG PO (10:52)
[2020-07-26 12:00] VITALS: BP 131/54
[2020-07-26 14:44] LABS: CREATININE 2.22 mg/dL (0.55-1.02); POTASSIUM 3.3 mmol/L (3.5-5.1)
[2020-07-26 16:09] VITALS: BP 95/56
[2020-07-26 20:00] VITALS: BP 150/49
[2020-07-27] VITALS: BP 138/67
[2020-07-27 04:00] VITALS: BP 131/60
[2020-07-27 06:12] LABS: BASO # 0.1 10*3/uL (0.0-0.1); BASO % 0.5 % (0.0-1.0); EOS # 0.1 10*3/uL (0.0-0.4); EOS % 1.1 % (1.0-4.0); HEMATOCRIT 34.5 % (37.0-47.0); LYMPH # 2.4 10*3/uL (1.3-4.4); LYMPH % 22.8 % (27.0-41.0); MEAN CELL VOLUME 83.9 fl (81.0-99.0); MEAN CORPUSCULAR HGB 27.3 pg (27.0-31.0); MEAN CORPUSCULAR HGB CONC 32.5 g/dl (33.0-37.0); MEAN PLATELET VOLUME 10.5 fl (9.6-12.3); MONO # 1.1 10*3/uL (0.1-1.0); MONO % 10.2 % (3.0-9.0); NEUT # 6.7 10*3/uL (2.3-7.9); PLATELET COUNT AUTOMATED 321 10*3/uL (130-400); RED BLOOD COUNT 4.11 10*6/uL (4.10-5.10); RED CELL DISTRI WIDTH 14.5 % (0-14.5); WHITE BLOOD COUNT 10.3 10*3/uL (4.8-10.8)
[2020-07-27 06:29] LABS: ALBUMIN 3.1 gm/dl (3.1-4.5); CREATININE 1.28 mg/dL (0.55-1.02); POTASSIUM 4.1 mmol/L (3.5-5.1); TOTAL PROTEIN 6.7 gm/dL (6.4-8.2)
[2020-07-27 08:00] VITALS: BP 131/68
[2020-07-27 12:00] VITALS: BP 129/62
[2020-07-27 16:00] VITALS: BP 112/63; BP 135/61
[2020-07-27 20:00] VITALS: BP 127/52
[2020-07-28] VITALS: BP 149/60
[2020-07-28 06:04] LABS: BASO # 0.1 10*3/uL (0.0-0.1); BASO % 0.7 % (0.0-1.0); EOS # 0.3 10*3/uL (0.0-0.4); EOS % 2.7 % (1.0-4.0); HEMATOCRIT 34.6 % (37.0-47.0); LYMPH # 2.3 10*3/uL (1.3-4.4); LYMPH % 23.2 % (27.0-41.0); MEAN CELL VOLUME 85.2 fl (81.0-99.0); MEAN CORPUSCULAR HGB 27.1 pg (27.0-31.0); MEAN CORPUSCULAR HGB CONC 31.8 g/dl (33.0-37.0); MEAN PLATELET VOLUME 10.2 fl (9.6-12.3); MONO % 10.2 % (3.0-9.0); NEUT # 6.2 10*3/uL (2.3-7.9); NEUT % 62.8 % (47.0-73.0); PLATELET COUNT AUTOMATED 310 10*3/uL (130-400); RED BLOOD COUNT 4.06 10*6/uL (4.10-5.10); RED CELL DISTRI WIDTH 14.4 % (0-14.5); WHITE BLOOD COUNT 9.9 10*3/uL (4.8-10.8)
[2020-07-28 06:26] LABS: ALBUMIN 3.1 gm/dl (3.1-4.5); CHLORIDE 100 mmol/L (98-107); POTASSIUM 4.2 mmol/L (3.5-5.1); SODIUM 133 mmol/L (136-145)
[2020-07-28 06:30] LABS: ALKALINE PHOSPHATASE 134 U/L (45-117); CREATININE 0.85 mg/dL (0.55-1.02); SGOT/AST 22 IU/L (3-35); SGPT/ALT 12 U/L (12-78); TOTAL PROTEIN 6.5 gm/dL (6.4-8.2)
[2020-07-28 06:31] LABS: BUN 16 mg/dl (7-24)
[2020-07-28 08:00] VITALS: BP 159/73
[2020-07-28 12:00] VITALS: BP 152/78
[2020-07-28 16:00] VITALS: BP 143/60
[2020-07-28 20:00] VITALS: BP 158/100
[2020-07-29] VITALS: BP 146/86
[2020-07-29 05:46] LABS: BUN 9 mg/dl (7-24); CHLORIDE 103 mmol/L (98-107); CREATININE 0.72 mg/dL (0.55-1.02); POTASSIUM 4.2 mmol/L (3.5-5.1); SODIUM 133 mmol/L (136-145)
[2020-07-29 06:22] LABS: BASO # 0.1 10*3/uL (0.0-0.1); BASO % 0.7 % (0.0-1.0); EOS # 0.4 10*3/uL (0.0-0.4); EOS % 3.5 % (1.0-4.0); HEMATOCRIT 35.8 % (37.0-47.0); LYMPH % 28.7 % (27.0-41.0); MEAN CELL VOLUME 87.5 fl (81.0-99.0); MEAN CORPUSCULAR HGB 27.9 pg (27.0-31.0); MEAN CORPUSCULAR HGB CONC 31.8 g/dl (33.0-37.0); MEAN PLATELET VOLUME 10.3 fl (9.6-12.3); MONO # 1.1 10*3/uL (0.1-1.0); MONO % 10.1 % (3.0-9.0); NEUT # 5.9 10*3/uL (2.3-7.9); NEUT % 56.6 % (47.0-73.0); PLATELET COUNT AUTOMATED 312 10*3/uL (130-400); RED BLOOD COUNT 4.09 10*6/uL (4.10-5.10); RED CELL DISTRI WIDTH 14.4 % (0-14.5); WHITE BLOOD COUNT 10.5 10*3/uL (4.8-10.8)
[2020-07-29 07:57] VITALS: BP 175/65
[2020-07-29 12:21] VITALS: BP 125/69
[2020-07-29 15:59] VITALS: BP 105/79
[2020-07-29 20:00] VITALS: BP 142/67
[2020-07-29 23:46] VITALS: BP 133/68
[2020-07-30 05:38] LABS: BUN 13 mg/dl (7-24); CHLORIDE 101 mmol/L (98-107); CREATININE 0.81 mg/dL (0.55-1.02); POTASSIUM 4.2 mmol/L (3.5-5.1); SODIUM 131 mmol/L (136-145)
[2020-07-30 07:19] LABS: BASO # 0.1 10*3/uL (0.0-0.1); BASO % 0.7 % (0.0-1.0); EOS # 0.5 10*3/uL (0.0-0.4); EOS % 4.9 % (1.0-4.0); HEMATOCRIT 34.3 % (37.0-47.0); LYMPH # 2.4 10*3/uL (1.3-4.4); LYMPH % 25.6 % (27.0-41.0); MEAN CELL VOLUME 87.7 fl (81.0-99.0); MEAN CORPUSCULAR HGB 27.9 pg (27.0-31.0); MEAN CORPUSCULAR HGB CONC 31.8 g/dl (33.0-37.0); MEAN PLATELET VOLUME 9.4 fl (9.6-12.3); MONO % 10.8 % (3.0-9.0); NEUT # 5.4 10*3/uL (2.3-7.9); NEUT % 57.8 % (47.0-73.0); PLATELET COUNT AUTOMATED 254 10*3/uL (130-400); RED BLOOD COUNT 3.91 10*6/uL (4.10-5.10); RED CELL DISTRI WIDTH 14.6 % (0-14.5); WHITE BLOOD COUNT 9.4 10*3/uL (4.8-10.8)
[2020-07-30 08:00] VITALS: BP 146/78
[2020-07-30 11:49] VITALS: BP 101/50
[2020-07-30 16:00] VITALS: BP 119/44
[2020-07-30 20:00] VITALS: BP 145/55
[2020-07-31] VITALS (7 sets, daily range): BP systolic 112–166; BP diastolic 57–87
[2020-07-31 06:16] LABS: BASO # 0.1 10*3/uL (0.0-0.1); BASO % 0.9 % (0.0-1.0); EOS # 0.5 10*3/uL (0.0-0.4); EOS % 5.6 % (1.0-4.0); LYMPH # 3.1 10*3/uL (1.3-4.4); LYMPH % 34.8 % (27.0-41.0); MEAN CELL VOLUME 88.2 fl (81.0-99.0); MEAN CORPUSCULAR HGB 27.2 pg (27.0-31.0); MEAN CORPUSCULAR HGB CONC 30.9 g/dl (33.0-37.0); MEAN PLATELET VOLUME 10.1 fl (9.6-12.3); MONO # 0.9 10*3/uL (0.1-1.0); MONO % 9.9 % (3.0-9.0); NEUT # 4.3 10*3/uL (2.3-7.9); NEUT % 48.5 % (47.0-73.0); PLATELET COUNT AUTOMATED 275 10*3/uL (130-400); RED BLOOD COUNT 3.97 10*6/uL (4.10-5.10); RED CELL DISTRI WIDTH 14.3 % (0-14.5); WHITE BLOOD COUNT 8.9 10*3/uL (4.8-10.8)
[2020-08-01 05:51] LABS: BASO # 0.1 10*3/uL (0.0-0.1); BASO % 0.7 % (0.0-1.0); EOS # 0.5 10*3/uL (0.0-0.4); EOS % 4.4 % (1.0-4.0); LYMPH % 28.3 % (27.0-41.0); MEAN CELL VOLUME 88.6 fl (81.0-99.0); MEAN CORPUSCULAR HGB 27.6 pg (27.0-31.0); MEAN CORPUSCULAR HGB CONC 31.1 g/dl (33.0-37.0); MEAN PLATELET VOLUME 10.2 fl (9.6-12.3); MONO # 1.2 10*3/uL (0.1-1.0); MONO % 10.7 % (3.0-9.0); NEUT % 55.5 % (47.0-73.0); PLATELET COUNT AUTOMATED 292 10*3/uL (130-400); RED BLOOD COUNT 3.95 10*6/uL (4.10-5.10); RED CELL DISTRI WIDTH 14.3 % (0-14.5); WHITE BLOOD COUNT 10.8 10*3/uL (4.8-10.8)
[2020-08-01 06:02] LABS: BUN 16 mg/dl (7-24); CHLORIDE 97 mmol/L (98-107); POTASSIUM 4.2 mmol/L (3.5-5.1); SODIUM 132 mmol/L (136-145)
[2020-08-01 08:00] VITALS: BP 127/47
[2020-08-01 12:00] VITALS: BP 110/47
[2020-08-01 16:00] VITALS: BP 148/61
[2020-08-01 20:00] VITALS: BP 120/59
[2020-08-02] VITALS (9 sets, daily range): BP systolic 104–183; BP diastolic 41–86
[2020-08-02 05:59] LABS: ALBUMIN 2.8 gm/dl (3.1-4.5); ALKALINE PHOSPHATASE 136 U/L (45-117); BUN 12 mg/dl (7-24); CHLORIDE 100 mmol/L (98-107); CREATININE 0.84 mg/dL (0.55-1.02); POTASSIUM 4.1 mmol/L (3.5-5.1); SGOT/AST 14 IU/L (3-35); SGPT/ALT 17 U/L (12-78); SODIUM 133 mmol/L (136-145); TOTAL PROTEIN 6.2 gm/dL (6.4-8.2)
[2020-08-02 06:04] LABS: BASO # 0.1 10*3/uL (0.0-0.1); BASO % 0.8 % (0.0-1.0); EOS # 0.5 10*3/uL (0.0-0.4); EOS % 5.6 % (1.0-4.0); HEMATOCRIT 33.2 % (37.0-47.0); LYMPH # 2.9 10*3/uL (1.3-4.4); LYMPH % 31.6 % (27.0-41.0); MEAN CELL VOLUME 88.3 fl (81.0-99.0); MEAN CORPUSCULAR HGB 27.4 pg (27.0-31.0); MEAN PLATELET VOLUME 10.4 fl (9.6-12.3); NEUT # 4.7 10*3/uL (2.3-7.9); NEUT % 50.5 % (47.0-73.0); PLATELET COUNT AUTOMATED 281 10*3/uL (130-400); RED BLOOD COUNT 3.76 10*6/uL (4.10-5.10); RED CELL DISTRI WIDTH 14.3 % (0-14.5); WHITE BLOOD COUNT 9.3 10*3/uL (4.8-10.8)
[2020-08-03] VITALS: BP 156/87
[2020-08-03] MEDS ORDERED: METOCLOPRAMIDE5 MG PO (07:55)
[2020-08-03] MEDS ORDERED: CLONAZEPAM0.5 M2 PO (07:55)
[2020-08-03] MEDS ORDERED: Carafate1 GM PO (07:57)
[2020-08-03 08:00] VITALS: BP 158/94
[2020-08-03] MEDS ORDERED: ZESTRIL5 MG PO (08:00)
[2020-08-03 08:59] VITALS: BP 121/41
== END 2020-08-03 12:05 | disposition home health service (06) | DRG 640 ==
LOC: ED 17:10 → EDHOLD 23:30 → 4E 23:45 → ICCU 23:45 → 4E 07-27 16:49
PROVIDERS: Emergency Medicine; Hospitalist; Internal Medicine; Registered Nurse; Student in an Organized Health Care Education/Training Program; ADMIT Student in an Organized Health Care Education/Training Program; ATTEND Student in an Organized Health Care Education/Training Program
PROC: BD11YZZ Fluoroscopy of Esophagus using Other Contrast (ICD-10-PCS; 2020-07-27)
PROC: 0DB68ZX Excision of Stomach, Via Natural or Artificial Opening Endoscopic, Diagnostic (ICD-10-PCS; principal; 2020-08-02)
DX: E86.9 Volume depletion, unspecified (principal); N17.0 Acute kidney failure with tubular necrosis; G93.41 Metabolic encephalopathy; I21.A1 Myocardial infarction type 2; I50.32 Chronic diastolic (congestive) heart failure; J96.10 Chronic respiratory failure, unspecified whether with hypoxia or hypercapnia; R65.10 Systemic inflammatory response syndrome (SIRS) of non-infectious origin without acute organ dysfunction; E87.1 Hypo-osmolality and hyponatremia; K21.00 Gastro-esophageal reflux disease with esophagitis, without bleeding; J45.909 Unspecified asthma, uncomplicated; J44.9 Chronic obstructive pulmonary disease, unspecified; F41.9 Anxiety disorder, unspecified; E11.43 Type 2 diabetes mellitus with diabetic autonomic (poly)neuropathy; K31.84 Gastroparesis; E11.65 Type 2 diabetes mellitus with hyperglycemia; D50.0 Iron deficiency anemia secondary to blood loss (chronic); R13.10 Dysphagia, unspecified; E83.39 Other disorders of phosphorus metabolism; M54.5 Low back pain; G89.29 Other chronic pain; R29.6 Repeated falls; F31.9 Bipolar disorder, unspecified; Z88.1 Allergy status to other antibiotic agents; Z91.040 Latex allergy status; Z91.09 Other allergy status, other than to drugs and biological substances; Z90.710 Acquired absence of both cervix and uterus; Z90.49 Acquired absence of other specified parts of digestive tract; Z87.891 Personal history of nicotine dependence; Z82.49 Family history of ischemic heart disease and other diseases of the circulatory system; Z79.899 Other long term (current) drug therapy; Z79.51 Long term (current) use of inhaled steroids; Z79.82 Long term (current) use of aspirin; I95.9 Hypotension, unspecified

== ENCOUNTER → 2020-10-14 | Outpatient (CLI) | payer MEDICARE ==
[~2020-10-14] MED LIST changes: +ASPIRIN CHEWABL81 MG PO; +CLONAZEPAM0.5 M2 PO; +COGENTIN0.5 MG PO; +Carafate1 GM PO; +FERROUS SULFAT325 MG PO; +METOCLOPRAMIDE5 MG PO; +ZESTRIL5 MG PO
== END | disposition home or self-care (01) ==
LOC: RAD 12:48
PROVIDERS: ATTEND Anesthesiology
DX: M47.816 Spondylosis without myelopathy or radiculopathy, lumbar region (principal); M48.02 Spinal stenosis, cervical region; M48.061 Spinal stenosis, lumbar region without neurogenic claudication; M43.07 Spondylolysis, lumbosacral region

== ENCOUNTER → 2020-11-17 | Outpatient (CLI) | payer MEDICARE | END | disposition home or self-care (01) | LOC: COVID19 17:02 | PROVIDERS: ATTEND Podiatrist Foot & Ankle Surgery | DX: Z20.822 Contact with and (suspected) exposure to COVID-19 (principal) ==

== ENCOUNTER → 2020-11-28 | Outpatient (CLI) | payer MEDICARE | END | disposition home or self-care (01) | LOC: RESCLI 00:44 | PROVIDERS: ATTEND Internal Medicine | DX: F32.9 Major depressive disorder, single episode, unspecified (principal); I10 Essential (primary) hypertension; E11.8 Type 2 diabetes mellitus with unspecified complications; E78.2 Mixed hyperlipidemia; F41.9 Anxiety disorder, unspecified; K21.9 Gastro-esophageal reflux disease without esophagitis; D50.9 Iron deficiency anemia, unspecified; E55.9 Vitamin D deficiency, unspecified; G40.909 Epilepsy, unspecified, not intractable, without status epilepticus; Z79.82 Long term (current) use of aspirin; Z79.84 Long term (current) use of oral hypoglycemic drugs; Z79.899 Other long term (current) drug therapy; Z90.89 Acquired absence of other organs; Z98.890 Other specified postprocedural states ==

== ENCOUNTER 2020-12-20 12:43 | Emergency (ER) | payer MEDICARE ==
[~2020-12-20] VITALS: Ht 154.9 cm; Wt 56.7 kg
[2020-12-20 12:48] VITALS: BP 147/72
[2020-12-20] MEDS ORDERED: CEPHALEXIN500 M1 PO (15:39)
[2020-12-20] MEDS ORDERED: PERCOCET 5-3251 EACH PO (15:51)
== END 2020-12-20 16:09 | disposition home or self-care (01) ==
LOC: ED 12:43
DX: L02.11 Cutaneous abscess of neck (principal); L72.9 Follicular cyst of the skin and subcutaneous tissue, unspecified; Z91.048 Other nonmedicinal substance allergy status; Z88.1 Allergy status to other antibiotic agents; Z79.899 Other long term (current) drug therapy; Z79.82 Long term (current) use of aspirin; Z90.49 Acquired absence of other specified parts of digestive tract; Z90.711 Acquired absence of uterus with remaining cervical stump; Z95.0 Presence of cardiac pacemaker; Z98.890 Other specified postprocedural states; Z87.891 Personal history of nicotine dependence

== ENCOUNTER 2021-01-05 13:58 | Emergency (ER) | payer MEDICARE ==
[2021-01-05 14:01] VITALS: BP 200/107
[2021-01-05] MEDS ORDERED: PREDNISONE20 M1 PO (18:24)
[2021-01-05] MEDS ORDERED: METHOCARBAMOL500 M1 PO ×2 (18:24→18:25)
== END 2021-01-05 18:28 | disposition home or self-care (01) ==
LOC: ED 13:58
DX: S39.012A Strain of muscle, fascia and tendon of lower back, initial encounter (principal); M54.6 Pain in thoracic spine; Z88.1 Allergy status to other antibiotic agents; Z91.040 Latex allergy status; Z79.899 Other long term (current) drug therapy; Z79.82 Long term (current) use of aspirin; Z87.891 Personal history of nicotine dependence; X50.1XXA Overexertion from prolonged static or awkward postures, initial encounter; Y93.89 Activity, other specified; Y92.89 Other specified places as the place of occurrence of the external cause; Y99.8 Other external cause status

== ENCOUNTER 2021-04-08 10:02 | Emergency (ER) | payer MEDICARE ==
[~2021-04-08] VITALS: Wt 55.3 kg
[2021-04-08 10:02] VITALS: BP 162/77
[~2021-04-08 10:02] MED LIST changes: +METHOCARBAMOL500 M1 PO; +PREDNISONE20 M1 PO
[2021-04-08] MEDS ORDERED: NAPROXEN250 MG PO (11:52)
[2021-04-08] MEDS ORDERED: TYLENOL325 M1 PO (11:52)
[2021-04-08] MEDS ORDERED: VOLTAREN ARTHRI20 GM T (11:52)
== END 2021-04-08 12:27 | disposition home or self-care (01) ==
LOC: ED 10:02
DX: S92.414A Nondisplaced fracture of proximal phalanx of right great toe, initial encounter for closed fracture (principal); J44.9 Chronic obstructive pulmonary disease, unspecified; I50.9 Heart failure, unspecified; I11.0 Hypertensive heart disease with heart failure; E11.9 Type 2 diabetes mellitus without complications; G40.909 Epilepsy, unspecified, not intractable, without status epilepticus; Z88.1 Allergy status to other antibiotic agents; Z91.040 Latex allergy status; Z79.899 Other long term (current) drug therapy; Z79.82 Long term (current) use of aspirin; Z90.49 Acquired absence of other specified parts of digestive tract; Z98.890 Other specified postprocedural states; W18.39XA Other fall on same level, initial encounter; Y93.89 Activity, other specified; Y92.89 Other specified places as the place of occurrence of the external cause; Y99.8 Other external cause status

== ENCOUNTER → 2021-04-16 | Outpatient (CLI) | payer MEDICARE ==
[~2021-04-16] MED LIST changes: +NAPROXEN250 MG PO; +VOLTAREN ARTHRI20 GM T
== END | disposition home or self-care (01) ==
LOC: RESCLI 01:26
PROVIDERS: ATTEND Internal Medicine Nephrology
DX: S92.404D Nondisplaced unspecified fracture of right great toe, subsequent encounter for fracture with routine healing (principal); I10 Essential (primary) hypertension; F32.9 Major depressive disorder, single episode, unspecified; E11.9 Type 2 diabetes mellitus without complications; F41.9 Anxiety disorder, unspecified; E78.2 Mixed hyperlipidemia; K21.9 Gastro-esophageal reflux disease without esophagitis; D50.9 Iron deficiency anemia, unspecified; G40.909 Epilepsy, unspecified, not intractable, without status epilepticus; E55.9 Vitamin D deficiency, unspecified; M54.50 Low back pain, unspecified; Z79.82 Long term (current) use of aspirin; Z79.899 Other long term (current) drug therapy; Z98.890 Other specified postprocedural states; Z90.710 Acquired absence of both cervix and uterus; Z90.49 Acquired absence of other specified parts of digestive tract; Z95.0 Presence of cardiac pacemaker; X58.XXXD Exposure to other specified factors, subsequent encounter

== ENCOUNTER 2021-05-04 17:57 | Emergency (ER) | payer MEDICARE ==
[~2021-05-04] VITALS: Ht 162.5 cm; Wt 47.2 kg
[2021-05-04 18:37] LABS: HEMATOCRIT 42.3 % (37.0-47.0); MEAN CELL VOLUME 81.8 fl (81.0-99.0); MEAN CORPUSCULAR HGB 28.2 pg (27.0-31.0); MEAN CORPUSCULAR HGB CONC 34.5 g/dl (33.0-37.0); MEAN PLATELET VOLUME 9.9 fl (9.6-12.3); PLATELET COUNT AUTOMATED 581 10*3/uL (130-400); RED BLOOD COUNT 5.17 10*6/uL (4.10-5.10); RED CELL DISTRI WIDTH 12.3 % (0-14.5); WHITE BLOOD COUNT 27.5 10*3/uL (4.8-10.8)
[2021-05-04 18:46] LABS: CREATININE 2.9 mg/dL (0.55-1.02); POTASSIUM 2.9 mmol/L (3.5-5.1)
[2021-05-04 18:51] LABS: MANUAL DIFF REFLEX YES
[2021-05-04 19:07] LABS: ATYPICAL LYMPHS 1 % (0-0); PLATELET SUFFICIENCY HIGH (NORMAL); TOTAL CELLS COUNTED 100 #CELLS
[2021-05-04 19:08] LABS: BURR CELLS FEW; INTERNATIONAL NORM RATIO 1.2 (2.0-3.5)
[2021-05-04 21:40] LABS: BILIRUBIN Negative (Negative); BLOOD 2+ (Negative); CLARITY Clear (Clear); COLOR Yellow (Yellow); GLUCOSE Negative (Negative); KETONE Negative (Negative); LEUKO ESTERASE Negative (Negative); NITRITE Negative (Negative); PH 6.5 (4.5-8.0)
[2021-05-04 21:50] LABS: BACTERIA 2+
[2021-05-05 00:49] LABS: MEAN CELL VOLUME 80.5 fl (81.0-99.0); MEAN CORPUSCULAR HGB 28.4 pg (27.0-31.0); MEAN CORPUSCULAR HGB CONC 35.3 g/dl (33.0-37.0); MEAN PLATELET VOLUME 9.7 fl (9.6-12.3); PLATELET COUNT AUTOMATED 481 10*3/uL (130-400); RED BLOOD COUNT 4.72 10*6/uL (4.10-5.10); RED CELL DISTRI WIDTH 12.3 % (0-14.5); WHITE BLOOD COUNT 27.9 10*3/uL (4.8-10.8)
[2021-05-05 00:50] LABS: MANUAL DIFF REFLEX YES
[2021-05-05 01:08] LABS: CREATININE 1.95 mg/dL (0.55-1.02); POTASSIUM 2.8 mmol/L (3.5-5.1); TOTAL PROTEIN 7.2 gm/dL (6.4-8.2)
[2021-05-05 01:21] LABS: PLATELET SUFFICIENCY HIGH (NORMAL); TOTAL CELLS COUNTED 100 #CELLS
[2021-05-05 07:35] VITALS: BP 168/78
== END 2021-05-05 08:03 | disposition short-term general hospital (02) ==
LOC: ED 17:57
PROVIDERS: Emergency Medicine
DX: N17.9 Acute kidney failure, unspecified (principal); G40.909 Epilepsy, unspecified, not intractable, without status epilepticus; D72.829 Elevated white blood cell count, unspecified; R74.01 Elevation of levels of liver transaminase levels; E11.9 Type 2 diabetes mellitus without complications; J44.9 Chronic obstructive pulmonary disease, unspecified; I50.9 Heart failure, unspecified; I11.0 Hypertensive heart disease with heart failure; K21.9 Gastro-esophageal reflux disease without esophagitis; Z88.1 Allergy status to other antibiotic agents; Z91.040 Latex allergy status; Z79.899 Other long term (current) drug therapy; Z87.891 Personal history of nicotine dependence; Z90.49 Acquired absence of other specified parts of digestive tract; Z98.890 Other specified postprocedural states

== ENCOUNTER 2021-07-19 09:23 | Emergency (ER) | payer MEDICARE ==
[~2021-07-19] VITALS: Wt 57.6 kg
[2021-07-19 09:29] VITALS: BP 116/86
[2021-07-19 10:12] LABS: BASO # 0.1 10*3/uL (0.0-0.1); BASO % 0.7 % (0.0-1.0); EOS # 0.3 10*3/uL (0.0-0.4); LYMPH # 1.9 10*3/uL (1.3-4.4); LYMPH % 26.7 % (27.0-41.0); MEAN CELL VOLUME 81.6 fl (81.0-99.0); MEAN CORPUSCULAR HGB 25.8 pg (27.0-31.0); MEAN CORPUSCULAR HGB CONC 31.6 g/dl (33.0-37.0); MEAN PLATELET VOLUME 9.6 fl (9.6-12.3); MONO # 0.8 10*3/uL (0.1-1.0); MONO % 10.7 % (3.0-9.0); NEUT # 4.2 10*3/uL (2.3-7.9); NEUT % 57.6 % (47.0-73.0); PLATELET COUNT AUTOMATED 277 10*3/uL (130-400); RED CELL DISTRI WIDTH 13.2 % (0-14.5); WHITE BLOOD COUNT 7.2 10*3/uL (4.8-10.8)
[2021-07-19 10:26] LABS: ACT PARTIAL THROMBO TIME 22.9 SECONDS (20.0-32.1)
[2021-07-19 10:38] LABS: ALKALINE PHOSPHATASE 127 U/L (45-117); BUN 19 mg/dl (7-24); CHLORIDE 101 mmol/L (98-107); CREATININE 0.79 mg/dL (0.55-1.02); LIPASE 89 U/L (73-393); POTASSIUM 4.5 mmol/L (3.5-5.1); SGOT/AST 9 IU/L (3-35); SGPT/ALT 17 U/L (12-78); SODIUM 132 mmol/L (136-145); TOTAL PROTEIN 7.3 gm/dL (6.4-8.2)
== END 2021-07-19 13:26 ==
LOC: ED 09:23
PROVIDERS: Emergency Medicine
DX: R13.10 Dysphagia, unspecified (principal); Z91.048 Other nonmedicinal substance allergy status; Z88.1 Allergy status to other antibiotic agents; Z91.040 Latex allergy status; Z79.899 Other long term (current) drug therapy; Z79.2 Long term (current) use of antibiotics; Z79.82 Long term (current) use of aspirin; Z90.710 Acquired absence of both cervix and uterus; Z90.49 Acquired absence of other specified parts of digestive tract; Z95.0 Presence of cardiac pacemaker; Z98.890 Other specified postprocedural states; Z87.891 Personal history of nicotine dependence

== ENCOUNTER 2021-08-18 19:42 | Emergency (ER) | payer MEDICARE ==
[~2021-08-18] VITALS: Ht 154.9 cm; Wt 57.2 kg
[2021-08-18 20:51] LABS: CREATININE 2.31 mg/dL (0.55-1.02); POTASSIUM 3.3 mmol/L (3.5-5.1); TOTAL PROTEIN 7.2 gm/dL (6.4-8.2)
[2021-08-18 21:09] LABS: HEMATOCRIT 33.8 % (37.0-47.0); MEAN CORPUSCULAR HGB CONC 30.5 g/dl (33.0-37.0); MEAN PLATELET VOLUME 9.7 fl (9.6-12.3); PLATELET COUNT AUTOMATED 273 10*3/uL (130-400); RED BLOOD COUNT 4.12 10*6/uL (4.10-5.10); RED CELL DISTRI WIDTH 14.4 % (0-14.5); WHITE BLOOD COUNT 17.5 10*3/uL (4.8-10.8)
[2021-08-18 21:16] LABS: MANUAL DIFF REFLEX YES
[2021-08-18 21:31] LABS: PLATELET SUFFICIENCY NORMAL (NORMAL); TOTAL CELLS COUNTED 100 #CELLS
[2021-08-18 21:34] VITALS: BP 120/58
[2021-08-18 23:24] LABS: BILIRUBIN Negative (Negative); BLOOD Negative (Negative); CLARITY Cloudy (Clear); COLOR Yellow (Yellow); GLUCOSE Negative (Negative); KETONE Trace (Negative); LEUKO ESTERASE 1+ (Negative); NITRITE Negative (Negative); PH 5.5 (4.5-8.0); UROBILINOGEN 0.2 E.U./dl (0.0-1.0)
[2021-08-18 23:38] LABS: EPITHELIAL CELLS 31-40
[2021-08-18 23:39] LABS: BACTERIA 1+; WBC 21-30 wbc/hpf (0-5); YEAST TRACE
== END 2021-08-19 01:45 | disposition home or self-care (01) ==
LOC: ED 19:42
PROVIDERS: Internal Medicine
DX: S16.1XXA Strain of muscle, fascia and tendon at neck level, initial encounter (principal); S00.83XA Contusion of other part of head, initial encounter; N17.9 Acute kidney failure, unspecified; D72.829 Elevated white blood cell count, unspecified; D64.9 Anemia, unspecified; E87.8 Other disorders of electrolyte and fluid balance, not elsewhere classified; Z88.1 Allergy status to other antibiotic agents; Z91.040 Latex allergy status; Z79.899 Other long term (current) drug therapy; Z79.82 Long term (current) use of aspirin; Z98.890 Other specified postprocedural states; Z90.49 Acquired absence of other specified parts of digestive tract; Z90.710 Acquired absence of both cervix and uterus; Z87.891 Personal history of nicotine dependence; W18.39XA Other fall on same level, initial encounter; Y93.89 Activity, other specified; Y92.89 Other specified places as the place of occurrence of the external cause; Y99.8 Other external cause status

== ENCOUNTER → 2021-09-10 | Outpatient (CLI) | payer MEDICARE | END | disposition home or self-care (01) | LOC: RESCLI 05:17 | PROVIDERS: ATTEND Internal Medicine | DX: G40.909 Epilepsy, unspecified, not intractable, without status epilepticus (principal); D64.9 Anemia, unspecified; R56.9 Unspecified convulsions; G40.409 Other generalized epilepsy and epileptic syndromes, not intractable, without status epilepticus; E11.9 Type 2 diabetes mellitus without complications; I10 Essential (primary) hypertension; J44.9 Chronic obstructive pulmonary disease, unspecified; M85.88 Other specified disorders of bone density and structure, other site; I50.20 Unspecified systolic (congestive) heart failure; Z79.899 Other long term (current) drug therapy; Z79.82 Long term (current) use of aspirin; Z79.01 Long term (current) use of anticoagulants; Z88.8 Allergy status to other drugs, medicaments and biological substances; K21.9 Gastro-esophageal reflux disease without esophagitis ==

== ENCOUNTER 2021-10-18 16:44 | Emergency (ER) | payer MEDICARE ==
[~2021-10-18] VITALS: Wt 56.7 kg
[2021-10-18] MEDS ORDERED: Ondansetron4 MG PO (22:26)
[2021-10-18] MEDS ORDERED: PROTONIX40 MG PO (22:26)
[2021-10-18 22:46] VITALS: BP 145/68
== END 2021-10-18 23:43 | disposition home or self-care (01) ==
LOC: ED 16:44
DX: K29.70 Gastritis, unspecified, without bleeding (principal); Z88.1 Allergy status to other antibiotic agents; Z91.040 Latex allergy status; Z79.899 Other long term (current) drug therapy; Z79.82 Long term (current) use of aspirin; Z90.49 Acquired absence of other specified parts of digestive tract; Z90.710 Acquired absence of both cervix and uterus; Z98.890 Other specified postprocedural states; Z87.891 Personal history of nicotine dependence

== ENCOUNTER → 2021-12-10 | Outpatient (CLI) | payer MEDICARE ==
[~2021-12-10] MED LIST changes: -EFFEXOR XR150 M1 PO; +EFFEXOR XR75 M1 PO; +Ondansetron4 MG PO; +PROTONIX40 MG PO; +URSODIOL250 MG PO; +VITAMIN D350 MC2 GT
== END | disposition home or self-care (01) ==
LOC: RESCLI 07:19
PROVIDERS: ATTEND Internal Medicine
DX: E11.8 Type 2 diabetes mellitus with unspecified complications (principal); F32.9 Major depressive disorder, single episode, unspecified; J44.9 Chronic obstructive pulmonary disease, unspecified; K21.9 Gastro-esophageal reflux disease without esophagitis; E55.9 Vitamin D deficiency, unspecified; I10 Essential (primary) hypertension; E78.2 Mixed hyperlipidemia; M10.9 Gout, unspecified; D50.9 Iron deficiency anemia, unspecified; M85.88 Other specified disorders of bone density and structure, other site; Z95.0 Presence of cardiac pacemaker; Z90.49 Acquired absence of other specified parts of digestive tract; Z90.710 Acquired absence of both cervix and uterus; Z88.8 Allergy status to other drugs, medicaments and biological substances; Z82.49 Family history of ischemic heart disease and other diseases of the circulatory system; Z79.01 Long term (current) use of anticoagulants; Z79.82 Long term (current) use of aspirin; Z79.84 Long term (current) use of oral hypoglycemic drugs; Z79.899 Other long term (current) drug therapy

== ENCOUNTER 2021-12-17 10:16 | Emergency (ER) | payer MEDICARE ==
[~2021-12-17] VITALS: Ht 154.9 cm; Wt 53.5 kg
[2021-12-17 11:03] VITALS: BP 125/74
[2021-12-17] MEDS ORDERED: HYDROCODONE-AC1 EAC1 PO (14:55)
== END 2021-12-17 15:01 | disposition home or self-care (01) ==
LOC: ED 10:16
DX: S40.011A Contusion of right shoulder, initial encounter (principal); S00.33XA Contusion of nose, initial encounter; S00.83XA Contusion of other part of head, initial encounter; Z88.1 Allergy status to other antibiotic agents; Z91.040 Latex allergy status; Z79.899 Other long term (current) drug therapy; Z79.2 Long term (current) use of antibiotics; Z79.82 Long term (current) use of aspirin; Z90.710 Acquired absence of both cervix and uterus; Z90.49 Acquired absence of other specified parts of digestive tract; Z95.0 Presence of cardiac pacemaker; Z87.891 Personal history of nicotine dependence; W06.XXXA Fall from bed, initial encounter; Y93.89 Activity, other specified; Y92.89 Other specified places as the place of occurrence of the external cause; Y99.8 Other external cause status

== ENCOUNTER → 2022-01-10 | Outpatient (CLI) | payer MEDICARE ==
[2022-01-10 13:08] LABS: BILIRUBIN Negative (Negative); BLOOD Negative (Negative); CLARITY Clear (Clear); COLOR Yellow (Yellow); GLUCOSE Negative (Negative); KETONE Negative (Negative); LEUKO ESTERASE Negative (Negative); NITRITE Negative (Negative); PH 6.5 (4.5-8.0); SPECIFIC GRAVITY <= 1.005 (1.001-1.030); UROBILINOGEN 0.2 E.U./dl (0.0-1.0)
[2022-01-10 13:44] LABS: RBC 0-2 rbc/hpf (0-2); WBC 0-2 wbc/hpf (0-5)
== END | disposition home or self-care (01) ==
LOC: LAB 12:39
PROVIDERS: ATTEND Internal Medicine Nephrology
DX: E87.1 Hypo-osmolality and hyponatremia (principal)

== ENCOUNTER 2022-02-14 18:57 | Emergency (ER) | payer MEDICARE ==
[~2022-02-14] VITALS: Ht 154.9 cm; Wt 52.2 kg
[2022-02-14 19:00] VITALS: BP 180/70
[2022-02-14] MEDS ORDERED: NAPROSYN500 MG PO (20:39)
[2022-02-14] MEDS ORDERED: CYCLOBENZAPRINE10 MG PO (20:39)
== END 2022-02-14 20:43 | disposition home or self-care (01) ==
LOC: ED 18:57
DX: S16.1XXA Strain of muscle, fascia and tendon at neck level, initial encounter (principal); M54.9 Dorsalgia, unspecified; Z91.040 Latex allergy status; Z88.1 Allergy status to other antibiotic agents; Z90.710 Acquired absence of both cervix and uterus; Z90.49 Acquired absence of other specified parts of digestive tract; Z98.890 Other specified postprocedural states; Z87.891 Personal history of nicotine dependence; W01.0XXA Fall on same level from slipping, tripping and stumbling without subsequent striking against object, initial encounter; Y93.89 Activity, other specified; Y92.039 Unspecified place in apartment as the place of occurrence of the external cause; Y99.8 Other external cause status

== ENCOUNTER 2022-02-16 19:22 | Emergency (ER) | payer MEDICARE ==
[~2022-02-16] VITALS: Ht 154.9 cm; Wt 53.1 kg
[~2022-02-16 19:22] MED LIST changes: +CYCLOBENZAPRINE10 MG PO
[2022-02-16 19:44] VITALS: BP 106/57
== END 2022-02-16 22:11 | disposition home or self-care (01) ==
LOC: ED 19:22
DX: S29.012A Strain of muscle and tendon of back wall of thorax, initial encounter (principal); S16.1XXA Strain of muscle, fascia and tendon at neck level, initial encounter; S39.012A Strain of muscle, fascia and tendon of lower back, initial encounter; S09.90XA Unspecified injury of head, initial encounter; E11.9 Type 2 diabetes mellitus without complications; J44.9 Chronic obstructive pulmonary disease, unspecified; I10 Essential (primary) hypertension; K21.9 Gastro-esophageal reflux disease without esophagitis; W18.39XA Other fall on same level, initial encounter; Y93.89 Activity, other specified; Y92.89 Other specified places as the place of occurrence of the external cause; Y99.8 Other external cause status

== ENCOUNTER → 2022-03-11 | Outpatient (CLI) | payer MEDICARE | END | disposition home or self-care (01) | LOC: RESCLI 00:32 | PROVIDERS: ATTEND Internal Medicine | DX: K22.2 Esophageal obstruction (principal); F41.9 Anxiety disorder, unspecified; F32.9 Major depressive disorder, single episode, unspecified; E11.8 Type 2 diabetes mellitus with unspecified complications; I10 Essential (primary) hypertension; D50.9 Iron deficiency anemia, unspecified; E78.2 Mixed hyperlipidemia; E55.9 Vitamin D deficiency, unspecified; J44.1 Chronic obstructive pulmonary disease with (acute) exacerbation; M10.9 Gout, unspecified; G40.909 Epilepsy, unspecified, not intractable, without status epilepticus; R53.1 Weakness; Z88.5 Allergy status to narcotic agent; Z88.1 Allergy status to other antibiotic agents; Z88.2 Allergy status to sulfonamides; Z88.8 Allergy status to other drugs, medicaments and biological substances; Z87.891 Personal history of nicotine dependence; Z82.49 Family history of ischemic heart disease and other diseases of the circulatory system; Z79.84 Long term (current) use of oral hypoglycemic drugs; Z98.890 Other specified postprocedural states; Z79.899 Other long term (current) drug therapy ==

== ENCOUNTER 2022-03-25 15:21 | Emergency (ER) | payer MEDICARE ==
[~2022-03-25] VITALS: Wt 52.2 kg
[2022-03-25 15:21] VITALS: BP 107/57
[2022-03-29] MEDS ORDERED: 'KLONOPIN0.5 MG PO (09:14)
[2022-03-29] MEDS ORDERED: PROTONIX40 M1 PO (09:15)
[2022-03-29] MEDS ORDERED: CALCIUM 600 WI1 EAC2 PO (09:16)
[2022-03-29] MEDS ORDERED: CARAFATE1 GM/10 ML PO (09:18)
[2022-03-29] MEDS ORDERED: URSODIOL250 MG PO (09:20)
[2022-03-29] MEDS ORDERED: BENZTROPINE ME0.5 MG PO (09:21)
[2022-03-29] MEDS ORDERED: ZYRTEC ALLERGY10 MG PO (09:22)
== END 2022-03-25 16:59 | disposition home or self-care (01) ==
LOC: ED 15:21
DX: S09.90XA Unspecified injury of head, initial encounter (principal); Z88.1 Allergy status to other antibiotic agents; Z91.040 Latex allergy status; Z90.710 Acquired absence of both cervix and uterus; Z90.49 Acquired absence of other specified parts of digestive tract; Z98.890 Other specified postprocedural states; Z87.891 Personal history of nicotine dependence; W18.30XA Fall on same level, unspecified, initial encounter; Y93.89 Activity, other specified; Y92.89 Other specified places as the place of occurrence of the external cause; Y99.8 Other external cause status

== ENCOUNTER → 2022-06-24 | Outpatient (CLI) | payer MEDICARE ==
[~2022-06-24] MED LIST changes: +'KLONOPIN0.5 MG PO; +BENZTROPINE ME0.5 MG PO; +CALCIUM 600 WI1 EAC2 PO; +CARAFATE1 GM/10 ML PO; +KLONOPIN0.5 MG PO; +PEPCID40 MG PO; +PROTONIX40 M1 PO; +VENLAFAXINE75 M1 PO; +ZYRTEC ALLERGY10 MG PO
== END | disposition home or self-care (01) ==
LOC: RESCLI 01:51
PROVIDERS: ATTEND Internal Medicine
DX: G40.909 Epilepsy, unspecified, not intractable, without status epilepticus (principal); I10 Essential (primary) hypertension; E55.9 Vitamin D deficiency, unspecified; E78.5 Hyperlipidemia, unspecified; K22.2 Esophageal obstruction; F41.9 Anxiety disorder, unspecified; F32.9 Major depressive disorder, single episode, unspecified; E78.2 Mixed hyperlipidemia; D50.9 Iron deficiency anemia, unspecified; J44.1 Chronic obstructive pulmonary disease with (acute) exacerbation; M10.9 Gout, unspecified; E11.8 Type 2 diabetes mellitus with unspecified complications; R53.1 Weakness; Z98.890 Other specified postprocedural states; Z82.49 Family history of ischemic heart disease and other diseases of the circulatory system; Z88.1 Allergy status to other antibiotic agents; Z88.8 Allergy status to other drugs, medicaments and biological substances; Z79.899 Other long term (current) drug therapy

== ENCOUNTER → 2022-08-05 | Outpatient (CLI) | payer MEDICARE | END | disposition home or self-care (01) | LOC: RESCLI 01:18 | PROVIDERS: ATTEND Internal Medicine | DX: R11.0 Nausea (principal); I10 Essential (primary) hypertension; E11.9 Type 2 diabetes mellitus without complications; E55.9 Vitamin D deficiency, unspecified; Z95.0 Presence of cardiac pacemaker; J30.2 Other seasonal allergic rhinitis; F32.9 Major depressive disorder, single episode, unspecified; E78.5 Hyperlipidemia, unspecified; R56.9 Unspecified convulsions; R53.1 Weakness; K22.2 Esophageal obstruction; F41.9 Anxiety disorder, unspecified; E61.1 Iron deficiency; J44.1 Chronic obstructive pulmonary disease with (acute) exacerbation; M10.9 Gout, unspecified; Z98.890 Other specified postprocedural states; Z82.49 Family history of ischemic heart disease and other diseases of the circulatory system; Z79.899 Other long term (current) drug therapy ==

== ENCOUNTER 2022-08-09 08:33 | Inpatient (IN) | payer MEDICARE ==
[~2022-08-09] VITALS: Ht 152.4 cm; Wt 47.2 kg
[2022-08-09 08:45] VITALS: BP 130/62
[2022-08-09 09:30] LABS: BASO % 0.3 % (0.0-1.0); EOS # 0.2 10*3/uL (0.0-0.4); EOS % 1.8 % (1.0-4.0); HEMATOCRIT 32.2 % (37.0-47.0); LYMPH # 1.4 10*3/uL (1.3-4.4); LYMPH % 15.5 % (27.0-41.0); MEAN CELL VOLUME 85.6 fl (81.0-99.0); MEAN CORPUSCULAR HGB 28.2 pg (27.0-31.0); MEAN CORPUSCULAR HGB CONC 32.9 g/dl (33.0-37.0); MONO # 0.8 10*3/uL (0.1-1.0); NEUT # 6.6 10*3/uL (2.3-7.9); PLATELET COUNT AUTOMATED 283 10*3/uL (130-400); RED BLOOD COUNT 3.76 10*6/uL (4.10-5.10); RED CELL DISTRI WIDTH 13.4 % (0-14.5)
[2022-08-09 09:45] LABS: ACT PARTIAL THROMBO TIME 23.9 SECONDS (20.0-32.1)
[2022-08-09 10:02] LABS: POTASSIUM 3.2 mmol/L (3.4-5.1); TOTAL PROTEIN 6.3 gm/dL (6.0-8.0)
[2022-08-09 10:52] LABS: BILIRUBIN Negative (Negative); BLOOD Negative (Negative); CLARITY Clear (Clear); COLOR Yellow (Yellow); GLUCOSE Negative (Negative); KETONE Negative (Negative); LEUKO ESTERASE Trace (Negative); NITRITE Negative (Negative); PH 5.5 (4.5-8.0); UROBILINOGEN 0.2 E.U./dl (0.0-1.0)
[2022-08-09 11:02] LABS: BACTERIA TRACE; MUCOUS 1+
[2022-08-09] MEDS ORDERED: LAMICTAL200 MG PO (11:09)
[2022-08-09] MEDS ORDERED: FISH OIL + D31 EACH PO (11:10)
[2022-08-09] MEDS ORDERED: COREG25 MG PO (11:13)
[2022-08-09] MEDS ORDERED: URSODIOL300 M1 PO (11:13)
[2022-08-09] MEDS ORDERED: METFORMIN HYDR500 MG PO (11:14)
[2022-08-09] MEDS ORDERED: LIPITOR80 MG PO (11:15)
[2022-08-09] MEDS ORDERED: LISINOPRIL5 MG PO (11:15)
[2022-08-09] MEDS ORDERED: IRON325 M1 PO (11:15)
[2022-08-09] MEDS ORDERED: REXULTI2 MG PO (11:16)
[2022-08-09 11:59] VITALS: BP 130/72
[2022-08-09 16:08] VITALS: BP 116/63
[2022-08-09 18:59] VITALS: BP 119/63
[2022-08-09 19:45] VITALS: BP 150/58
[2022-08-10] VITALS: BP 144/69
[2022-08-10 06:14] LABS: ALKALINE PHOSPHATASE 100 U/L (46-116); BASO % 0.3 % (0.0-1.0); CHLORIDE 103 mmol/L (98-107); EOS # 0.3 10*3/uL (0.0-0.4); EOS % 2.7 % (1.0-4.0); HEMATOCRIT 36.3 % (37.0-47.0); LYMPH # 1.8 10*3/uL (1.3-4.4); LYMPH % 15.3 % (27.0-41.0); MEAN CELL VOLUME 85.8 fl (81.0-99.0); MEAN CORPUSCULAR HGB 27.7 pg (27.0-31.0); MEAN CORPUSCULAR HGB CONC 32.2 g/dl (33.0-37.0); MEAN PLATELET VOLUME 9.9 fl (9.6-12.3); MONO # 1.2 10*3/uL (0.1-1.0); MONO % 10.6 % (3.0-9.0); NEUT # 8.2 10*3/uL (2.3-7.9); NEUT % 70.8 % (47.0-73.0); PLATELET COUNT AUTOMATED 325 10*3/uL (130-400); RED BLOOD COUNT 4.23 10*6/uL (4.10-5.10); RED CELL DISTRI WIDTH 13.3 % (0-14.5); SGPT/ALT 13 U/L (10-49); TOTAL PROTEIN 6.6 gm/dL (6.0-8.0); WHITE BLOOD COUNT 11.7 10*3/uL (4.8-10.8)
[2022-08-10 06:30] LABS: BUN 8 mg/dl (9-23); POTASSIUM 4.5 mmol/L (3.4-5.1)
[2022-08-10 07:46] LABS: VITAMIN D, 25-HYDROXY 37.6 ng/mL (30-100)
[2022-08-10 08:00] VITALS: BP 147/59
[2022-08-10 12:00] VITALS: BP 153/82
[2022-08-10 16:00] VITALS: BP 132/65
[2022-08-10 20:00] VITALS: BP 173/81
[2022-08-11] VITALS: BP 154/84
[2022-08-11 05:25] LABS: BUN 5 mg/dl (9-23); CHLORIDE 100 mmol/L (98-107)
[2022-08-11 05:29] LABS: POTASSIUM 3.3 mmol/L (3.4-5.1)
[2022-08-11 06:10] LABS: BASO # 0.1 10*3/uL (0.0-0.1); BASO % 0.6 % (0.0-1.0); EOS # 0.4 10*3/uL (0.0-0.4); EOS % 4.9 % (1.0-4.0); HEMATOCRIT 31.9 % (37.0-47.0); LYMPH # 2.1 10*3/uL (1.3-4.4); LYMPH % 23.3 % (27.0-41.0); MEAN CELL VOLUME 83.7 fl (81.0-99.0); MEAN CORPUSCULAR HGB 28.1 pg (27.0-31.0); MEAN CORPUSCULAR HGB CONC 33.5 g/dl (33.0-37.0); MONO # 1.1 10*3/uL (0.1-1.0); MONO % 12.1 % (3.0-9.0); NEUT # 5.2 10*3/uL (2.3-7.9); NEUT % 58.6 % (47.0-73.0); PLATELET COUNT AUTOMATED 319 10*3/uL (130-400); RED BLOOD COUNT 3.81 10*6/uL (4.10-5.10); RED CELL DISTRI WIDTH 13.3 % (0-14.5); WHITE BLOOD COUNT 8.8 10*3/uL (4.8-10.8)
[2022-08-11 08:00] VITALS: BP 134/78
[2022-08-11] MEDS ORDERED: NATURE'S BLEND F1 MG PO (11:55)
[2022-08-11 12:00] VITALS: BP 152/63
== END 2022-08-11 13:11 | disposition home or self-care (01) | DRG 689 ==
LOC: ED 08:33 → EDHOLD 11:25 → 4E 17:21
PROVIDERS: Emergency Medicine; Internal Medicine; ADMIT Internal Medicine; ATTEND Internal Medicine
PROC: 02HV33Z Insertion of Infusion Device into Superior Vena Cava, Percutaneous Approach (ICD-10-PCS; principal; 2022-08-09)
PROC: B548ZZA Ultrasonography of Superior Vena Cava, Guidance (ICD-10-PCS; 2022-08-09)
DX: N39.0 Urinary tract infection, site not specified (principal); N17.0 Acute kidney failure with tubular necrosis; E87.1 Hypo-osmolality and hyponatremia; E44.0 Moderate protein-calorie malnutrition; F41.9 Anxiety disorder, unspecified; I10 Essential (primary) hypertension; M54.2 Cervicalgia; E87.6 Hypokalemia; D64.9 Anemia, unspecified; E53.8 Deficiency of other specified B group vitamins; Z95.0 Presence of cardiac pacemaker; Z87.891 Personal history of nicotine dependence; Z88.1 Allergy status to other antibiotic agents; Z91.040 Latex allergy status; Z90.710 Acquired absence of both cervix and uterus; Z90.49 Acquired absence of other specified parts of digestive tract; Z88.8 Allergy status to other drugs, medicaments and biological substances; Z82.3 Family history of stroke; Z82.49 Family history of ischemic heart disease and other diseases of the circulatory system; Z79.1 Long term (current) use of non-steroidal anti-inflammatories (NSAID); Z79.899 Other long term (current) drug therapy; Z79.84 Long term (current) use of oral hypoglycemic drugs; Z68.20 Body mass index [BMI] 20.0-20.9, adult

== ENCOUNTER 2022-09-16 11:44 | Emergency (ER) | payer MEDICARE ==
[~2022-09-16] VITALS: Wt 47.6 kg
[~2022-09-16 11:44] MED LIST changes: +FISH OIL + D31 EACH PO; +IRON325 M1 PO; +METFORMIN HYDR500 MG PO; +NATURE'S BLEND F1 MG PO
[2022-09-16 11:52] VITALS: BP 167/71
[2022-09-16] MEDS ORDERED: NAPROSYN500 MG PO (16:30)
== END 2022-09-16 17:02 | disposition home or self-care (01) ==
LOC: ED 11:44
DX: S49.92XA Unspecified injury of left shoulder and upper arm, initial encounter (principal); Z79.899 Other long term (current) drug therapy; Z90.711 Acquired absence of uterus with remaining cervical stump; Z90.49 Acquired absence of other specified parts of digestive tract; Z95.0 Presence of cardiac pacemaker; Z98.890 Other specified postprocedural states; Z87.891 Personal history of nicotine dependence; Z88.1 Allergy status to other antibiotic agents; Z91.048 Other nonmedicinal substance allergy status; Z91.040 Latex allergy status; W22.09XA Striking against other stationary object, initial encounter; Y93.89 Activity, other specified; Y92.89 Other specified places as the place of occurrence of the external cause; Y99.8 Other external cause status

== ENCOUNTER → 2022-11-19 | Outpatient (CLI) | payer MEDICARE | END | disposition home or self-care (01) | LOC: RESCLI 01:20 | PROVIDERS: ATTEND Internal Medicine | DX: R56.9 Unspecified convulsions (principal); R53.1 Weakness; F41.9 Anxiety disorder, unspecified; F32.9 Major depressive disorder, single episode, unspecified; E11.8 Type 2 diabetes mellitus with unspecified complications; I10 Essential (primary) hypertension; E78.5 Hyperlipidemia, unspecified; E61.1 Iron deficiency; J44.9 Chronic obstructive pulmonary disease, unspecified; E55.9 Vitamin D deficiency, unspecified; M10.9 Gout, unspecified; Z82.49 Family history of ischemic heart disease and other diseases of the circulatory system; Z98.890 Other specified postprocedural states; Z79.899 Other long term (current) drug therapy ==

== ENCOUNTER 2022-12-01 15:44 | Emergency (ER) | payer MEDICARE ==
[~2022-12-01] VITALS: Ht 154.9 cm; Wt 46.3 kg
[~2022-12-01 15:44] MED LIST changes: +DONEPEZIL HYDROC5 M1 PO; +TYLENOL EXTRA500 MG PO
[2022-12-01 15:56] VITALS: BP 157/72
[2022-12-01] MEDS ORDERED: HYDROCODONE-AC1 EAC1 PO (20:05)
== END 2022-12-01 20:12 | disposition home or self-care (01) ==
LOC: ED 15:44
DX: S22.028A Other fracture of second thoracic vertebra, initial encounter for closed fracture (principal); I10 Essential (primary) hypertension; K21.9 Gastro-esophageal reflux disease without esophagitis; E11.9 Type 2 diabetes mellitus without complications; F31.9 Bipolar disorder, unspecified; J44.9 Chronic obstructive pulmonary disease, unspecified; Z88.8 Allergy status to other drugs, medicaments and biological substances; Z91.040 Latex allergy status; Z88.1 Allergy status to other antibiotic agents; Z90.710 Acquired absence of both cervix and uterus; Z90.49 Acquired absence of other specified parts of digestive tract; Z98.890 Other specified postprocedural states; Z95.5 Presence of coronary angioplasty implant and graft; Z87.891 Personal history of nicotine dependence; W18.09XA Striking against other object with subsequent fall, initial encounter; Y93.89 Activity, other specified; Y92.89 Other specified places as the place of occurrence of the external cause; Y99.8 Other external cause status

== ENCOUNTER 2023-01-03 18:33 | Inpatient (IN) | payer MEDICARE ==
[~2023-01-03] VITALS: Ht 154.9 cm; Wt 50.8 kg
[~2023-01-03 18:33] MED LIST changes: +CARVEDILOL6.25 MG PO; +Carafate1 GM/10 ML PO
[2023-01-03 18:52] VITALS: BP 202/81
[2023-01-03 19:24] LABS: HEMATOCRIT 36.3 % (37.0-47.0); MEAN CELL VOLUME 86.6 fl (81.0-99.0); MEAN PLATELET VOLUME 9.7 fl (9.6-12.3); PLATELET COUNT AUTOMATED 366 10*3/uL (130-400); RED BLOOD COUNT 4.19 10*6/uL (4.10-5.10); RED CELL DISTRI WIDTH 14.5 % (0-14.5); WHITE BLOOD COUNT 33.7 10*3/uL (4.8-10.8)
[2023-01-03 19:26] LABS: MANUAL DIFF REFLEX YES
[2023-01-03 19:37] LABS: ACT PARTIAL THROMBO TIME 26.8 SECONDS (20.0-32.1)
[2023-01-03 19:47] LABS: ALKALINE PHOSPHATASE 126 U/L (46-116); BUN 17 mg/dl (9-23); CHLORIDE 98 mmol/L (98-107); CPK 80 U/L (34-171); LIPASE 47 U/L (12-53); POTASSIUM 4.9 mmol/L (3.4-5.1); SGPT/ALT 10 U/L (5-49); TOTAL PROTEIN 7.4 gm/dL (6.0-8.0)
[2023-01-03 19:51] LABS: BURR CELLS FEW; PLATELET SUFFICIENCY NORMAL (NORMAL); TOTAL CELLS COUNTED 100 #CELLS
[2023-01-03 19:52] LABS: ACANTHOCYTES FEW; POLYCHROMASIA SLIGHT
[2023-01-03 19:54] LABS: BASOPHILS 1 % (0-1)
[2023-01-03 21:42] VITALS: BP 112/76
[2023-01-03 22:21] LABS: BILIRUBIN Negative (Negative); BLOOD Negative (Negative); CLARITY Clear (Clear); COLOR Yellow (Yellow); GLUCOSE Trace (Negative); KETONE Negative (Negative); LEUKO ESTERASE Negative (Negative); NITRITE Negative (Negative); PH 5.5 (4.5-8.0); SPECIFIC GRAVITY 1.015 (1.001-1.030); UROBILINOGEN 0.2 E.U./dl (0.0-1.0)
[2023-01-03 22:28] LABS: URINE AMPHETAMINES Negative (1000ng/ml); URINE BARBITURATES Negative (200ng/ml); URINE BENZODIAZEPINES Positive (200ng/ml); URINE CANNABINOIDS (THC) Negative (50ng/ml); URINE COCAINE Negative (300ng/ml); URINE METHADONE Negative (300ng/ml); URINE OPIATES Positive (300ng/ml); URINE PHENCYCLIDINE Negative (25ng/ml)
[2023-01-03 22:31] LABS: EPITHELIAL CELLS 16-20
[2023-01-03 22:32] LABS: RBC 0-2 rbc/hpf (0-2); WBC 0-2 wbc/hpf (0-5)
[2023-01-03 23:40] VITALS: BP 126/74
[2023-01-04] VITALS: BP 176/86
[2023-01-04 08:00] VITALS: BP 157/74
[2023-01-04 11:08] LABS: BASO # 0.1 10*3/uL (0.0-0.1); BASO % 0.4 % (0.0-1.0); EOS # 0.2 10*3/uL (0.0-0.4); EOS % 1.3 % (1.0-4.0); HEMATOCRIT 28.6 % (37.0-47.0); LYMPH # 2.4 10*3/uL (1.3-4.4); LYMPH % 18.9 % (27.0-41.0); MEAN CELL VOLUME 84.9 fl (81.0-99.0); MEAN CORPUSCULAR HGB 26.4 pg (27.0-31.0); MEAN CORPUSCULAR HGB CONC 31.1 g/dl (33.0-37.0); MEAN PLATELET VOLUME 9.5 fl (9.6-12.3); MONO % 7.8 % (3.0-9.0); NEUT # 8.9 10*3/uL (2.3-7.9); NEUT % 71.3 % (47.0-73.0); PLATELET COUNT AUTOMATED 294 10*3/uL (130-400); RED BLOOD COUNT 3.37 10*6/uL (4.10-5.10); RED CELL DISTRI WIDTH 14.6 % (0-14.5); WHITE BLOOD COUNT 12.5 10*3/uL (4.8-10.8)
[2023-01-04 11:31] LABS: ALKALINE PHOSPHATASE 93 U/L (46-116); BUN 16 mg/dl (9-23); CHLORIDE 101 mmol/L (98-107); POTASSIUM 4.2 mmol/L (3.4-5.1); SGPT/ALT 8 U/L (5-49); TOTAL PROTEIN 5.9 gm/dL (6.0-8.0)
[2023-01-04 12:00] VITALS: BP 183/88
[2023-01-04 16:00] VITALS: BP 174/68
[2023-01-04 20:00] VITALS: BP 174/70
[2023-01-05] VITALS: BP 188/83
[2023-01-05 08:00] VITALS: BP 188/84
[2023-01-05 12:00] VITALS: BP 151/71
[2023-01-05 16:00] VITALS: BP 155/77
[2023-01-05 20:00] VITALS: BP 161/76
[2023-01-06] VITALS: BP 167/84
[2023-01-06 07:03] LABS: BASO % 0.5 % (0.0-1.0); EOS # 0.2 10*3/uL (0.0-0.4); EOS % 3.2 % (1.0-4.0); HEMATOCRIT 29.8 % (37.0-47.0); LYMPH # 2.2 10*3/uL (1.3-4.4); LYMPH % 29.1 % (27.0-41.0); MEAN CELL VOLUME 82.1 fl (81.0-99.0); MEAN CORPUSCULAR HGB 26.4 pg (27.0-31.0); MEAN CORPUSCULAR HGB CONC 32.2 g/dl (33.0-37.0); MEAN PLATELET VOLUME 10.4 fl (9.6-12.3); MONO # 0.8 10*3/uL (0.1-1.0); NEUT # 4.2 10*3/uL (2.3-7.9); NEUT % 55.8 % (47.0-73.0); PLATELET COUNT AUTOMATED 314 10*3/uL (130-400); RED BLOOD COUNT 3.63 10*6/uL (4.10-5.10); RED CELL DISTRI WIDTH 14.1 % (0-14.5); WHITE BLOOD COUNT 7.5 10*3/uL (4.8-10.8)
[2023-01-06 07:25] LABS: ALKALINE PHOSPHATASE 93 U/L (46-116); BUN 6 mg/dl (9-23); CHLORIDE 98 mmol/L (98-107); POTASSIUM 3.8 mmol/L (3.4-5.1); SGPT/ALT 7 U/L (5-49); TOTAL PROTEIN 6.3 gm/dL (6.0-8.0)
[2023-01-06 08:00] VITALS: BP 160/72
[2023-01-06 12:00] VITALS: BP 164/72
[2023-01-06 16:00] VITALS: BP 142/74
[2023-01-06 20:00] VITALS: BP 139/64
[2023-01-07] VITALS: BP 129/67
[2023-01-07 08:00] VITALS: BP 151/95
[2023-01-07 12:00] VITALS: BP 114/60
[2023-01-07 16:00] VITALS: BP 118/54
[2023-01-07 20:00] VITALS: BP 154/70
[2023-01-08] VITALS: BP 125/61
[2023-01-08 08:00] VITALS: BP 151/73
[2023-01-08 12:00] VITALS: BP 127/59
[2023-01-08 16:00] VITALS: BP 126/62
[2023-01-08 20:00] VITALS: BP 105/58
[2023-01-09] VITALS: BP 105/59
[2023-01-09 08:00] VITALS: BP 150/70
[2023-01-09 12:00] VITALS: BP 116/78
[2023-01-09 16:00] VITALS: BP 123/75
[2023-01-09 20:00] VITALS: BP 140/67
[2023-01-10] VITALS: BP 123/69
[2023-01-10 06:24] LABS: BASO # 0.1 10*3/uL (0.0-0.1); BASO % 0.8 % (0.0-1.0); EOS # 0.4 10*3/uL (0.0-0.4); EOS % 3.6 % (1.0-4.0); HEMATOCRIT 31.3 % (37.0-47.0); LYMPH % 16.6 % (27.0-41.0); MEAN CELL VOLUME 84.8 fl (81.0-99.0); MEAN CORPUSCULAR HGB CONC 30.7 g/dl (33.0-37.0); MEAN PLATELET VOLUME 10.2 fl (9.6-12.3); MONO % 8.9 % (3.0-9.0); NEUT # 8.2 10*3/uL (2.3-7.9); NEUT % 69.8 % (47.0-73.0); PLATELET COUNT AUTOMATED 364 10*3/uL (130-400); RED BLOOD COUNT 3.69 10*6/uL (4.10-5.10); RED CELL DISTRI WIDTH 14.4 % (0-14.5); WHITE BLOOD COUNT 11.7 10*3/uL (4.8-10.8)
[2023-01-10 06:59] LABS: BUN 8 mg/dl (9-23); CHLORIDE 100 mmol/L (98-107); POTASSIUM 4.5 mmol/L (3.4-5.1)
[2023-01-10 08:00] VITALS: BP 173/71
[2023-01-10 12:00] VITALS: BP 164/72
[2023-01-10 16:10] VITALS: BP 118/60
[2023-01-10 20:00] VITALS: BP 106/60
[2023-01-11] VITALS: BP 118/58
[2023-01-11 07:42] LABS: BUN 9 mg/dl (9-23); CHLORIDE 99 mmol/L (98-107)
[2023-01-11 08:00] VITALS: BP 160/71
[2023-01-11 12:00] VITALS: BP 110/60
[2023-01-11 16:00] VITALS: BP 117/60
[2023-01-11 20:00] VITALS: BP 137/59
[2023-01-12] VITALS: BP 131/60
[2023-01-12 06:39] LABS: BUN 10 mg/dl (9-23); CHLORIDE 100 mmol/L (98-107); POTASSIUM 4.1 mmol/L (3.4-5.1)
[2023-01-12 08:00] VITALS: BP 160/81
[2023-01-12 12:00] VITALS: BP 151/58
[2023-01-12 16:00] VITALS: BP 154/71
[2023-01-12 20:00] VITALS: BP 105/60
[2023-01-13] VITALS: BP 105/60; BP 123/67
[2023-01-13 06:44] LABS: BASO # 0.1 10*3/uL (0.0-0.1); BASO % 0.5 % (0.0-1.0); EOS # 0.4 10*3/uL (0.0-0.4); EOS % 3.1 % (1.0-4.0); HEMATOCRIT 30.7 % (37.0-47.0); LYMPH # 2.4 10*3/uL (1.3-4.4); LYMPH % 19.6 % (27.0-41.0); MEAN CELL VOLUME 85.3 fl (81.0-99.0); MEAN CORPUSCULAR HGB 26.1 pg (27.0-31.0); MEAN CORPUSCULAR HGB CONC 30.6 g/dl (33.0-37.0); MEAN PLATELET VOLUME 10.2 fl (9.6-12.3); MONO # 1.1 10*3/uL (0.1-1.0); MONO % 8.7 % (3.0-9.0); NEUT # 8.4 10*3/uL (2.3-7.9); NEUT % 67.7 % (47.0-73.0); PLATELET COUNT AUTOMATED 354 10*3/uL (130-400); RED CELL DISTRI WIDTH 14.3 % (0-14.5); WHITE BLOOD COUNT 12.5 10*3/uL (4.8-10.8)
[2023-01-13 07:03] LABS: BUN 9 mg/dl (9-23); CHLORIDE 97 mmol/L (98-107)
[2023-01-13 08:00] VITALS: BP 180/62
[2023-01-13 12:00] VITALS: BP 118/60
[2023-01-13 16:00] VITALS: BP 110/58; BP 151/91
[2023-01-13] MEDS ORDERED: IMDUR SA30 MG PO (16:44)
[2023-01-13] MEDS ORDERED: KLONOPIN0.5 MG PO (16:44)
[2023-01-13] MEDS ORDERED: ASPIRIN ADULT L81 M2 PO (16:44)
[2023-01-13] MEDS ORDERED: ATORVASTATIN CA40 M1 PO (16:44)
[2023-01-13] MEDS ORDERED: CARVEDILOL12.5 MG PO (16:44)
[2023-01-13 20:00] VITALS: BP 129/64
== END 2023-01-13 22:52 | DRG 917 ==
LOC: ED 18:33 → EDHOLD 23:03 → 4E 23:03 → 5E 01-13 13:38
PROVIDERS: Internal Medicine; Nurse Practitioner Family; Student in an Organized Health Care Education/Training Program; ADMIT Internal Medicine; ATTEND Internal Medicine
PROC: 4A12XM4 Monitoring of Cardiac Stress, External Approach (ICD-10-PCS; principal; 2023-01-06)
PROC: 3E073KZ Introduction of Other Diagnostic Substance into Coronary Artery, Percutaneous Approach (ICD-10-PCS; 2023-01-06)
DX: T40.2X1A Poisoning by other opioids, accidental (unintentional), initial encounter (principal); A41.9 Sepsis, unspecified organism; G93.41 Metabolic encephalopathy; J69.0 Pneumonitis due to inhalation of food and vomit; I21.4 Non-ST elevation (NSTEMI) myocardial infarction; N17.0 Acute kidney failure with tubular necrosis; R65.20 Severe sepsis without septic shock; I16.1 Hypertensive emergency; I50.32 Chronic diastolic (congestive) heart failure; E87.1 Hypo-osmolality and hyponatremia; E44.0 Moderate protein-calorie malnutrition; J96.11 Chronic respiratory failure with hypoxia; Z20.822 Contact with and (suspected) exposure to COVID-19; F31.9 Bipolar disorder, unspecified; I11.0 Hypertensive heart disease with heart failure; F41.9 Anxiety disorder, unspecified; K22.2 Esophageal obstruction; G89.29 Other chronic pain; M54.9 Dorsalgia, unspecified; R74.8 Abnormal levels of other serum enzymes; W18.30XA Fall on same level, unspecified, initial encounter; R29.6 Repeated falls; K21.9 Gastro-esophageal reflux disease without esophagitis; R73.03 Prediabetes; K44.9 Diaphragmatic hernia without obstruction or gangrene; J44.9 Chronic obstructive pulmonary disease, unspecified; G40.909 Epilepsy, unspecified, not intractable, without status epilepticus; Z88.1 Allergy status to other antibiotic agents; Z91.040 Latex allergy status; Z91.048 Other nonmedicinal substance allergy status; Z79.899 Other long term (current) drug therapy; Y92.89 Other specified places as the place of occurrence of the external cause; Z91.81 History of falling; Z90.710 Acquired absence of both cervix and uterus; Z95.0 Presence of cardiac pacemaker; Z87.891 Personal history of nicotine dependence; Z82.49 Family history of ischemic heart disease and other diseases of the circulatory system; Z82.3 Family history of stroke; Z68.21 Body mass index [BMI] 21.0-21.9, adult; Y93.89 Activity, other specified; Y99.8 Other external cause status

== ENCOUNTER 2023-02-25 12:08 | Emergency (ER) | payer MEDICARE ==
[~2023-02-25] VITALS: Ht 154.9 cm; Wt 47.6 kg
[~2023-02-25 12:08] MED LIST changes: +ACETAMINOPHEN325 M2 PO; +ASPIRIN ADULT L81 M2 PO; +ATORVASTATIN CA40 M1 PO; +BISACODYL10 MG R; +FLEET ENEMA - CH1 EA PO; +IMDUR SA30 MG PO; +MILK OF MA400 MG/53 JT; +SODIUM CHLORI1000 M5 PO
[2023-02-25 12:38] VITALS: BP 196/90
[2023-02-25 15:06] LABS: BASO # 0.1 10*3/uL (0.0-0.1); BASO % 0.8 % (0.0-1.0); EOS # 0.1 10*3/uL (0.0-0.4); EOS % 1.2 % (1.0-4.0); HEMATOCRIT 37.3 % (37.0-47.0); LYMPH # 1.3 10*3/uL (1.3-4.4); LYMPH % 14.9 % (27.0-41.0); MEAN CELL VOLUME 82.9 fl (81.0-99.0); MEAN CORPUSCULAR HGB 25.6 pg (27.0-31.0); MEAN CORPUSCULAR HGB CONC 30.8 g/dl (33.0-37.0); MEAN PLATELET VOLUME 9.3 fl (9.6-12.3); MONO # 0.6 10*3/uL (0.1-1.0); MONO % 6.7 % (3.0-9.0); NEUT # 6.7 10*3/uL (2.3-7.9); NEUT % 75.9 % (47.0-73.0); PLATELET COUNT AUTOMATED 398 10*3/uL (130-400); RED CELL DISTRI WIDTH 15.4 % (0-14.5); WHITE BLOOD COUNT 8.8 10*3/uL (4.8-10.8)
[2023-02-25 15:17] LABS: ACT PARTIAL THROMBO TIME 21.9 SECONDS (20.0-32.1)
[2023-02-25 15:41] LABS: ALKALINE PHOSPHATASE 152 U/L (46-116); BUN 10 mg/dl (9-23); CHLORIDE 99 mmol/L (98-107); LIPASE 33 U/L (12-53); POTASSIUM 3.4 mmol/L (3.4-5.1); SGPT/ALT 14 U/L (5-49); TOTAL PROTEIN 8.2 gm/dL (6.0-8.0)
== END 2023-02-25 17:45 | disposition short-term general hospital (02) ==
LOC: ED 12:08
PROVIDERS: Emergency Medicine
DX: S10.15XA Superficial foreign body of throat, initial encounter (principal); T18.128A Food in esophagus causing other injury, initial encounter; I10 Essential (primary) hypertension; K21.9 Gastro-esophageal reflux disease without esophagitis; E11.9 Type 2 diabetes mellitus without complications; F31.9 Bipolar disorder, unspecified; J44.9 Chronic obstructive pulmonary disease, unspecified; R10.2 Pelvic and perineal pain; Z88.1 Allergy status to other antibiotic agents; Z91.040 Latex allergy status; Z88.8 Allergy status to other drugs, medicaments and biological substances; Z98.890 Other specified postprocedural states; Z90.710 Acquired absence of both cervix and uterus; Z90.49 Acquired absence of other specified parts of digestive tract; Z95.5 Presence of coronary angioplasty implant and graft; Z87.891 Personal history of nicotine dependence; W44.F3XA Food entering into or through a natural orifice, initial encounter; Y93.89 Activity, other specified; Y92.89 Other specified places as the place of occurrence of the external cause; Y99.8 Other external cause status

== ENCOUNTER 2023-04-09 17:15 | Emergency (ER) | payer MEDICARE ==
[~2023-04-09] VITALS: Ht 154.9 cm; Wt 47.6 kg
[2023-04-09 17:17] VITALS: BP 177/75
== END 2023-04-09 17:39 | disposition home or self-care (01) ==
LOC: ED 17:15
DX: T18.128A Food in esophagus causing other injury, initial encounter (principal); I50.9 Heart failure, unspecified; J44.9 Chronic obstructive pulmonary disease, unspecified; K21.9 Gastro-esophageal reflux disease without esophagitis; I10 Essential (primary) hypertension; E11.9 Type 2 diabetes mellitus without complications; F31.9 Bipolar disorder, unspecified; E87.1 Hypo-osmolality and hyponatremia; Z88.1 Allergy status to other antibiotic agents; Z91.040 Latex allergy status; Z88.8 Allergy status to other drugs, medicaments and biological substances; Z90.710 Acquired absence of both cervix and uterus; Z90.49 Acquired absence of other specified parts of digestive tract; Z98.890 Other specified postprocedural states; Z87.891 Personal history of nicotine dependence; W44.F3XA Food entering into or through a natural orifice, initial encounter; Y93.89 Activity, other specified; Y92.89 Other specified places as the place of occurrence of the external cause; Y99.8 Other external cause status

== ENCOUNTER 2023-04-18 10:49 | Emergency (ER) | payer MEDICARE ==
[~2023-04-18] VITALS: Ht 154.9 cm; Wt 47.6 kg
[2023-04-18 10:56] VITALS: BP 176/79
[2023-04-18] MEDS ORDERED: GABAPENTIN 100 MG CAP PO ONE (11:15)
[2023-04-18 12:00] LABS: BASO # 0.1 10*3/uL (0.0-0.1); BASO % 0.5 % (0.0-1.0); EOS # 0.3 10*3/uL (0.0-0.4); EOS % 2.8 % (1.0-4.0); HEMATOCRIT 32.1 % (37.0-47.0); LYMPH # 1.7 10*3/uL (1.3-4.4); LYMPH % 15.9 % (27.0-41.0); MEAN CELL VOLUME 86.3 fl (81.0-99.0); MEAN CORPUSCULAR HGB 26.6 pg (27.0-31.0); MEAN CORPUSCULAR HGB CONC 30.8 g/dl (33.0-37.0); MEAN PLATELET VOLUME 9.2 fl (9.6-12.3); MONO # 1.2 10*3/uL (0.1-1.0); NEUT # 7.3 10*3/uL (2.3-7.9); NEUT % 69.3 % (47.0-73.0); PLATELET COUNT AUTOMATED 362 10*3/uL (130-400); RED BLOOD COUNT 3.72 10*6/uL (4.10-5.10); RED CELL DISTRI WIDTH 16.2 % (0-14.5); WHITE BLOOD COUNT 10.6 10*3/uL (4.8-10.8)
[2023-04-18 12:20] LABS: BUN 12 mg/dl (9-23); CHLORIDE 99 mmol/L (98-107); POTASSIUM 3.6 mmol/L (3.4-5.1)
[2023-04-18] MEDS ORDERED: Meloxicam 7.5 MG TAB PO ONE (12:35)
[2023-04-18] MEDS ORDERED: MELOXICAM7.5 MG PO (12:42)
[2023-04-18] MEDS ORDERED: NEURONTIN100 MG PO (12:42)
== END 2023-04-18 13:00 | disposition home or self-care (01) ==
LOC: ED 10:49
PROVIDERS: Nurse Practitioner
DX: M79.671 Pain in right foot (principal); M79.672 Pain in left foot; R60.0 Localized edema; I10 Essential (primary) hypertension; K21.9 Gastro-esophageal reflux disease without esophagitis; E11.9 Type 2 diabetes mellitus without complications; F31.9 Bipolar disorder, unspecified; J44.9 Chronic obstructive pulmonary disease, unspecified; Z88.1 Allergy status to other antibiotic agents; Z88.8 Allergy status to other drugs, medicaments and biological substances; Z91.040 Latex allergy status; Z90.49 Acquired absence of other specified parts of digestive tract; Z90.710 Acquired absence of both cervix and uterus; Z98.890 Other specified postprocedural states; Z87.891 Personal history of nicotine dependence

== ENCOUNTER 2023-05-10 17:44 | Emergency (ER) | payer MEDICARE ==
[~2023-05-10] VITALS: Ht 154.9 cm; Wt 49.9 kg
[~2023-05-10 17:44] MED LIST changes: +MELOXICAM7.5 MG PO; +NEURONTIN100 MG PO
[2023-05-10 17:52] VITALS: BP 170/86
[2023-05-10] MEDS ORDERED: Ondansetron Hydrochloride 4 MG/2 ML VIAL IV ONE (17:55)
[2023-05-10] MEDS ORDERED: Albuterol Sulfate 2.5 MG/3 ML VIAL NEB ONE (17:55)
[2023-05-10] MEDS ORDERED: Glucagon Hydrochloride 1 MG SYR IV ONE (17:55)
[2023-05-10] MEDS ORDERED: methylPREDNISolone sod succ 125 MG VIAL IV ONE (17:55)
[2023-05-10 18:07] LABS: BASO # 0.1 10*3/uL (0.0-0.1); BASO % 0.9 % (0.0-1.0); EOS # 0.5 10*3/uL (0.0-0.4); EOS % 4.8 % (1.0-4.0); LYMPH # 1.7 10*3/uL (1.3-4.4); LYMPH % 17.7 % (27.0-41.0); MEAN CELL VOLUME 90.3 fl (81.0-99.0); MEAN CORPUSCULAR HGB 27.5 pg (27.0-31.0); MEAN CORPUSCULAR HGB CONC 30.5 g/dl (33.0-37.0); MEAN PLATELET VOLUME 9.4 fl (9.6-12.3); MONO # 1.2 10*3/uL (0.1-1.0); MONO % 12.1 % (3.0-9.0); NEUT # 6.3 10*3/uL (2.3-7.9); NEUT % 64.2 % (47.0-73.0); PLATELET COUNT AUTOMATED 289 10*3/uL (130-400); RED BLOOD COUNT 4.32 10*6/uL (4.10-5.10); RED CELL DISTRI WIDTH 16.5 % (0-14.5); WHITE BLOOD COUNT 9.7 10*3/uL (4.8-10.8)
[2023-05-10 18:24] LABS: ALKALINE PHOSPHATASE 244 U/L (46-116); BUN 11 mg/dl (9-23); CHLORIDE 97 mmol/L (98-107); POTASSIUM 4.2 mmol/L (3.4-5.1); SGPT/ALT 13 U/L (5-49); TOTAL PROTEIN 7.9 gm/dL (6.0-8.0)
[2023-05-10] MEDS ORDERED: PEPCID20 MG PO (18:42)
[2023-05-10] MEDS ORDERED: PREDNISONE20 M1 PO (18:42)
== END 2023-05-10 19:04 | disposition home or self-care (01) ==
LOC: ED 17:44
PROVIDERS: Emergency Medicine
DX: T18.128A Food in esophagus causing other injury, initial encounter (principal); J45.901 Unspecified asthma with (acute) exacerbation; I11.0 Hypertensive heart disease with heart failure; I50.9 Heart failure, unspecified; F31.9 Bipolar disorder, unspecified; J44.9 Chronic obstructive pulmonary disease, unspecified; K21.9 Gastro-esophageal reflux disease without esophagitis; E78.5 Hyperlipidemia, unspecified; Z88.1 Allergy status to other antibiotic agents; Z91.048 Other nonmedicinal substance allergy status; Z91.040 Latex allergy status; Z79.899 Other long term (current) drug therapy; Z79.82 Long term (current) use of aspirin; Z90.711 Acquired absence of uterus with remaining cervical stump; Z90.49 Acquired absence of other specified parts of digestive tract; Z95.0 Presence of cardiac pacemaker; Z98.890 Other specified postprocedural states; Z87.891 Personal history of nicotine dependence; W44.F3XA Food entering into or through a natural orifice, initial encounter; Y93.89 Activity, other specified; Y92.89 Other specified places as the place of occurrence of the external cause; Y99.8 Other external cause status

== ENCOUNTER 2023-05-17 11:49 | Emergency (ER) | payer MEDICARE ==
[~2023-05-17] VITALS: Ht 154.9 cm; Wt 54.4 kg
[~2023-05-17 11:49] MED LIST changes: +PEPCID20 MG PO
[2023-05-17] MEDS ORDERED: MORPHINE Sulfate 2 MG/ML SYR IV ONE (12:05)
[2023-05-17] MEDS ORDERED: IOHEXOL 300 MG/ML 100 ML VIAL IV ONE (12:05)
[2023-05-17 12:19] LABS: BASO # 0.1 10*3/uL (0.0-0.1); BASO % 0.7 % (0.0-1.0); EOS # 0.5 10*3/uL (0.0-0.4); HEMATOCRIT 35.7 % (37.0-47.0); LYMPH # 1.3 10*3/uL (1.3-4.4); LYMPH % 12.7 % (27.0-41.0); MEAN CORPUSCULAR HGB 27.4 pg (27.0-31.0); MEAN CORPUSCULAR HGB CONC 30.8 g/dl (33.0-37.0); MEAN PLATELET VOLUME 9.3 fl (9.6-12.3); MONO # 1.4 10*3/uL (0.1-1.0); MONO % 13.6 % (3.0-9.0); NEUT # 6.8 10*3/uL (2.3-7.9); NEUT % 67.3 % (47.0-73.0); PLATELET COUNT AUTOMATED 311 10*3/uL (130-400); RED BLOOD COUNT 4.01 10*6/uL (4.10-5.10); RED CELL DISTRI WIDTH 15.9 % (0-14.5); WHITE BLOOD COUNT 10.1 10*3/uL (4.8-10.8)
[2023-05-17 12:32] LABS: ACT PARTIAL THROMBO TIME 23.9 SECONDS (20.0-32.1)
[2023-05-17 12:43] LABS: ALKALINE PHOSPHATASE 203 U/L (46-116); BUN 6 mg/dl (9-23); CHLORIDE 96 mmol/L (98-107); LIPASE 39 U/L (12-53); POTASSIUM 4.4 mmol/L (3.4-5.1); SGPT/ALT 8 U/L (5-49); TOTAL PROTEIN 7.3 gm/dL (6.0-8.0)
[2023-05-17 15:27] VITALS: BP 186/85
[2023-05-17] MEDS ORDERED: Pantoprazole Sodium 40 MG in SODIUM CHLORIDE 0.9% 50 ML IV SCH (16:35)
== END 2023-05-17 19:06 | disposition short-term general hospital (02) ==
LOC: ED 11:49
PROVIDERS: Internal Medicine
DX: K92.2 Gastrointestinal hemorrhage, unspecified (principal); R11.0 Nausea; Z88.1 Allergy status to other antibiotic agents; Z91.048 Other nonmedicinal substance allergy status; Z91.040 Latex allergy status; Z79.899 Other long term (current) drug therapy; Z79.82 Long term (current) use of aspirin; Z90.711 Acquired absence of uterus with remaining cervical stump; Z90.49 Acquired absence of other specified parts of digestive tract; Z95.0 Presence of cardiac pacemaker; Z98.890 Other specified postprocedural states; Z87.891 Personal history of nicotine dependence

== ENCOUNTER 2023-08-19 01:33 | Emergency (ER) | payer MEDICARE, OTHER ==
[~2023-08-19] VITALS: Ht 160 cm; Wt 64.9 kg
[~2023-08-19 01:33] MED LIST changes: +DOXYCYCLINE MO100 MG PO; +ISORDIL TITRADOS5 MG PO; +LMX4 4% TRANSPAR1 EA PO; +MELATONIN3 MG PO; +NEURONTIN300 MG PO; +TYLENOL EXTRA500 M2 PO
[2023-08-19 01:35] VITALS: BP 141/68
[2023-08-19] MEDS ORDERED: Acetaminophen/Hydrocodone 5 MG/325 MG TABLET PO ONE (01:45)
[2023-08-19] MEDS ORDERED: LORazepam 0.5 MG TAB PO ONE (02:10)
[2023-08-19 03:58] LABS: BASO # 0.1 10*3/uL (0.0-0.1); BASO % 1.1 % (0.0-1.0); EOS # 0.6 10*3/uL (0.0-0.4); EOS % 7.7 % (1.0-4.0); HEMATOCRIT 36.3 % (37.0-47.0); LYMPH # 2.1 10*3/uL (1.3-4.4); MEAN CELL VOLUME 92.8 fl (81.0-99.0); MEAN CORPUSCULAR HGB 29.2 pg (27.0-31.0); MEAN CORPUSCULAR HGB CONC 31.4 g/dl (33.0-37.0); MEAN PLATELET VOLUME 9.9 fl (9.6-12.3); MONO # 1.1 10*3/uL (0.1-1.0); MONO % 14.4 % (3.0-9.0); NEUT # 3.4 10*3/uL (2.3-7.9); NEUT % 47.1 % (47.0-73.0); PLATELET COUNT AUTOMATED 192 10*3/uL (130-400); RED BLOOD COUNT 3.91 10*6/uL (4.10-5.10); RED CELL DISTRI WIDTH 14.3 % (0-14.5); WHITE BLOOD COUNT 7.3 10*3/uL (4.8-10.8)
[2023-08-19 04:18] LABS: BUN 12 mg/dl (9-23); CHLORIDE 103 mmol/L (98-107); POTASSIUM 3.6 mmol/L (3.4-5.1)
[2023-08-19] MEDS ORDERED: BUMETANIDE 1 MG TAB PO ONE (05:00)
== END 2023-08-19 05:30 | disposition home or self-care (01) ==
LOC: ED 01:33
PROVIDERS: Internal Medicine
DX: I11.0 Hypertensive heart disease with heart failure (principal); I50.33 Acute on chronic diastolic (congestive) heart failure; D64.9 Anemia, unspecified; R60.0 Localized edema; F41.9 Anxiety disorder, unspecified; Z88.1 Allergy status to other antibiotic agents; Z91.048 Other nonmedicinal substance allergy status; Z79.899 Other long term (current) drug therapy; Z79.2 Long term (current) use of antibiotics; Z79.82 Long term (current) use of aspirin; Z90.711 Acquired absence of uterus with remaining cervical stump; Z90.49 Acquired absence of other specified parts of digestive tract; Z95.0 Presence of cardiac pacemaker; Z98.890 Other specified postprocedural states; Z87.891 Personal history of nicotine dependence

== ENCOUNTER 2023-09-21 17:50 | Emergency (ER) | payer MEDICARE, OTHER ==
[~2023-09-21] VITALS: Ht 154.9 cm; Wt 69.4 kg
[2023-09-21] MEDS ORDERED: SODIUM CHLORIDE 0.9% 1,000 ML IV ONE (18:00)
[2023-09-21] MEDS ORDERED: Glucagon Hydrochloride 1 MG SYR IV ONE (18:00)
[2023-09-21 18:18] LABS: BASO # 0.1 10*3/uL (0.0-0.1); BASO % 0.6 % (0.0-1.0); EOS # 0.2 10*3/uL (0.0-0.4); HEMATOCRIT 35.6 % (37.0-47.0); LYMPH # 1.9 10*3/uL (1.3-4.4); LYMPH % 20.4 % (27.0-41.0); MEAN CELL VOLUME 89.4 fl (81.0-99.0); MEAN CORPUSCULAR HGB 29.9 pg (27.0-31.0); MEAN CORPUSCULAR HGB CONC 33.4 g/dl (33.0-37.0); MEAN PLATELET VOLUME 9.4 fl (9.6-12.3); MONO # 1.3 10*3/uL (0.1-1.0); MONO % 13.8 % (3.0-9.0); NEUT # 5.9 10*3/uL (2.3-7.9); NEUT % 62.8 % (47.0-73.0); PLATELET COUNT AUTOMATED 211 10*3/uL (130-400); RED BLOOD COUNT 3.98 10*6/uL (4.10-5.10); RED CELL DISTRI WIDTH 12.4 % (0-14.5); WHITE BLOOD COUNT 9.3 10*3/uL (4.8-10.8)
[2023-09-21 18:33] LABS: POTASSIUM 2.7 mmol/L (3.4-5.1)
[2023-09-21] MEDS ORDERED: POTASSIUM20 MEQ/16 PO (18:40)
[2023-09-21] MEDS ORDERED: POTASSIUM CHLORIDE 20 MEQ TAB PO ONE (18:40)
[2023-09-21] MEDS ORDERED: Ondansetron Hydrochloride 4 MG/2 ML VIAL IV ONE (19:05)
[2023-09-21] MEDS ORDERED: BUMETANIDE0.5 MG PO (19:21)
[2023-09-21] MEDS ORDERED: REGLAN5 MG PO (19:25)
[2023-09-21] MEDS ORDERED: TRAMADOL HCL50 MG PO (19:25)
[2023-09-21] MEDS ORDERED: VENT7GM INH (19:26)
[2023-09-21] MEDS ORDERED: VENTOLIN 02.5 MG/3 M INH (19:26)
[2023-09-21] MEDS ORDERED: LOPERAMIDE HCL2 MG PO (19:28)
[2023-09-21] MEDS ORDERED: Ondansetron4 MG PO (19:28)
[2023-09-21] MEDS ORDERED: methylPREDNISolone sod succ 125 MG VIAL IV ONE (19:35)
[2023-09-21 19:39] VITALS: BP 172/77
== END 2023-09-21 20:54 | disposition home or self-care (01) ==
LOC: ED 17:50
PROVIDERS: Emergency Medicine
DX: T18.128A Food in esophagus causing other injury, initial encounter (principal); E87.6 Hypokalemia; I10 Essential (primary) hypertension; K21.9 Gastro-esophageal reflux disease without esophagitis; E11.9 Type 2 diabetes mellitus without complications; F31.9 Bipolar disorder, unspecified; J44.9 Chronic obstructive pulmonary disease, unspecified; Z87.891 Personal history of nicotine dependence; Z88.1 Allergy status to other antibiotic agents; Z91.040 Latex allergy status; Z88.8 Allergy status to other drugs, medicaments and biological substances; Z90.710 Acquired absence of both cervix and uterus; Z90.49 Acquired absence of other specified parts of digestive tract; Z98.890 Other specified postprocedural states; W44.F3XA Food entering into or through a natural orifice, initial encounter; Y93.89 Activity, other specified; Y92.89 Other specified places as the place of occurrence of the external cause; Y99.8 Other external cause status

== ENCOUNTER 2024-02-16 04:30 | Emergency (ER) | payer MEDICARE, OTHER ==
[~2024-02-16] VITALS: Ht 167.6 cm; Wt 72.6 kg
[~2024-02-16 04:30] MED LIST changes: +BUMETANIDE0.5 MG PO; +LOPERAMIDE HCL2 MG PO; +POTASSIUM20 MEQ/16 PO; +VENT7GM INH; +VENTOLIN 02.5 MG/3 M INH
[2024-02-16 06:39] LABS: HEMATOCRIT 40.3 % (37.0-47.0); MEAN CELL VOLUME 90.8 fl (81.0-99.0); MEAN CORPUSCULAR HGB 29.7 pg (27.0-31.0); MEAN CORPUSCULAR HGB CONC 32.8 g/dl (33.0-37.0); MEAN PLATELET VOLUME 9.9 fl (9.6-12.3); PLATELET COUNT AUTOMATED 250 10*3/uL (130-400); RED BLOOD COUNT 4.44 10*6/uL (4.10-5.10); RED CELL DISTRI WIDTH 12.1 % (0-14.5); WHITE BLOOD COUNT 18.2 10*3/uL (4.8-10.8)
[2024-02-16] MEDS ORDERED: AMLODIPINE BESY10 MG PO (06:39)
[2024-02-16 06:41] LABS: MANUAL DIFF REFLEX YES
[2024-02-16 07:01] LABS: BASOPHILS 1 % (0-1); TOTAL CELLS COUNTED 100 #CELLS
[2024-02-16 07:02] LABS: ALKALINE PHOSPHATASE 333 U/L (46-116); BUN 11 mg/dl (9-23); CHLORIDE 92 mmol/L (98-107); PLATELET SUFFICIENCY NORMAL (NORMAL); POLYCHROMASIA SLIGHT; POTASSIUM 4.3 mmol/L (3.4-5.1); SGPT/ALT 135 U/L (5-49); TOTAL PROTEIN 8.5 gm/dL (6.0-8.0)
[2024-02-16 07:04] LABS: LIPASE 34 U/L (12-53)
[2024-02-16] MEDS ORDERED: Piperacillin Sodium/Tazobact 50 ML IV ONE (07:15)
[2024-02-16] MEDS ORDERED: fentaNYL CITRATE/PF 50 MCG/ML SYRINGE IV ONE (07:25)
[2024-02-16] MEDS ORDERED: Ondansetron Hydrochloride 4 MG/2 ML VIAL IV ONE (07:25)
[2024-02-16 08:07] VITALS: BP 131/64
== END 2024-02-16 10:28 | disposition short-term general hospital (02) ==
LOC: ED 04:30
PROVIDERS: Internal Medicine
DX: K80.50 Calculus of bile duct without cholangitis or cholecystitis without obstruction (principal); R11.2 Nausea with vomiting, unspecified; I10 Essential (primary) hypertension; K21.9 Gastro-esophageal reflux disease without esophagitis; E11.9 Type 2 diabetes mellitus without complications; F31.9 Bipolar disorder, unspecified; J44.9 Chronic obstructive pulmonary disease, unspecified; E87.1 Hypo-osmolality and hyponatremia; Z88.1 Allergy status to other antibiotic agents; Z91.048 Other nonmedicinal substance allergy status; Z91.040 Latex allergy status; Z90.710 Acquired absence of both cervix and uterus; Z90.49 Acquired absence of other specified parts of digestive tract; Z98.890 Other specified postprocedural states; Z87.891 Personal history of nicotine dependence

== ENCOUNTER 2024-04-28 17:14 | Inpatient (IN) | payer OTHER ==
[~2024-04-28] VITALS: Ht 162.6 cm; Wt 59.9 kg
[~2024-04-28 17:14] MED LIST changes: +BUMETANIDE1 MG PO; +CEFUROXIME AXE250 MG PO; +REXULTI1 MG PO; +TAMSULOSIN HCL0.4 MG PO; +VITAMIN D250 MC1 PO
[2024-04-28 17:30] VITALS: BP 105/90
[2024-04-28] MEDS ORDERED: diazePAM 10 MG/2 ML SYR IV ONE (17:35)
[2024-04-28] MEDS ORDERED: MORPHINE Sulfate 2 MG/ML SYR IV PRN (18:00)
[2024-04-28] MEDS ORDERED: ATROPINE SULFATE 1% 2 ML BOTTLE SL PRN (18:00)
[2024-04-28] MEDS ORDERED: diazePAM 10 MG/2 ML SYR IV PRN (18:00)
[2024-04-28] MEDS ORDERED: SODIUM CHLORIDE 0.9% 500 ML IV ONE (18:57)
[2024-04-28] MEDS ORDERED: MORPHINE Sulfate 50 MG in SODIUM CHLORIDE 0.9% 45 ML IV SCH (19:00)
== END 2024-04-28 22:51 | DRG 871 ==
LOC: ICCU 17:14
PROVIDERS: ADMIT Internal Medicine; ATTEND Internal Medicine
DX: A41.89 Other specified sepsis (principal); J96.00 Acute respiratory failure, unspecified whether with hypoxia or hypercapnia; R65.21 Severe sepsis with septic shock; N17.0 Acute kidney failure with tubular necrosis; E87.20 Acidosis, unspecified; N30.01 Acute cystitis with hematuria; E83.9 Disorder of mineral metabolism, unspecified; G40.909 Epilepsy, unspecified, not intractable, without status epilepticus; M15.9 Polyosteoarthritis, unspecified; Z90.710 Acquired absence of both cervix and uterus; Z90.49 Acquired absence of other specified parts of digestive tract; Z87.891 Personal history of nicotine dependence; Z82.49 Family history of ischemic heart disease and other diseases of the circulatory system; Z88.1 Allergy status to other antibiotic agents; Z91.040 Latex allergy status; Z79.899 Other long term (current) drug therapy; I25.2 Old myocardial infarction